=== PATIENT | female | born 1945 | race Caucasian/White ===

== ENCOUNTER 2020-05-03 14:55 | Outpatient (CLI) | payer OTHER, MEDICARE, SELFPAY | END 2020-05-03 14:56 | disposition home or self-care (01) | LOC: ANHCOVIDVC 14:55 | PROVIDERS: PCP Emergency Medicine | DX: Z23 Encounter for immunization (principal) | CPT/HCPCS: 0001A; 91300 ==

== ENCOUNTER 2020-05-24 14:41 | Outpatient (CLI) | payer OTHER, MEDICARE, SELFPAY | END 2020-05-24 14:42 | disposition home or self-care (01) | LOC: ANHCOVIDVC 14:41 | PROVIDERS: PCP Emergency Medicine | DX: Z23 Encounter for immunization (principal) | CPT/HCPCS: 0002A; 91300 ==

== ENCOUNTER 2020-06-26 08:07 | Emergency (ER) | payer OTHER, SELFPAY ==
--- NOTE | 2020-06-26 08:12 | ED.GENADULT ---
HPI - General Adult General Chief complaint: Unspecified Stated complaint: Abdominal Pain,Cough Time Seen by Provider: 06/26/20 08:23 Source: patient and RN notes reviewed Mode of arrival: ambulatory Limitations: no limitations History of Present Illness HPI narrative: 75-year-old female with history of multiple chronic conditions presents with concern for shortness of breath and nonproductive cough for 1 week. She reports a history of COPD, denies having used any of her regular medications or inhalers. Reports she has a nebulizer at home which she has not used. Denies using her albuterol inhaler recently. Reports symptoms of shortness of breath and cough have been worsening over the last week. Reports she is fully Covid vaccinated. In a separate complaint she reports intermittent mid abdominal discomfort. She denies any exacerbating or relieving factors. She denies nausea, vomiting, diarrhea, constipation. Had a normal bowel movement this morning. She reports normal appetite. She reports a history of having an ulcer, and reports this feels similar to her discomfort when she had an ulcer. She denies fever, body aches, chills, sweats. MD complaint: Shortness of breath Related Data Home Medications Medication Instructions Recorded Confirmed furosemide 40 mg PO DAILY 02/23/19 06/26/20 potassium chloride 10 meq PO DAILY 02/23/19 06/26/20 simvastatin 20 mg PO HS 02/23/19 06/26/20 metoprolol succinate 100 mg See Rx Instructions PO DAILY 03/16/20 06/26/20 tablet,extended release 24 hr Allergies Allergy/AdvReac Type Severity Reaction Status Date / Time No Known Drug Allergies Allergy Other Verified 06/26/20 08:17 Review of Systems Review of Systems: Narrative: CONSTITUTIONAL: Denies malaise, chills, sweats, or fever. EYES: Denies visual changes, redness, or discharge. ENT: Denies rhinorrhea, congestion, sinus pain, otalgia or sore throat. CARDIOVASCULAR: Denies chest pain, palpitations, or edema. RESPIRATORY: Reports cough, dyspnea. GASTROINTESTINAL: Reports mid abdominal discomfort. Denies nausea, vomiting, diarrhea, bloody, or mucous stools. GENITOURINARY: Denies dysuria, frequency, urgency or hematuria. SKIN: Denies rash or itching. MUSCULOSKELETAL: Denies myalgia. NEUROLOGIC: Denies numbness, weakness, or headache. All systems reviewed & are unremarkable except as noted in HPI and below PMFSH Past Medical History Medical History Afib Anxiety CHF (congestive heart failure) COPD (chronic obstructive pulmonary disease) DJD (degenerative joint disease) HTN (hypertension) Hypothyroid Ulcer Surgical History Surgical History History of knee replacement (~2013) No significant past surgical history Social History Social History Social History: Patient drinks coffee daily. Smoking status: Never smoker Alcohol intake: never Substance use: never Substance use type: does not use Gender identity (if verbalized by the patient): Female Spiritual care concerns: No Agree to blood products: No Comments At time of signature, agree with nursing past medical, surgical, social and family history. There is no relevant family history pertinent to the presenting complaint Exam Narrative: Exam Narrative: GENERAL: Well-appearing, well-nourished, and in no acute distress. HEAD: Normocephalic, atraumatic. EYES: PERRLA, conjunctivae clear, and EOMI. No nystagmus. ENT: Nares clear. Mucous membranes moist. NECK: Supple. CHEST: No respiratory distress. Clear to auscultation, aeration fair. No bony deformities, no asymmetry. Speaks in full sentences. HEART: Regular rate and rhythm. No murmur heard. Normal peripheral pulses. ABDOMEN: Soft, obese, nontender, normal active bowel sounds, no palpable masses. SKIN: Warm, dry, no rash. NEURO: Alert and or
[2020-06-26 08:21] VITALS: BP 132/72; PULSE 82; RESP 20; TEMP 36.7; O2SAT 98
[2020-06-26 08:24] VITALS: BP 132/72; PULSE 82; RESP 20; TEMP 36.7; O2SAT 98
[2020-06-26] MEDS: ALBUTEROL SULFATE NEB 2.5 MG/3 ML INH INHALATION (08:50)
[2020-06-26] MEDS: IPRATROPIUM BR 0.02% INH SOLN 0.5 MG/2.5 ML VIAL INHALATION (08:50)
[2020-06-26] MEDS: methylPREDNISolone SOD SUCC 125 MG VIAL IM (08:51)
[2020-06-26 09:26] VITALS: PULSE 86; RESP 18; O2SAT 96
== END 2020-06-26 09:26 | disposition home or self-care (01) ==
PROVIDERS: Emergency Provider Nurse Practitioner; PCP Emergency Medicine
DX: J44.1 Chronic obstructive pulmonary disease with (acute) exacerbation (principal); N39.0 Urinary tract infection, site not specified; I48.91 Unspecified atrial fibrillation; I11.0 Hypertensive heart disease with heart failure; I50.9 Heart failure, unspecified; E03.9 Hypothyroidism, unspecified; Z96.659 Presence of unspecified artificial knee joint
CPT/HCPCS: 81003; 87086; 87088; 96372; 99213; G0463; J2930

== ENCOUNTER 2020-11-24 11:08 | Inpatient (IN) | payer OTHER, MEDICAID, SELFPAY ==
[2020-11-24] VITALS (33 sets, daily range): BP systolic 92–130; BP diastolic 43–87; PULSE 88–144; RESP 16–44; TEMP 36.4–36.9; O2SAT 87–100; BMI 44.7
--- NOTE | ~2020-11-24 | XR_ITS ---
EXAMINATION: XR chest 1V portable EXAM DATE: 11/24/2020 11:51 INDICATION: Cough, dyspnea. TECHNIQUE: Portable AP frontal chest x-ray was obtained. Comparison is made to prior examination from 02/28/2019. FINDINGS: Moderately enlarged cardiac silhouette, cardiomegaly and/or pericardial effusion. There is pulmonary vascular congestion. There is indistinct reticulation with a bibasal predominance which may indicate pulmonary edema. Pneumonia not excludable. Please clinically correlate. No sizable pleural effusion. No pneumothorax. There are bony degenerative changes. IMPRESSION: 1. Findings consistent with CHF exacerbation. 2. Pneumonia not excludable. Reviewed, dictated and finalized at location A.
--- NOTE | ~2020-11-24 | XR_ITS ---
EXAMINATION: XR chest 1V portable DATE: 11/28/2020 07:57 INDICATION: Congestive heart failure. TECHNIQUE: A single frontal view of the chest was obtained. COMPARISON: Chest single view 11/24/2020 FINDINGS: There is a diffuse interstitial pattern, consistent with mild pulmonary edema. There is a s mall left pleural effusion. No pneumothorax. Cardiomegaly is noted. IMPRESSION: 1. Mild pulmonary edema. 2. Small left pleural effusion. 3. Cardiomegaly. Reviewed, dictated and finalized at location A.
--- NOTE | ~2020-11-24 | US_ITS ---
EXAMINATION: US venous doppler LE EXAM DATE: 11/25/2020 08:38 INDICATION: Bilateral leg edema, pain and swelling. Redness. TECHNIQUE: Multiple grayscale, color flow and Doppler images of the lower extremity deep venous syste ms bilaterally were obtained and reviewed. Comparison is made to prior examination from 2008. FINDINGS: RIGHT SIDE Common femoral: -------- Normal. Profunda femoral: ------- Normal. Femoral: Normal. Popliteal: Normal. Posterior tibial: ---------Thrombosed. Peroneal: Normal. Gastrocnemius: Not visualized. Soleus: Not visualized. Greater saphenous: ----- Normal. Lesser saphenous: ------ Not visualized. LEFT SIDE Common femoral: -------- Normal. Profunda femoral: ------- Normal. Femoral: Normal. Popliteal: Normal. Posterior tibial: ---------Thrombosed. Peroneal: Normal. Gastrocnemius: Not visualized. Soleus: Not visualized. Greater saphenous: ----- Normal. Lesser saphenous: ------ Not visualized. IMPRESSION: 1. Positive for bilateral posterior tibial deep venous thrombosis. I discussed this finding with nurse Silva in the IMU at 11/25/2020 08:49 CDT. Reviewed, dictated and finalized at location A.
--- NOTE | ~2020-11-24 | XR_ITS ---
EXAMINATION: XR chest 1V portable DATE: 11/30/2020 09:05 INDICATION: COPD, congestive heart failure and hypertension presenting with shortness of breath. TECHNIQUE: frontal view of the chest was obtained. COMPARISON: Chest radiograph dated 11/28/2020 FINDINGS: Linear bandlike discoid atelectasis at the right lower lung zone. Pulmonary vascular congestion witho ut gibran pulmonary edema. No pleural effusion or pneumothorax. Cardiomegaly. Moderate degenerative sk eletal changes in the spine and at both shoulders. IMPRESSION: 1. Cardiomegaly with pulmonary vascular congestion but without gibran pulmonary edema. 2. Discoid atelectasis in the right lower lung zone. Reviewed, dictated and finalized at location B.
--- NOTE | ~2020-11-24 | US_ITS ---
EXAMINATION: US arterial duplex LE EXAM DATE: 11/24/2020 12:39 INDICATION: Leg pain. TECHNIQUE: Multiple grayscale and Doppler images of the lower extremity arteries duplex were obtained (by a technologist who performed the scan) and subsequently reviewed. Comparison is made to prior ex amination from 02/24/2019. FINDINGS: Velocities reported in centimeters per second. Right common femoral artery 81, superficial femoral artery 91, popliteal 38. Biphasic waveforms. Left common femoral artery 58, superficial femoral artery 59, popliteal artery 43. Biphasic waveforms . No dopplerable signal was detected in the dorsalis pedis or posterior tibial arteries. Please correla te with the prior arterial Doppler report from 2019 indicating findings could be chronic. Some scatte red arterial sclerosis in the arteries proximally. IMPRESSION: Could not confirm arterial Doppler flow in calf arteries bilaterally, most likely chronic severe arteriosclerotic disease but please clinically correlate. Reviewed, dictated and finalized at location A. IMPRESSION: Could not confirm arterial Doppler flow in calf arteries bilaterall y, most likely chronic severe arteriosclerotic disease but please clinically co rrelate.
--- NOTE | 2020-11-24 11:27 | ECG_ITS ---
Measurements Intervals [place] Rate: 122 P: IA: 0 QRS: 135 QRSD: 106 T: 71 QT: 314 QTc: 449 Interpretive Statements ATRIAL FIBRILLATION WITH RAPID VENTRICULAR RESPONSE RIGHT AXIS DEVIATION BORDERLINE T WAVE ABNORMALITY- HIGH LATERAL LEADS BASELINE ARTIFACT- I, II, AVR, V2-V6 ABNORMAL ECG Electronically Signed On 11-24-2020 11:57:04 CDT by Lavon Tesfaye D.O.
--- NOTE | 2020-11-24 11:49 | ED.WEAKNESS ---
HPI - Weakness General Chief complaint: Weakness Stated complaint: WEAKNESS Time Seen by Provider: 11/24/20 11:19 Source: RN notes reviewed History of Present Illness HPI Narrative: Patient presents to emergency department from home via EMS for weakness. The patient recently moved into assisted living and normally calls her daughter every morning per the daughter the patient had called this morning and went to check on her and the patient been too weak to get up when EMS was called the patient was noted to have O2 saturations in the mid 80s was placed on nonrebreather. The patient states he has been more weak over the past 2 days with increasing shortness of breath she denies any fevers or chills chest pain abdominal pain nausea vomiting patient states she is on blood thinner which is Eliquis twice a day which she has been taking Related Data Home Medications Medication Instructions Recorded Confirmed furosemide 40 mg PO DAILY 02/23/19 06/26/20 potassium chloride 10 meq PO DAILY 02/23/19 06/26/20 simvastatin 20 mg PO HS 02/23/19 06/26/20 metoprolol succinate 100 mg See Rx Instructions PO DAILY 03/16/20 06/26/20 tablet,extended release 24 hr Allergies Allergy/AdvReac Type Severity Reaction Status Date / Time No Known Drug Allergies Allergy Other Verified 11/24/20 11:33 Review of Systems Review of Systems: Gen.: Denies fevers or chills Eyes: Denies eye pain or visual change ENT: Denies congestion Respiratory: See HPI CV: Denies chest pain or palpitations GI: Denies abdominal pain nausea, emesis or diarrhea Musculoskeletal: Denies back pain or muscle pain Neuro: Reports weakness Skin: Denies rash Except as documented, all other systems reviewed and negative [facility] Past Medical History Medical History Afib Anxiety CHF (congestive heart failure) COPD (chronic obstructive pulmonary disease) DJD (degenerative joint disease) HTN (hypertension) Hypothyroid Ulcer Surgical History Surgical History History of knee replacement (~2013) No significant past surgical history Social History Social History Social History: Patient drinks coffee daily. Smoking status: Never smoker Alcohol intake: never Substance use: never Substance use type: does not use Gender identity (if verbalized by the patient): Female Sexual Orientation (if Verbalized by the Patient): Straight or Heterosexual Spiritual care concerns: No Agree to blood products: No Exam Narrative: APPEARANCE: No acute distress, nontoxic, resting in bed EYES: EOMI HEENT: Normocephalic, atraumatic, OMM RESPIRATORY: Coarse breath sounds are bilateral lung montanez with crackles in the bilateral lung bases CARDIOVASCULAR: Irregular regular without murmurs rubs or gallops. ABDOMINAL: Soft, nontender, nondistended, no rebound or guarding MUSCULOSKELETAl: Moves all extremities. 3+ edema bilateral lower extremities, cyanosis and distal lower legs from mid [place] distally no dorsalis pedis pulse can be palpated NEURO: Awake and alert x 4. Following commands, speech normal, no focal deficits SKIN:: Warm, dry. No rashes lesions or abrasions PSYCHIATRIC: Normal affect/mood, Course Course Emergency Course: Reviewed old records the patient has had previous episode of similar with her legs she had had intervention performed by cardiology in February which showed collateral flow the patient has been on blood thinner since that time which she has been taking discussed with radiology and ultrasound appears unchanged from prior Discussed with NIK Cruz for Dr. Mccabe presentation work-up agrees with admission at this time Discussed with Eileen for Dr. Polanco for cardiology agrees with consult Discussed with patient and family results of workup and diagnosis. Discussed need for admission. Patient and
[2020-11-24 12:00] LABS: Basophils Percent Auto 0.3 % (0.2-1.2); Hematocrit 44.7 % (37.0-47.0); Hemoglobin 13.5 g/dL (12.0-15.0); Immature Granulocyte Absolute 0.07 K/mm3 (0.00-0.031); Immature Granulocyte Percent A 0.6 % (0-0.5); Lymphocytes Absolute Auto 1.57 K/mm3 (0.9-3.2); Lymphocytes Percent Auto 13.1 % (18.3-44.2); Mean Corpuscular HGB Conc 30.2 g/dl (32-36); Mean Corpuscular Hemoglobin 29.5 pg (26-34); Mean Corpuscular Volume 97.6 fl (80-100); Mean Platelet Volume 10.6 fl (7.4-10.4); Monocytes Absolute Auto 1.2 K/mm3 (0.1-0.6); Monocytes Percent Auto 9.6 % (2.6-8.5); Neutrophils Absolute Auto 9.2 K/mm3 (1.3-6.7); Neutrophils Percent Auto 76.4 % (45.5-73.1); Nucleated Red Blood Cells Perc 0.3 % (0.0-0.2); Platelet Count Result 198 k/mm3 (150-375); Red Blood Count 4.58 M/mm3 (4.2-5.4); Red Cell Distribution Width 15.5 % (11.5-14.5)
[2020-11-24 12:09] LABS: Anion Gap 8 mmol/L (8-16); Blood Urea Nitrogen 46 mg/dL (7-17); Calcium 8.3 mg/dL (8.4-10.2); Carbon Dioxide 33 mmol/L (22-30); Chloride 98 mmol/L (98-107); Estimated CRCL calculation 38 ml/min; Estimated Glomerular Filt Rate 29; Glucose 119 mg/dL (65-110); Potassium 5.6 mmol/L (3.4-5.0); Sodium 139 mmol/L (137-145)
[2020-11-24 12:10] LABS: Base Excess ABG 1.8 mEq/l (+/-2.0); Fractional Inspired Oxygen 32 %; HCO3 ABG 32.3 mEq/l (22.0-26.0); Oxygen Content ABG 19.8 %vol (16.0-22.0); Oxyhemoglobin 96.6 % THb (90.0-100.0); PO2 ABG 135.9 mmHg (80.0-100.0); PO2 FiO2 Ratio Arterial Blood 4.25 %; Total Hemoglobin 14.4 g/dL (12.0-18.0)
[2020-11-24 12:12] LABS: Add Urine Microscopic? YES; Appearance Urine Clear (Clear); Bilirubin Urine 1+ (Negative); Color Urine Amber (Yellow); Glucose Urine UA Negative (Negative); Ketones Urine Negative (Negative); Leukocyte Esterase Ur 1+ LEU/UL (Negative); Mucus Urine Rare /lpf; Nitrate Urine Negative (Negative); Protein Urine 2+ mg/dL (Negative); Specific Grav Ur 1.019 (1.001-1.035); Squamous Epithelial Cell Urine Moderate /hpf (Few); WBC Urine 21-30 /hpf
[2020-11-24 12:14] LABS: pH ABG 7.218 (7.350-7.450)
[2020-11-24 12:15] LABS: Device NASAL CANNULA; Site Drawn LEFT BRACHIAL
[2020-11-24 12:18] LABS: NT Pro B Type Natriuretic Pept 9720 pg/mL (5-100)
[2020-11-24] MEDS: FUROSEMIDE INJ 40 MG/4 ML VIAL IV PUSH (12:19)
[2020-11-24 12:23] LABS: Blood Urine Negative (Negative)
[2020-11-24 12:41] LABS: Lactic Acid Reflex 1.6 mmol/L (0.7-2.1)
[2020-11-24 12:45] LABS: Troponin I 0.018 ng/mL (0.000-0.034)
--- NOTE | 2020-11-24 12:54 | PC.NURSE ---
All labs sent, cultures sent. Patient was becoming more altered, frequently dosing off, placed on bipap by RT. Patient's daughter at bedside updated end educated on bipap/patient status. Remains on monitor. Waiting further labs to result. VS as documented.
[2020-11-24 13:14] LABS: INR 1.8; Prothrombin Time 20.6 Seconds (11.1-14.7)
[2020-11-24 13:25] LABS: Alanine Aminotransferase 724 U/L (4-35); Albumin Level 4.3 g/dL (3.5-5.1); Alkaline Phosphatase 106 U/L (38-126); Bilirubin,Total 0.8 mg/dL (0.2-1.3)
[2020-11-24 13:26] LABS: Aspartate Amino Transferase 1013 U/L (14-36)
[2020-11-24 13:56] LABS: Alveolar/Arterial O2 Gradient 46.7 mmHg; Base Excess ABG 4.1 mEq/l (+/-2.0); Fractional Inspired Oxygen 30 %; HCO3 ABG 33.8 mEq/l (22.0-26.0); Oxygen Content ABG 18.2 %vol (16.0-22.0); Oxygen Saturation ABG 92.9 % (95.0-100.0); Oxyhemoglobin 91.8 % THb (90.0-100.0); PO2 FiO2 Ratio Arterial Blood 2.57 %; Total Hemoglobin 14.1 g/dL (12.0-18.0)
[2020-11-24 14:07] LABS: Device NON-INVASIVE VENT; PCO2 ABG 76.8 mmHg (35.0-45.0); Site Drawn RIGHT BRACHIAL; pH ABG 7.261 (7.350-7.450)
[2020-11-24 14:08] LABS: Non-Invasive Expiratory Pressure 8 CMH2O; Non-Invasive Inspiratory Pressure 16 CMH2O; Non-Invasive Vent Rate 20 /MIN
[2020-11-24 14:30] LABS: Creatine Kinase 55 U/L (30-135)
[2020-11-24 14:53] LABS: Lipase 68 U/L (23-300)
[2020-11-24 15:02] LABS: Acetaminophen < 10 ug/mL (10-30)
[2020-11-24] MEDS: MORPHINE SULFATE (*CRX) 2 MG/ML INJ 1 MG IV PUSH (15:12)
--- NOTE | 2020-11-24 18:45 | PC.NURSE ---
Patient's daughter took patient's purse home per patient request. Patient's dentures and cell phone remain with patient in admission room.
--- NOTE | 2020-11-24 18:51 | ADMGEN ---
This patient, Lavern Roland, was admitted to IMU Room 202-01 at 1822. Patient/family oriented to hospital policies and general routines including ID bracelet, bed and alarms, visiting hours, pain management, procedures, bathroom and other care routines, personal items, smoking policy, room service/diet, and visiting hours. Information on how to activate the Rapid Response Team has been discussed. Patient/Family are encouraged to report perceived risks to care and to ask questions if they do not understand what they are told or what they should do.
--- NOTE | 2020-11-24 19:00 | PM.IMHP ---
H&P: HPI History of Present Illness Date/Time: 11/24/20 19:00 <Nancy Jacobsen PA-C - Last Filed: 11/25/20 00:09> Chief Complaint: Weakness. <Nancy Jacobsen PA-C - Last Filed: 11/25/20 00:09> Narrative: This is a 75-year-old female with persistent atrial fibrillation, hypertension, dyslipidemia, peripheral arterial disease, and morbid obesity who presented to the emergency department earlier today via EMS for evaluation of generalized weakness. The patient is chronically debilitated has been wheelchair-bound for quite some time though over the past 1 week she has become progressively more weak to the point where she was unable to get herself out of her wheelchair this morning. She has had quite a few changes in her life within the past month including the of her and moving to assisted living at [facility]. She admits to being quite depressed since that time with loss of motivation an appetite. Her daughter reports that she has gone down help quite quickly since moving to [facility] just 1 week ago. On EMS arrival today her SpO2 was 85% on room air and a blood gas done emergency department was consistent with acute on chronic respiratory acidosis for which she was started on a BiPAP. With further questioning she endorses chronic dyspnea on minimal exertion, orthopnea, and lower extremity edema which have all been unchanged. Her chest x-ray today showed findings consistent with CHF exacerbation and notable labs include an increase in her BUN and creatinine from baseline as well as elevated AST an ALT of 1013 in 724 respectively. She has had a mild nonproductive cough for about a week and a half but no other cold or flu symptoms. She states compliance with her medications. She denies known exposure to those positive for COVID 19. She has no known history of kidney or liver disease. No recent change in medications. No jaundice or pruritus. She has not had abdominal pain. She has not noticed a decrease in urine output. No syncope and near-syncope. No fever, chills, or sweats. No recent cold or flu symptoms. She has not had chest pain. No nausea or vomiting. No focal weakness. Her distal extremities are chronically cool and discolored, which is unchanged. She is not having any worse pain in her legs than usual. <Nancy Jacobsen PA-C - Last Filed: 11/25/20 00:09> Review of Systems Review of Systems: Twelve systems were reviewed with pertinent positives and negatives as per HPI. No fever, chills, or sweats. She denies confusion. She has chronic tingling and even some mild numbness in her feet but that is been ongoing for a couple of years due to her vascular disease. Her feet are always cool and discolored and her chronic discomfort in the lower legs has been unchanged. She has chronic orthopnea which is unchanged. No known history of sleep apnea. She denies vomiting. Frequent constipation for which she takes laxatives which in turn causes her to have multiple loose stools. Mild dysuria though no urgency or hesitancy. Except as documented, all other systems were reviewed and are negative. <Nancy Jacobsen PA-C - Last Filed: 11/25/20 00:09> [facility] Past Medical History Medical History: Medical History (Updated 11/25/20 @ 09:33 by Marvin Andujar MD) Anxiety Chronic obstructive pulmonary disease Chronic respiratory failure Evidence both chronic hypoxic and hypercapnic respiratory failure by ABGs. Not on home oxygen. Congestive heart failure Echocardiogram on 11/07/2018 showed an LV systolic function at the lower limit of normal with an EF estimated 50 to 55%, severe biatrial enlargement, normal RV systolic pressure, and mild tricuspid regurgitation. Degenerative joint disease Gastroesophageal reflux disease History of peptic ulcer Hypertension Hypothyroidism Morbid obesity Peripheral arterial disease Arterial Dopplers of the lower extremities in January 2019 showed occlusion distally. Peripheral ang
[2020-11-24 19:28] LABS: Troponin I 0.045 ng/mL (0.000-0.034)
[2020-11-24 23:32] LABS: Albumin Level 4.2 g/dL (3.5-5.1); Alkaline Phosphatase 105 U/L (38-126); Anion Gap 7 mmol/L (8-16); Bilirubin,Total 0.7 mg/dL (0.2-1.3); Blood Urea Nitrogen 50 mg/dL (7-17); Calcium 8.3 mg/dL (8.4-10.2); Carbon Dioxide 39 mmol/L (22-30); Chloride 97 mmol/L (98-107); Estimated CRCL calculation 41 ml/min; Estimated Glomerular Filt Rate 31; Glucose 98 mg/dL (65-110); Magnesium 1.4 mg/dL (1.6-2.3); Potassium 5.4 mmol/L (3.4-5.0); Sodium 143 mmol/L (137-145)
[2020-11-24 23:34] LABS: Alveolar/Arterial O2 Gradient 124.9 mmHg; Base Excess ABG 3.5 mEq/l (+/-2.0); Carboxyhemoglobin 0.2 % THb (0-2.0); Fractional Inspired Oxygen 45 %; HCO3 ABG 32.9 mEq/l (22.0-26.0); Methemoglobin ABG 0.4 %THb (0-1.5); Oxygen Content ABG 19.1 %vol (16.0-22.0); Oxygen Saturation ABG 97.3 % (95.0-100.0); Oxyhemoglobin 96.4 % THb (90.0-100.0); PO2 ABG 111.6 mmHg (80.0-100.0); PO2 FiO2 Ratio Arterial Blood 2.48 %
[2020-11-24 23:35] LABS: pH ABG 7.265 (7.350-7.450)
[2020-11-24 23:36] LABS: Troponin I 0.049 ng/mL (0.000-0.034)
[2020-11-24 23:36] LABS: Device NON-INVASIVE VENT; Modified Allen's Test Pass; PCO2 ABG 74.2 mmHg (35.0-45.0); Site Drawn LEFT RADIAL
[2020-11-24 23:37] LABS: Alanine Aminotransferase 834 U/L (4-35); Aspartate Amino Transferase 975 U/L (14-36)
[2020-11-24 23:37] LABS: Non-Invasive Expiratory Pressure 8 CMH2O; Non-Invasive Inspiratory Pressure 16 CMH2O; Non-Invasive Vent Rate 20 /MIN
[2020-11-25] VITALS (25 sets, daily range): BP systolic 109–128; BP diastolic 55–75; PULSE 81–118; RESP 22–37; TEMP 36.1–36.5; O2SAT 93–100
[2020-11-25 00:09] LABS: Hepatitis C Virus Antibody Negative (Negative)
[2020-11-25] MEDS: FUROSEMIDE INJ 40 MG/4 ML VIAL IV PUSH ×3 (00:53→18:07)
[2020-11-25 01:31] LABS: HAV RESULT Negative (Negative); Hepatitis B Surface Antigen Negative (Negative)
[2020-11-25 03:23] LABS: Hepatitis B Core IgM Result Negative (Negative)
[2020-11-25 05:10] LABS: Basophils Percent Auto 0.3 % (0.2-1.2); Eosinophils Percent Auto 0.2 % (0-4.4); Hematocrit 43.9 % (37.0-47.0); Hemoglobin 13.4 g/dL (12.0-15.0); Immature Granulocyte Absolute 0.03 K/mm3 (0.00-0.031); Immature Granulocyte Percent A 0.3 % (0-0.5); Lymphocytes Absolute Auto 1.26 K/mm3 (0.9-3.2); Lymphocytes Percent Auto 14.4 % (18.3-44.2); Mean Corpuscular HGB Conc 30.5 g/dl (32-36); Mean Corpuscular Hemoglobin 29.5 pg (26-34); Mean Corpuscular Volume 96.7 fl (80-100); Mean Platelet Volume 10.4 fl (7.4-10.4); Monocytes Absolute Auto 1.1 K/mm3 (0.1-0.6); Monocytes Percent Auto 12.4 % (2.6-8.5); Neutrophils Absolute Auto 6.3 K/mm3 (1.3-6.7); Neutrophils Percent Auto 72.4 % (45.5-73.1); Platelet Count Result 170 k/mm3 (150-375); Red Blood Count 4.54 M/mm3 (4.2-5.4); Red Cell Distribution Width 15.3 % (11.5-14.5); White Blood Count 8.7 K/mm3 (4.5-10.0)
[2020-11-25 05:26] LABS: Alveolar/Arterial O2 Gradient 69.3 mmHg; Base Excess ABG 8.2 mEq/l (+/-2.0); Carboxyhemoglobin 0.4 % THb (0-2.0); Fractional Inspired Oxygen 35 %; HCO3 ABG 36.6 mEq/l (22.0-26.0); Methemoglobin ABG 0.4 %THb (0-1.5); Modified Allen's Test Pass; PCO2 ABG 69.4 mmHg (35.0-45.0); PO2 ABG 99.6 mmHg (80.0-100.0); PO2 FiO2 Ratio Arterial Blood 2.85 %; Reduced Hemoglobin 3.2 %THb (0-5.0); Site Drawn LEFT RADIAL
[2020-11-25 05:27] LABS: Device NON-INVASIVE VENT
[2020-11-25 05:29] LABS: Non-Invasive Expiratory Pressure 8 CMH2O; Non-Invasive Inspiratory Pressure 20 CMH2O; Non-Invasive Vent Rate 20 /MIN
[2020-11-25 05:41] LABS: Albumin Level 3.9 g/dL (3.5-5.1); Alkaline Phosphatase 100 U/L (38-126); Bilirubin,Total 0.8 mg/dL (0.2-1.3); Blood Urea Nitrogen 51 mg/dL (7-17); Calcium 8.5 mg/dL (8.4-10.2); Carbon Dioxide > 40 mmol/L (22-30); Chloride 96 mmol/L (98-107); Estimated CRCL calculation 47 ml/min; Estimated Glomerular Filt Rate 36; Glucose 85 mg/dL (65-110); Potassium 5.1 mmol/L (3.4-5.0); Sodium 141 mmol/L (137-145)
[2020-11-25 05:53] LABS: Alanine Aminotransferase 812 U/L (4-35); Aspartate Amino Transferase 775 U/L (14-36)
[2020-11-25] MEDS: LEVOTHYROXINE SODIUM 25 MCG TABLET PO (06:06)
[2020-11-25] MEDS: LEVOTHYROXINE SODIUM 112 MCG TABLET PO (06:06)
--- NOTE | 2020-11-25 09:23 | PM.CNCAR ---
Assessment and Plan Assessment and plan (1) Atrial fibrillation with rapid ventricular response: Code(s): I48.91 - Unspecified atrial fibrillation Status: Acute Assessment and Plan: Heart rate is marginally controlled. Continue metoprolol succinate. Continue Eliquis for anticoagulation. 2D echocardiogram Doppler be ordered and reviewed. Continue telemetry monitoring.? Whether not she has been receiving metoprolol home at [facility] since the move. (2) Elevated LFTs: Code(s): R79.89 - Other specified abnormal findings of blood chemistry Status: Acute Assessment and Plan: Likely secondary to hepatic congestion. Hold statin. LFTs improving (3) Hypertension: Code(s): I10 - Essential (primary) hypertension Status: Acute Assessment and Plan: Controlled (4) Congestive heart failure: Code(s): I50.9 - Heart failure, unspecified Status: Acute Assessment and Plan: Acute on chronic diastolic congestive heart failure. Will need to hold spironolactone and lisinopril because of acute renal failure. Gradually restart when blood pressure and kidney function allow. Intake and outputs, daily weights. Continue IV furosemide 40 mg q. 12 hours. Will likely be able to reduce this dose tomorrow (5) Peripheral arterial disease: Code(s): I73.9 - Peripheral vascular disease, unspecified Status: Acute (6) Chronic anticoagulation: Code(s): Z79.01 - retirement (current) use of anticoagulants Status: Acute Assessment and Plan: Continue Eliquis (7) Acute and chronic respiratory failure: Code(s): J96.20 - Acute and chronic respiratory failure, unspecified whether with hypoxia or hypercapnia Status: Acute Assessment and Plan: On BiPAP. Wean as able. History of Present Illness History of Present Illness Consult date/time: 11/25/20 09:23 Requesting physician: Pepe Coughlin DO Consult reason: congestive heart failure Reason For Visit: acute respiratory failure with hypoxia and hyperca Narrative: Date of service 11/25/2020 Reason consultation CHF Requesting provider: Dr. Coughlin History patient is a 75-year-old female with persistent atrial fibrillation, hypertension, chronic diastolic heart failure, nonischemic cardiomyopathy, pulmonary hypertension, morbid obesity, hyperlipidemia, chronic anticoagulation who presented to the hospital after recent move to [facility]. Her recently and she had been moved to [facility] about 1 week ago where she has quickly declined. She came to the hospital because of worsening generalized weakness, altered labs as well as decrease oxygen level. Supposedly her SpO2 was 85% when EMS arrived. She was started on BiPAP for acute on chronic respiratory failure. Patient does state that she has been more short of breath the past several days. She does have chronic lower extremity swelling but not particularly worse than usual. She denies any chest pain, palpitations, syncope or presyncope. Her BUN and creatinine had risen as well as significant rise in her liver function. She was found to be in atrial fibrillation with rapid ventricular response also. She is on chronic Eliquis as well as metoprolol. Rate control strategy has been pursued. She currently is irritated by the BiPAP but we have been able to wean slowly. Review of Systems Review of Systems: All systems reviewed & are unremarkable except as noted in HPI and below Constitutional: Constitutional: Reports weakness Eyes: Eyes: Denies blurry vision ENT: Reports Normal hearing present Cardiovascular: Cardiovascular: Denies chest pain and Reports leg edema Respiratory: Respiratory: Reports dyspnea and Reports dyspnea on exertion Gastrointestinal: Gastrointestinal: Denies abdominal pain Genitourinary: Genitourinary: Denies hematuria Musculoskeletal: Musculoskeletal: Denies back pain and Denies nec
[2020-11-25] MEDS: METOPROLOL SUCCINATE EXT REL 50 MG TABCR 150 MG PO (09:26)
[2020-11-25] MEDS: FLUTICASONE PROPIONATE 0.05% NA SPR 16 GM BTL (*BKC) 1 SPRAY NASAL (09:26)
[2020-11-25] MEDS: APIXABAN 5 MG TABLET PO ×2 (09:26→18:07)
[2020-11-25] MEDS: PANTOPRAZOLE 40 MG TABLET PO (09:26)
[2020-11-25 11:36] LABS: Alveolar/Arterial O2 Gradient 55.9 mmHg; Base Excess ABG 8.9 mEq/l (+/-2.0); Carboxyhemoglobin 0.6 % THb (0-2.0); Fractional Inspired Oxygen 30 %; HCO3 ABG 37.2 mEq/l (22.0-26.0); Methemoglobin ABG 0.3 %THb (0-1.5); Oxygen Content ABG 18.5 %vol (16.0-22.0); Oxygen Saturation ABG 94.6 % (95.0-100.0); Oxyhemoglobin 93.6 % THb (90.0-100.0); Reduced Hemoglobin 5.5 %THb (0-5.0); pH ABG 7.355 (7.350-7.450)
[2020-11-25 11:39] LABS: PCO2 ABG 68.1 mmHg (35.0-45.0)
[2020-11-25 11:40] LABS: Device NON-INVASIVE VENT; Modified Allen's Test Pass; Non-Invasive Expiratory Pressure 10 CMH2O; Non-Invasive Inspiratory Pressure 16 CMH2O; Non-Invasive Vent Rate 18 /MIN; Site Drawn LEFT RADIAL
--- NOTE | 2020-11-25 15:40 | PM.IMPN ---
Progress Note: A&P Assessment and Plan (1) Atrial fibrillation with rapid ventricular response: Code(s): I48.91 - Unspecified atrial fibrillation Status: Acute Assessment and Plan: Continue metoprolol for rate control. Patient reports taking Eliquis at home however it does not look like it has been filled recently per external medication history. Will resume given persistent atrial fibrillation and peripheral arterial disease. 11/25 Interval history patient is 75-year-old female with history of atrial fibrillation, hypertension, chronic diastolic dysfunction, morbidly obese patient presented emergency department with persistent atrial fibrillation with RVR the rate is now controlled with metoprolol, patient recently passed a patient moved to assisted living and concern is patient may not be taking her medication properly and developed shortness of breath and was hypoxic and room air, seen by Cardiology resume metoprolol and Eliquis, lower extremity Doppler showed bilateral posterior tibial DVT patient currently on Eliquis, will continue present managed will have a PT OT evaluate the patient and further recommendation to follow. (2) Acute on chronic respiratory failure with hypoxia and hypercapnia: Code(s): J96.21 - Acute and chronic respiratory failure with hypoxia; J96.22 - Acute and chronic respiratory failure with hypercapnia Status: Acute Assessment and Plan: Patient has been started on BiPAP. I suspect that she has underlying obesity hypoventilation syndrome with suspected obstructive sleep apnea and she may very well require PAP therapy while sleeping. (3) Acute kidney injury: Code(s): N17.9 - Acute kidney failure, unspecified Status: Acute Assessment and Plan: Precipitating etiology is not entirely clear. She has not been eating well since the of her approximately 1 month ago thus she may be a bit dry however she is volume overloaded with lower extremity edema and pulmonary vascular congestion with edema. She will be cautiously diuresed with close monitoring of volume status as well as renal function. Insert Londono catheter to monitor strict I/O. Spironolactone and lisinopril are on hold for now. (4) Elevated LFTs: Code(s): R79.89 - Other specified abnormal findings of blood chemistry Status: Acute Assessment and Plan: Etiology is not entirely clear at this time. AST and ALT are quite elevated though bilirubin alkaline phosphatase are within normal limits. CK was normal and acetaminophen levels were undetectable. Right upper quadrant ultrasound hepatic panel ordered for further evaluation. Echocardiogram is pending to evaluate for right-sided heart failure which could be causing hepatic congestion. (5) Peripheral arterial disease: Code(s): I73.9 - Peripheral vascular disease, unspecified Status: Acute Assessment and Plan: Distal pulses of the lower extremities have not been able to be palpated as far back as January 2019 due to her vascular disease as detailed above. She denies change from baseline and reports chronic, mild cyanosis, cool feet, paresthesias, and mild numbness at baseline. (6) Hypertension: Code(s): I10 - Essential (primary) hypertension Status: Acute Assessment and Plan: Blood pressures were reviewed and they have been stable aside from to softer readings in the 90s systolic though those were most likely related to cuff placement and cuff size. Monitor blood pressures closely while diuresing. Spironolactone and lisinopril on hold given acute kidney injury. (7) Hypothyroidism: Code(s): E03.9 - Hypothyroidism, unspecified Status: Acute Assessment and Plan: Continue levothyroxine and check TSH. (8) Chronic obstructive pulmonary disease: Code(s): J44.9 - Chronic obstructive pulmonary disease, unspecified Status: Acute Assessment and Plan
--- NOTE | 2020-11-25 21:51 | ECHO_ITS ---
Patient Info Name: Lavern Roland Age: 75 years : 1945 Gender: Female Ht: 70 in Wt: 311 lbs BSA: 2.71 m2 HR: 95 bpm BP: 111 / 56 mmHg Heart Rhythm: Atrial Fibrillation Exam Date: 11/25/2020 10:59 AM Exam Location: [facility] Patient Status: Inpatient Admit Date: 11/24/2020 Staff Ordering Physician: Nancy Jacobsen PA-C Plastics Supervisor: Nader Bernardo, LACY, RT Attending Provider: Polo Mccabe MD Referring Physician: Delmar MARTINEZ; Exam Type: CA echo doppler color flow Study Info Indications I50.9 - Heart failure, unspecified Complete two-dimensional, color flow and Doppler transthoracic echocardiogram is performed. Summary 1. Complete two-dimensional, color flow and Doppler transthoracic echocardiogram is performed. 2. Left ventricular chamber dimension is normal. 3. Left ventricular systolic function is normal, estimated at 65-70%. 4. There is mildly increased left ventricular wall thickness. 5. The left ventricular diastolic function is indeterminate. 6. Left atrial chamber dimension is severely enlarged. 7. Right atrial chamber dimension is severely enlarged. 8. There is mild mitral valve regurgitation. 9. There is moderate tricuspid valve regurgitation. 10. Moderate pulmonary hypertension, estimated pulmonary arterial systolic pressure is 49 mmHg. Left Ventricle Left ventricular chamber dimension is normal. Left ventricular systolic function is normal, estimated at 65-70%. There is mildly increased left ventricular wall thickness. The left ventricular diastolic function is indeterminate. Right Ventricle Right ventricular chamber dimension is normal. Right ventricular systolic function is normal. Left Atria Left atrial chamber dimension is severely enlarged. Right Atria Right atrial chamber dimension is severely enlarged. Atrial Septum Intact interatrial septum visualized by color flow imaging. Aortic Valve The aortic valve is not well visualized. There is no aortic valve stenosis. There is trace aortic valve regurgitation. Pulmonic Valve The pulmonic valve is not well visualized. There is no pulmonic valve stenosis. There is trace pulmonic regurgitation. Mitral Valve The mitral valve has normal leaflets. There is no mitral valve stenosis. There is mild mitral valve regurgitation. Tricuspid Valve The tricuspid valve leaflets are normal. There is no significant tricuspid valve stenosis. There is moderate tricuspid valve regurgitation. Moderate pulmonary hypertension, estimated pulmonary arterial systolic pressure is 49 mmHg. Pericardium/Pleural The pericardium appears normal. There is trivial pericardial effusion. Inferior Vena Cava Dilated inferior vena cava with <50% collapse upon inspiration consistent with elevated right atrial pressure, 15 mmHg. Aorta The aortic root size at the sinus of Valsalva is normal. The prox ascending aorta size is normal. Left Ventricular Outflow Tract Name Value Normal LVOT 2D LVOT Diameter 2.1 cm LVOT Doppler LVOT Peak Gradient 2 mmHg LVOT Mean Gradient
[2020-11-26] VITALS (16 sets, daily range): BP systolic 97–151; BP diastolic 56–97; PULSE 87–121; RESP 20–43; TEMP 36.3–36.9; O2SAT 90–99
[2020-11-26] MEDS: LEVOTHYROXINE SODIUM 25 MCG TABLET PO (06:14)
[2020-11-26] MEDS: LEVOTHYROXINE SODIUM 112 MCG TABLET PO (06:14)
--- NOTE | 2020-11-26 06:36 | PM.PNCARD ---
Progress Note: A&P Assessment and Plan (1) Congestive heart failure: Code(s): I50.9 - Heart failure, unspecified Status: Acute Assessment and Plan: Acute on chronic diastolic congestive heart failure. Holding spironolactone and lisinopril because of acute renal failure. Gradually restart when blood pressure and kidney function allow. Diuresing well but pulmonary exam is still suggesting CHF. Continue IV furosemide 40 mg q. 12 hours for another day and then perhaps reduce the dose. (2) Atrial fibrillation with rapid ventricular response: Code(s): I48.91 - Unspecified atrial fibrillation Status: Acute Assessment and Plan: Heart rate is marginally controlled. Continue metoprolol succinate at home dose 150 mg daily. Continue Eliquis for chronic anticoagulation. (3) Acute and chronic respiratory failure: Code(s): J96.20 - Acute and chronic respiratory failure, unspecified whether with hypoxia or hypercapnia Status: Acute Assessment and Plan: Now on oxygen by nasal cannula. (4) Hypertension: Code(s): I10 - Essential (primary) hypertension Status: Acute Assessment and Plan: Controlled (5) CKD (chronic kidney disease), stage III: Code(s): N18.30 - Chronic kidney disease, stage 3 unspecified Status: Acute Assessment and Plan: Renal function looks better, oddly. Re-evaluate tomorrow; daily BMP (6) Elevated LFTs: Code(s): R79.89 - Other specified abnormal findings of blood chemistry Status: Acute Assessment and Plan: Likely secondary to hepatic congestion. Hold statin. LFTs improving Subjective Date/time seen: 11/26/20 06:36 Interval history: Follow-up for persistent atrial fibrillation, admitted with AFib RVR and acute on chronic diastolic heart failure. Also has: Nonischemic cardiomyopathy, pulmonary hypertension, hypertension and chronic anticoagulation. Admitted with hypoxia and was transiently on BiPAP. Unclear if she was taking her metoprolol regularly as she recently moved to [facility] after her 's . 11/25/2020: Metoprolol resumed. Being diuresed with IV furosemide. Spironolactone held for acute renal failure. Date of service 11/26/2020: Remains on BiPAP overnight, now 3.5 L. Blood pressure is somewhat soft this morning, better now. Heart rate 90-120 Diuresed well,-2400 cc. Still feels congested with a cough. Very weak. Echo showed EF 65-70%. Apnea link was not highly suspicious of sleep apnea. Review of Systems Constitutional: Constitutional: Reports weakness Eyes: Eyes: Reports no additional eye complaints ENT: Denies nasal congestion Cardiovascular: Cardiovascular: Denies chest pain, Denies pedal edema, Denies leg edema, Denies lightheadedness and Denies palpitations Respiratory: Respiratory: Reports chest congestion, Reports cough, Denies hemoptysis, Reports dyspnea and Reports dyspnea on exertion Gastrointestinal: Gastrointestinal: Denies abdominal pain and Denies hematochezia Genitourinary: Genitourinary: Denies hematuria Musculoskeletal: Musculoskeletal: Reports myalgias Integumentary/Breasts: Skin/Breast: Denies wounds Neurologic: Denies confusion Psychiatric: Psychiatric: Denies behavioral changes Exam Const: General: no acute distress and uncomfortable HENMT: General nose exam: no epistaxis Eyes: EOM: EOMs intact bilaterally Neck: Neck: supple Resp: Effort & Inspection: normal respiratory effort Auscultation: rales Other: Rales about 1/4 to 1/3 up, frequent congested cough Cardio: Rate: tachycardic Rhythm: abnormal rhythm irregularly irregular Heart sounds: no murmurs Skin: General skin exam: normal color Neuro: Cognition (Neuro): normal cognition Speech: normal speech Extrem: General: no edema and no pedal edema Psych: Mental Status: mental status grossly normal Affect: normal affect Objective Data Vi
[2020-11-26] MEDS: METOPROLOL SUCCINATE EXT REL 50 MG TABCR 150 MG PO (08:51)
[2020-11-26] MEDS: APIXABAN 5 MG TABLET PO ×2 (08:51→18:04)
[2020-11-26] MEDS: FLUTICASONE PROPIONATE 0.05% NA SPR 16 GM BTL (*BKC) 1 SPRAY NASAL (08:51)
[2020-11-26] MEDS: PANTOPRAZOLE 40 MG TABLET PO (08:52)
[2020-11-26] MEDS: FUROSEMIDE INJ 40 MG/4 ML VIAL IV PUSH ×2 (08:53→18:04)
[2020-11-26 10:17] LABS: Hematocrit 42.3 % (37.0-47.0); Hemoglobin 12.9 g/dL (12.0-15.0); Mean Corpuscular HGB Conc 30.5 g/dl (32-36); Mean Corpuscular Hemoglobin 28.7 pg (26-34); Mean Platelet Volume 9.9 fl (7.4-10.4); Platelet Count Result 215 k/mm3 (150-375); White Blood Count 9.1 K/mm3 (4.5-10.0)
[2020-11-26 10:37] LABS: Blood Urea Nitrogen 37 mg/dL (7-17); Calcium 8.6 mg/dL (8.4-10.2); Carbon Dioxide > 40 mmol/L (22-30); Chloride 92 mmol/L (98-107); Estimated CRCL calculation 78 ml/min; Estimated Glomerular Filt Rate > 60; Glucose 154 mg/dL (65-110); Magnesium 1.5 mg/dL (1.6-2.3); Potassium 4.3 mmol/L (3.4-5.0); Sodium 139 mmol/L (137-145)
--- NOTE | 2020-11-26 12:58 | PM.IMPN ---
Progress Note: A&P Assessment and Plan (1) Atrial fibrillation with rapid ventricular response: Code(s): I48.91 - Unspecified atrial fibrillation Status: Acute Assessment and Plan: Continue metoprolol for rate control. Patient reports taking Eliquis at home however it does not look like it has been filled recently per external medication history. Will resume given persistent atrial fibrillation and peripheral arterial disease. 11/26/20 12:58 11/25 Interval history patient is 75-year-old female with history of atrial fibrillation, hypertension, chronic diastolic dysfunction, morbidly obese patient presented emergency department with persistent atrial fibrillation with RVR the rate is now controlled with metoprolol, patient recently passed a patient moved to assisted living and concern is patient may not be taking her medication properly and developed shortness of breath and was hypoxic and room air, seen by Cardiology resume metoprolol and Eliquis, lower extremity Doppler showed bilateral posterior tibial DVT patient currently on Eliquis, will continue present managed will have a PT OT evaluate the patient and further recommendation to follow. 11/26 Interval history: patient wore her BiPAP last night, states feeling much better compared to when she arrived, not as short of breath, heart rate is controlled, patient with bilateral lower extremity DVT being treated with Eliquis, patient was able to tolerate clear liquid will advanced her diet as tolerated, will have a PT OT evaluate the patient, patient will benefit with acute rehab. will continue to monitor and further recommendation to follow (2) Acute on chronic respiratory failure with hypoxia and hypercapnia: Code(s): J96.21 - Acute and chronic respiratory failure with hypoxia; J96.22 - Acute and chronic respiratory failure with hypercapnia Status: Acute Assessment and Plan: Patient has been started on BiPAP. I suspect that she has underlying obesity hypoventilation syndrome with suspected obstructive sleep apnea and she may very well require PAP therapy while sleeping. (3) Acute kidney injury: Code(s): N17.9 - Acute kidney failure, unspecified Status: Acute Assessment and Plan: Precipitating etiology is not entirely clear. She has not been eating well since the of her approximately 1 month ago thus she may be a bit dry however she is volume overloaded with lower extremity edema and pulmonary vascular congestion with edema. She will be cautiously diuresed with close monitoring of volume status as well as renal function. Insert Londono catheter to monitor strict I/O. Spironolactone and lisinopril are on hold for now. (4) Elevated LFTs: Code(s): R79.89 - Other specified abnormal findings of blood chemistry Status: Acute Assessment and Plan: Etiology is not entirely clear at this time. AST and ALT are quite elevated though bilirubin alkaline phosphatase are within normal limits. CK was normal and acetaminophen levels were undetectable. Right upper quadrant ultrasound hepatic panel ordered for further evaluation. Echocardiogram is pending to evaluate for right-sided heart failure which could be causing hepatic congestion. (5) Peripheral arterial disease: Code(s): I73.9 - Peripheral vascular disease, unspecified Status: Acute Assessment and Plan: Distal pulses of the lower extremities have not been able to be palpated as far back as January 2019 due to her vascular disease as detailed above. She denies change from baseline and reports chronic, mild cyanosis, cool feet, paresthesias, and mild numbness at baseline. (6) Hypertension: Code(s): I10 - Essential (primary) hypertension Status: Acute Assessment and Plan: Blood pressures were reviewed and they have been stable aside from to softer readings in the 90s systolic though those were most likely related to cuff jose carlos
[2020-11-26 14:29] LABS: Base Excess ABG 13.6 mEq/l (+/-2.0); Fractional Inspired Oxygen 36 %; HCO3 ABG 40.1 mEq/l (22.0-26.0); Oxygen Content ABG 17.6 %vol (16.0-22.0); Oxyhemoglobin 85.6 % THb (90.0-100.0); PCO2 ABG 57.3 mmHg (35.0-45.0); PO2 ABG 50.2 mmHg (80.0-100.0); PO2 FiO2 Ratio Arterial Blood 1.39 %; Total Hemoglobin 14.7 g/dL (12.0-18.0); pH ABG 7.463 (7.350-7.450)
[2020-11-26 14:30] LABS: Modified Allen's Test Pass; Oxygen Saturation ABG 86.6 % (95.0-100.0); Site Drawn RIGHT RADIAL
[2020-11-26 14:31] LABS: Device NASAL CANNULA
[2020-11-26] MEDS: MAGNESIUM OXIDE 400 MG TABLET PO (18:04)
[2020-11-27] VITALS (16 sets, daily range): BP systolic 102–120; BP diastolic 50–65; PULSE 83–107; RESP 22–28; TEMP 36.2–36.8; O2SAT 89–100
[2020-11-27] MEDS: MORPHINE SULFATE (*CRX) 2 MG/ML INJ 1 MG IV PUSH (03:46)
[2020-11-27] MEDS: ACETAMINOPHEN 500 MG TABLET 1000 MG PO (03:47)
[2020-11-27 05:51] LABS: Hematocrit 43.2 % (37.0-47.0); Hemoglobin 13.3 g/dL (12.0-15.0); Mean Corpuscular HGB Conc 30.8 g/dl (32-36); Mean Corpuscular Hemoglobin 29.7 pg (26-34); Mean Corpuscular Volume 96.4 fl (80-100); Mean Platelet Volume 10.2 fl (7.4-10.4); Platelet Count Result 204 k/mm3 (150-375); Red Blood Count 4.48 M/mm3 (4.2-5.4); Red Cell Distribution Width 15.1 % (11.5-14.5); White Blood Count 8.4 K/mm3 (4.5-10.0)
[2020-11-27 06:09] LABS: Blood Urea Nitrogen 33 mg/dL (7-17); Calcium 8.4 mg/dL (8.4-10.2); Carbon Dioxide > 40 mmol/L (22-30); Chloride 91 mmol/L (98-107); Estimated CRCL calculation 78 ml/min; Estimated Glomerular Filt Rate > 60; Glucose 92 mg/dL (65-110); Magnesium 1.4 mg/dL (1.6-2.3); Potassium 4.1 mmol/L (3.4-5.0); Sodium 141 mmol/L (137-145)
[2020-11-27] MEDS: LEVOTHYROXINE SODIUM 112 MCG TABLET PO (06:17)
[2020-11-27] MEDS: LEVOTHYROXINE SODIUM 25 MCG TABLET PO (06:22)
[2020-11-27] MEDS: APIXABAN 5 MG TABLET PO (08:41)
[2020-11-27] MEDS: MAGNESIUM OXIDE 400 MG TABLET PO ×2 (08:42→17:34)
[2020-11-27] MEDS: METOPROLOL SUCCINATE EXT REL 50 MG TABCR 150 MG PO (08:42)
[2020-11-27] MEDS: PANTOPRAZOLE 40 MG TABLET PO (08:43)
[2020-11-27] MEDS: FLUTICASONE PROPIONATE 0.05% NA SPR 16 GM BTL (*BKC) 1 SPRAY NASAL (08:43)
[2020-11-27] MEDS: FUROSEMIDE INJ 40 MG/4 ML VIAL IV PUSH ×2 (08:43→17:34)
[2020-11-27 10:10] LABS: Alveolar/Arterial O2 Gradient 128.4 mmHg; Base Excess ABG 10.8 mEq/l (+/-2.0); Fractional Inspired Oxygen 36 %; HCO3 ABG 36.7 mEq/l (22.0-26.0); Oxygen Content ABG 18.6 %vol (16.0-22.0); Oxygen Saturation ABG 93.9 % (95.0-100.0); PCO2 ABG 52.9 mmHg (35.0-45.0); PO2 ABG 66.9 mmHg (80.0-100.0); PO2 FiO2 Ratio Arterial Blood 1.86 %; Total Hemoglobin 14.4 g/dL (12.0-18.0); pH ABG 7.459 (7.350-7.450)
[2020-11-27 10:11] LABS: Device NASAL CANNULA; Modified Allen's Test Pass; Site Drawn RIGHT RADIAL
--- NOTE | 2020-11-27 11:59 | PM.PNCARD ---
Progress Note: A&P Assessment and Plan (1) Congestive heart failure: Code(s): I50.9 - Heart failure, unspecified Status: Acute Assessment and Plan: Acute on chronic diastolic congestive heart failure. Holding spironolactone and lisinopril because of acute renal failure. Gradually restart when blood pressure and kidney function allow. Diuresing well but pulmonary exam is still suggesting CHF, and chest x-ray on admission showed significant pulmonary vascular congestion. Continue IV furosemide 40 mg q. 12 hours for yet another day and then perhaps reduce the dose. Renal function stable on IV diuretic Portable chest x-ray tomorrow Okay to transfer to medical bed (2) Atrial fibrillation with rapid ventricular response: Code(s): I48.91 - Unspecified atrial fibrillation Status: Acute Assessment and Plan: Heart rate is reasonably controlled. Continue metoprolol succinate at home dose 150 mg daily. Continue Eliquis for chronic anticoagulation. (3) Acute and chronic respiratory failure: Code(s): J96.20 - Acute and chronic respiratory failure, unspecified whether with hypoxia or hypercapnia Status: Acute Assessment and Plan: Now on oxygen by nasal cannula. (4) Hypertension: Code(s): I10 - Essential (primary) hypertension Status: Acute Assessment and Plan: Controlled (5) CKD (chronic kidney disease), stage III: Code(s): N18.30 - Chronic kidney disease, stage 3 unspecified Status: Acute Assessment and Plan: Renal function looks better, oddly. Continue daily BMP (6) Elevated LFTs: Code(s): R79.89 - Other specified abnormal findings of blood chemistry Status: Acute Assessment and Plan: Likely secondary to hepatic congestion. Hold statin. LFTs improving (7) DVT (deep venous thrombosis): Code(s): I82.409 - Acute embolism and thrombosis of unspecified deep veins of unspecified lower extremity Status: Acute Assessment and Plan: Currently taking Eliquis 5 mg b.i.d., will increase to the DVT dose of 10 mg b.i.d. for 7 days and go back to 5 mg b.i.d.. Subjective Date/time seen: 11/27/20 11:59 Interval history: Follow-up for persistent atrial fibrillation, admitted with AFib RVR and acute on chronic diastolic heart failure. Also has: Nonischemic cardiomyopathy, pulmonary hypertension, hypertension and chronic anticoagulation. Admitted with hypoxia and was transiently on BiPAP. Unclear if she was taking her metoprolol regularly as she recently moved to [facility] after her 's . Found to have below the knee DVTs this admission 11/25/2020: Metoprolol resumed. Being diuresed with IV furosemide. Spironolactone held for acute renal failure. Date of service 11/26/2020: Remains on BiPAP overnight, now 3.5 L. Blood pressure is somewhat soft this morning, better now. Heart rate 90-120 Diuresed well,-2400 cc. Still feels congested with a cough. Very weak. Echo showed EF 65-70%. Apnea link was not highly suspicious of sleep apnea. Found to have bilateral DVT (posterior tibial thrombosis). Continue IV furosemide. AFib rate marginally controlled. Date of service 11/27/2020: Says she is feeling better, less shortness of breath, cough is improving. Legs sore and touchy. Not out of bed yet but getting physical therapy. Was on BiPAP overnight, now O2 at 2 L. diuresed 1200 cc overnight. Blood pressure stable. Telemetry shows heart rate runs 85-100 beats per minute, AFib. Review of Systems Constitutional: Constitutional: Reports weakness Eyes: Eyes: Reports no additional eye complaints ENT: Denies nasal congestion Cardiovascular: Cardiovascular: Denies chest pain, Denies pedal edema, Denies leg edema, Denies lightheadedness, Denies palpitations, Reports dyspnea and Rep
[2020-11-27] MEDS: MAGNESIUM SULF 2 GM/WATER 50ML 2 GM/50 ML BAG IVPB (13:21)
[2020-11-27] MEDS: TOLNAFTATE 1% POWDER 45 GM BTL 1 APPLIC TOPICAL ×2 (13:30→21:42)
[2020-11-27] MEDS: LIDOCAINE 5% PATCH 3 PATCH TRANSDERM (13:30)
--- NOTE | 2020-11-27 15:14 | PM.IMPN ---
Progress Note: A&P Assessment and Plan (1) Atrial fibrillation with rapid ventricular response: Code(s): I48.91 - Unspecified atrial fibrillation Status: Acute Assessment and Plan: Continue metoprolol for rate control. Patient reports taking Eliquis at home however it does not look like it has been filled recently per external medication history. Will resume given persistent atrial fibrillation and peripheral arterial disease. 11/27/20 15:14 11/25 Interval history patient is 75-year-old female with history of atrial fibrillation, hypertension, chronic diastolic dysfunction, morbidly obese patient presented emergency department with persistent atrial fibrillation with RVR the rate is now controlled with metoprolol, patient recently passed a patient moved to assisted living and concern is patient may not be taking her medication properly and developed shortness of breath and was hypoxic and room air, seen by Cardiology resume metoprolol and Eliquis, lower extremity Doppler showed bilateral posterior tibial DVT patient currently on Eliquis, will continue present managed will have a PT OT evaluate the patient and further recommendation to follow. 11/26 Interval history: patient wore her BiPAP last night, states feeling much better compared to when she arrived, not as short of breath, heart rate is controlled, patient with bilateral lower extremity DVT being treated with Eliquis, patient was able to tolerate clear liquid will advanced her diet as tolerated, will have a PT OT evaluate the patient, patient will benefit with acute rehab. will continue to monitor and further recommendation to follow. 11/27 Interval history: patient has been wearing BiPAP at nighttime and her CO2 this morning has improved, patient with acute on chronic congestive heart failure seen by cardiology patient is being diuresed with IV Lasix 40 mg b.i.d. and continued make improvement, patient kidney function remains stable, patient with atrial fibrillation with RVR on metoprolol 150 mg q.day anticoagulated with Eliquis, patient also has bilateral lower extremity DVT begin anticoagulated with Eliquis, patient remains clinically stable will continue PT OT, will transfer the patient out of IMU to medical floor, will benefit going to acute rehab for discharging home. (2) Acute on chronic respiratory failure with hypoxia and hypercapnia: Code(s): J96.21 - Acute and chronic respiratory failure with hypoxia; J96.22 - Acute and chronic respiratory failure with hypercapnia Status: Acute Assessment and Plan: Patient has been started on BiPAP. I suspect that she has underlying obesity hypoventilation syndrome with suspected obstructive sleep apnea and she may very well require PAP therapy while sleeping. (3) Acute kidney injury: Code(s): N17.9 - Acute kidney failure, unspecified Status: Acute Assessment and Plan: Precipitating etiology is not entirely clear. She has not been eating well since the of her approximately 1 month ago thus she may be a bit dry however she is volume overloaded with lower extremity edema and pulmonary vascular congestion with edema. She will be cautiously diuresed with close monitoring of volume status as well as renal function. Insert Londono catheter to monitor strict I/O. Spironolactone and lisinopril are on hold for now. (4) Elevated LFTs: Code(s): R79.89 - Other specified abnormal findings of blood chemistry Status: Acute Assessment and Plan: Etiology is not entirely clear at this time. AST and ALT are quite elevated though bilirubin alkaline phosphatase are within normal limits. CK was normal and acetaminophen levels were undetectable. Right upper quadrant ultrasound hepatic panel ordered for further evaluation. Echocardiogram is pending to evaluate for right-sided heart failure which could be causing hepatic congestion. (5) Peripheral arterial disease: Code(s):
[2020-11-27] MEDS: APIXABAN 5 MG TABLET 10 MG PO (17:34)
--- NOTE | 2020-11-27 18:45 | PC.NURSE ---
This patient, Lavern Roland, was received from IMU on 11/27/20 at 1815. Patient/family oriented to unit policies and routines
--- NOTE | 2020-11-27 19:29 | PC.NURSE ---
This patient, Lavern Roland, was transferred to [[id number] ] on 11/27/20 at 1815. Personal belongings sent with patient. Report given to [Consuelo ]. Appropriate documentation sent with patient.
[2020-11-27] MEDS: MELATONIN 3 MG TABLET PO (22:40)
[2020-11-28] VITALS (12 sets, daily range): BP systolic 94–115; BP diastolic 45–69; PULSE 80–96; RESP 16–28; TEMP 36.3–36.8; O2SAT 91–98
[2020-11-28 05:52] LABS: Hematocrit 42.5 % (37.0-47.0); Hemoglobin 13.4 g/dL (12.0-15.0); Mean Corpuscular HGB Conc 31.5 g/dl (32-36); Mean Corpuscular Hemoglobin 29.5 pg (26-34); Mean Corpuscular Volume 93.4 fl (80-100); Mean Platelet Volume 9.6 fl (7.4-10.4); Platelet Count Result 199 k/mm3 (150-375); Red Blood Count 4.55 M/mm3 (4.2-5.4); Red Cell Distribution Width 14.8 % (11.5-14.5); White Blood Count 8.1 K/mm3 (4.5-10.0)
[2020-11-28] MEDS: LEVOTHYROXINE SODIUM 112 MCG TABLET PO (06:19)
[2020-11-28] MEDS: LEVOTHYROXINE SODIUM 25 MCG TABLET PO (06:19)
[2020-11-28 06:34] LABS: Blood Urea Nitrogen 29 mg/dL (7-17); Calcium 8.6 mg/dL (8.4-10.2); Carbon Dioxide > 40 mmol/L (22-30); Chloride 89 mmol/L (98-107); Estimated CRCL calculation 70 ml/min; Estimated Glomerular Filt Rate > 60; Glucose 104 mg/dL (65-110); Magnesium 1.8 mg/dL (1.6-2.3); Sodium 140 mmol/L (137-145)
[2020-11-28] MEDS: FLUTICASONE PROPIONATE 0.05% NA SPR 16 GM BTL (*BKC) 1 SPRAY NASAL (08:34)
[2020-11-28] MEDS: APIXABAN 5 MG TABLET 10 MG PO ×2 (08:34→16:58)
[2020-11-28] MEDS: PANTOPRAZOLE 40 MG TABLET PO (08:34)
[2020-11-28] MEDS: MAGNESIUM OXIDE 400 MG TABLET PO ×2 (08:34→16:58)
--- NOTE | 2020-11-28 09:03 | PC.NURSE ---
Dr. Mccabe notified of holding am lasix and metoprolol due to bp 94/45
[2020-11-28 09:27] LABS: Base Excess ABG 13.6 mEq/l (+/-2.0); Carboxyhemoglobin 0.6 % THb (0-2.0); Fractional Inspired Oxygen 30 %; HCO3 ABG 41.5 mEq/l (22.0-26.0); Methemoglobin ABG 0.4 %THb (0-1.5); Oxygen Content ABG 18.4 %vol (16.0-22.0); Oxygen Saturation ABG 91.6 % (95.0-100.0); Oxyhemoglobin 90.7 % THb (90.0-100.0); Reduced Hemoglobin 8.3 %THb (0-5.0); Total Hemoglobin 14.4 g/dL (12.0-18.0); pH ABG 7.414 (7.350-7.450)
[2020-11-28 09:30] LABS: Modified Allen's Test Pass; PCO2 ABG 66.3 mmHg (35.0-45.0); Site Drawn RIGHT RADIAL
[2020-11-28 09:31] LABS: Device NASAL CANNULA; Liters per Minute 2.5 LPM
[2020-11-28] MEDS: LIDOCAINE 5% PATCH 3 PATCH TRANSDERM (10:00)
[2020-11-28] MEDS: TOLNAFTATE 1% POWDER 45 GM BTL 1 APPLIC TOPICAL ×2 (11:49→21:00)
--- NOTE | 2020-11-28 12:01 | PM.IMPN ---
Progress Note: A&P Assessment and Plan (1) Atrial fibrillation with rapid ventricular response: Code(s): I48.91 - Unspecified atrial fibrillation Status: Acute Assessment and Plan: Continue metoprolol for rate control. Patient reports taking Eliquis at home however it does not look like it has been filled recently per external medication history. Will resume given persistent atrial fibrillation and peripheral arterial disease. 11/28/20 12:01 11/25 Interval history patient is 75-year-old female with history of atrial fibrillation, hypertension, chronic diastolic dysfunction, morbidly obese patient presented emergency department with persistent atrial fibrillation with RVR the rate is now controlled with metoprolol, patient recently passed a patient moved to assisted living and concern is patient may not be taking her medication properly and developed shortness of breath and was hypoxic and room air, seen by Cardiology resume metoprolol and Eliquis, lower extremity Doppler showed bilateral posterior tibial DVT patient currently on Eliquis, will continue present managed will have a PT OT evaluate the patient and further recommendation to follow. 11/26 Interval history: patient wore her BiPAP last night, states feeling much better compared to when she arrived, not as short of breath, heart rate is controlled, patient with bilateral lower extremity DVT being treated with Eliquis, patient was able to tolerate clear liquid will advanced her diet as tolerated, will have a PT OT evaluate the patient, patient will benefit with acute rehab. will continue to monitor and further recommendation to follow. 11/27 Interval history: patient has been wearing BiPAP at nighttime and her CO2 this morning has improved, patient with acute on chronic congestive heart failure seen by cardiology patient is being diuresed with IV Lasix 40 mg b.i.d. and continued make improvement, patient kidney function remains stable, patient with atrial fibrillation with RVR on metoprolol 150 mg q.day anticoagulated with Eliquis, patient also has bilateral lower extremity DVT begin anticoagulated with Eliquis, patient remains clinically stable will continue PT OT, will transfer the patient out of IMU to medical floor, will benefit going to acute rehab for discharging home. 11/28 Interval history: patient did not wear her BiPAP last night and this morning patient was somnolent repeat ABG showed increase CO2 to 63 compared to her baseline around 50, patient is agreed to wear her BiPAP tonight, patient is clinically stable participating PT OT, will continue to diurese the patient with IV Lasix 40 mg b.i.d., and a creatinine has improved today 0.9 compared to 1.7 upon arrival, upon arrival patient was and atrial fibrillation with RVR was started on diltiazem ariane, now the rate is controlled on metoprolol monitor 50 q.day, patient with bilateral lower extremity DVT on Eliquis, will continue present management, patient will benefit going into acute rehab, patient be seen by Cardiology and further recommendation to follow. (2) Acute on chronic respiratory failure with hypoxia and hypercapnia: Code(s): J96.21 - Acute and chronic respiratory failure with hypoxia; J96.22 - Acute and chronic respiratory failure with hypercapnia Status: Acute Assessment and Plan: Patient has been started on BiPAP. I suspect that she has underlying obesity hypoventilation syndrome with suspected obstructive sleep apnea and she may very well require PAP therapy while sleeping. (3) Acute kidney injury: Code(s): N17.9 - Acute kidney failure, unspecified Status: Acute Assessment and Plan: Precipitating etiology is not entirely clear. She has not been eating well since the of her approximately 1 month ago thus she may be a bit dry however she is volume overloaded with lower extremity edema and pulmonary vascular congestion with edema. She will be cautiously diu
--- NOTE | 2020-11-28 12:19 | PM.PNCARD ---
Progress Note: A&P Assessment and Plan (1) Congestive heart failure: Code(s): I50.9 - Heart failure, unspecified Status: Acute Assessment and Plan: Acute on chronic diastolic congestive heart failure. Holding spironolactone and lisinopril because of acute renal failure. Gradually restart when blood pressure and kidney function allow. A.m. dose of furosemide was held due to hypotension. Hopefully her blood pressure will be acceptable to be given her p.m. dose of Lasix. She still has some crackles on exam. May be able to shift to oral furosemide tomorrow. Renal function stable on IV diuretic Chest x-ray improving (2) Atrial fibrillation with rapid ventricular response: Code(s): I48.91 - Unspecified atrial fibrillation Status: Acute Assessment and Plan: Heart rate is reasonably controlled. Continue metoprolol succinate at home dose 150 mg daily. Continue Eliquis for chronic anticoagulation. (3) Acute and chronic respiratory failure: Code(s): J96.20 - Acute and chronic respiratory failure, unspecified whether with hypoxia or hypercapnia Status: Acute Assessment and Plan: Now on oxygen by nasal cannula. (4) Hypertension: Code(s): I10 - Essential (primary) hypertension Status: Acute Assessment and Plan: Controlled (5) CKD (chronic kidney disease), stage III: Code(s): N18.30 - Chronic kidney disease, stage 3 unspecified Status: Acute Assessment and Plan: Renal function looks better, oddly. Continue daily BMP (6) Elevated LFTs: Code(s): R79.89 - Other specified abnormal findings of blood chemistry Status: Acute Assessment and Plan: Likely secondary to hepatic congestion. Hold statin. LFTs improving (7) DVT (deep venous thrombosis): Code(s): I82.409 - Acute embolism and thrombosis of unspecified deep veins of unspecified lower extremity Status: Acute Assessment and Plan: Currently taking Eliquis 5 mg b.i.d., will increase to the DVT dose of 10 mg b.i.d. for 7 days and go back to 5 mg b.i.d.. Subjective Date/time seen: 11/28/20 12:19 Interval history: Follow-up for persistent atrial fibrillation, admitted with AFib RVR and acute on chronic diastolic heart failure. Also has: Nonischemic cardiomyopathy, pulmonary hypertension, hypertension and chronic anticoagulation. Admitted with hypoxia and was transiently on BiPAP. Unclear if she was taking her metoprolol regularly as she recently moved to [facility] after her 's . Found to have below the knee DVTs this admission 11/25/2020: Metoprolol resumed. Being diuresed with IV furosemide. Spironolactone held for acute renal failure. Date of service 11/26/2020: Remains on BiPAP overnight, now 3.5 L. Blood pressure is somewhat soft this morning, better now. Heart rate 90-120 Diuresed well,-2400 cc. Still feels congested with a cough. Very weak. Echo showed EF 65-70%. Apnea link was not highly suspicious of sleep apnea. Found to have bilateral DVT (posterior tibial thrombosis). Continue IV furosemide. AFib rate marginally controlled. Date of service 11/27/2020: Says she is feeling better, less shortness of breath, cough is improving. Legs sore and touchy. Not out of bed yet but getting physical therapy. Was on BiPAP overnight, now O2 at 2 L. diuresed 1200 cc overnight. Blood pressure stable. Telemetry shows heart rate runs 85-100 beats per minute, AFib. Date of service 11/28/2020: She is feeling okay today. She did have a low blood pressure this morning so her metoprolol and Lasix were held. Apparently, she refused to wear her BiPAP last night became hypoxic. Still complaining of painful legs. She has been taken off telemetry. Review of Systems Review of Systems: All systems reviewed & are unremark
--- NOTE | 2020-11-28 12:53 | PC.NURSE ---
Brandie Cherry DOPE FIRER on floor and notified of am bp 94/46 and help iv lasix and metoprolol
[2020-11-28] MEDS: FUROSEMIDE INJ 40 MG/4 ML VIAL IV PUSH (16:58)
[2020-11-28] MEDS: MELATONIN 3 MG TABLET PO (23:11)
[2020-11-29] VITALS (7 sets, daily range): BP systolic 103–132; BP diastolic 54–57; PULSE 84–90; RESP 18–24; TEMP 35.9–36.4; O2SAT 87–97
[2020-11-29] MEDS: LEVOTHYROXINE SODIUM 25 MCG TABLET PO (06:18)
[2020-11-29] MEDS: LEVOTHYROXINE SODIUM 112 MCG TABLET PO (06:18)
[2020-11-29 06:22] LABS: Hematocrit 44.2 % (37.0-47.0); Hemoglobin 13.6 g/dL (12.0-15.0); Mean Corpuscular HGB Conc 30.8 g/dl (32-36); Mean Corpuscular Volume 94.2 fl (80-100); Mean Platelet Volume 9.9 fl (7.4-10.4); Platelet Count Result 196 k/mm3 (150-375); Red Blood Count 4.69 M/mm3 (4.2-5.4); Red Cell Distribution Width 14.7 % (11.5-14.5); White Blood Count 10.3 K/mm3 (4.5-10.0)
[2020-11-29 07:52] LABS: Blood Urea Nitrogen 26 mg/dL (7-17); Calcium 8.6 mg/dL (8.4-10.2); Carbon Dioxide > 40 mmol/L (22-30); Chloride 89 mmol/L (98-107); Estimated CRCL calculation 79 ml/min; Estimated Glomerular Filt Rate > 60; Glucose 117 mg/dL (65-110); Sodium 133 mmol/L (137-145)
[2020-11-29] MEDS: MAGNESIUM OXIDE 400 MG TABLET PO ×2 (08:11→16:49)
[2020-11-29] MEDS: FUROSEMIDE INJ 40 MG/4 ML VIAL IV PUSH (08:11)
[2020-11-29] MEDS: FLUTICASONE PROPIONATE 0.05% NA SPR 16 GM BTL (*BKC) 1 SPRAY NASAL (08:11)
[2020-11-29] MEDS: LIDOCAINE 5% PATCH 3 PATCH TRANSDERM (08:11)
[2020-11-29] MEDS: APIXABAN 5 MG TABLET 10 MG PO ×2 (08:11→16:49)
[2020-11-29] MEDS: PANTOPRAZOLE 40 MG TABLET PO (08:12)
[2020-11-29] MEDS: TOLNAFTATE 1% POWDER 45 GM BTL 1 APPLIC TOPICAL ×2 (08:12→21:08)
[2020-11-29] MEDS: METOPROLOL SUCCINATE EXT REL 50 MG TABCR 150 MG PO (10:41)
--- NOTE | 2020-11-29 11:54 | PM.PNCARD ---
Progress Note: A&P Assessment and Plan (1) Congestive heart failure: Code(s): I50.9 - Heart failure, unspecified Status: Acute Assessment and Plan: Acute on chronic diastolic congestive heart failure. Spironolactone and lisinopril on hold because of acute renal failure - renal failure has resolved but BP has been a bit soft. Gradually restart when blood pressure allows. Pulmonary exam is improved. I do not hear any rales. Reasonable to shift her to oral furosemide. Renal function stable (2) Atrial fibrillation with rapid ventricular response: Code(s): I48.91 - Unspecified atrial fibrillation Status: Acute Assessment and Plan: Heart rate is reasonably controlled. Continue metoprolol succinate at home dose 150 mg daily. Continue Eliquis for chronic anticoagulation. (3) Acute and chronic respiratory failure: Code(s): J96.20 - Acute and chronic respiratory failure, unspecified whether with hypoxia or hypercapnia Status: Acute Assessment and Plan: Now on 3L oxygen by nasal cannula. Wean as tolerated. (4) Hypertension: Code(s): I10 - Essential (primary) hypertension Status: Acute Assessment and Plan: Controlled (5) CKD (chronic kidney disease), stage III: Code(s): N18.30 - Chronic kidney disease, stage 3 unspecified Status: Acute Assessment and Plan: Renal function has improved since admission. Continue daily BMP (6) Elevated LFTs: Code(s): R79.89 - Other specified abnormal findings of blood chemistry Status: Acute Assessment and Plan: Likely secondary to hepatic congestion. Hold statin. LFTs improving (7) DVT (deep venous thrombosis): Code(s): I82.409 - Acute embolism and thrombosis of unspecified deep veins of unspecified lower extremity Status: Acute Assessment and Plan: Currently taking Eliquis 5 mg b.i.d., will increase to the DVT dose of 10 mg b.i.d. for 7 days and go back to 5 mg b.i.d.. Subjective Date/time seen: 11/29/20 11:54 Interval history: Follow-up for persistent atrial fibrillation, admitted with AFib RVR and acute on chronic diastolic heart failure. Also has: Nonischemic cardiomyopathy, pulmonary hypertension, hypertension and chronic anticoagulation. Admitted with hypoxia and was transiently on BiPAP. Unclear if she was taking her metoprolol regularly as she recently moved to [facility] after her 's . Found to have below the knee DVTs this admission 11/25/2020: Metoprolol resumed. Being diuresed with IV furosemide. Spironolactone held for acute renal failure. Date of service 11/26/2020: Remains on BiPAP overnight, now 3.5 L. Blood pressure is somewhat soft this morning, better now. Heart rate 90-120 Diuresed well,-2400 cc. Still feels congested with a cough. Very weak. Echo showed EF 65-70%. Apnea link was not highly suspicious of sleep apnea. Found to have bilateral DVT (posterior tibial thrombosis). Continue IV furosemide. AFib rate marginally controlled. Date of service 11/27/2020: Says she is feeling better, less shortness of breath, cough is improving. Legs sore and touchy. Not out of bed yet but getting physical therapy. Was on BiPAP overnight, now O2 at 2 L. diuresed 1200 cc overnight. Blood pressure stable. Telemetry shows heart rate runs 85-100 beats per minute, AFib. Date of service 11/28/2020: She is feeling okay today. She did have a low blood pressure this morning so her metoprolol and Lasix were held. Apparently, she refused to wear her BiPAP last night became hypoxic. Still complaining of painful legs. She has been taken off telemetry. Date of service 11/29/2020: Patient states she is feeling better today. She is complaining of not being able to sleep very well due to her BiPAP but she tells me that she has bee
--- NOTE | 2020-11-29 11:54 | PM.IMPN ---
Progress Note: A&P Assessment and Plan (1) Atrial fibrillation with rapid ventricular response: Code(s): I48.91 - Unspecified atrial fibrillation Status: Acute Assessment and Plan: Continue metoprolol for rate control. Patient reports taking Eliquis at home however it does not look like it has been filled recently per external medication history. Will resume given persistent atrial fibrillation and peripheral arterial disease. Pt seen by cardiology medications adjusted according (2) Acute on chronic respiratory failure with hypoxia and hypercapnia: Code(s): J96.21 - Acute and chronic respiratory failure with hypoxia; J96.22 - Acute and chronic respiratory failure with hypercapnia Status: Acute Assessment and Plan: Patient has been started on BiPAP. Pt not needing BIpap support weaned down to 3 liters of oxygen pt is usually off oxygen. try to wean off oxygen. Dc to SNF soon in 1-2 days time (3) Acute kidney injury: Code(s): N17.9 - Acute kidney failure, unspecified Status: Acute Assessment and Plan: Precipitating etiology is not entirely clear. Continue to monitor urine out put and BMP. (4) Elevated LFTs: Code(s): R79.89 - Other specified abnormal findings of blood chemistry Status: Acute Assessment and Plan: Etiology is not entirely clear at this time. AST and ALT are quite elevated though bilirubin alkaline phosphatase are within normal limits. CK was normal and acetaminophen levels were undetectable. Right upper quadrant ultrasound hepatic panel ordered for further evaluation. Echocardiogram is pending to evaluate for right-sided heart failure which could be causing hepatic congestion. (5) Peripheral arterial disease: Code(s): I73.9 - Peripheral vascular disease, unspecified Status: Acute Assessment and Plan: Distal pulses of the lower extremities have not been able to be palpated as far back as January 2019 due to her vascular disease as detailed above. She denies change from baseline and reports chronic, mild cyanosis, cool feet, paresthesias, and mild numbness at baseline. (6) Hypertension: Code(s): I10 - Essential (primary) hypertension Status: Acute Assessment and Plan: Blood pressures is on low normal as pt is on iv diuresis. Spironolactone and lisinopril on hold given acute kidney injury. (7) Hypothyroidism: Code(s): E03.9 - Hypothyroidism, unspecified Status: Acute Assessment and Plan: Continue levothyroxine and check TSH. (8) Chronic obstructive pulmonary disease: Code(s): J44.9 - Chronic obstructive pulmonary disease, unspecified Status: Acute Assessment and Plan: No acute bronchospasm or evidence of acute exacerbation. (9) Cardiomegaly: Code(s): I51.7 - Cardiomegaly Status: Acute Assessment and Plan: Chest x-ray shows moderately enlarged cardiac silhouette which may be due to cardiomegaly and/or pericardial effusion. While patient does have mild jugular venous distension as well as distant heart sounds, those are likely related to congestive heart failure and body habitus respectively. (10) Abnormal urinalysis: Code(s): R82.90 - Unspecified abnormal findings in urine Status: Acute Assessment and Plan: Continue ceftriaxone, pending urine culture. (11) Acute on chronic diastolic CHF (congestive heart failure): Code(s): I50.33 - Acute on chronic diastolic (congestive) heart failure Status: Acute Assessment and Plan: Pt is being diuresing with IV Lasix CXr [facility] cardiology rounding Subjective Date/time seen: 11/29/20 11:54 Interval history: This is a 75-year-old female with persistent atrial fibrillation, hypertension, dyslipidemia, peripheral arterial disease, and morbid obesity who presented to the emergency department earlier today via EMS for evaluation of generalized w
[2020-11-29] MEDS: FUROSEMIDE 80 MG TABLET PO (16:49)
[2020-11-29] MEDS: MELATONIN 3 MG TABLET PO (21:33)
[2020-11-30] VITALS (7 sets, daily range): BP systolic 100–111; BP diastolic 53–83; PULSE 76–90; RESP 20; TEMP 35.9–36.1; O2SAT 94–95
[2020-11-30 05:46] LABS: Hematocrit 46.5 % (37.0-47.0); Hemoglobin 14.3 g/dL (12.0-15.0); Mean Corpuscular HGB Conc 30.8 g/dl (32-36); Mean Corpuscular Hemoglobin 29.6 pg (26-34); Mean Corpuscular Volume 96.3 fl (80-100); Mean Platelet Volume 9.9 fl (7.4-10.4); Platelet Count Result 178 k/mm3 (150-375); Red Blood Count 4.83 M/mm3 (4.2-5.4); Red Cell Distribution Width 14.8 % (11.5-14.5); White Blood Count 10.6 K/mm3 (4.5-10.0)
[2020-11-30 05:57] LABS: Blood Urea Nitrogen 24 mg/dL (7-17); Calcium 8.8 mg/dL (8.4-10.2); Carbon Dioxide > 40 mmol/L (22-30); Chloride 90 mmol/L (98-107); Estimated CRCL calculation 79 ml/min; Estimated Glomerular Filt Rate > 60; Glucose 98 mg/dL (65-110); Magnesium 2.2 mg/dL (1.6-2.3); Potassium 4.3 mmol/L (3.4-5.0); Sodium 135 mmol/L (137-145)
[2020-11-30] MEDS: LEVOTHYROXINE SODIUM 25 MCG TABLET PO (06:16)
[2020-11-30] MEDS: LEVOTHYROXINE SODIUM 112 MCG TABLET PO (06:16)
[2020-11-30] MEDS: FLUTICASONE PROPIONATE 0.05% NA SPR 16 GM BTL (*BKC) 1 SPRAY NASAL (08:23)
[2020-11-30] MEDS: LIDOCAINE 5% PATCH 3 PATCH TRANSDERM (08:24)
[2020-11-30] MEDS: APIXABAN 5 MG TABLET 10 MG PO ×2 (08:24→17:01)
[2020-11-30] MEDS: MAGNESIUM OXIDE 400 MG TABLET PO ×2 (08:24→17:01)
[2020-11-30] MEDS: PANTOPRAZOLE 40 MG TABLET PO (08:24)
[2020-11-30] MEDS: FUROSEMIDE 80 MG TABLET PO ×2 (08:24→17:01)
[2020-11-30] MEDS: METOPROLOL SUCCINATE EXT REL 50 MG TABCR 150 MG PO (08:25)
[2020-11-30] MEDS: TOLNAFTATE 1% POWDER 45 GM BTL 1 APPLIC TOPICAL ×2 (08:25→20:37)
--- NOTE | 2020-11-30 10:11 | PM.PNCARD ---
Progress Note: A&P Assessment and Plan (1) Congestive heart failure: Code(s): I50.9 - Heart failure, unspecified Status: Acute Assessment and Plan: Acute on chronic diastolic congestive heart failure. Spironolactone and lisinopril on hold because of acute renal failure - renal failure has resolved but BP has been a bit soft. Gradually restart when blood pressure allows. Pulmonary exam is improved. Chest x-ray does show some pulmonary vascular congestion still. 40 mg IV Lasix x1 today. Continue oral Lasix. Her high-dose oral Lasix should gradually be decreased as an outpatient Renal function stable (2) Atrial fibrillation with rapid ventricular response: Code(s): I48.91 - Unspecified atrial fibrillation Status: Acute Assessment and Plan: Heart rate is reasonably controlled. Continue metoprolol succinate at home dose 150 mg daily. Continue Eliquis for chronic anticoagulation. (3) Acute and chronic respiratory failure: Code(s): J96.20 - Acute and chronic respiratory failure, unspecified whether with hypoxia or hypercapnia Status: Acute Assessment and Plan: Now on 3L oxygen by nasal cannula. Wean as tolerated. (4) Hypertension: Code(s): I10 - Essential (primary) hypertension Status: Acute Assessment and Plan: Controlled (5) CKD (chronic kidney disease), stage III: Code(s): N18.30 - Chronic kidney disease, stage 3 unspecified Status: Acute Assessment and Plan: Renal function has improved since admission. Continue daily BMP (6) Elevated LFTs: Code(s): R79.89 - Other specified abnormal findings of blood chemistry Status: Acute Assessment and Plan: Likely secondary to hepatic congestion. Hold statin. LFTs improving (7) DVT (deep venous thrombosis): Code(s): I82.409 - Acute embolism and thrombosis of unspecified deep veins of unspecified lower extremity Status: Acute Assessment and Plan: Currently taking Eliquis 5 mg b.i.d., will increase to the DVT dose of 10 mg b.i.d. for 7 days and go back to 5 mg b.i.d.. Subjective Date/time seen: 11/30/20 10:11 Interval history: Follow-up for persistent atrial fibrillation, admitted with AFib RVR and acute on chronic diastolic heart failure. Also has: Nonischemic cardiomyopathy, pulmonary hypertension, hypertension and chronic anticoagulation. Admitted with hypoxia and was transiently on BiPAP. Unclear if she was taking her metoprolol regularly as she recently moved to [facility] after her 's . Found to have below the knee DVTs this admission 11/25/2020: Metoprolol resumed. Being diuresed with IV furosemide. Spironolactone held for acute renal failure. Date of service 11/26/2020: Remains on BiPAP overnight, now 3.5 L. Blood pressure is somewhat soft this morning, better now. Heart rate 90-120 Diuresed well,-2400 cc. Still feels congested with a cough. Very weak. Echo showed EF 65-70%. Apnea link was not highly suspicious of sleep apnea. Found to have bilateral DVT (posterior tibial thrombosis). Continue IV furosemide. AFib rate marginally controlled. Date of service 11/27/2020: Says she is feeling better, less shortness of breath, cough is improving. Legs sore and touchy. Not out of bed yet but getting physical therapy. Was on BiPAP overnight, now O2 at 2 L. diuresed 1200 cc overnight. Blood pressure stable. Telemetry shows heart rate runs 85-100 beats per minute, AFib. Date of service 11/28/2020: She is feeling okay today. She did have a low blood pressure this morning so her metoprolol and Lasix were held. Apparently, she refused to wear her BiPAP last night became hypoxic. Still complaining of painful legs. She has been taken off telemetry. Date of service 11/29/2020: Patient states she is feeling better t
[2020-11-30] MEDS: guaiFENesin/DEXTROMETHORPHAN 10 ML UDC 5 ML PO ×2 (10:40→20:38)
--- NOTE | 2020-11-30 11:35 | PCOTNOTE ---
Attempted to see Patient for A.M. treatment session at this time. Patient just started to eat lunch, unavailable.
--- NOTE | 2020-11-30 11:58 | PM.IMPN ---
Progress Note: A&P Assessment and Plan (1) Atrial fibrillation with rapid ventricular response: Code(s): I48.91 - Unspecified atrial fibrillation Status: Acute Assessment and Plan: Continue metoprolol for rate control. Patient reports taking Eliquis at home however it does not look like it has been filled recently per external medication history. Will resume given persistent atrial fibrillation and peripheral arterial disease. Pt seen by cardiology medications adjusted according (2) Acute on chronic respiratory failure with hypoxia and hypercapnia: Code(s): J96.21 - Acute and chronic respiratory failure with hypoxia; J96.22 - Acute and chronic respiratory failure with hypercapnia Status: Acute Assessment and Plan: Patient has been started on BiPAP. Pt not needing BIpap support weaned down to 2 liters of oxygen pt is usually off oxygen. try to wean off oxygen. Dc to SNF soon in 1-2 days time. IV lasix today (3) Acute kidney injury: Code(s): N17.9 - Acute kidney failure, unspecified Status: Acute Assessment and Plan: Precipitating etiology is not entirely clear. Continue to monitor urine out put and BMP. (4) Elevated LFTs: Code(s): R79.89 - Other specified abnormal findings of blood chemistry Status: Acute Assessment and Plan: Etiology is not entirely clear at this time. AST and ALT are quite elevated though bilirubin alkaline phosphatase are within normal limits. CK was normal and acetaminophen levels were undetectable. Right upper quadrant ultrasound hepatic panel ordered for further evaluation. Echocardiogram is pending to evaluate for right-sided heart failure which could be causing hepatic congestion. (5) Peripheral arterial disease: Code(s): I73.9 - Peripheral vascular disease, unspecified Status: Acute Assessment and Plan: Distal pulses of the lower extremities have not been able to be palpated as far back as January 2019 due to her vascular disease as detailed above. (6) Hypertension: Code(s): I10 - Essential (primary) hypertension Status: Acute Assessment and Plan: Blood pressures continue to monitor. (7) Hypothyroidism: Code(s): E03.9 - Hypothyroidism, unspecified Status: Acute Assessment and Plan: Continue levothyroxine and check TSH. (8) Chronic obstructive pulmonary disease: Code(s): J44.9 - Chronic obstructive pulmonary disease, unspecified Status: Acute Assessment and Plan: No acute bronchospasm or evidence of acute exacerbation. (9) Cardiomegaly: Code(s): I51.7 - Cardiomegaly Status: Acute Assessment and Plan: Chest x-ray shows cardiomegaly and pulmonary edema try iv lasix x1 today. (10) Abnormal urinalysis: Code(s): R82.90 - Unspecified abnormal findings in urine Status: Acute Assessment and Plan: Uc is negative, stop iv Rocephin (11) Acute on chronic diastolic CHF (congestive heart failure): Code(s): I50.33 - Acute on chronic diastolic (congestive) heart failure Status: Acute Assessment and Plan: Pt is being diuresed cont to monitor bmp Subjective Date/time seen: 11/30/20 11:58 Interval history: This is a 75-year-old female with persistent atrial fibrillation, hypertension, dyslipidemia, peripheral arterial disease, and morbid obesity who presented to the emergency department earlier today via EMS for evaluation of generalized weakness. The patient is chronically debilitated has been wheelchair-bound for quite some time though over the past 1 week she has become progressively more weak to the point where she was unable to get herself out of her wheelchair this morning. She has had quite a few changes in her life within the past month including the of her and moving to assisted living at [facility]. Pt admitted with Acute resp failure was on bipap, AF
[2020-11-30] MEDS: FUROSEMIDE INJ 40 MG/4 ML VIAL IV PUSH (14:16)
[2020-11-30] MEDS: MELATONIN 3 MG TABLET PO (20:38)
[2020-12-01] VITALS: BP 110/48; PULSE 84; RESP 20; TEMP 36.1; O2SAT 94
[2020-12-01] MEDS: guaiFENesin/DEXTROMETHORPHAN 10 ML UDC 5 ML PO ×3 (01:53→12:15)
[2020-12-01 05:04] VITALS: BP 119/64; PULSE 100; RESP 20; TEMP 36.1; O2SAT 95
[2020-12-01] MEDS: LEVOTHYROXINE SODIUM 25 MCG TABLET PO (06:15)
[2020-12-01] MEDS: LEVOTHYROXINE SODIUM 112 MCG TABLET PO (06:15)
[2020-12-01] MEDS: FLUTICASONE PROPIONATE 0.05% NA SPR 16 GM BTL (*BKC) 1 SPRAY NASAL (08:10)
[2020-12-01] MEDS: APIXABAN 5 MG TABLET 10 MG PO (08:11)
[2020-12-01] MEDS: LIDOCAINE 5% PATCH 3 PATCH TRANSDERM (08:11)
[2020-12-01] MEDS: FUROSEMIDE 80 MG TABLET PO (08:11)
[2020-12-01 08:12] VITALS: PULSE 68
[2020-12-01] MEDS: TOLNAFTATE 1% POWDER 45 GM BTL 1 APPLIC TOPICAL (08:12)
[2020-12-01] MEDS: MAGNESIUM OXIDE 400 MG TABLET PO (08:12)
[2020-12-01] MEDS: PANTOPRAZOLE 40 MG TABLET PO (08:12)
[2020-12-01] MEDS: METOPROLOL SUCCINATE EXT REL 50 MG TABCR 150 MG PO (08:12)
[2020-12-01 08:48] LABS: Blood Urea Nitrogen 28 mg/dL (7-17); Carbon Dioxide > 40 mmol/L (22-30); Chloride 89 mmol/L (98-107); Estimated CRCL calculation 70 ml/min; Estimated Glomerular Filt Rate > 60; Glucose 101 mg/dL (65-110); Potassium 4.9 mmol/L (3.4-5.0); Sodium 137 mmol/L (137-145)
--- NOTE | 2020-12-01 08:54 | PM.PNCARD ---
Progress Note: A&P Assessment and Plan (1) Congestive heart failure: Code(s): I50.9 - Heart failure, unspecified Status: Acute Assessment and Plan: Acute on chronic diastolic congestive heart failure. Spironolactone and lisinopril on hold because of acute renal failure - renal failure has resolved but BP has been a bit soft - better over last 48 hours. Resume lisinopril at 5mg daily. Consider resuming spironolactone as outpatient if BP and renal function allow. Pulmonary exam is improved. Continue oral Lasix 80mg p.o. b.i.d. for now. Her high-dose oral Lasix should gradually be decreased as an outpatient. Renal function stable (2) Atrial fibrillation with rapid ventricular response: Code(s): I48.91 - Unspecified atrial fibrillation Status: Acute Assessment and Plan: Heart rate is reasonably controlled. Continue metoprolol succinate at home dose 150 mg daily. Continue Eliquis for chronic anticoagulation. (3) Acute and chronic respiratory failure: Code(s): J96.20 - Acute and chronic respiratory failure, unspecified whether with hypoxia or hypercapnia Status: Acute Assessment and Plan: Now on 1L oxygen by nasal cannula. (4) Hypertension: Code(s): I10 - Essential (primary) hypertension Status: Acute Assessment and Plan: Controlled (5) CKD (chronic kidney disease), stage III: Code(s): N18.30 - Chronic kidney disease, stage 3 unspecified Status: Acute Assessment and Plan: Renal function has improved since admission. (6) Elevated LFTs: Code(s): R79.89 - Other specified abnormal findings of blood chemistry Status: Acute Assessment and Plan: Likely secondary to hepatic congestion. Hold statin. LFTs improving (7) DVT (deep venous thrombosis): Code(s): I82.409 - Acute embolism and thrombosis of unspecified deep veins of unspecified lower extremity Status: Acute Assessment and Plan: Currently taking Eliquis 5 mg b.i.d., will increase to the DVT dose of 10 mg b.i.d. for 7 days and go back to 5 mg b.i.d.. Subjective Date/time seen: 12/01/20 08:54 Interval history: Follow-up for persistent atrial fibrillation, admitted with AFib RVR and acute on chronic diastolic heart failure. Also has: Nonischemic cardiomyopathy, pulmonary hypertension, hypertension and chronic anticoagulation. Admitted with hypoxia and was transiently on BiPAP. Unclear if she was taking her metoprolol regularly as she recently moved to [facility] after her 's . Found to have below the knee DVTs this admission 11/25/2020: Metoprolol resumed. Being diuresed with IV furosemide. Spironolactone held for acute renal failure. Date of service 11/26/2020: Remains on BiPAP overnight, now 3.5 L. Blood pressure is somewhat soft this morning, better now. Heart rate 90-120 Diuresed well,-2400 cc. Still feels congested with a cough. Very weak. Echo showed EF 65-70%. Apnea link was not highly suspicious of sleep apnea. Found to have bilateral DVT (posterior tibial thrombosis). Continue IV furosemide. AFib rate marginally controlled. Date of service 11/27/2020: Says she is feeling better, less shortness of breath, cough is improving. Legs sore and touchy. Not out of bed yet but getting physical therapy. Was on BiPAP overnight, now O2 at 2 L. diuresed 1200 cc overnight. Blood pressure stable. Telemetry shows heart rate runs 85-100 beats per minute, AFib. Date of service 11/28/2020: She is feeling okay today. She did have a low blood pressure this morning so her metoprolol and Lasix were held. Apparently, she refused to wear her BiPAP last night became hypoxic. Still complaining of painful legs. She has been taken off telemetry. Date of service 11/29/2020: Patient states she is feeling better today
--- NOTE | 2020-12-01 10:29 | PCNWS ---
Weekly nutritional screen. Patient is tolerating current diet with adequate intake. No weight loss reported. No nutritional needs at this time.
--- NOTE | 2020-12-01 11:36 | PM.DS ---
DS: Admitting Diagnosis Discharge Date 12/01/2020 Admitting Diagnosis Acute respiratory failure AF with RVR Acute on chronic systolic HF Acute renal failure Cardiomegaly DS: Discharge Diagnosis Discharge Diagnosis (1) Atrial fibrillation with rapid ventricular response: Code(s): I48.91 - Unspecified atrial fibrillation Status: Acute Assessment and Plan: Continue metoprolol for rate control. Patient reports taking Eliquis at home however unsure if she was taking it. Will resume given persistent atrial fibrillation and peripheral arterial disease. Pt seen by cardiology medications adjusted according (2) Acute on chronic respiratory failure with hypoxia and hypercapnia: Code(s): J96.21 - Acute and chronic respiratory failure with hypoxia; J96.22 - Acute and chronic respiratory failure with hypercapnia Status: Acute Assessment and Plan: Patient has been started on BiPAP. Pt not needing BIpap support weaned down to 2 liters of oxygen pt is usually off oxygen. try to wean off oxygen. Dc to SNF today on 1-2 liters f oxygen prn (3) Acute kidney injury: Code(s): N17.9 - Acute kidney failure, unspecified Status: Resolved Assessment and Plan: LAURA resolved (4) Elevated LFTs: Code(s): R79.89 - Other specified abnormal findings of blood chemistry Status: Acute Assessment and Plan: Etiology is not entirely clear at this time. AST and ALT are quite elevated though bilirubin alkaline phosphatase are within normal limits. CK was normal and acetaminophen levels were undetectable. Right upper quadrant ultrasound hepatic panel ordered for further evaluation. Echocardiogram is pending to evaluate for right-sided heart failure which could be causing hepatic congestion. (5) Peripheral arterial disease: Code(s): I73.9 - Peripheral vascular disease, unspecified Status: Chronic Assessment and Plan: Distal pulses of the lower extremities have not been able to be palpated as far back as January 2019 due to her vascular disease as detailed above. (6) Hypertension: Code(s): I10 - Essential (primary) hypertension Status: Chronic Assessment and Plan: Blood pressures stable. (7) Hypothyroidism: Code(s): E03.9 - Hypothyroidism, unspecified Status: Chronic Assessment and Plan: Continue levothyroxine and check TSH. (8) Chronic obstructive pulmonary disease: Code(s): J44.9 - Chronic obstructive pulmonary disease, unspecified Status: Chronic Assessment and Plan: No acute bronchospasm or evidence of acute exacerbation. (9) Cardiomegaly: Code(s): I51.7 - Cardiomegaly Status: Chronic Assessment and Plan: Chest x-ray shows cardiomegaly and pulmonary edema yesterday, pt looks better today stable for discharge on oral lasix (10) Abnormal urinalysis: Code(s): R82.90 - Unspecified abnormal findings in urine Status: Inactive Assessment and Plan: Uc is negative, stop iv Rocephin (11) Acute on chronic diastolic CHF (congestive heart failure): Code(s): I50.33 - Acute on chronic diastolic (congestive) heart failure Status: Resolved Assessment and Plan: Pt did well with diuresis. DS: Summary Hospital Course Hospital Course: This is a 75-year-old female with persistent atrial fibrillation, hypertension, dyslipidemia, peripheral arterial disease, and morbid obesity who presented to the emergency department earlier today via EMS for evaluation of generalized weakness. The patient is chronically debilitated has been wheelchair-bound for quite some time though over the past 1 week she has become progressively more weak to the point where she was unable to get herself out of her wheelchair this morning. She has had quite a few changes in her life within the past month including the of her and moving to assisted living a
[2020-12-01 12:11] VITALS: O2SAT 96
== END 2020-12-01 14:37 | DRG 291 ==
LOC: ANHED 11:20 → ANHIMU 16:37 → ANH2MED 11-28 13:13 → ANHIMU 12-02 17:47
PROVIDERS: Internal Medicine; Physician Assistant; Admitting Provider Family Medicine; Emergency Provider Emergency Medicine; PCP Emergency Medicine; Visit Provider Family Medicine
DX: I13.0 Hypertensive heart and chronic kidney disease with heart failure and stage 1 through stage 4 chronic kidney disease, or unspecified chronic kidney disease (principal); J96.21 Acute and chronic respiratory failure with hypoxia; J96.22 Acute and chronic respiratory failure with hypercapnia; I50.33 Acute on chronic diastolic (congestive) heart failure; I48.19 Other persistent atrial fibrillation; N17.9 Acute kidney failure, unspecified; Z68.41 Body mass index [BMI] 40.0-44.9, adult; E66.2 Morbid (severe) obesity with alveolar hypoventilation; I82.443 Acute embolism and thrombosis of tibial vein, bilateral; N18.30 Chronic kidney disease, stage 3 unspecified; I73.9 Peripheral vascular disease, unspecified; E03.9 Hypothyroidism, unspecified; J44.9 Chronic obstructive pulmonary disease, unspecified; F41.9 Anxiety disorder, unspecified; Z96.651 Presence of right artificial knee joint; Z87.11 Personal history of peptic ulcer disease; Z86.73 Personal history of transient ischemic attack (TIA), and cerebral infarction without residual deficits; Z87.891 Personal history of nicotine dependence; Z79.01 Long term (current) use of anticoagulants
CPT/HCPCS: 36415; 36600; 51701; 51702; 71045; 80048; 80053; 80074; 80076; 80307; 81001; 82375; 82550; 82805; 83050; 83605; 83690; 83735; 83880; 84443; 84484; 85025; 85027; 85610; 87040; 87086; 93005; 93306; 93925; 93970; 94002; 96365; 96375; 97110; 97162; 97165; 97530; 97535; 99291; A9270; G0378; J0696; J1940; J2270; J3475

== ENCOUNTER 2021-04-04 21:30 | Inpatient (IN) | payer OTHER, MEDICAID, SELFPAY ==
[2021-04-04] VITALS (8 sets, daily range): BP systolic 127–138; BP diastolic 67–81; PULSE 83–87; RESP 15–31; TEMP 36.4; O2SAT 88–99
--- NOTE | ~2021-04-04 | US_ITS ---
EXAMINATION: US venous doppler LE EXAM DATE: 04/05/2021 13:07 INDICATION: edema/pain, hx of dvt TECHNIQUE: Multiple grayscale, color flow and Doppler images of the lower extremity deep venous syste ms bilaterally were obtained and reviewed. Comparison is made to prior examination from 11/25/2020. FINDINGS: Previously seen posterior tibial thrombus appears to have resolved. Right side: The right common femoral, femoral and profunda veins demonstrate normal color flow, respi ratory variation, augmentation and compressibility. Compressibility, color flow confirmed within the right popliteal, posterior tibial, peroneal, and greater saphenous veins. Left side: The left common femoral, femoral and profunda veins demonstrate normal color flow, respira tory variation, augmentation and compressibility. Compressibility, color flow confirmed within the l eft popliteal, posterior tibial, peroneal, and greater saphenous veins. IMPRESSION: 1. No lower extremity deep venous thrombosis bilaterally. Reviewed, dictated and finalized at location B. PERSON
--- NOTE | ~2021-04-04 | XR_ITS ---
EXAMINATION: XR chest 1V portable DATE: 04/04/2021 22:08 INDICATION: Shortness of breath. TECHNIQUE: A single frontal view of the chest was obtained. COMPARISON: Chest single view 11/30/2020 FINDINGS: There is a diffuse interstitial pattern in the lungs, consistent with mild pulmonary edema. No pleural effusion or pneumothorax. Cardiomegaly is noted. IMPRESSION: 1. Mild pulmonary edema. 2. Cardiomegaly. Reviewed, dictated and finalized at location A. OR INSTRUMENTATION ENGINEER
--- NOTE | ~2021-04-04 | XR_ITS ---
EXAMINATION: XR chest 1V portable DATE: 04/07/2021 08:38 INDICATION: Congestive heart failure TECHNIQUE: frontal view of the chest was obtained. COMPARISON: Chest radiograph dated 04/04/2021 FINDINGS: Cardiomegaly with pulmonary vascular congestion. Mild elevation of the left hemidiaphragm. Subtle opa cities in the infraclavicular bilateral upper lung zones which could represent mild pulmonary edema, pneumonia or atelectasis. No pleural effusion or pneumothorax. The cardiomediastinal silhouette is no rmal. Visualized bones and soft tissues are unremarkable. IMPRESSION: 1. Cardiomegaly with pulmonary vascular congestion. 2. Subtle opacities in bilateral upper lung zones which could represent atelectasis, pulmonary edema or pneumonia. Reviewed, dictated and finalized at location A. D INSPECTOR IMPRESSION: 1. Cardiomegaly with pulmonary vascular congestion. 2. Subtle opacities in bilateral upper lung zones which could represent atelect asis, pulmonary edema or pneumonia.
--- NOTE | 2021-04-04 21:36 | ECG_ITS ---
Measurements Intervals [place] Rate: 81 P: MS: 0 QRS: 112 QRSD: 86 T: 55 QT: 374 QTc: 437 Interpretive Statements ATRIAL FIBRILLATION RIGHT AXIS DEVIATION LOW VOLTAGE- PRECORDIAL LEADS CANNOT RULE OUT SEPTAL INFARCT, AGE INDETERMINATE BASELINE ARTIFACT- I, II AVR, AVL ABNORMAL ECG Electronically Signed On 04-05-2021 6:26:28 CAREER SPECIALIST by Lavon Tesfaye D.O.
--- NOTE | 2021-04-04 21:37 | ED.SOB ---
HPI - SOB/Dyspnea General Chief Complaint: Shortness of Breath/Dyspnea Stated Complaint: DIFFICULTY BREATHING LOW O2 SAT 80RA Time Seen by Provider: 04/04/21 21:36 Source: patient History of Present Illness HPI Narrative: Patient presents with shortness of breath. Short she felt short of breath in the past few days her primary care doctor yesterday was given albuterol inhaler. She does report a history of COPD. Patient was living at her assisted living facility was found to be hypoxic into the 80s when EMS was called. They initiated albuterol nebulized treatment and transported the patient to the ER. She denies recent fevers, cough, congestion. Denies any chest pain nausea vomiting or diaphoresis Related Data Home Medications Medication Instructions Recorded Confirmed metoprolol succinate 50 mg See Rx Instructions .ROUTE .COMPLEX 04/03/21 tablet,extended release 24 hr simvastatin 20 mg tablet 20 mg PO DAILY 04/03/21 Allergies Allergy/AdvReac Type Severity Reaction Status Date / Time No Known Drug Allergies Allergy Other Verified 04/04/21 21:47 Review of Systems Review of Systems: CONSTITUTIONAL: Denies fever, chills, or sweats. EYES: Denies visual changes, redness, or discharge. ENT: Denies rhinorrhea, congestion, sore throat, or otalgia. CARDIOVASCULAR: Denies chest pain, palpitations. RESPIRATORY: Shortness of breath GASTROINTESTINAL: Denies abdominal pain, nausea, vomiting, or diarrhea. GENITOURINARY: Denies dysuria or hematuria. SKIN: Denies rash or itching. MUSCULOSKELETAL: Denies back pain, joint pain, or myalgia. NEUROLOGIC: Denies headache, numbness, dizziness, or weakness. PSYCHIATRIC: Denies anxiety or depression. All systems reviewed & are unremarkable except as noted in HPI and below [facility] Past Medical History Medical History Anxiety Chronic obstructive pulmonary disease Chronic respiratory failure Evidence both chronic hypoxic and hypercapnic respiratory failure by ABGs. Not on home oxygen. CKD (chronic kidney disease), stage III Congestive heart failure Echocardiogram on 11/07/2018 showed an LV systolic function at the lower limit of normal with an EF estimated 50 to 55%, severe biatrial enlargement, normal RV systolic pressure, and mild tricuspid regurgitation. Degenerative joint disease DVT (deep venous thrombosis) Gastroesophageal reflux disease History of peptic ulcer Hypertension Hypothyroidism Morbid obesity Peripheral arterial disease Arterial Dopplers of the lower extremities in January 2019 showed occlusion distally. Peripheral angiogram showed 1 vessel runoff bilaterally though no indication for intervention due to collaterals. Reports chronic pain and legs though not debilitating and she is not interested in surgical intervention. Persistent atrial fibrillation Transient ischemic attack Surgical History Surgical History History of right knee joint replacement (01/2009) Family History Family History Mother Cancer Depression Other Acute myocardial infarction Hypertension Social History Social History Social History: Surrogate decision maker: Ester Sanchez, daughter. Code status: Do not resuscitate. Smoking packs per day: 1.5 Smoking cigarettes per day: 30.0 Years smoked: 30 Smoking pack-years: 45.00 Alcohol intake: never Substance use: never Substance use type: does not use Additional living arrangements comments: as of September 2020. Recently moved to assisted living at [facility]. Essentially wheelchair-bound but can transfer. Additional occupation/education comments: Retired. Exam Narrative: GENERAL: Well-appearing, well-nourished, and in no acute distress. HEAD: Normocephalic, atraumatic. EYES: PERRLA
[2021-04-04] MEDS: ALBUTEROL SULFATE NEB 2.5 MG/0.5 ML INH 5 MG INHALATION ×2 (21:49→23:10)
[2021-04-04] MEDS: IPRATROPIUM BR 0.02% INH SOLN 0.5 MG/2.5 ML VIAL INHALATION ×2 (21:49→23:10)
[2021-04-04 21:59] LABS: Alveolar/Arterial O2 Gradient 30.3 mmHg; Base Excess ABG 7.4 mEq/l (+/-2.0); Fractional Inspired Oxygen 21 %; HCO3 ABG 34.1 mEq/l (22.0-26.0); Oxygen Content ABG 14.4 %vol (16.0-22.0); PCO2 ABG 58.1 mmHg (35.0-45.0); PO2 FiO2 Ratio Arterial Blood 2.38 %; Total Hemoglobin 12.3 g/dL (12.0-18.0); pH ABG 7.386 (7.350-7.450)
[2021-04-04 22:00] LABS: Oxygen Saturation ABG 83.9 % (95.0-100.0); Oxyhemoglobin 83.2 % THb (90.0-100.0); PO2 ABG 49.9 mmHg (80.0-100.0)
[2021-04-04 22:01] LABS: Device ROOM AIR; Modified Allen's Test Pass; Site Drawn RIGHT RADIAL
[2021-04-04 22:30] LABS: Basophils Absolute Auto 0.1 K/mm3 (0.0-0.1); Basophils Percent Auto 0.6 % (0.2-1.2); Eosinophils Absolute Auto 0.1 K/mm3 (0-0.3); Eosinophils Percent Auto 1.2 % (0-4.4); Hematocrit 37.6 % (37.0-47.0); Hemoglobin 11.4 g/dL (12.0-15.0); Immature Granulocyte Absolute 0.04 K/mm3 (0.00-0.031); Immature Granulocyte Percent A 0.4 % (0-0.5); Lymphocytes Absolute Auto 1.51 K/mm3 (0.9-3.2); Lymphocytes Percent Auto 14.2 % (18.3-44.2); Mean Corpuscular HGB Conc 30.3 g/dl (32-36); Mean Corpuscular Hemoglobin 29.9 pg (26-34); Mean Corpuscular Volume 98.7 fl (80-100); Mean Platelet Volume 10.2 fl (7.4-10.4); Monocytes Absolute Auto 0.9 K/mm3 (0.1-0.6); Monocytes Percent Auto 8.8 % (2.6-8.5); Neutrophils Absolute Auto 7.9 K/mm3 (1.3-6.7); Neutrophils Percent Auto 74.8 % (45.5-73.1); Platelet Count Result 204 k/mm3 (150-375); Red Blood Count 3.81 M/mm3 (4.2-5.4); Red Cell Distribution Width 14.6 % (11.5-14.5); White Blood Count 10.6 K/mm3 (4.5-10.0)
[2021-04-04 22:40] LABS: Alanine Aminotransferase 14 U/L (4-35); Albumin Level 4.2 g/dL (3.5-5.1); Alkaline Phosphatase 106 U/L (38-126); Anion Gap 9 mmol/L (8-16); Aspartate Amino Transferase 24 U/L (14-36); Bilirubin,Total 0.7 mg/dL (0.2-1.3); Blood Urea Nitrogen 27 mg/dL (7-17); Calcium 8.9 mg/dL (8.4-10.2); Carbon Dioxide 35 mmol/L (22-30); Chloride 97 mmol/L (98-107); Estimated CRCL calculation 66 ml/min; Estimated Glomerular Filt Rate > 60; Glucose 134 mg/dL (65-110); Magnesium 1.4 mg/dL (1.6-2.3); Potassium 4.5 mmol/L (3.4-5.0); Sodium 141 mmol/L (137-145)
--- NOTE | 2021-04-04 22:43 | PC.NURSE ---
Pt positioned to commode at bedside prior to lasix administration. O2 86% after transfer. Pt placed on 4L O2 at this time.
[2021-04-04] MEDS: methylPREDNISolone SOD SUCC 125 MG VIAL IV PUSH (22:47)
[2021-04-04 22:48] LABS: NT Pro B Type Natriuretic Pept 5250 pg/mL (5-100)
[2021-04-04] MEDS: FUROSEMIDE INJ 40 MG/4 ML VIAL IV PUSH (22:51)
--- NOTE | 2021-04-04 22:57 | PC.NURSE ---
O2 NC titrated back down to 2L
[2021-04-05] VITALS (20 sets, daily range): BP systolic 113–144; BP diastolic 58–79; PULSE 78–89; RESP 16–24; TEMP 36.1–36.2; O2SAT 93–98; BMI 45.1
[2021-04-05 00:09] LABS: Add Urine Microscopic? YES; Appearance Urine Clear (Clear); Bacteria Urine 2+ /hpf; Bilirubin Urine Negative (Negative); Blood Urine 1+ (Negative); Color Urine Yellow (Yellow); Glucose Urine UA Negative (Negative); Ketones Urine Negative (Negative); Leukocyte Esterase Ur 2+ LEU/UL (Negative); Mucus Urine Rare /lpf; Nitrate Urine Negative (Negative); Protein Urine Negative (Negative); Specific Grav Ur 1.013 (1.001-1.035); Squamous Epithelial Cell Urine Moderate /hpf (Few); Transitional Epi Cells Urine Rare /hpf (None Seen); WBC Clumps Urine Present /HPF; WBC Urine 51-75 /hpf
[2021-04-05 00:41] LABS: SARS-CoV-2 RNA PCR Negative
[2021-04-05] MEDS: IPRATROPIUM BR 0.02% INH SOLN 0.5 MG/2.5 ML VIAL INHALATION ×4 (01:35→20:35)
[2021-04-05] MEDS: ALBUTEROL SULFATE NEB 2.5 MG/0.5 ML INH 5 MG INHALATION ×4 (01:35→20:35)
--- NOTE | 2021-04-05 05:15 | PM.IMHP ---
H&P: HPI History of Present Illness Date/Time: 04/05/21 05:15 Chief Complaint: Shortness of breath Narrative: Patient is a 68-year-old female who presents to the ER with shortness of breath. She states that she has been feeling short of breath since past 4 days. She went to see her primary care doctor yesterday and was given albuterol inhaler as she history COPD. She lives in a assisted living facility and was found to be hypoxic in 80s for which EMS was called and was brought to the ER for evaluation. She received albuterol in nebulizer treatment in route to the ER. She denies any fever cough congestion or chest pain or diaphoresis. She does report leg swelling that has been an ongoing problem for her. Initial evaluation in the ED revealed diminished aeration in all lung [place]. She was placed on 2 L oxygen via nasal cannula maintain oxygen saturation. She was attempted to have her oxygen tapered off for discharge however was not possible and hence getting admitted for further treatment. She states she was wheezy earlier. Review of Systems Review of Systems: - CONSTITUTIONAL: Denies weight loss, fever and chills. - HEENT: Denies changes in vision and hearing - RESPIRATORY: Reports SOB and cough. - CV: Denies palpitations and CP. - GI: Denies abdominal pain, nausea, vomiting and diarrhea. - : Denies dysuria and urinary frequency. - MSK: Denies myalgia and joint pain. - SKIN: Denies rash and pruritus. - NEUROLOGICAL: Denies headache and syncope. - PSYCHIATRIC: Denies recent changes in mood. Denies anxiety and depression. All systems reviewed & are unremarkable except as noted in HPI and below Constitutional: Constitutional: Reports fatigue and Reports weakness Neurologic: Reports weakness Endocrine: Endocrine: Reports fatigue [facility] Past Medical History Medical History Anxiety Chronic obstructive pulmonary disease Chronic respiratory failure Evidence both chronic hypoxic and hypercapnic respiratory failure by ABGs. Not on home oxygen. CKD (chronic kidney disease), stage III Congestive heart failure Echocardiogram on 11/07/2018 showed an LV systolic function at the lower limit of normal with an EF estimated 50 to 55%, severe biatrial enlargement, normal RV systolic pressure, and mild tricuspid regurgitation. Degenerative joint disease DVT (deep venous thrombosis) Gastroesophageal reflux disease History of peptic ulcer Hypertension Hypothyroidism Morbid obesity Peripheral arterial disease Arterial Dopplers of the lower extremities in January 2019 showed occlusion distally. Peripheral angiogram showed 1 vessel runoff bilaterally though no indication for intervention due to collaterals. Reports chronic pain and legs though not debilitating and she is not interested in surgical intervention. Persistent atrial fibrillation Transient ischemic attack Surgical History Surgical History History of right knee joint replacement (01/2009) Family History Family History Mother Cancer Depression Other Acute myocardial infarction Hypertension Social History Social History Social History: Surrogate decision maker: Ester Sanchez, daughter. Code status: Do not resuscitate. Smoking packs per day: 1 Smoking cigarettes per day: 20.0 Years smoked: 40 Smoking pack-years: 40.00 Smoking status: Former smoker Tobacco type: cigarettes Second hand tobacco smoke exposure: Yes Alcohol intake: never Substance use: never Substance use type: does not use Additional living arrangements comments: as of September 2020. Recently moved to assisted living at [facility]. Essentially wheelchair-bound but can transfer. Additional occupation/education comments: Retired. Spi
[2021-04-05] MEDS: methylPREDNISolone SOD SUCC 125 MG VIAL 60 MG IV PUSH ×3 (06:31→17:01)
[2021-04-05] MEDS: MAGNESIUM SULF 2 GM/WATER 50ML 2 GM/50 ML BAG IVPB (06:31)
[2021-04-05] MEDS: LEVOTHYROXINE SODIUM 112 MCG TABLET PO (07:40)
[2021-04-05] MEDS: LEVOTHYROXINE SODIUM 25 MCG TABLET PO (07:41)
[2021-04-05] MEDS: SPIRONOLACTONE 25 MG TABLET PO (08:54)
[2021-04-05] MEDS: POTASSIUM CHLORIDE 10 MEQ TABLET.ER PO (08:54)
[2021-04-05] MEDS: lisinopriL 10 MG TABLET PO (08:55)
[2021-04-05] MEDS: FUROSEMIDE INJ 40 MG/4 ML VIAL IV PUSH ×2 (08:55→19:45)
[2021-04-05] MEDS: APIXABAN 5 MG TABLET PO (08:55)
[2021-04-05] MEDS: PANTOPRAZOLE 40 MG TABLET PO ×2 (08:55→16:56)
[2021-04-05] MEDS: FLUTICASONE PROPIONATE 0.05% NA SPR 16 GM BTL (*BKC) 1 SPRAY NASAL (08:55)
--- NOTE | 2021-04-05 09:08 | PM.IMPN ---
Progress Note: A&P Assessment and Plan (1) CHF (congestive heart failure): Code(s): I50.9 - Heart failure, unspecified Status: Acute Assessment and Plan: -acute on chronic diastolic heart failure -BNP 5250 -CXR shows pulmonary edema and cardiomegaly -Echo from 11/25/20 shows EF of 65-70%, severely enlarged left and right atrial chambers, and moderate pulmonary hypertension -IV Lasix 40 mg BID -Close monitoring of volume status and electrolytes (2) COPD exacerbation: Code(s): J44.1 - Chronic obstructive pulmonary disease with (acute) exacerbation Status: Acute Assessment and Plan: -hx of COPD, not on home oxygen -hypoxic on arrival requiring 3L currently -covid negative -on prophylactic abx to cover for CAP -scheduled nebs, solumedrol 60 mg IV q6 hours -wean oxygen as tolerated (3) Acute and chronic respiratory failure with hypoxia: Code(s): J96.21 - Acute and chronic respiratory failure with hypoxia Status: Acute Assessment and Plan: -due to above (4) Persistent atrial fibrillation: Code(s): I48.19 - Other persistent atrial fibrillation Status: Acute Assessment and Plan: -continue Eliquis (5) Hypertension: Code(s): I10 - Essential (primary) hypertension Status: Chronic Assessment and Plan: -stable, continue home meds (6) Hypothyroidism: Code(s): E03.9 - Hypothyroidism, unspecified Status: Chronic Assessment and Plan: -continue levothyroxine, TSH last month WNL (7) Peripheral arterial disease: Code(s): I73.9 - Peripheral vascular disease, unspecified Status: Chronic Assessment and Plan: -chronic -does have 2+ pitting BLE, will check venous dopplers (8) Acute UTI: Code(s): N39.0 - Urinary tract infection, site not specified Status: Acute Assessment and Plan: -UA suspicious for UTI -on Rocephin -urine culture pending (9) Hypomagnesemia: Code(s): E83.42 - Hypomagnesemia Status: Acute Assessment and Plan: -monitor and replace as indicated Subjective Date/time seen: 04/05/21 09:08 Interval history: 75-year-old female with hx of COPD, CHF, atrial fibrillation, hypertension, dyslipidemia, peripheral arterial disease, and morbid obesity, admitted for COPD exacerbation and CHF. Pt states her breathing is much better since being placed on oxygen. She is currently on 3L and does not wear home oxygen. She c/o increased BLE edema x 1 week. Also has BLE pain which she states is chronic. Has hx of DVT but is on Eliquis. Also c/o abdominal swelling x 1 week but denies abd pain, N/V, diarrhea, fever, chills. No chest pain. No recent cough or cold symptoms. Review of Systems Review of Systems: All systems reviewed & are unremarkable except as noted in HPI and below Exam Narrative: General: No acute distress, non toxic appearing, obese Eyes: PERRL, no scleral icterus HEENT: NCAT, external ears normal, MMM Respiratory: No respiratory distress, Lung sounds diminished bilaterally, no wheezing or rhonchi, on 3L NC Cardiovascular: irregular rhythm with normal rate, no murmur Abdominal: Soft, nontender, non distended, no rebound or guarding Musculoskeletal: Moves all 4 extremities, 2+ pitting edema BLE with chronic skin changes Neurological: A/Ox3, speech normal, no facial asymmetry Skin: Warm, dry, no rashes Psychiatric: Normal affect, normal mood Objective Data Vital Signs Vital Signs: Vital Signs - 24 hr 04/04/21 21:32 04/04/21 21:50 04/04/21 22:06 Temperature 97.6 F Pulse Rate 84 83 86 Respiratory Rate 30 H 26 H 31 H Blood Pressure 127/67 Pulse Oximetry 88 L 93 04/04/21 22:11 04/04/21 22:44 04/04/21 23:00 Temperature Pulse Rate 85 87 Respiratory Rate 24 H 25 H Blood Pressure 138/73 131/81 Pulse Oximetry 98 93 99 04/04/21 23:13
[2021-04-05] MEDS: METOPROLOL SUCCINATE EXT REL 50 MG TABCR 150 MG PO (09:30)
[2021-04-05] MEDS: SIMVASTATIN 20 MG TABLET PO (19:45)
[2021-04-06] VITALS (20 sets, daily range): BP systolic 104–123; BP diastolic 53–79; PULSE 69–91; RESP 16–22; TEMP 35.9–36.6; O2SAT 92–96
[2021-04-06] MEDS: methylPREDNISolone SOD SUCC 125 MG VIAL 60 MG IV PUSH ×5 (00:25→23:50)
[2021-04-06] MEDS: ALBUTEROL SULFATE NEB 2.5 MG/0.5 ML INH 5 MG INHALATION ×4 (02:22→20:29)
[2021-04-06] MEDS: IPRATROPIUM BR 0.02% INH SOLN 0.5 MG/2.5 ML VIAL INHALATION ×4 (02:22→20:29)
[2021-04-06] MEDS: LEVOTHYROXINE SODIUM 112 MCG TABLET PO (05:18)
[2021-04-06] MEDS: LEVOTHYROXINE SODIUM 25 MCG TABLET PO (05:18)
[2021-04-06 06:03] LABS: Hematocrit 37.3 % (37.0-47.0); Mean Corpuscular HGB Conc 29.5 g/dl (32-36); Mean Corpuscular Hemoglobin 29.6 pg (26-34); Mean Corpuscular Volume 100.5 fl (80-100); Mean Platelet Volume 10.3 fl (7.4-10.4); Platelet Count Result 187 k/mm3 (150-375); Red Blood Count 3.71 M/mm3 (4.2-5.4); Red Cell Distribution Width 14.7 % (11.5-14.5)
[2021-04-06 06:14] LABS: Anion Gap 3 mmol/L (8-16); Blood Urea Nitrogen 31 mg/dL (7-17); Calcium 8.9 mg/dL (8.4-10.2); Carbon Dioxide 39 mmol/L (22-30); Chloride 97 mmol/L (98-107); Estimated CRCL calculation 70 ml/min; Estimated Glomerular Filt Rate > 60; Glucose 139 mg/dL (65-110); Magnesium 1.9 mg/dL (1.6-2.3); Potassium 4.7 mmol/L (3.4-5.0); Sodium 139 mmol/L (137-145)
[2021-04-06] MEDS: PANTOPRAZOLE 40 MG TABLET PO ×2 (08:39→17:12)
[2021-04-06] MEDS: METOPROLOL SUCCINATE EXT REL 50 MG TABCR 150 MG PO (08:39)
[2021-04-06] MEDS: FUROSEMIDE INJ 40 MG/4 ML VIAL IV PUSH ×2 (08:39→19:54)
[2021-04-06] MEDS: SPIRONOLACTONE 25 MG TABLET PO (08:39)
[2021-04-06] MEDS: FLUTICASONE PROPIONATE 0.05% NA SPR 16 GM BTL (*BKC) 1 SPRAY NASAL (08:39)
[2021-04-06] MEDS: lisinopriL 10 MG TABLET PO (08:40)
[2021-04-06] MEDS: POTASSIUM CHLORIDE 10 MEQ TABLET.ER PO (08:40)
[2021-04-06] MEDS: APIXABAN 5 MG TABLET PO (08:40)
--- NOTE | 2021-04-06 14:52 | PM.IMPN ---
Progress Note: A&P Assessment and Plan (1) CHF (congestive heart failure): Code(s): I50.9 - Heart failure, unspecified Status: Acute Assessment and Plan: -acute on chronic diastolic heart failure -BNP 5250 -CXR shows pulmonary edema and cardiomegaly -Echo from 11/25/20 shows EF of 65-70%, severely enlarged left and right atrial chambers, and moderate pulmonary hypertension -IV Lasix 40 mg BID -Close monitoring of volume status and electrolytes (2) COPD exacerbation: Code(s): J44.1 - Chronic obstructive pulmonary disease with (acute) exacerbation Status: Acute Assessment and Plan: -hx of COPD, not on home oxygen -hypoxic on arrival requiring 1L currently -covid negative -on prophylactic abx to cover for CAP -scheduled nebs, solumedrol 60 mg IV q6 hours -wean oxygen as tolerated (3) Acute and chronic respiratory failure with hypoxia: Code(s): J96.21 - Acute and chronic respiratory failure with hypoxia Status: Acute Assessment and Plan: -due to above (4) Persistent atrial fibrillation: Code(s): I48.19 - Other persistent atrial fibrillation Status: Acute Assessment and Plan: -continue Eliquis (5) Hypertension: Code(s): I10 - Essential (primary) hypertension Status: Chronic Assessment and Plan: -stable, continue home meds (6) Hypothyroidism: Code(s): E03.9 - Hypothyroidism, unspecified Status: Chronic Assessment and Plan: -continue levothyroxine, TSH last month WNL (7) Peripheral arterial disease: Code(s): I73.9 - Peripheral vascular disease, unspecified Status: Chronic Assessment and Plan: -chronic -does have 2+ pitting BLE -venous dopplers negative (8) Acute UTI: Code(s): N39.0 - Urinary tract infection, site not specified Status: Acute Assessment and Plan: -UA suspicious for UTI -on Rocephin -urine culture with Klebsiella, sensitivity report pending (9) Hypomagnesemia: Code(s): E83.42 - Hypomagnesemia Status: Acute Assessment and Plan: -monitor and replace as indicated Subjective Date/time seen: 04/06/21 14:52 Interval history: 75-year-old female with hx of COPD, CHF, atrial fibrillation, hypertension, dyslipidemia, peripheral arterial disease, and morbid obesity, admitted for COPD exacerbation and CHF. Pt states her breathing is about the same today. They tried weaning her down to room air earlier today and her sats came down to the mid 80s. She is resting comfortably on 1L at 93% at the time of my evaluation. She denies cp. LE edema is improving. Review of Systems Review of Systems: All systems reviewed & are unremarkable except as noted in HPI and below Exam Narrative: General: No acute distress, non toxic appearing, obese Eyes: PERRL, no scleral icterus HEENT: NCAT, external ears normal, MMM Respiratory: No respiratory distress, Lungs CTA bilaterally, no wheezing or rhonchi, on 3L NC Cardiovascular: irregular rhythm with normal rate, no murmur Abdominal: Soft, nontender, non distended, no rebound or guarding Musculoskeletal: Moves all 4 extremities, 1-2+ pitting edema BLE with chronic skin changes Neurological: A/Ox3, speech normal, no facial asymmetry Skin: Warm, dry, no rashes Psychiatric: Normal affect, normal mood Objective Data Vital Signs Vital Signs: Vital Signs - 24 hr 04/05/21 20:00 04/05/21 20:35 04/05/21 20:44 Temperature Pulse Rate 86 80 86 Respiratory Rate 20 22 H 20 Blood Pressure Pulse Oximetry 96 96 04/05/21 21:10 04/05/21 22:00 04/06/21 02:23 Temperature 97.0 F L Pulse Rate 80 84 Respiratory Rate 18 22 H Blood Pressure 137/74 Pulse Oximetry 93 97 04/06/21 02:30 04/06/21 06:00 04/06/21 07:54 Temperature 97.0 F L 97.2 F L Pulse Rate 85 86 77 Respiratory Rate 18 18 18 Blood Pressure
--- NOTE | 2021-04-06 14:57 | PC.NURSE ---
On 04/06/21, the student, [Anabell Banerjee], provided care and completed [facility] documentation on this patient. I have reviewed the student's documentation and agree with the findings.
[2021-04-06] MEDS: SIMVASTATIN 20 MG TABLET PO (19:54)
[2021-04-07] VITALS (13 sets, daily range): BP systolic 115–118; BP diastolic 51–60; PULSE 75–92; RESP 16–20; TEMP 35.9–36.3; O2SAT 91–95
[2021-04-07] MEDS: ALBUTEROL SULFATE NEB 2.5 MG/0.5 ML INH 5 MG INHALATION ×4 (03:04→21:08)
[2021-04-07] MEDS: IPRATROPIUM BR 0.02% INH SOLN 0.5 MG/2.5 ML VIAL INHALATION ×4 (03:04→21:08)
[2021-04-07] MEDS: LEVOTHYROXINE SODIUM 112 MCG TABLET PO (05:38)
[2021-04-07] MEDS: methylPREDNISolone SOD SUCC 125 MG VIAL 60 MG IV PUSH ×2 (05:38→16:52)
[2021-04-07] MEDS: LEVOTHYROXINE SODIUM 25 MCG TABLET PO (05:38)
[2021-04-07 05:59] LABS: Hematocrit 38.6 % (37.0-47.0); Hemoglobin 11.8 g/dL (12.0-15.0); Mean Corpuscular HGB Conc 30.6 g/dl (32-36); Mean Corpuscular Hemoglobin 29.5 pg (26-34); Mean Corpuscular Volume 96.5 fl (80-100); Mean Platelet Volume 9.8 fl (7.4-10.4); Platelet Count Result 193 k/mm3 (150-375); Red Cell Distribution Width 14.4 % (11.5-14.5); White Blood Count 10.8 K/mm3 (4.5-10.0)
[2021-04-07 06:17] LABS: Anion Gap 10 mmol/L (8-16); Blood Urea Nitrogen 40 mg/dL (7-17); Carbon Dioxide 36 mmol/L (22-30); Chloride 92 mmol/L (98-107); Estimated CRCL calculation 70 ml/min; Estimated Glomerular Filt Rate > 60; Glucose 145 mg/dL (65-110); Potassium 4.3 mmol/L (3.4-5.0); Sodium 138 mmol/L (137-145)
[2021-04-07] MEDS: FUROSEMIDE INJ 40 MG/4 ML VIAL IV PUSH (08:40)
[2021-04-07] MEDS: METOPROLOL SUCCINATE EXT REL 50 MG TABCR 150 MG PO (08:40)
[2021-04-07] MEDS: PANTOPRAZOLE 40 MG TABLET PO ×2 (08:41→16:51)
[2021-04-07] MEDS: SPIRONOLACTONE 25 MG TABLET PO (08:41)
[2021-04-07] MEDS: lisinopriL 10 MG TABLET PO (08:41)
[2021-04-07] MEDS: APIXABAN 5 MG TABLET PO (08:41)
[2021-04-07] MEDS: POTASSIUM CHLORIDE 10 MEQ TABLET.ER PO (08:41)
[2021-04-07] MEDS: FLUTICASONE PROPIONATE 0.05% NA SPR 16 GM BTL (*BKC) 1 SPRAY NASAL (08:41)
--- NOTE | 2021-04-07 09:51 | PM.IMPN ---
Progress Note: A&P Assessment and Plan (1) CHF (congestive heart failure): Code(s): I50.9 - Heart failure, unspecified Status: Acute Assessment and Plan: -acute on chronic diastolic heart failure -BNP 5250 -CXR shows pulmonary edema and cardiomegaly -Echo from 11/25/20 shows EF of 65-70%, severely enlarged left and right atrial chambers, and moderate pulmonary hypertension -IV Lasix 40 mg BID w/ significant improvement in breathing and LE edema, will switch to oral today, possible discharge tomorrow -Close monitoring of volume status and electrolytes (2) COPD exacerbation: Code(s): J44.1 - Chronic obstructive pulmonary disease with (acute) exacerbation Status: Acute Assessment and Plan: -hx of COPD, not on home oxygen -hypoxic on arrival, was requiring up to 3L NC -covid negative -on prophylactic abx to cover for CAP -scheduled nebs, solumedrol 60 mg IV q6 hours -will reduce solumedrol to q12 hours as she is improving clinically -today 92% on RA at rest -home oxygen eval tomorrow morning (3) Acute and chronic respiratory failure with hypoxia: Code(s): J96.21 - Acute and chronic respiratory failure with hypoxia Status: Acute Assessment and Plan: -due to above (4) Persistent atrial fibrillation: Code(s): I48.19 - Other persistent atrial fibrillation Status: Acute Assessment and Plan: -continue Eliquis (5) Hypertension: Code(s): I10 - Essential (primary) hypertension Status: Chronic Assessment and Plan: -stable, continue home meds (6) Hypothyroidism: Code(s): E03.9 - Hypothyroidism, unspecified Status: Chronic Assessment and Plan: -continue levothyroxine, TSH last month WNL (7) Peripheral arterial disease: Code(s): I73.9 - Peripheral vascular disease, unspecified Status: Chronic Assessment and Plan: -chronic -does have pitting BLE -venous dopplers negative (8) Acute UTI: Code(s): N39.0 - Urinary tract infection, site not specified Status: Acute Assessment and Plan: -UA suspicious for UTI -continue rocephin -urine culture with Klebsiella, sensitive to rocephin (9) Hypomagnesemia: Code(s): E83.42 - Hypomagnesemia Status: Acute Assessment and Plan: -monitor and replace as indicated Subjective Date/time seen: 04/07/21 09:51 Interval history: 75-year-old female with hx of COPD, CHF, atrial fibrillation, hypertension, dyslipidemia, peripheral arterial disease, and morbid obesity, admitted for COPD exacerbation and CHF. Pt is improving. Was taken off of oxygen this morning. Leg swelling is starting to improve as well. Denies cp. Review of Systems Review of Systems: All systems reviewed & are unremarkable except as noted in HPI and below Exam Narrative: General: No acute distress, non toxic appearing, obese Eyes: PERRL, no scleral icterus HEENT: NCAT, external ears normal, MMM Respiratory: No respiratory distress, Lungs CTA bilaterally, no wheezing or rhonchi, on RA Cardiovascular: irregular rhythm with normal rate, no murmur Abdominal: Soft, nontender, non distended, no rebound or guarding Musculoskeletal: Moves all 4 extremities, 1+ pitting edema BLE with chronic skin changes Neurological: A/Ox3, speech normal, no facial asymmetry Skin: Warm, dry, no rashes Psychiatric: Normal affect, normal mood Objective Data Vital Signs Vital Signs: Vital Signs - 24 hr 04/06/21 09:59 04/06/21 11:42 04/06/21 13:50 Temperature Pulse Rate Respiratory Rate Blood Pressure Pulse Oximetry 95 96 93 04/06/21 14:00 04/06/21 14:10 04/06/21 14:21 Temperature 96.6 F L Pulse Rate 80 81 83 Respiratory Rate 16 18 18 Blood Pressure 104/79 Pulse Oximetry 93 04/06/21 17:46 04/06/21 19:37 04/06/21 20:00 Temperature 97.8 F Pulse Rate 9
[2021-04-07] MEDS: FUROSEMIDE 40 MG TABLET PO (16:51)
[2021-04-07] MEDS: SIMVASTATIN 20 MG TABLET PO (20:27)
[2021-04-08] VITALS (7 sets, daily range): BP systolic 117; BP diastolic 66; PULSE 75–92; RESP 16–20; TEMP 36.3; O2SAT 95–99
[2021-04-08] MEDS: IPRATROPIUM BR 0.02% INH SOLN 0.5 MG/2.5 ML VIAL INHALATION ×2 (01:08→08:47)
[2021-04-08] MEDS: ALBUTEROL SULFATE NEB 2.5 MG/0.5 ML INH 5 MG INHALATION ×2 (01:08→08:46)
[2021-04-08 05:36] LABS: Hematocrit 38.4 % (37.0-47.0); Hemoglobin 11.7 g/dL (12.0-15.0); Mean Corpuscular HGB Conc 30.5 g/dl (32-36); Mean Corpuscular Hemoglobin 29.8 pg (26-34); Mean Platelet Volume 10.2 fl (7.4-10.4); Platelet Count Result 187 k/mm3 (150-375); Red Blood Count 3.92 M/mm3 (4.2-5.4); Red Cell Distribution Width 14.6 % (11.5-14.5); White Blood Count 10.5 K/mm3 (4.5-10.0)
[2021-04-08 05:50] LABS: Anion Gap 2 mmol/L (8-16); Blood Urea Nitrogen 46 mg/dL (7-17); Calcium 8.5 mg/dL (8.4-10.2); Carbon Dioxide 38 mmol/L (22-30); Chloride 96 mmol/L (98-107); Estimated CRCL calculation 70 ml/min; Estimated Glomerular Filt Rate > 60; Glucose 157 mg/dL (65-110); Potassium 4.7 mmol/L (3.4-5.0); Sodium 136 mmol/L (137-145)
[2021-04-08] MEDS: methylPREDNISolone SOD SUCC 125 MG VIAL 60 MG IV PUSH (06:04)
[2021-04-08] MEDS: LEVOTHYROXINE SODIUM 112 MCG TABLET PO (06:05)
[2021-04-08] MEDS: LEVOTHYROXINE SODIUM 25 MCG TABLET PO (06:05)
[2021-04-08] MEDS: METOPROLOL SUCCINATE EXT REL 50 MG TABCR 150 MG PO (08:15)
[2021-04-08] MEDS: FUROSEMIDE 40 MG TABLET PO (08:16)
[2021-04-08] MEDS: APIXABAN 5 MG TABLET PO (08:16)
[2021-04-08] MEDS: POTASSIUM CHLORIDE 10 MEQ TABLET.ER PO (08:16)
[2021-04-08] MEDS: SPIRONOLACTONE 25 MG TABLET PO (08:17)
[2021-04-08] MEDS: lisinopriL 10 MG TABLET PO (08:17)
[2021-04-08] MEDS: FLUTICASONE PROPIONATE 0.05% NA SPR 16 GM BTL (*BKC) 1 SPRAY NASAL (08:17)
[2021-04-08] MEDS: PANTOPRAZOLE 40 MG TABLET PO (08:17)
--- NOTE | 2021-04-08 10:02 | PM.DS ---
DS: Admitting Diagnosis Discharge Date 04/08/21 Admitting Diagnosis CHF exaerbation DS: Discharge Diagnosis Discharge Diagnosis (1) CHF (congestive heart failure): Code(s): I50.9 - Heart failure, unspecified Status: Acute Assessment and Plan: -acute on chronic diastolic heart failure -BNP 5250 -CXR shows pulmonary edema and cardiomegaly -Echo from 11/25/20 shows EF of 65-70%, severely enlarged left and right atrial chambers, and moderate pulmonary hypertension -IV Lasix 40 mg BID w/ significant improvement in breathing and LE edema, switched to oral yesterday and patient states her breathing is back to her baseline. She has been off of oxygen x48 hours. LE edema has also resolved and she is back to her baseline or near baseline. (2) COPD exacerbation: Code(s): J44.1 - Chronic obstructive pulmonary disease with (acute) exacerbation Status: Acute Assessment and Plan: -hx of COPD, not on home oxygen -hypoxic on arrival, was requiring up to 3L NC -covid negative -IV abx to cover for CAP -scheduled nebs, solumedrol 60 mg IV q6 hours, tapered down to oral prednisone, will go home with 3 more days of oral prednisone -has been on RA x 48 hours hours -home O2 eval shows no indication for home oxygen (3) CAP (community acquired pneumonia): Code(s): J18.9 - Pneumonia, unspecified organism Status: Acute Assessment and Plan: -CXR suspicious for pneumonia -given risk factor of COPD she was started on IV abx -will continue treatment on discharge with Augmentin (4) Acute and chronic respiratory failure with hypoxia: Code(s): J96.21 - Acute and chronic respiratory failure with hypoxia Status: Acute Assessment and Plan: -due to above (5) Persistent atrial fibrillation: Code(s): I48.19 - Other persistent atrial fibrillation Status: Acute Assessment and Plan: -continued Eliquis (6) Hypertension: Code(s): I10 - Essential (primary) hypertension Status: Chronic Assessment and Plan: -stable, continued home meds (7) Hypothyroidism: Code(s): E03.9 - Hypothyroidism, unspecified Status: Chronic Assessment and Plan: -continued levothyroxine, TSH last month WNL (8) Peripheral arterial disease: Code(s): I73.9 - Peripheral vascular disease, unspecified Status: Chronic Assessment and Plan: -chronic -did have pitting BLE which significantly improved with diuresis -venous dopplers negative (9) Acute UTI: Code(s): N39.0 - Urinary tract infection, site not specified Status: Acute Assessment and Plan: -UA suspicious for UTI -IV rocephin -urine culture with Klebsiella, sensitive to rocephin -Will send home on Augmentin to cover her UTI and pneumonia (10) Hypomagnesemia: Code(s): E83.42 - Hypomagnesemia Status: Acute Assessment and Plan: -monitored and replaced as indicated DS: Summary Hospital Course Reason for hospitalization: 75-year-old female with hx of COPD, CHF, atrial fibrillation, hypertension, dyslipidemia, peripheral arterial disease, and morbid obesity, admitted for COPD exacerbation and CHF. Please see HPI for further details. Hospital Course: Please see above for details of hospital course. Status at Discharge Cognitive/behavioral status at discharge: stable Functional status at discharge: wheelchair bound Time Spent with Patient Time attestation: Total time spent providing and/or coordinating discharge services: 32 Time spent: Greater than 30 minutes Exam Narrative: General: No acute distress, non toxic appearing, obese Eyes: PERRL, no scleral icterus HEENT: NCAT, external ears normal, MMM Respiratory: No respiratory distress, Lungs CTA bilaterally, no wheezing or rhonchi, on RA Cardiovascular: irregular rhythm with normal rate, no murmur
[2021-04-08] MEDS: predniSONE 20 MG TABLET PO (10:05)
--- NOTE | 2021-04-08 10:58 | PCRCNOTE ---
Home O2 evaluation done. Pt does not qualify for home oxygen.
== END 2021-04-08 13:20 | DRG 190 ==
LOC: ANHED 23:15 → ANH2MED 04-05 01:08
PROVIDERS: Physician Assistant; Admitting Provider Internal Medicine; Emergency Provider Emergency Medicine; PCP Emergency Medicine; Visit Provider Internal Medicine
DX: J44.1 Chronic obstructive pulmonary disease with (acute) exacerbation (principal); J96.21 Acute and chronic respiratory failure with hypoxia; I50.33 Acute on chronic diastolic (congestive) heart failure; J18.9 Pneumonia, unspecified organism; I13.0 Hypertensive heart and chronic kidney disease with heart failure and stage 1 through stage 4 chronic kidney disease, or unspecified chronic kidney disease; F33.2 Major depressive disorder, recurrent severe without psychotic features; I48.19 Other persistent atrial fibrillation; N39.0 Urinary tract infection, site not specified; Z68.42 Body mass index [BMI] 45.0-49.9, adult; J44.0 Chronic obstructive pulmonary disease with (acute) lower respiratory infection; I27.20 Pulmonary hypertension, unspecified; E66.01 Morbid (severe) obesity due to excess calories; Z20.822 Contact with and (suspected) exposure to COVID-19; B96.1 Klebsiella pneumoniae [K. pneumoniae] as the cause of diseases classified elsewhere; N18.30 Chronic kidney disease, stage 3 unspecified; E03.9 Hypothyroidism, unspecified; I73.9 Peripheral vascular disease, unspecified; K21.9 Gastro-esophageal reflux disease without esophagitis; E78.5 Hyperlipidemia, unspecified; E83.42 Hypomagnesemia; Z66 Do not resuscitate; Z96.651 Presence of right artificial knee joint; Z28.21 Immunization not carried out because of patient refusal; Z79.01 Long term (current) use of anticoagulants; Z79.899 Other long term (current) drug therapy; Z86.718 Personal history of other venous thrombosis and embolism; Z86.73 Personal history of transient ischemic attack (TIA), and cerebral infarction without residual deficits; Z87.891 Personal history of nicotine dependence; Z99.3 Dependence on wheelchair
CPT/HCPCS: 36415; 36600; 71045; 80048; 80053; 81001; 82805; 83735; 83880; 85025; 85027; 87077; 87086; 87088; 87186; 93005; 93970; 94618; 94640; 96365; 96366; 96367; 96375; 96376; 97161; 97165; 97535; 99285; A9270; C9803; G0378; J0456; J0696; J1940; J2930; J3475; J7512; U0003; U0005

== ENCOUNTER 2021-06-04 21:32 | Inpatient (IN) | payer OTHER, MEDICAID, SELFPAY ==
--- NOTE | ~2021-06-04 | XR_ITS ---
EXAMINATION: XR chest 1V portable INDICATION: Congestive heart failure TECHNIQUE: Portable AP chest at 0544 hours COMPARISON: 06/04/2021 FINDINGS: Cardiomegaly is noted. A mild diffuse interstitial pattern persists with slight improvement . There is no pleural effusion or pneumothorax. IMPRESSION: 1. Cardiomegaly with improved pulmonary edema. Reviewed, dictated and finalized at location A.
--- NOTE | ~2021-06-04 | XR_ITS ---
EXAMINATION: XR chest 2V DATE: 06/04/2021 22:32 INDICATION: Shortness of breath TECHNIQUE: AP and lateral views of the chest are obtained. COMPARISON: 04/07/2021 FINDINGS: Cardiomegaly is noted. There is a mild diffuse interstitial pattern. No pleural effusion or pneumothorax is identified. The lungs are free of focal airspace opacities. There is mild thoracic s pondylosis. IMPRESSION: 1. Cardiomegaly with mild pulmonary edema. Reviewed, dictated and finalized at location A.
[2021-06-04 21:30] VITALS: BP 129/77; PULSE 87; RESP 30; TEMP 36.4; O2SAT 88
[2021-06-04 21:39] VITALS: BP 129/77; PULSE 84; RESP 26; O2SAT 87
--- NOTE | 2021-06-04 21:42 | ECG_ITS ---
Measurements Intervals [place] Rate: 86 P: [place]: 0 QRS: 107 QRSD: 92 T: 55 QT: 360 QTc: 432 Interpretive Statements ATRIAL FIBRILLATION MARKED RIGHT AXIS DEVIATION [QRS AXIS > 100] ABNORMAL ECG COMPARED TO ECG 04/04/2021 22:11:11 NO SIGNIFICANT CHANGES Electronically Signed On 06-05-2021 15:26:37 CDT by rAturo Rainey M.D.
[2021-06-04 22:10] VITALS: O2SAT 99
--- NOTE | 2021-06-04 22:11 | PC.NURSE ---
76yr, F presents to the ED via EMS from [facility] living with c/o SOB. EMS reports patient has COPD and has a nebulizer at home but for some reason was instructed not to use the nebulizer. EMS established IV access prior to arrival and administered a Duoneb. Patient's room air saturations when EMS arrived was 88. Patient A&O x4. Patient 88% on room air in the ED, movie writer placed patient on 3L of oxygen via nasal cannula. Oxygen saturations increased to 97% on 3L. EKG performed and shown to ED physician. Patient connect to pulse ox, blood pressure, and cardiac monitors. Vitals as charted.
[2021-06-04 22:15] LABS: Alveolar/Arterial O2 Gradient 77.2 mmHg; Base Excess ABG 5.8 mEq/l (+/-2.0); Carboxyhemoglobin 0.8 % THb (0-2.0); Device NASAL CANNULA; Fractional Inspired Oxygen 32 %; HCO3 ABG 32.6 mEq/l (22.0-26.0); Methemoglobin ABG 0.1 %THb (0-1.5); Modified Allen's Test Pass; Oxygen Saturation ABG 95.8 % (95.0-100.0); Oxyhemoglobin 94.6 % THb (90.0-100.0); PCO2 ABG 57.6 mmHg (35.0-45.0); PO2 ABG 83.6 mmHg (80.0-100.0); PO2 FiO2 Ratio Arterial Blood 2.61 %; Reduced Hemoglobin 4.5 %THb (0-5.0); Site Drawn RIGHT RADIAL
--- NOTE | 2021-06-04 22:39 | ED.GENADULT ---
HPI - General Adult General Chief complaint: Shortness of Breath/Dyspnea Stated complaint: shortness of breath Time Seen by Provider: 06/04/21 21:45 Source: patient, family and RN notes reviewed History of Present Illness HPI narrative: 76-year-old female with history of COPD and CHF presented to the emergency department for evaluation of worsening shortness of breath. Patient states over the course of the last 2 weeks she has had worsening lower extremity edema. And patient states over the last 5 days she has had worsening exertional shortness of breath. Patient is not normally on oxygen at home but was 88% on room air. Patient does have a history of hypercapnia and hypoxia. Patient does have lower extremity edema that she states is worse than normal. Patient does live in assisted care and has been taking her medications as directed. Patient denies any associated chest pain. Patient denies any shortness of breath at rest. Patient denies any associated nausea vomiting or diarrhea. Patient denies any pain with urination. Related Data Home Medications Medication Instructions Recorded Confirmed Eliquis 5 mg PO DAILY 04/05/21 06/05/21 albuterol sulfate 1 puff INHALATION Q4H PRN 04/05/21 06/05/21 fluticasone propionate 50 mcg INTRANASAL DAILY 04/05/21 06/05/21 ipratropium bromide 0.02 ml CONTINUOUS NEBULIZATION 04/05/21 06/05/21 Q6H PRN levothyroxine 137 mcg PO DAILY 04/05/21 06/05/21 lisinopril 10 mg PO DAILY 04/05/21 06/05/21 metoprolol succinate 150 mg PO DAILY 04/05/21 06/05/21 potassium chloride 10 meq PO DAILY 04/05/21 06/05/21 simvastatin 20 mg PO HS 04/05/21 06/05/21 spironolactone 25 mg PO DAILY 04/05/21 06/05/21 furosemide 60 mg PO DAILY 06/05/21 06/05/21 tiotropium bromide [Spiriva INHALATION 06/05/21 Respimat] Allergies Allergy/AdvReac Type Severity Reaction Status Date / Time No Known Drug Allergies Allergy Other Verified 06/04/21 21:41 Review of Systems Review of Systems: CONSTITUTIONAL: Denies fever, chills, or sweats. EYES: Denies visual changes, redness, or discharge. ENT: Denies rhinorrhea, congestion, sore throat, or otalgia. CARDIOVASCULAR: Denies chest pain, palpitations, or edema. RESPIRATORY: Exertional shortness of breath GASTROINTESTINAL: Denies abdominal pain, nausea, vomiting, or diarrhea. GENITOURINARY: Denies dysuria or hematuria. SKIN: Denies rash or itching. MUSCULOSKELETAL: Denies back pain, joint pain, or myalgia. NEUROLOGIC: Denies headache, numbness, or weakness. All systems reviewed & are unremarkable except as noted in HPI and below [facility] Past Medical History Medical History (Updated 06/05/21 @ 07:29 by Hayden Luciano MD) Anxiety Chronic obstructive pulmonary disease Chronic respiratory failure Evidence both chronic hypoxic and hypercapnic respiratory failure by ABGs. Not on home oxygen. CKD (chronic kidney disease), stage III Congestive heart failure Echocardiogram on 11/07/2018 showed an LV systolic function at the lower limit of normal with an EF estimated 50 to 55%, severe biatrial enlargement, normal RV systolic pressure, and mild tricuspid regurgitation. Degenerative joint disease DVT (deep venous thrombosis) Gastroesophageal reflux disease History of peptic ulcer Hypertension Hypothyroidism Morbid obesity Peripheral arterial disease Arterial Dopplers of the lower extremities in January 2019 showed occlusion distally. Peripheral angiogram showed 1 vessel runoff bilaterally though no indication for intervention due to collaterals. Reports chronic pain and legs though not debilitating and she is not interested in surgical intervention. Persistent atrial fibrillation Transient ischemic attack Surgical History Surgical History History of right knee joint replacement (01/2009) Family History Family History Mother Cancer Depression Other Acute myocardia
[2021-06-04 22:40] LABS: Basophils Absolute Auto 0.1 K/mm3 (0.0-0.1); Basophils Percent Auto 0.5 % (0.2-1.2); Eosinophils Absolute Auto 0.1 K/mm3 (0-0.3); Eosinophils Percent Auto 1.3 % (0-4.4); Hematocrit 38.4 % (37.0-47.0); Hemoglobin 10.9 g/dL (12.0-15.0); Immature Granulocyte Absolute 0.03 K/mm3 (0.00-0.031); Immature Granulocyte Percent A 0.3 % (0-0.5); Lymphocytes Absolute Auto 1.02 K/mm3 (0.9-3.2); Lymphocytes Percent Auto 9.9 % (18.3-44.2); Mean Corpuscular HGB Conc 28.4 g/dl (32-36); Mean Corpuscular Volume 95.3 fl (80-100); Mean Platelet Volume 9.6 fl (7.4-10.4); Monocytes Percent Auto 9.9 % (2.6-8.5); Neutrophils Percent Auto 78.1 % (45.5-73.1); Platelet Count Result 166 k/mm3 (150-375); Red Blood Count 4.03 M/mm3 (4.2-5.4); Red Cell Distribution Width 15.2 % (11.5-14.5); White Blood Count 10.3 K/mm3 (4.5-10.0)
[2021-06-04 22:48] LABS: Anisocytosis 1+ (NORMAL); Platelet Estimate Adequate (Adequate)
[2021-06-04 22:49] LABS: Ovalocytes 1+ (NORMAL); Stomatocytes 1+ (NORMAL)
[2021-06-04 22:59] LABS: Alanine Aminotransferase 18 U/L (4-35); Alkaline Phosphatase 102 U/L (38-126); Anion Gap 5 mmol/L (8-16); Aspartate Amino Transferase 25 U/L (14-36); Bilirubin,Total 1.2 mg/dL (0.2-1.3); Blood Urea Nitrogen 30 mg/dL (7-17); Calcium 8.4 mg/dL (8.4-10.2); Carbon Dioxide 35 mmol/L (22-30); Chloride 100 mmol/L (98-107); Estimated CRCL calculation 68 ml/min; Estimated Glomerular Filt Rate > 60; Glucose 109 mg/dL (65-110); Potassium 4.9 mmol/L (3.4-5.0); Sodium 140 mmol/L (137-145)
[2021-06-04 23:23] LABS: NT Pro B Type Natriuretic Pept 3480 pg/mL (5-100)
[2021-06-04] MEDS: FUROSEMIDE INJ 40 MG/4 ML VIAL IV PUSH (23:29)
--- NOTE | 2021-06-04 23:47 | PM.IMHP ---
H&P: HPI History of Present Illness Date/Time: 06/04/21 23:47 Chief Complaint: Swelling. Narrative: This is a 76-year-old female with past medical history significant for congestive heart failure, persistent atrial fibrillation, chronic kidney disease, hypertension, obesity, gastroesophageal reflux disease, dyslipidemia. [facility] She comes in through the emergency room for evaluation of worsening bilateral lower extremity edema and increased abdominal girth and shortness of breath at rest patient denies any chest pain, any fevers ,any chills, any cough, any sputum production, no palpitations, has been having problems with ambulation due to worsening of pedal edema. Patient was just recently discharged from the hospital which she was treated for urinary tract infection and congestive heart failure exacerbation. Preliminary workup here today shows a brain natriuretic peptide of over 3,000, an EKG showed atrial fibrillation. Patient is been admitted for further evaluation, management and treatment. Review of Systems Review of Systems: Bilateral lower extremity swelling increased abdominal girth shortness of breath. Constitutional: Constitutional: Denies chills, Denies fever(s), Denies night sweats and Denies weakness Eyes: Eyes: Denies change in vision ENT: Denies dysphagia, Denies vertigo, Denies dizziness, Denies nasal congestion, Denies nasal discharge, Denies nasal obstruction and Denies odynophagia Cardiovascular: Cardiovascular: Reports pedal edema, Reports edema, Reports leg edema, Denies radiating jaw, neck or arm pain, Denies palpitations and Reports dyspnea on exertion Respiratory: Respiratory: Denies cough, Denies excessive phlegm production and Denies wheezing Gastrointestinal: Gastrointestinal: Denies abdominal pain, Denies dyspepsia, Denies heartburn, Denies diarrhea and Denies vomiting Genitourinary: Genitourinary: Denies dysuria Musculoskeletal: Musculoskeletal: Reports myalgias and Reports other (Leg pain) Integumentary/Breasts: Skin/Breast: Reports erythema (Bilateral lower extremities) Neurologic: Denies focal weakness and Denies Sensory deficit (Neuro) Psychiatric: Psychiatric: Reports no additional psychiatric complaints and Reports as per HPI Endocrine: Endocrine: Denies cold intolerance, Denies heat intolerance, Denies polydipsia and Denies palpitations Hematologic/Lymphatic: Hematologic/Lymphatic: Reports no additional hematologic/lymphatic complaints and Reports as per HPI Allergic/Immunologic: Allergic/Immunologic: Reports no additional allergic/immunologic complaints and Reports as per HPI [facility] Past Medical History Medical History (Updated 06/05/21 @ 03:44 by Sammi Biswas MD) Anxiety Chronic obstructive pulmonary disease Chronic respiratory failure Evidence both chronic hypoxic and hypercapnic respiratory failure by ABGs. Not on home oxygen. CKD (chronic kidney disease), stage III Congestive heart failure Echocardiogram on 11/07/2018 showed an LV systolic function at the lower limit of normal with an EF estimated 50 to 55%, severe biatrial enlargement, normal RV systolic pressure, and mild tricuspid regurgitation. Degenerative joint disease DVT (deep venous thrombosis) Gastroesophageal reflux disease History of peptic ulcer Hypertension Hypothyroidism Morbid obesity Peripheral arterial disease Arterial Dopplers of the lower extremities in January 2019 showed occlusion distally. Peripheral angiogram showed 1 vessel runoff bilaterally though no indication for intervention due to collaterals. Reports chronic pain and legs though not debilitating and she is not interested in surgical intervention. Persistent atrial fibrillation Transient ischemic attack Surgical History Surgical History History of right knee joint replacement (01/2009) Family History Family History (Reviewed 04/17/21 @ 09:31 by Arturo Leone
[2021-06-05] VITALS (13 sets, daily range): BP systolic 101–121; BP diastolic 51–73; PULSE 83–94; RESP 18–22; TEMP 36.3–36.4; O2SAT 90–99; BMI 47.7
--- NOTE | 2021-06-05 | ECHO_ITS ---
Patient Info Name: Lavern Roland Age: 76 years : 1945 Gender: Female Ht: 70 in Wt: 333 lbs BSA: 2.81 m2 HR: 79 bpm BP: 121 / 73 mmHg Heart Rhythm: Atrial Fibrillation Technical Quality: Poor Exam Date: 06/05/2021 2:06 PM Exam Location: [facility] Card Pulmonary Patient Status: Inpatient Admit Date: 06/05/2021 Staff Ordering Physician: Luis Alfredo Hua [employer] Supervisor: Libby Dent RDCS Attending Provider: Sammi Biswas MD Referring Physician: Javid SANTO; Exam Type: CA echo dop color flow w con Study Info Indications - ELEVATED BNP Complete two-dimensional, color flow and Doppler transthoracic echocardiogram is performed with contrast to opacify the left ventricle and to improve the deliniation of the left ventricle endocardial borders. Contrast/Agitated Saline Contrast/Ag. Saline: Definity Amount: 4.00 ml Administered By: Libby Dent RDCS Existing IV Access: Yes IV Access Condition: patent with no signs of infiltration Reason for Poor Study: patient body habitus Summary 1. Definity contrast used to improve visualization. 2. Normal appearing left ventricular systolic function and size. 3. Significant biatrial dilation. 4. Atrial fibrillation. 5. Sclerotic aortic valve which is not functionally stenotic. 6. Compared to examination done November 24, 2020 there are no substantial differences. Left Ventricle Left ventricular chamber dimension is normal. Left ventricular systolic function is normal, estimated at 55-60%. Right Ventricle Right ventricular chamber dimension is mildly enlarged. Left Atria Left atrial chamber dimension is severely enlarged. Right Atria Right atrial chamber dimension is severely enlarged. Aortic Valve The aortic valve is trileaflet. There is mild aortic valve sclerosis. Pulmonic Valve The pulmonic valve is not well visualized. Mitral Valve The mitral valve has normal leaflets. There is trace mitral valve regurgitation. Tricuspid Valve The tricuspid valve leaflets are not well visualized. Pericardium/Pleural The pericardium appears normal. Aorta The aortic root size at the sinus of Valsalva is normal. Left Ventricular Outflow Tract Name Value Normal LVOT 2D LVOT Diameter 2.02 cm LVOT Doppler LVOT Peak Gradient 3 mmHg LVOT Mean Gradient 1 mmHg LVOT VTI 20.06 cm LVOT VTI/AV VTI Ratio 0.82 LVOT Stroke Volume 64.16 ml LVOT CO 3.22 l/min LVOT CI 1.15 L/min/m2 Pulmonic Valve Name Value Normal RVOT Doppler RVOT Peak Gradient 1 mmHg PV Doppler
--- NOTE | 2021-06-05 02:03 | ADMGEN ---
This patient, Lavern Roland, was admitted to 3 [facility] Surg Room 331-01 at 0130. Patient/family oriented to hospital policies and general routines including ID bracelet, bed and alarms, visiting hours, pain management, procedures, bathroom and other care routines, personal items, smoking policy, room service/diet, and visiting hours. Information on how to activate the Rapid Response Team has been discussed. Patient/Family are encouraged to report perceived risks to care and to ask questions if they do not understand what they are told or what they should do.
[2021-06-05] MEDS: LEVOTHYROXINE SODIUM 112 MCG TABLET PO (06:06)
[2021-06-05] MEDS: LEVOTHYROXINE SODIUM 25 MCG TABLET PO (06:06)
[2021-06-05] MEDS: UMECLIDINIUM BROMIDE 62.5 MCG ELLIPTA 1 PUFF INHALATION (08:44)
[2021-06-05] MEDS: SERTRALINE HCL 50 MG TABLET PO (09:58)
[2021-06-05] MEDS: METOPROLOL SUCCINATE EXT REL 50 MG TABCR 150 MG PO (09:59)
[2021-06-05] MEDS: lisinopriL 10 MG TABLET PO (09:59)
[2021-06-05] MEDS: SPIRONOLACTONE 25 MG TABLET PO (10:00)
[2021-06-05] MEDS: PANTOPRAZOLE 40 MG TABLET PO ×2 (10:00→16:19)
[2021-06-05] MEDS: APIXABAN 5 MG TABLET PO ×2 (10:00→20:12)
[2021-06-05] MEDS: POTASSIUM CHLORIDE 10 MEQ TABLET.ER PO (10:00)
[2021-06-05] MEDS: FUROSEMIDE INJ 40 MG/4 ML VIAL IV PUSH ×2 (10:01→16:19)
[2021-06-05] MEDS: FLUTICASONE PROPIONATE 0.05% NA SPR 16 GM BTL (*BKC) 1 SPRAY NASAL (10:01)
--- NOTE | 2021-06-05 10:15 | P.PNIM_ITS ---
Progress Note: A&P Assessment and Plan (1) Acute decompensated heart failure: Code(s): I50.9 - Heart failure, unspecified Status: Acute Assessment and Plan: * Chronic diastolic heart failure * Echo from 12/15 showed EF of 60-65% with undetermined diastolic dysfunction * BNP is 3480 * Urinary catheter for strict Intake and output * Daily weights * Repeat echo * Lasix 40mg IV BID and spironolactone 25mg PO daily * Fluid restriction to 1500 cc daily * Supportive care * Continue to monitor (2) CKD (chronic kidney disease), stage III: Code(s): N18.30 - Chronic kidney disease, stage 3 unspecified Status: Acute Assessment and Plan: * BUN/Cr 30/0.90 * BUN and creatinine at patient's baseline * Trend labs * Avoid nephrotoxic medication (3) Persistent atrial fibrillation: Code(s): I48.19 - Other persistent atrial fibrillation Status: Acute Assessment and Plan: * Rate controlled and anticoagulated * Continue to monitor. 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 Status: Acute Assessment and Plan: * Eliquis 5mg PO Daily * Looks to be a history of DVT, PAD, and A Fib (6) Morbid obesity: Code(s): E66.01 - Morbid (severe) obesity due to excess calories Status: Acute Assessment and Plan: * Lifestyle and diet modifications (7) HTN (hypertension): Qualifiers: Hypertension type: essential hypertension Qualified Code(s): I10 - Essential (primary) hypertension Code(s): I10 - Essential (primary) hypertension Status: Acute Assessment and Plan: * BP 121/73 * Continue home meds lisinopril 10mg PO Daily, Metoprolol 150mg PO Daily, * Trend BP * Adjust therapy as indicated Time Spent With Patient Time with patient: Greater than 35 minutes Subjective Date/time seen: 06/05/21 10:15 Interval history: Date/Time: 06/04/21 23:47 Narrative: This is a 76-year-old female with past medical history significant for congestive heart failure, persistent atrial fibrillation, chronic kidney disease, hypertension, obesity, gastroesophageal reflux disease, dyslipidemia. Patient resides at a residential. She comes in through the emergency room for evaluation of worsening bilateral lower extremity edema and increased abdominal girth and shortness of breath at rest patient denies any chest pain, any fevers ,any chills, any cough, any sputum production, no palpitations, has been having problems with ambulation due to worsening of pedal edema. Patient was just recently discharged from the hospital which she was treated for urinary tract infection and congestive heart failure exacerbation. Preliminary workup here today shows a brain natriuretic peptide of over 3,000, an EKG showed atrial fibrillation. Patient is been admitted for further evaluation, management and treatment. Date/Time 06/05/21 1015 Patient was seen the chairs stool oozing. She stated that she feels okay however she said her breathing is still pretty labile and sometime she short of breath sometime she has not. She is on 2 L nasal cannula as of right now. She did say she was eating okay. She denies an
--- NOTE | 2021-06-05 10:15 | PM.IMPN ---
Progress Note: A&P Assessment and Plan (1) Acute decompensated heart failure: Code(s): I50.9 - Heart failure, unspecified Status: Acute Assessment and Plan: Chronic diastolic heart failure Echo from 12/15 showed EF of 60-65% with undetermined diastolic dysfunction BNP is 3480 Urinary catheter for strict Intake and output Daily weights Repeat echo Lasix 40mg IV BID and spironolactone 25mg PO daily Fluid restriction to 1500 cc daily Supportive care Continue to monitor (2) CKD (chronic kidney disease), stage III: Code(s): N18.30 - Chronic kidney disease, stage 3 unspecified Status: Acute Assessment and Plan: BUN/Cr 30/0.90 BUN and creatinine at patient's baseline Trend labs Avoid nephrotoxic medication (3) Persistent atrial fibrillation: Code(s): I48.19 - Other persistent atrial fibrillation Status: Acute Assessment and Plan: Rate controlled and anticoagulated Continue to monitor. 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(s): Z79.01 - shelter (current) use of anticoagulants Status: Acute Assessment and Plan: Eliquis 5mg PO Daily Looks to be a history of DVT, PAD, and A Fib (6) Morbid obesity: Code(s): E66.01 - Morbid (severe) obesity due to excess calories Status: Acute Assessment and Plan: Lifestyle and diet modifications (7) HTN (hypertension): Qualifiers: Hypertension type: essential hypertension Qualified Code(s): I10 - Essential (primary) hypertension Code(s): I10 - Essential (primary) hypertension Status: Acute Assessment and Plan: BP 121/73 Continue home meds lisinopril 10mg PO Daily, Metoprolol 150mg PO Daily, Trend BP Adjust therapy as indicated Time Spent With Patient Time with patient: Greater than 35 minutes Subjective Date/time seen: 06/05/21 10:15 Interval history: Date/Time: 06/04/21 23:47 Narrative: This is a 76-year-old female with past medical history significant for congestive heart failure, persistent atrial fibrillation, chronic kidney disease, hypertension, obesity, gastroesophageal reflux disease, dyslipidemia. Patient resides at a [place] [facility]. She comes in through the emergency room for evaluation of worsening bilateral lower extremity edema and increased abdominal girth and shortness of breath at rest patient denies any chest pain, any fevers ,any chills, any cough, any sputum production, no palpitations, has been having problems with ambulation due to worsening of pedal edema. Patient was just recently discharged from the hospital which she was treated for urinary tract infection and congestive heart failure exacerbation. Preliminary workup here today shows a brain natriuretic peptide of over 3,000, an EKG showed atrial fibrillation. Patient is been admitted for further evaluation, management and treatment. Date/Time 06/05/21 1015 Patient was seen the chairs stool oozing. She stated that she feels okay however she said her breathing is still pretty labile and sometime she short of breath sometime she has not. She is on 2 L nasal cannula as of right now. She did say she was eating okay. She denies any nausea, vomiting, chest pain, cough, sweats, fevers, chills. She also stated that she had the catheter and so she felt like she was urinating okay at this time. BNP was 3480 last night and she is on 2 L nasal cannula. Nursing stated that the patient got up to the chair and she went from 100% to 90% with a very short amount of exertion. Will continue IV Lasix at this time. Review of Systems Review of Systems: All systems reviewed & are unremarkable except as noted in HPI and below Exam Const:
[2021-06-05] MEDS: PERFLUTREN LIPID MICROSPHERES 1.5 ML VIAL DILUTED TO 10 ML TOTAL VOLUME IV PUSH (14:34)
--- NOTE | 2021-06-05 14:36 | IVDEFINITY ---
Prior to administration of IV Definity the patient was educated on the risks and benefits of the imaging enhancing agent including potential adverse side effects. The patient verbalized understanding. Allergies were verified. No exclusion criteria were identified and at least one of the following inclusion criteria were met: 1) physician request, 2) patient technically difficult to image (per the [place] [employer] guidelines of two or more segments not discernable within the apical view), or 3) questionable left ventricular function. ?
[2021-06-05] MEDS: SIMVASTATIN 20 MG TABLET PO (20:12)
[2021-06-05] MEDS: IPRATROPIUM BR 0.02% INH SOLN 0.5 MG/2.5 ML VIAL INHALATION (20:24)
[2021-06-06] VITALS (13 sets, daily range): BP systolic 105–111; BP diastolic 62–71; PULSE 80–92; RESP 16–20; TEMP 35.6–37.2; O2SAT 90–95
--- NOTE | 2021-06-06 01:42 | PCRCNOTE ---
Pt ordered Q6H atrovent nebulizer treatments. Pt woken up at 01:40 for scheduled 02:00 treatment. Pt stated that she doesn't need it right now and would prefer to go back to sleep. Pt was advised to let her nurse know if she wakes up and changes her mind about the treatment.
[2021-06-06] MEDS: LEVOTHYROXINE SODIUM 112 MCG TABLET PO (05:21)
[2021-06-06] MEDS: LEVOTHYROXINE SODIUM 25 MCG TABLET PO (05:21)
[2021-06-06 06:12] LABS: Basophils Percent Auto 0.4 % (0.2-1.2); Eosinophils Absolute Auto 0.1 K/mm3 (0-0.3); Eosinophils Percent Auto 1.5 % (0-4.4); Hematocrit 39.5 % (37.0-47.0); Immature Granulocyte Absolute 0.05 K/mm3 (0.00-0.031); Immature Granulocyte Percent A 0.5 % (0-0.5); Lymphocytes Absolute Auto 1.16 K/mm3 (0.9-3.2); Lymphocytes Percent Auto 12.5 % (18.3-44.2); Mean Corpuscular HGB Conc 27.8 g/dl (32-36); Mean Corpuscular Hemoglobin 27.3 pg (26-34); Mean Platelet Volume 10.1 fl (7.4-10.4); Monocytes Absolute Auto 1.1 K/mm3 (0.1-0.6); Monocytes Percent Auto 11.9 % (2.6-8.5); Neutrophils Absolute Auto 6.8 K/mm3 (1.3-6.7); Neutrophils Percent Auto 73.2 % (45.5-73.1); Platelet Count Result 157 k/mm3 (150-375); Red Blood Count 4.03 M/mm3 (4.2-5.4); Red Cell Distribution Width 15.3 % (11.5-14.5); White Blood Count 9.3 K/mm3 (4.5-10.0)
[2021-06-06 06:46] LABS: Alanine Aminotransferase 15 U/L (4-35); Albumin Level 3.7 g/dL (3.5-5.1); Alkaline Phosphatase 90 U/L (38-126); Aspartate Amino Transferase 21 U/L (14-36); Bilirubin,Total 1.4 mg/dL (0.2-1.3); Blood Urea Nitrogen 28 mg/dL (7-17); Calcium 8.5 mg/dL (8.4-10.2); Carbon Dioxide > 40 mmol/L (22-30); Chloride 96 mmol/L (98-107); Estimated CRCL calculation 72 ml/min; Estimated Glomerular Filt Rate > 60; Glucose 98 mg/dL (65-110); Magnesium 1.8 mg/dL (1.6-2.3); Potassium 4.7 mmol/L (3.4-5.0); Sodium 140 mmol/L (137-145)
[2021-06-06] MEDS: FUROSEMIDE INJ 40 MG/4 ML VIAL IV PUSH ×2 (08:07→17:15)
[2021-06-06] MEDS: METOPROLOL SUCCINATE EXT REL 50 MG TABCR 150 MG PO (08:07)
[2021-06-06] MEDS: SPIRONOLACTONE 25 MG TABLET PO (08:08)
[2021-06-06] MEDS: lisinopriL 10 MG TABLET PO (08:08)
[2021-06-06] MEDS: APIXABAN 5 MG TABLET PO ×2 (08:08→19:59)
[2021-06-06] MEDS: POTASSIUM CHLORIDE 10 MEQ TABLET.ER PO (08:08)
[2021-06-06] MEDS: PANTOPRAZOLE 40 MG TABLET PO ×2 (08:08→17:15)
[2021-06-06] MEDS: SERTRALINE HCL 50 MG TABLET PO (08:08)
[2021-06-06] MEDS: FLUTICASONE PROPIONATE 0.05% NA SPR 16 GM BTL (*BKC) 1 SPRAY NASAL (08:08)
[2021-06-06] MEDS: UMECLIDINIUM BROMIDE 62.5 MCG ELLIPTA 1 PUFF INHALATION (09:19)
[2021-06-06] MEDS: IPRATROPIUM BR 0.02% INH SOLN 0.5 MG/2.5 ML VIAL INHALATION ×3 (09:19→19:41)
--- NOTE | 2021-06-06 09:43 | P.PNIM_ITS ---
Progress Note: A&P Assessment and Plan (1) Acute decompensated heart failure: Code(s): I50.9 - Heart failure, unspecified Status: Acute Assessment and Plan: * Chronic diastolic heart failure * Echo from 12/15 showed EF of 60-65% with undetermined diastolic dysfunction * BNP is 3480 * Urinary catheter for strict Intake and output * Daily weights * Repeat echo no substantial differences * Lasix 40mg IV BID and spironolactone 25mg PO daily * Fluid restriction to 1500 cc daily * Supportive care * Continue to monitor (2) CKD (chronic kidney disease), stage III: Code(s): N18.30 - Chronic kidney disease, stage 3 unspecified Status: Acute Assessment and Plan: * BUN/Cr 28/0.90 * BUN and creatinine at patient's baseline * Trend labs * Avoid nephrotoxic medication (3) Persistent atrial fibrillation: Code(s): I48.19 - Other persistent atrial fibrillation Status: Acute Assessment and Plan: * Rate controlled and anticoagulated * Continue to monitor. 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 Status: Acute Assessment and Plan: * Eliquis 5mg PO Daily * Looks to be a history of DVT, PAD, and A Fib (6) Morbid obesity: Code(s): E66.01 - Morbid (severe) obesity due to excess calories Status: Acute Assessment and Plan: * Lifestyle and diet modifications (7) HTN (hypertension): Qualifiers: Hypertension type: essential hypertension Qualified Code(s): I10 - Essential (primary) hypertension Code(s): I10 - Essential (primary) hypertension Status: Acute Assessment and Plan: * BP 111/71 * Continue home meds lisinopril 10mg PO Daily, Metoprolol 150mg PO Daily, * Trend BP * Adjust therapy as indicated Subjective Date/time seen: 06/06/21 09:43 Interval history: Date/Time: 06/04/21 23:47 Narrative: This is a 76-year-old female with past medical history significant for congestive heart failure, persistent atrial fibrillation, chronic kidney disease, hypertension, obesity, gastroesophageal reflux disease, dyslipidemia. [facility]. She comes in through the emergency room for evaluation of worsening bilateral lower extremity edema and increased abdominal girth and shortness of breath at rest patient denies any chest pain, any fevers ,any chills, any cough, any sputum production, no palpitations, has been having problems with ambulation due to worsening of pedal edema. Patient was just recently discharged from the hospital which she was treated for urinary tract infection and congestive heart failure exacerbation. Preliminary workup here today shows a brain natriuretic peptide of over 3,000, an EKG showed atrial fibrillation. Patient is been admitted for further evaluation, management and treatment. Date/Time 06/05/21 1015 Patient was seen the [facility] stool oozing. She stated that she feels okay however she said her breathing is still pretty labile and sometime she short of breath sometime she has not. She is on 2 L nasal cannula as of right now. She did say she was eating okay. She denies any nausea, vomiting, chest pain, cough, sweats,
--- NOTE | 2021-06-06 09:43 | PM.IMPN ---
Progress Note: A&P Assessment and Plan (1) Acute decompensated heart failure: Code(s): I50.9 - Heart failure, unspecified Status: Acute Assessment and Plan: Chronic diastolic heart failure Echo from 12/15 showed EF of 60-65% with undetermined diastolic dysfunction BNP is 3480 Urinary catheter for strict Intake and output Daily weights Repeat echo no substantial differences Lasix 40mg IV BID and spironolactone 25mg PO daily Fluid restriction to 1500 cc daily Supportive care Continue to monitor (2) CKD (chronic kidney disease), stage III: Code(s): N18.30 - Chronic kidney disease, stage 3 unspecified Status: Acute Assessment and Plan: BUN/Cr 28/0.90 BUN and creatinine at patient's baseline Trend labs Avoid nephrotoxic medication (3) Persistent atrial fibrillation: Code(s): I48.19 - Other persistent atrial fibrillation Status: Acute Assessment and Plan: Rate controlled and anticoagulated Continue to monitor. 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 Status: Acute Assessment and Plan: Eliquis 5mg PO Daily Looks to be a history of DVT, PAD, and A Fib (6) Morbid obesity: Code(s): E66.01 - Morbid (severe) obesity due to excess calories Status: Acute Assessment and Plan: Lifestyle and diet modifications (7) HTN (hypertension): Qualifiers: Hypertension type: essential hypertension Qualified Code(s): I10 - Essential (primary) hypertension Code(s): I10 - Essential (primary) hypertension Status: Acute Assessment and Plan: BP 111/71 Continue home meds lisinopril 10mg PO Daily, Metoprolol 150mg PO Daily, Trend BP Adjust therapy as indicated Subjective Date/time seen: 06/06/21 09:43 Interval history: Date/Time: 06/04/21 23:47 Narrative: This is a 76-year-old female with past medical history significant for congestive heart failure, persistent atrial fibrillation, chronic kidney disease, hypertension, obesity, gastroesophageal reflux disease, dyslipidemia. Patient resides at a group home. She comes in through the emergency room for evaluation of worsening bilateral lower extremity edema and increased abdominal girth and shortness of breath at rest patient denies any chest pain, any fevers ,any chills, any cough, any sputum production, no palpitations, has been having problems with ambulation due to worsening of pedal edema. Patient was just recently discharged from the hospital which she was treated for urinary tract infection and congestive heart failure exacerbation. Preliminary workup here today shows a brain natriuretic peptide of over 3,000, an EKG showed atrial fibrillation. Patient is been admitted for further evaluation, management and treatment. Date/Time 06/05/21 1015 Patient was seen the chairs stool oozing. She stated that she feels okay however she said her breathing is still pretty labile and sometime she short of breath sometime she has not. She is on 2 L nasal cannula as of right now. She did say she was eating okay. She denies any nausea, vomiting, chest pain, cough, sweats, fevers, chills. She also stated that she had the catheter and so she felt like she was urinating okay at this time. BNP was 3480 last night and she is on 2 L nasal cannula. Nursing stated that the patient got up to the chair and she went from 100% to 90% with a very short amount of exertion. Will continue IV Lasix at this time. 06/06/21 09:43 She was sitting up in the chair today resting but was easily arousable. She states her breathing is improving but she remains on 1L NC and does not use
[2021-06-06] MEDS: SIMVASTATIN 20 MG TABLET PO (19:59)
[2021-06-06] MEDS: ACETAMINOPHEN 325 MG TABLET 650 MG PO (20:36)
[2021-06-07] VITALS (14 sets, daily range): BP systolic 100–105; BP diastolic 46–56; PULSE 77–91; RESP 16–20; TEMP 36–36.4; O2SAT 92–100
[2021-06-07] MEDS: IPRATROPIUM BR 0.02% INH SOLN 0.5 MG/2.5 ML VIAL INHALATION ×4 (01:38→20:35)
[2021-06-07] MEDS: ACETAMINOPHEN 325 MG TABLET 650 MG PO ×2 (03:01→13:41)
[2021-06-07] MEDS: LEVOTHYROXINE SODIUM 25 MCG TABLET PO (05:39)
[2021-06-07] MEDS: LEVOTHYROXINE SODIUM 112 MCG TABLET PO (05:39)
[2021-06-07 05:54] LABS: Basophils Absolute Auto 0.1 K/mm3 (0.0-0.1); Basophils Percent Auto 0.6 % (0.2-1.2); Eosinophils Absolute Auto 0.2 K/mm3 (0-0.3); Eosinophils Percent Auto 2.2 % (0-4.4); Hematocrit 38.7 % (37.0-47.0); Hemoglobin 10.9 g/dL (12.0-15.0); Immature Granulocyte Absolute 0.03 K/mm3 (0.00-0.031); Immature Granulocyte Percent A 0.4 % (0-0.5); Lymphocytes Absolute Auto 1.05 K/mm3 (0.9-3.2); Lymphocytes Percent Auto 12.7 % (18.3-44.2); Mean Corpuscular HGB Conc 28.2 g/dl (32-36); Mean Corpuscular Hemoglobin 27.3 pg (26-34); Mean Corpuscular Volume 96.8 fl (80-100); Monocytes Absolute Auto 0.8 K/mm3 (0.1-0.6); Neutrophils Absolute Auto 6.1 K/mm3 (1.3-6.7); Neutrophils Percent Auto 74.1 % (45.5-73.1); Platelet Count Result 176 k/mm3 (150-375); Red Cell Distribution Width 15.1 % (11.5-14.5); White Blood Count 8.3 K/mm3 (4.5-10.0)
[2021-06-07 06:11] LABS: Blood Urea Nitrogen 33 mg/dL (7-17); Calcium 8.3 mg/dL (8.4-10.2); Carbon Dioxide > 40 mmol/L (22-30); Chloride 95 mmol/L (98-107); Estimated CRCL calculation 72 ml/min; Estimated Glomerular Filt Rate > 60; Glucose 90 mg/dL (65-110); Sodium 140 mmol/L (137-145)
[2021-06-07 07:22] LABS: Potassium 4.5 mmol/L (3.4-5.0)
[2021-06-07] MEDS: SERTRALINE HCL 50 MG TABLET PO (08:38)
[2021-06-07] MEDS: METOPROLOL SUCCINATE EXT REL 50 MG TABCR 150 MG PO (08:38)
[2021-06-07] MEDS: lisinopriL 10 MG TABLET PO (08:38)
[2021-06-07] MEDS: PANTOPRAZOLE 40 MG TABLET PO ×2 (08:38→17:44)
[2021-06-07] MEDS: POTASSIUM CHLORIDE 10 MEQ TABLET.ER PO (08:38)
[2021-06-07] MEDS: SPIRONOLACTONE 25 MG TABLET PO (08:38)
[2021-06-07] MEDS: APIXABAN 5 MG TABLET PO ×2 (08:38→20:22)
[2021-06-07] MEDS: FUROSEMIDE INJ 40 MG/4 ML VIAL IV PUSH (08:39)
[2021-06-07] MEDS: FLUTICASONE PROPIONATE 0.05% NA SPR 16 GM BTL (*BKC) 1 SPRAY NASAL (08:39)
[2021-06-07] MEDS: UMECLIDINIUM BROMIDE 62.5 MCG ELLIPTA 1 PUFF INHALATION (10:16)
--- NOTE | 2021-06-07 11:30 | PM.IMPN ---
Progress Note: A&P Assessment and Plan (1) Acute decompensated heart failure: Code(s): I50.9 - Heart failure, unspecified Status: Acute Assessment and Plan: Chronic diastolic heart failure Echo from 12/15 showed EF of 60-65% with undetermined diastolic dysfunction BNP is 3480 Urinary catheter for strict Intake and output, remove catheter Daily weights Repeat echo no substantial differences Lasix 40mg IV BID and spironolactone 25mg PO daily Change lasix to PO Fluid restriction to 1500 cc daily Supportive care Continue to monitor (2) CKD (chronic kidney disease), stage III: Code(s): N18.30 - Chronic kidney disease, stage 3 unspecified Status: Acute Assessment and Plan: BUN/Cr 15/03.10 BUN and creatinine at patient's baseline Trend labs Avoid nephrotoxic medication (3) Persistent atrial fibrillation: Code(s): I48.19 - Other persistent atrial fibrillation Status: Acute Assessment and Plan: Rate controlled and anticoagulated Continue to monitor. 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(s): Z79.01 - alf (current) use of anticoagulants Status: Acute Assessment and Plan: Eliquis 5mg PO Daily Looks to be a history of DVT, PAD, and A Fib (6) Morbid obesity: Code(s): E66.01 - Morbid (severe) obesity due to excess calories Status: Acute Assessment and Plan: Lifestyle and diet modifications (7) HTN (hypertension): Qualifiers: Hypertension type: essential hypertension Qualified Code(s): I10 - Essential (primary) hypertension Code(s): I10 - Essential (primary) hypertension Status: Acute Assessment and Plan: BP 100/46 Continue home meds lisinopril 10mg PO Daily, Metoprolol 150mg PO Daily, Trend BP Adjust therapy as indicated Time Spent With Patient Time with patient: Greater than 35 minutes Subjective Date/time seen: 06/07/21 11:30 Interval history: Date/Time: 06/04/21 23:47 Narrative: This is a 76-year-old female with past medical history significant for congestive heart failure, persistent atrial fibrillation, chronic kidney disease, hypertension, obesity, gastroesophageal reflux disease, dyslipidemia. Patient resides at a [facility]. She comes in through the emergency room for evaluation of worsening bilateral lower extremity edema and increased abdominal girth and shortness of breath at rest patient denies any chest pain, any fevers ,any chills, any cough, any sputum production, no palpitations, has been having problems with ambulation due to worsening of pedal edema. Patient was just recently discharged from the hospital which she was treated for urinary tract infection and congestive heart failure exacerbation. Preliminary workup here today shows a brain natriuretic peptide of over 3,000, an EKG showed atrial fibrillation. Patient is been admitted for further evaluation, management and treatment. Date/Time 06/05/21 1015 Patient was seen the chairs stool oozing. She stated that she feels okay however she said her breathing is still pretty labile and sometime she short of breath sometime she has not. She is on 2 L nasal cannula as of right now. She did say she was eating okay. She denies any nausea, vomiting, chest pain, cough, sweats, fevers, chills. She also stated that she had the catheter and so she felt like she was urinating okay at this time. BNP was 3480 last night and she is on 2 L nasal cannula. Nursing stated that the patient got up to the chair and she went from 100% to 90% with a very short amount of exertion. Will continue IV Lasix at this time. 06/06/21 09:43 She was sitting up in the chair today resting b
--- NOTE | 2021-06-07 11:30 | P.PNIM_ITS ---
Progress Note: A&P Assessment and Plan (1) Acute decompensated heart failure: Code(s): I50.9 - Heart failure, unspecified Status: Acute Assessment and Plan: * Chronic diastolic heart failure * Echo from 12/15 showed EF of 60-65% with undetermined diastolic dysfunction * BNP is 3480 * Urinary catheter for strict Intake and output, remove catheter * Daily weights * Repeat echo no substantial differences * Lasix 40mg IV BID and spironolactone 25mg PO daily * Change lasix to PO * Fluid restriction to 1500 cc daily * Supportive care * Continue to monitor (2) CKD (chronic kidney disease), stage III: Code(s): N18.30 - Chronic kidney disease, stage 3 unspecified Status: Acute Assessment and Plan: * BUN/Cr 15/03.10 * BUN and creatinine at patient's baseline * Trend labs * Avoid nephrotoxic medication (3) Persistent atrial fibrillation: Code(s): I48.19 - Other persistent atrial fibrillation Status: Acute Assessment and Plan: * Rate controlled and anticoagulated * Continue to monitor. 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 Status: Acute Assessment and Plan: * Eliquis 5mg PO Daily * Looks to be a history of DVT, PAD, and A Fib (6) Morbid obesity: Code(s): E66.01 - Morbid (severe) obesity due to excess calories Status: Acute Assessment and Plan: * Lifestyle and diet modifications (7) HTN (hypertension): Qualifiers: Hypertension type: essential hypertension Qualified Code(s): I10 - Essential (primary) hypertension Code(s): I10 - Essential (primary) hypertension Status: Acute Assessment and Plan: * BP 100/46 * Continue home meds lisinopril 10mg PO Daily, Metoprolol 150mg PO Daily, * Trend BP * Adjust therapy as indicated Time Spent With Patient Time with patient: Greater than 35 minutes Subjective Date/time seen: 06/07/21 11:30 Interval history: Date/Time: 06/04/21 23:47 Narrative: This is a 76-year-old female with past medical history significant for congestive heart failure, persistent atrial fibrillation, chronic kidney disease, hypertension, obesity, gastroesophageal reflux disease, dyslipidemia. Patient resides at a [facility]. She comes in through the emergency room for evaluation of worsening bilateral lower extremity edema and increased abdominal girth and shortness of breath at rest patient denies any chest pain, any fevers ,any chills, any cough, any sputum production, no palpitations, has been having problems with ambulation due to worsening of pedal edema. Patient was just recently discharged from the hospital which she was treated for urinary tract infection and congestive heart failure exacerbation. Preliminary workup here today shows a brain natriuretic peptide of over 3,000, an EKG showed atrial fibrillation. Patient is been admitted for further evaluation, management and treatment. Date/Time 06/05/21 1015 Patient was seen the chairs stool oozing. She stated that she feels okay however she said her breathing is still pretty labile and sometime she short of breath sometime she has not. She is on 2 L nasal cannula
[2021-06-07] MEDS: FUROSEMIDE 20 MG TABLET 60 MG PO (17:44)
[2021-06-07] MEDS: SIMVASTATIN 20 MG TABLET PO (20:22)
[2021-06-08] VITALS (12 sets, daily range): BP systolic 110–116; BP diastolic 52–85; PULSE 84–90; RESP 18–20; TEMP 36.3–36.6; O2SAT 92–96
[2021-06-08] MEDS: IPRATROPIUM BR 0.02% INH SOLN 0.5 MG/2.5 ML VIAL INHALATION ×4 (02:00→20:40)
[2021-06-08] MEDS: LEVOTHYROXINE SODIUM 25 MCG TABLET PO (05:47)
[2021-06-08] MEDS: LEVOTHYROXINE SODIUM 112 MCG TABLET PO (05:47)
[2021-06-08 05:57] LABS: Potassium 4.6 mmol/L (3.4-5.0)
[2021-06-08] MEDS: PANTOPRAZOLE 40 MG TABLET PO ×2 (08:33→17:13)
[2021-06-08] MEDS: SERTRALINE HCL 50 MG TABLET PO (08:33)
[2021-06-08] MEDS: METOPROLOL SUCCINATE EXT REL 50 MG TABCR 150 MG PO (08:33)
[2021-06-08] MEDS: lisinopriL 10 MG TABLET PO (08:33)
[2021-06-08] MEDS: APIXABAN 5 MG TABLET PO ×2 (08:33→20:16)
[2021-06-08] MEDS: POTASSIUM CHLORIDE 10 MEQ TABLET.ER PO (08:34)
[2021-06-08] MEDS: FUROSEMIDE 20 MG TABLET 60 MG PO (08:34)
[2021-06-08] MEDS: FLUTICASONE PROPIONATE 0.05% NA SPR 16 GM BTL (*BKC) 1 SPRAY NASAL (08:34)
[2021-06-08] MEDS: SPIRONOLACTONE 25 MG TABLET PO (08:34)
[2021-06-08] MEDS: UMECLIDINIUM BROMIDE 62.5 MCG ELLIPTA 1 PUFF INHALATION (08:45)
[2021-06-08] MEDS: FUROSEMIDE INJ 40 MG/4 ML VIAL IV PUSH ×2 (11:23→17:13)
--- NOTE | 2021-06-08 16:12 | P.PNIM_ITS ---
Progress Note: A&P Assessment and Plan (1) Acute decompensated heart failure: Code(s): I50.9 - Heart failure, unspecified Status: Acute Assessment and Plan: * Chronic diastolic heart failure * Echo from 12/15 showed EF of 60-65% with undetermined diastolic dysfunction * BNP is 3480 * Urinary catheter for strict Intake and output, remove catheter * Daily weights * Repeat echo no substantial differences * Lasix 40mg IV BID and spironolactone 25mg PO daily * Change lasix to PO * Fluid restriction to 1500 cc daily * Supportive care * Continue to monitor 06/08/2021 interval history: today patient complains of bilateral swelling in her lower extremities and feels short of breath and tired patient being treated for exacerbation of congestive heart failure, patient had been treated with Las ix oral, will switch her over to Lasix IV, will monitor her urine output, will have PT/OT work with the patient, I spoke with patient daughter and gave her updatses, patient does not want to go to rehab. (2) CKD (chronic kidney disease), stage III: Code(s): N18.30 - Chronic kidney disease, stage 3 unspecified Status: Acute Assessment and Plan: * BUN/Cr 15/03.10 * BUN and creatinine at patient's baseline * Trend labs * Avoid nephrotoxic medication (3) Persistent atrial fibrillation: Code(s): I48.19 - Other persistent atrial fibrillation Status: Acute Assessment and Plan: * Rate controlled and anticoagulated * Continue to monitor. 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(s): Z79.01 - [facility] (current) use of anticoagulants Status: Acute Assessment and Plan: * Eliquis 5mg PO Daily * Looks to be a history of DVT, PAD, and A Fib (6) Morbid obesity: Code(s): E66.01 - Morbid (severe) obesity due to excess calories Status: Acute Assessment and Plan: * Lifestyle and diet modifications (7) HTN (hypertension): Qualifiers: Hypertension type: essential hypertension Qualified Code(s): I10 - Essential (primary) hypertension Code(s): I10 - Essential (primary) hypertension Status: Acute Assessment and Plan: * BP 100/46 * Continue home meds lisinopril 10mg PO Daily, Metoprolol 150mg PO Daily, * Trend BP * Adjust therapy as indicated Subjective Date/time seen: 06/08/21 16:12 06/08/2021 interval history: today patient complains of bilateral swelling in her lower extremities and feels short of breath and tired patient being treated for exacerbation of congestive heart failure, patient had been treated with Lasix oral, will switch her over to Lasix IV, will monitor her urine output, w ill have PT/OT work with the patient, I spoke with patient daughter and gave her updatses, patient does not want to go to rehab. Review of Systems Review of Systems: All systems reviewed & are unremarkable except as noted in HPI and below Exam Narrative: Morbidly obese Patient is comfortable, NAD HEENT: eyes are clear and none icteric LUNGS: bilateral fair air entry with rales and rhonchi HEART: RR S1S2 ABD: BS+, Soft and nontender Lower extremities: 2+edema SKIN: nonjaun
--- NOTE | 2021-06-08 16:12 | PM.IMPN ---
Progress Note: A&P Assessment and Plan (1) Acute decompensated heart failure: Code(s): I50.9 - Heart failure, unspecified Status: Acute Assessment and Plan: Chronic diastolic heart failure Echo from 12/15 showed EF of 60-65% with undetermined diastolic dysfunction BNP is 3480 Urinary catheter for strict Intake and output, remove catheter Daily weights Repeat echo no substantial differences Lasix 40mg IV BID and spironolactone 25mg PO daily Change lasix to PO Fluid restriction to 1500 cc daily Supportive care Continue to monitor 06/08/2021 interval history: today patient complains of bilateral swelling in her lower extremities and feels short of breath and tired patient being treated for exacerbation of congestive heart failure, patient had been treated with Lasix oral, will switch her over to Lasix IV, will monitor her urine output, will have PT/OT work with the patient, I spoke with patient daughter and gave her updatses, patient does not want to go to rehab. (2) CKD (chronic kidney disease), stage III: Code(s): N18.30 - Chronic kidney disease, stage 3 unspecified Status: Acute Assessment and Plan: BUN/Cr 15/03.10 BUN and creatinine at patient's baseline Trend labs Avoid nephrotoxic medication (3) Persistent atrial fibrillation: Code(s): I48.19 - Other persistent atrial fibrillation Status: Acute Assessment and Plan: Rate controlled and anticoagulated Continue to monitor. 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(s): Z79.01 - [facility] (current) use of anticoagulants Status: Acute Assessment and Plan: Eliquis 5mg PO Daily Looks to be a history of DVT, PAD, and A Fib (6) Morbid obesity: Code(s): E66.01 - Morbid (severe) obesity due to excess calories Status: Acute Assessment and Plan: Lifestyle and diet modifications (7) HTN (hypertension): Qualifiers: Hypertension type: essential hypertension Qualified Code(s): I10 - Essential (primary) hypertension Code(s): I10 - Essential (primary) hypertension Status: Acute Assessment and Plan: BP 100/46 Continue home meds lisinopril 10mg PO Daily, Metoprolol 150mg PO Daily, Trend BP Adjust therapy as indicated Subjective Date/time seen: 06/08/21 16:12 06/08/2021 interval history: today patient complains of bilateral swelling in her lower extremities and feels short of breath and tired patient being treated for exacerbation of congestive heart failure, patient had been treated with Lasix oral, will switch her over to Lasix IV, will monitor her urine output, will have PT/OT work with the patient, I spoke with patient daughter and gave her updatses, patient does not want to go to rehab. Review of Systems Review of Systems: All systems reviewed & are unremarkable except as noted in HPI and below Exam Narrative: Morbidly obese Patient is comfortable, NAD HEENT: eyes are clear and none icteric LUNGS: bilateral fair air entry with rales and rhonchi HEART: RR S1S2 ABD: BS+, Soft and nontender Lower extremities: 2+edema SKIN: nonjaundiced Neuro: grossly intact. Objective Data Vital Signs Vital Signs: Vital Signs - 24 hr 06/07/21 20:39 06/07/21 20:40 06/07/21 20:45 Temperature Pulse Rate 91 89 Respiratory Rate 16 16 Blood Pressure Pulse Oximetry 93 06/07/21 21:13 06/08/21 02:02 06/08/21 02:09 Temperature 97.5 F L Pulse Rate 91 90 88 Respiratory Rate 20 18 18 Blood Pressure 105/56 L Pulse Oximetry 100 06/08/21 05:53 06/08/21 08:45 06/08/21 08:47 Temperature 97.9 F Pulse Rate 84 86 Respiratory Rate 20 18 Blood Pressure 114/57 L Puls
[2021-06-08] MEDS: SIMVASTATIN 20 MG TABLET PO (20:16)
[2021-06-09] VITALS (16 sets, daily range): BP systolic 99–119; BP diastolic 51–64; PULSE 79–89; RESP 17–20; TEMP 36–36.6; O2SAT 90–95
[2021-06-09] MEDS: IPRATROPIUM BR 0.02% INH SOLN 0.5 MG/2.5 ML VIAL INHALATION ×4 (02:30→20:02)
[2021-06-09] MEDS: LEVOTHYROXINE SODIUM 25 MCG TABLET PO (05:42)
[2021-06-09] MEDS: LEVOTHYROXINE SODIUM 112 MCG TABLET PO (05:42)
[2021-06-09] MEDS: METOPROLOL SUCCINATE EXT REL 50 MG TABCR 150 MG PO (08:39)
[2021-06-09] MEDS: FLUTICASONE PROPIONATE 0.05% NA SPR 16 GM BTL (*BKC) 1 SPRAY NASAL (08:42)
[2021-06-09] MEDS: FUROSEMIDE INJ 40 MG/4 ML VIAL IV PUSH ×2 (08:43→16:47)
[2021-06-09] MEDS: POTASSIUM CHLORIDE 10 MEQ TABLET.ER PO (08:44)
[2021-06-09] MEDS: PANTOPRAZOLE 40 MG TABLET PO ×2 (08:44→16:47)
[2021-06-09] MEDS: SPIRONOLACTONE 25 MG TABLET PO (08:44)
[2021-06-09] MEDS: SERTRALINE HCL 50 MG TABLET PO (08:44)
[2021-06-09] MEDS: APIXABAN 5 MG TABLET PO ×2 (08:44→20:59)
[2021-06-09] MEDS: lisinopriL 10 MG TABLET PO (08:44)
[2021-06-09] MEDS: UMECLIDINIUM BROMIDE 62.5 MCG ELLIPTA 1 PUFF INHALATION (08:57)
[2021-06-09 10:12] LABS: Blood Urea Nitrogen 31 mg/dL (7-17); Calcium 8.4 mg/dL (8.4-10.2); Carbon Dioxide > 40 mmol/L (22-30); Chloride 93 mmol/L (98-107); Estimated CRCL calculation 72 ml/min; Estimated Glomerular Filt Rate > 60; Glucose 155 mg/dL (65-110); Potassium 4.3 mmol/L (3.4-5.0); Sodium 138 mmol/L (137-145)
[2021-06-09] MEDS: SIMVASTATIN 20 MG TABLET PO (20:59)
[2021-06-10] VITALS (12 sets, daily range): BP systolic 82–132; BP diastolic 45–59; PULSE 74–86; RESP 16–20; TEMP 35.9–37.1; O2SAT 90–94
[2021-06-10] MEDS: IPRATROPIUM BR 0.02% INH SOLN 0.5 MG/2.5 ML VIAL INHALATION ×4 (02:28→19:44)
[2021-06-10] MEDS: LEVOTHYROXINE SODIUM 25 MCG TABLET PO (06:11)
[2021-06-10] MEDS: LEVOTHYROXINE SODIUM 112 MCG TABLET PO (06:11)
[2021-06-10] MEDS: ACETAMINOPHEN 325 MG TABLET 650 MG PO ×2 (06:12→20:09)
[2021-06-10 06:59] LABS: Blood Urea Nitrogen 28 mg/dL (7-17); Calcium 8.3 mg/dL (8.4-10.2); Carbon Dioxide > 40 mmol/L (22-30); Chloride 94 mmol/L (98-107); Estimated CRCL calculation 80 ml/min; Estimated Glomerular Filt Rate > 60; Glucose 118 mg/dL (65-110); Potassium 3.9 mmol/L (3.4-5.0); Sodium 138 mmol/L (137-145)
[2021-06-10] MEDS: POTASSIUM CHLORIDE 10 MEQ TABLET.ER PO (08:29)
[2021-06-10] MEDS: METOPROLOL SUCCINATE EXT REL 50 MG TABCR 150 MG PO (08:29)
[2021-06-10] MEDS: FLUTICASONE PROPIONATE 0.05% NA SPR 16 GM BTL (*BKC) 1 SPRAY NASAL (08:29)
[2021-06-10] MEDS: SERTRALINE HCL 50 MG TABLET PO (08:30)
[2021-06-10] MEDS: FUROSEMIDE 40 MG TABLET PO (08:30)
[2021-06-10] MEDS: PANTOPRAZOLE 40 MG TABLET PO ×2 (08:30→16:36)
[2021-06-10] MEDS: acetaZOLAMIDE TAB 250 MG TABLET PO (08:30)
[2021-06-10] MEDS: APIXABAN 5 MG TABLET PO ×2 (08:30→20:10)
[2021-06-10] MEDS: SPIRONOLACTONE 25 MG TABLET PO (08:30)
[2021-06-10] MEDS: lisinopriL 10 MG TABLET PO (08:30)
[2021-06-10] MEDS: UMECLIDINIUM BROMIDE 62.5 MCG ELLIPTA 1 PUFF INHALATION (08:31)
--- NOTE | 2021-06-10 10:18 | P.PNIM_ITS ---
Progress Note: A&P Assessment and Plan (1) Acute decompensated heart failure: Code(s): I50.9 - Heart failure, unspecified Status: Acute Assessment and Plan: * Chronic diastolic heart failure * Echo from 12/15 showed EF of 60-65% with undetermined diastolic dysfunction * BNP is 3480 * Urinary catheter for strict Intake and output, remove catheter * Daily weights * Repeat echo no substantial differences * Lasix 40mg IV BID and spironolactone 25mg PO daily * Change lasix to PO * Fluid restriction to 1500 cc daily * Supportive care * Continue to monitor 06/08/2021 interval history: today patient complains of bilateral swelling in her lower extremities and feels short of breath and tired patient being treated for exacerbation of congestive heart failure, patient had been treated with Las ix oral, will switch her over to Lasix IV, will monitor her urine output, will have PT/OT work with the patient, I spoke with patient daughter and gave her updatses, patient does not want to go to rehab. 06/09/2021 interval history: on 06/08 patient complained of bilateral swelling in her lower extremities and feels short of breath and tired patient being treated for exacerbation of congestive heart failure, patient had been treated with Lasix oral, switched her over to Lasix IV, today patient stats she is feeling better, waiting for rehab assessment for possible, discharge however patient is requiring assisstance with her ADL, will monitor her urine output, will have PT/OT work with the patient, on 06/08 I spoke with patient daughter and gave her updates, (2) CKD (chronic kidney disease), stage III: Code(s): N18.30 - Chronic kidney disease, stage 3 unspecified Status: Acute Assessment and Plan: * BUN/Cr 15/03. * BUN and creatinine at patient's baseline * Trend labs * Avoid nephrotoxic medication (3) Persistent atrial fibrillation: Code(s): I48.19 - Other persistent atrial fibrillation Status: Acute Assessment and Plan: * Rate controlled and anticoagulated * Continue to monitor. 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 Status: Acute Assessment and Plan: * Eliquis 5mg PO Daily * Looks to be a history of DVT, PAD, and A Fib (6) Morbid obesity: Code(s): E66.01 - Morbid (severe) obesity due to excess calories Status: Acute Assessment and Plan: * Lifestyle and diet modifications (7) HTN (hypertension): Qualifiers: Hypertension type: essential hypertension Qualified Code(s): I10 - Essential (primary) hypertension Code(s): I10 - Essential (primary) hypertension Status: Acute Assessment and Plan: * BP 100/46 * Continue home meds lisinopril 10mg PO Daily, Metoprolol 150mg PO Daily, * Trend BP * Adjust therapy as indicated Subjective Date/time seen: 06/09/21 10:18 06/08/2021 interval history: today patient complains of bilateral swelling in her lower extremities and feels short of breath and tired patient being treated for exacerbation of congestive heart failure, patient had been treated with Lasix oral, will switch her over to Lasix IV, will monitor her urine output, w
--- NOTE | 2021-06-10 10:18 | PM.IMPN ---
Progress Note: A&P Assessment and Plan (1) Acute decompensated heart failure: Code(s): I50.9 - Heart failure, unspecified Status: Acute Assessment and Plan: Chronic diastolic heart failure Echo from 12/15 showed EF of 60-65% with undetermined diastolic dysfunction BNP is 3480 Urinary catheter for strict Intake and output, remove catheter Daily weights Repeat echo no substantial differences Lasix 40mg IV BID and spironolactone 25mg PO daily Change lasix to PO Fluid restriction to 1500 cc daily Supportive care Continue to monitor 06/08/2021 interval history: today patient complains of bilateral swelling in her lower extremities and feels short of breath and tired patient being treated for exacerbation of congestive heart failure, patient had been treated with Lasix oral, will switch her over to Lasix IV, will monitor her urine output, will have PT/OT work with the patient, I spoke with patient daughter and gave her updatses, patient does not want to go to rehab. 06/09/2021 interval history: on 06/08 patient complained of bilateral swelling in her lower extremities and feels short of breath and tired patient being treated for exacerbation of congestive heart failure, patient had been treated with Lasix oral, switched her over to Lasix IV, today patient stats she is feeling better, waiting for rehab assessment for possible, discharge however patient is requiring assisstance with her ADL, will monitor her urine output, will have PT/OT work with the patient, on 06/08 I spoke with patient daughter and gave her updates, (2) CKD (chronic kidney disease), stage III: Code(s): N18.30 - Chronic kidney disease, stage 3 unspecified Status: Acute Assessment and Plan: BUN/Cr /.10 BUN and creatinine at patient's baseline Trend labs Avoid nephrotoxic medication (3) Persistent atrial fibrillation: Code(s): I48.19 - Other persistent atrial fibrillation Status: Acute Assessment and Plan: Rate controlled and anticoagulated Continue to monitor. 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(s): Z79.01 - [employer] (current) use of anticoagulants Status: Acute Assessment and Plan: Eliquis 5mg PO Daily Looks to be a history of DVT, PAD, and A Fib (6) Morbid obesity: Code(s): E66.01 - Morbid (severe) obesity due to excess calories Status: Acute Assessment and Plan: Lifestyle and diet modifications (7) HTN (hypertension): Qualifiers: Hypertension type: essential hypertension Qualified Code(s): I10 - Essential (primary) hypertension Code(s): I10 - Essential (primary) hypertension Status: Acute Assessment and Plan: BP 100/46 Continue home meds lisinopril 10mg PO Daily, Metoprolol 150mg PO Daily, Trend BP Adjust therapy as indicated Subjective Date/time seen: 06/09/21 10:18 06/08/2021 interval history: today patient complains of bilateral swelling in her lower extremities and feels short of breath and tired patient being treated for exacerbation of congestive heart failure, patient had been treated with Lasix oral, will switch her over to Lasix IV, will monitor her urine output, will have PT/OT work with the patient, I spoke with patient daughter and gave her updatses, patient does not want to go to rehab. 06/09/2021 interval history: on 06/08 patient complained of bilateral swelling in her lower extremities and feels short of breath and tired patient being treated for exacerbation of congestive heart failure, patient had been treated with Lasix oral, switched her over to Lasix IV, today patient stats she is feeling better, waiting for rehab assessment for possible, d
--- NOTE | 2021-06-10 11:12 | P.PNIM_ITS ---
Progress Note: A&P Assessment and Plan (1) Acute decompensated heart failure: Code(s): I50.9 - Heart failure, unspecified Status: Acute Assessment and Plan: * Chronic diastolic heart failure * Echo from 12/15 showed EF of 60-65% with undetermined diastolic dysfunction * BNP is 3480 * Urinary catheter for strict Intake and output, remove catheter * Daily weights * Repeat echo no substantial differences * Lasix 40mg IV BID and spironolactone 25mg PO daily * Change lasix to PO * Fluid restriction to 1500 cc daily * Supportive care * Continue to monitor 06/08/2021 interval history: today patient complains of bilateral swelling in her lower extremities and feels short of breath and tired patient being treated for exacerbation of congestive heart failure, patient had been treated with Las ix oral, will switch her over to Lasix IV, will monitor her urine output, will have PT/OT work with the patient, I spoke with patient daughter and gave her updatses, patient does not want to go to rehab. 06/09/2021 interval history: on 06/08 patient complained of bilateral swelling in her lower extremities and feels short of breath and tired patient being treated for exacerbation of congestive heart failure, patient had been treated with Lasix oral, switched her over to Lasix IV, today patient stats she is feeling better, waiting for rehab assessment for possible, discharge however patient is requiring assisstance with her ADL, will monitor her urine output, will have PT/OT work with the patient, on 06/08 I spoke with patient daughter and gave her updates. 06/10/2021 interval history: on 06/08 patient complained of bilateral swelling in her lower extremities and feels short of breath and tired patient being treated for exacerbation of congestive heart failure, patient had been treated with Lasix oral, switched her over to Lasix IV, her swelling is improving, will place patient back on oral lasix and add acetazolamide, patient is today patient stats she is feeling better, ablet to lift herself from sitting position, waiting for rehab assessment for possible, discharge however patient is requiring assistance with her ADL, will monitor her urine output, will have PT/OT work with the patient, on 06/08 I spoke with patient daughter and gave her updates. (2) CKD (chronic kidney disease), stage III: Code(s): N18.30 - Chronic kidney disease, stage 3 unspecified Status: Acute Assessment and Plan: * BUN/Cr 15/03.10 * BUN and creatinine at patient's baseline * Trend labs * Avoid nephrotoxic medication (3) Persistent atrial fibrillation: Code(s): I48.19 - Other persistent atrial fibrillation Status: Acute Assessment and Plan: * Rate controlled and anticoagulated * Continue to monitor. 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(s): Z79.01 - [employer] (current) use of anticoagulants Status: Acute Assessment and Plan: * Eliquis 5mg PO Daily * Looks to be a history of DVT, PAD, and A Fib (6) Morbid obesity: Code(s): E66.01 - Morbid (severe) obesity due to excess calories Status: Acute Assessment and Plan: * Lifestyle and diet modifications (7) HTN (hypertension): Qualifiers: Hypertension type: essential hyp
--- NOTE | 2021-06-10 11:12 | PM.IMPN ---
Progress Note: A&P Assessment and Plan (1) Acute decompensated heart failure: Code(s): I50.9 - Heart failure, unspecified Status: Acute Assessment and Plan: Chronic diastolic heart failure Echo from 12/15 showed EF of 60-65% with undetermined diastolic dysfunction BNP is 3480 Urinary catheter for strict Intake and output, remove catheter Daily weights Repeat echo no substantial differences Lasix 40mg IV BID and spironolactone 25mg PO daily Change lasix to PO Fluid restriction to 1500 cc daily Supportive care Continue to monitor 06/08/2021 interval history: today patient complains of bilateral swelling in her lower extremities and feels short of breath and tired patient being treated for exacerbation of congestive heart failure, patient had been treated with Lasix oral, will switch her over to Lasix IV, will monitor her urine output, will have PT/OT work with the patient, I spoke with patient daughter and gave her updatses, patient does not want to go to rehab. 06/09/2021 interval history: on 06/08 patient complained of bilateral swelling in her lower extremities and feels short of breath and tired patient being treated for exacerbation of congestive heart failure, patient had been treated with Lasix oral, switched her over to Lasix IV, today patient stats she is feeling better, waiting for rehab assessment for possible, discharge however patient is requiring assisstance with her ADL, will monitor her urine output, will have PT/OT work with the patient, on 06/08 I spoke with patient daughter and gave her updates. 06/10/2021 interval history: on 06/08 patient complained of bilateral swelling in her lower extremities and feels short of breath and tired patient being treated for exacerbation of congestive heart failure, patient had been treated with Lasix oral, switched her over to Lasix IV, her swelling is improving, will place patient back on oral lasix and add acetazolamide, patient is today patient stats she is feeling better, ablet to lift herself from sitting position, waiting for rehab assessment for possible, discharge however patient is requiring assistance with her ADL, will monitor her urine output, will have PT/OT work with the patient, on 06/08 I spoke with patient daughter and gave her updates. (2) CKD (chronic kidney disease), stage III: Code(s): N18.30 - Chronic kidney disease, stage 3 unspecified Status: Acute Assessment and Plan: BUN/Cr 19/1.10 BUN and creatinine at patient's baseline Trend labs Avoid nephrotoxic medication (3) Persistent atrial fibrillation: Code(s): I48.19 - Other persistent atrial fibrillation Status: Acute Assessment and Plan: Rate controlled and anticoagulated Continue to monitor. 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 Status: Acute Assessment and Plan: Eliquis 5mg PO Daily Looks to be a history of DVT, PAD, and A Fib (6) Morbid obesity: Code(s): E66.01 - Morbid (severe) obesity due to excess calories Status: Acute Assessment and Plan: Lifestyle and diet modifications (7) HTN (hypertension): Qualifiers: Hypertension type: essential hypertension Qualified Code(s): I10 - Essential (primary) hypertension Code(s): I10 - Essential (primary) hypertension Status: Acute Assessment and Plan: BP 100/46 Continue home meds lisinopril 10mg PO Daily, Metoprolol 150mg PO Daily, Trend BP Adjust therapy as indicated Subjective Date/time seen: 06/10/21 11:12 06/08/2021 interval history: today patient complains of bilateral swelling in her lower extremit
[2021-06-10] MEDS: SIMVASTATIN 20 MG TABLET PO (20:10)
[2021-06-11] VITALS (15 sets, daily range): BP systolic 98–138; BP diastolic 56–82; PULSE 66–94; RESP 16–18; TEMP 36.3–36.7; O2SAT 92–93
[2021-06-11] MEDS: IPRATROPIUM BR 0.02% INH SOLN 0.5 MG/2.5 ML VIAL INHALATION ×3 (01:53→14:27)
[2021-06-11] MEDS: ACETAMINOPHEN 325 MG TABLET 650 MG PO ×2 (05:49→05:56)
[2021-06-11] MEDS: LEVOTHYROXINE SODIUM 112 MCG TABLET PO (05:57)
[2021-06-11] MEDS: LEVOTHYROXINE SODIUM 25 MCG TABLET PO (05:58)
[2021-06-11 06:06] LABS: Blood Urea Nitrogen 34 mg/dL (7-17); Calcium 7.8 mg/dL (8.4-10.2); Carbon Dioxide > 40 mmol/L (22-30); Chloride 96 mmol/L (98-107); Estimated CRCL calculation 60 ml/min; Estimated Glomerular Filt Rate 48; Glucose 95 mg/dL (65-110); Potassium 3.7 mmol/L (3.4-5.0); Sodium 140 mmol/L (137-145)
[2021-06-11] MEDS: POTASSIUM CHLORIDE 10 MEQ TABLET.ER PO (09:57)
[2021-06-11] MEDS: PANTOPRAZOLE 40 MG TABLET PO ×2 (09:57→17:19)
[2021-06-11] MEDS: SERTRALINE HCL 50 MG TABLET PO (09:57)
[2021-06-11] MEDS: METOPROLOL SUCCINATE EXT REL 50 MG TABCR 150 MG PO (09:57)
[2021-06-11] MEDS: lisinopriL 10 MG TABLET PO (09:57)
[2021-06-11] MEDS: acetaZOLAMIDE TAB 250 MG TABLET PO (09:57)
[2021-06-11] MEDS: FUROSEMIDE 40 MG TABLET PO (09:57)
[2021-06-11] MEDS: SPIRONOLACTONE 25 MG TABLET PO (09:57)
[2021-06-11] MEDS: APIXABAN 5 MG TABLET PO ×2 (09:57→21:24)
[2021-06-11] MEDS: FLUTICASONE PROPIONATE 0.05% NA SPR 16 GM BTL (*BKC) 1 SPRAY NASAL (09:58)
--- NOTE | 2021-06-11 10:34 | PM.IMPN ---
Progress Note: A&P Assessment and Plan (1) Acute decompensated heart failure: Code(s): I50.9 - Heart failure, unspecified Status: Acute Assessment and Plan: Chronic diastolic heart failure Echo from 12/15 showed EF of 60-65% with undetermined diastolic dysfunction BNP is 3480 Urinary catheter for strict Intake and output, remove catheter Daily weights Repeat echo no substantial differences Lasix 40mg IV BID and spironolactone 25mg PO daily Change lasix to PO Fluid restriction to 1500 cc daily Supportive care Continue to monitor 06/08/2021 interval history: today patient complains of bilateral swelling in her lower extremities and feels short of breath and tired patient being treated for exacerbation of congestive heart failure, patient had been treated with Lasix oral, will switch her over to Lasix IV, will monitor her urine output, will have PT/OT work with the patient, I spoke with patient daughter and gave her updatses, patient does not want to go to rehab. 06/09/2021 interval history: on 06/08 patient complained of bilateral swelling in her lower extremities and feels short of breath and tired patient being treated for exacerbation of congestive heart failure, patient had been treated with Lasix oral, switched her over to Lasix IV, today patient stats she is feeling better, waiting for rehab assessment for possible, discharge however patient is requiring assisstance with her ADL, will monitor her urine output, will have PT/OT work with the patient, on 06/08 I spoke with patient daughter and gave her updates. 06/10/2021 interval history: on 06/08 patient complained of bilateral swelling in her lower extremities and feels short of breath and tired patient being treated for exacerbation of congestive heart failure, patient had been treated with Lasix oral, switched her over to Lasix IV, her swelling is improving, will place patient back on oral lasix and add acetazolamide, patient is today patient stats she is feeling better, ablet to lift herself from sitting position, waiting for rehab assessment for possible, discharge however patient is requiring assistance with her ADL, will monitor her urine output, will have PT/OT work with the patient, on 06/08 I spoke with patient daughter and gave her updates. 06/11/2021 interval history: on 06/08 patient complained of bilateral swelling in her lower extremities and felt short of breath and tired patient being treated for exacerbation of congestive heart failure, patient had been treated with Lasix oral, switched her over to Lasix IV, her swelling is improving, on 06/10 placed patient back on oral lasix and added acetazolamide, patient is today patient stats she is feeling better, swelling in her legs have improved able to lift herself from sitting position, waiting for rehab assessment for possible, discharge however patient is still requiring assistance with her ADL, will monitor her urine output, will have PT/OT work with the patient, on 06/08 I spoke with patient daughter and gave her updates. (2) CKD (chronic kidney disease), stage III: Code(s): N18.30 - Chronic kidney disease, stage 3 unspecified Status: Acute Assessment and Plan: BUN/Cr 15/03.10 BUN and creatinine at patient's baseline Trend labs Avoid nephrotoxic medication (3) Persistent atrial fibrillation: Code(s): I48.19 - Other persistent atrial fibrillation Status: Acute Assessment and Plan: Rate controlled and anticoagulated Continue to monitor. 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(s): Z79.01 - half-way (current) use of anticoagulants Status: Acute Assessment and Plan: Eliquis 5mg PO Daily Looks to be a history of DVT, PAD, a
[2021-06-11] MEDS: UMECLIDINIUM BROMIDE 62.5 MCG ELLIPTA 1 PUFF INHALATION (10:41)
[2021-06-11] MEDS: SIMVASTATIN 20 MG TABLET PO (21:24)
--- NOTE | 2021-06-11 21:44 | PCRCNOTE ---
Pt scheduled for 20:00 nebulizer treatment. Pt refused treatment, stated that she was eating and then needed to use the bathroom. Pt stated that her breathing feels fine, and that she will wait until until her 02:00 neb treatment. Pt was advised to let her nurse know if she feels short of breath and would like to get the treatment sooner than 02:00.
[2021-06-12] VITALS (10 sets, daily range): BP systolic 97–102; BP diastolic 57–68; PULSE 74–86; RESP 16–20; TEMP 35.6–36.1; O2SAT 92–93
[2021-06-12] MEDS: IPRATROPIUM BR 0.02% INH SOLN 0.5 MG/2.5 ML VIAL INHALATION ×3 (02:40→14:30)
[2021-06-12] MEDS: LEVOTHYROXINE SODIUM 112 MCG TABLET PO (05:55)
[2021-06-12] MEDS: LEVOTHYROXINE SODIUM 25 MCG TABLET PO (05:56)
[2021-06-12 06:19] LABS: Anion Gap 4 mmol/L (8-16); Blood Urea Nitrogen 34 mg/dL (7-17); Calcium 8.3 mg/dL (8.4-10.2); Carbon Dioxide 39 mmol/L (22-30); Chloride 98 mmol/L (98-107); Estimated CRCL calculation 55 ml/min; Estimated Glomerular Filt Rate 43; Glucose 108 mg/dL (65-110); Potassium 4.3 mmol/L (3.4-5.0); Sodium 141 mmol/L (137-145)
[2021-06-12] MEDS: UMECLIDINIUM BROMIDE 62.5 MCG ELLIPTA 1 PUFF INHALATION (08:44)
[2021-06-12] MEDS: lisinopriL 10 MG TABLET PO (09:31)
[2021-06-12] MEDS: METOPROLOL SUCCINATE EXT REL 50 MG TABCR 150 MG PO (09:31)
[2021-06-12] MEDS: SERTRALINE HCL 50 MG TABLET PO (09:31)
[2021-06-12] MEDS: PANTOPRAZOLE 40 MG TABLET PO (09:31)
[2021-06-12] MEDS: acetaZOLAMIDE TAB 250 MG TABLET PO (09:31)
[2021-06-12] MEDS: POTASSIUM CHLORIDE 10 MEQ TABLET.ER PO (09:31)
[2021-06-12] MEDS: FUROSEMIDE 40 MG TABLET PO (09:31)
[2021-06-12] MEDS: APIXABAN 5 MG TABLET PO (09:31)
[2021-06-12] MEDS: SPIRONOLACTONE 25 MG TABLET PO (09:31)
[2021-06-12] MEDS: FLUTICASONE PROPIONATE 0.05% NA SPR 16 GM BTL (*BKC) 1 SPRAY NASAL (09:33)
--- NOTE | 2021-06-12 10:39 | PCNWS ---
Weekly nutritional screen. Patient screened in for 7 day length of stay. Patient is tolerating current diet with adequate intake. No nutritional needs at this time. No nutritional interventions at this time. Will follow up in 7 days if pt has not been discharged.
--- NOTE | 2021-06-12 12:10 | PM.DS ---
DS: Admitting Diagnosis Discharge Date 06/12/2021 Admitting Diagnosis swelling DS: Discharge Diagnosis Discharge Diagnosis (1) Acute decompensated heart failure: Code(s): I50.9 - Heart failure, unspecified Status: Acute Assessment and Plan: Chronic diastolic heart failure Echo from 12/15 showed EF of 60-65% with undetermined diastolic dysfunction BNP is 3480 Urinary catheter for strict Intake and output, remove catheter Daily weights Repeat echo no substantial differences Lasix 40mg IV BID and spironolactone 25mg PO daily Change lasix to PO Fluid restriction to 1500 cc daily Supportive care Continue to monitor 06/08/2021 interval history: today patient complains of bilateral swelling in her lower extremities and feels short of breath and tired patient being treated for exacerbation of congestive heart failure, patient had been treated with Lasix oral, will switch her over to Lasix IV, will monitor her urine output, will have PT/OT work with the patient, I spoke with patient daughter and gave her updatses, patient does not want to go to rehab. 06/09/2021 interval history: on 06/08 patient complained of bilateral swelling in her lower extremities and feels short of breath and tired patient being treated for exacerbation of congestive heart failure, patient had been treated with Lasix oral, switched her over to Lasix IV, today patient stats she is feeling better, waiting for rehab assessment for possible, discharge however patient is requiring assisstance with her ADL, will monitor her urine output, will have PT/OT work with the patient, on 06/08 I spoke with patient daughter and gave her updates. 06/10/2021 interval history: on 06/08 patient complained of bilateral swelling in her lower extremities and feels short of breath and tired patient being treated for exacerbation of congestive heart failure, patient had been treated with Lasix oral, switched her over to Lasix IV, her swelling is improving, will place patient back on oral lasix and add acetazolamide, patient is today patient stats she is feeling better, ablet to lift herself from sitting position, waiting for rehab assessment for possible, discharge however patient is requiring assistance with her ADL, will monitor her urine output, will have PT/OT work with the patient, on 06/08 I spoke with patient daughter and gave her updates. 06/11/2021 interval history: on 06/08 patient complained of bilateral swelling in her lower extremities and felt short of breath and tired patient being treated for exacerbation of congestive heart failure, patient had been treated with Lasix oral, switched her over to Lasix IV, her swelling is improving, on 06/10 placed patient back on oral lasix and added acetazolamide, patient is today patient stats she is feeling better, swelling in her legs have improved able to lift herself from sitting position, waiting for rehab assessment for possible, discharge however patient is still requiring assistance with her ADL, will monitor her urine output, will have PT/OT work with the patient, on 06/08 I spoke with patient daughter and gave her updates. (2) CKD (chronic kidney disease), stage III: Code(s): N18.30 - Chronic kidney disease, stage 3 unspecified Status: Acute Assessment and Plan: BUN/Cr /.10 BUN and creatinine at patient's baseline Trend labs Avoid nephrotoxic medication (3) Persistent atrial fibrillation: Code(s): I48.19 - Other persistent atrial fibrillation Status: Acute Assessment and Plan: Rate controlled and anticoagulated Continue to monitor. 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(s): Z79.01 - nursing home (current) use of anticoagulants Status: Acute
[2021-06-12 15:06] LABS: EDCOVIDSCREEN Negative (Negative)
== END 2021-06-12 15:40 | DRG 291 ==
LOC: ANHED 06-05 00:04 → ANH3MEDSUR 06-05 04:22
PROVIDERS: Family Medicine; Nurse Practitioner; Admitting Provider Internal Medicine; Emergency Provider Emergency Medicine; PCP Emergency Medicine; Visit Provider Physician Assistant
DX: I13.0 Hypertensive heart and chronic kidney disease with heart failure and stage 1 through stage 4 chronic kidney disease, or unspecified chronic kidney disease (principal); I50.33 Acute on chronic diastolic (congestive) heart failure; J96.12 Chronic respiratory failure with hypercapnia; J96.11 Chronic respiratory failure with hypoxia; Z68.42 Body mass index [BMI] 45.0-49.9, adult; I48.19 Other persistent atrial fibrillation; N18.30 Chronic kidney disease, stage 3 unspecified; J44.9 Chronic obstructive pulmonary disease, unspecified; Z20.822 Contact with and (suspected) exposure to COVID-19; Z66 Do not resuscitate; E78.5 Hyperlipidemia, unspecified; E66.01 Morbid (severe) obesity due to excess calories; E03.9 Hypothyroidism, unspecified; F41.9 Anxiety disorder, unspecified; I73.9 Peripheral vascular disease, unspecified; K21.9 Gastro-esophageal reflux disease without esophagitis; M19.90 Unspecified osteoarthritis, unspecified site; Z79.01 Long term (current) use of anticoagulants; Z86.718 Personal history of other venous thrombosis and embolism; Z86.73 Personal history of transient ischemic attack (TIA), and cerebral infarction without residual deficits; Z96.651 Presence of right artificial knee joint
CPT/HCPCS: 36415; 36600; 71045; 71046; 80048; 80053; 82375; 82805; 83050; 83735; 83880; 84132; 85025; 87426; 93005; 94640; 96374; 97110; 97161; 97165; 97530; 97535; 99285; A9270; C8929; C9803; J1940; Q9957

== ENCOUNTER 2021-07-28 13:49 | Outpatient (CLI) | payer OTHER, MEDICAID, SELFPAY ==
--- NOTE | ~2021-07-28 | US_ITS ---
EXAMINATION: US art doppler w press LE BI DATE: 07/28/2021 15:47 INDICATION: Peripheral vascular disease. TECHNIQUE: Segmental pressures and plethysmographic and Doppler waveforms of the brachial and lower e xtremity arteries were obtained. COMPARISON: ABIs 02/24/2019 FINDINGS: Right and left brachial artery pressures of 98 mm Hg and 93 mm Hg, respectively, are concordant (norm al difference <= 30 mmHg). The right high-thigh pressure index is 1.61 (normal > 1.2). The right ankle-brachial index (ANNA) is 1 .38 (normal >= 0.9-1.0). The right great toe-brachial index (TBI) is 0.85 (normal >= 0.65). Arterial Doppler waveforms are biphasic from common femoral artery to posterior tibial artery and monophasic i n dorsalis pedis. The left high-thigh pressure index is 1.30. The left ANNA is 1.54. The left TBI is 0.20. Arterial Dopp ler waveforms are biphasic from common femoral artery to the ankle. IMPRESSION: 1. Decreased left-sided TBI, consistent with left-sided arterial occlusive disease. 2. Increased ABIs, which may be secondary to arterial calcifications. Reviewed, dictated and finalized at location A. IMPRESSION: 1. Decreased left-sided TBI, consistent with left-sided arterial occlusive dise ase. 2. Increased ABIs, which may be secondary to arterial calcifications.
== END 2021-07-28 13:50 | disposition home or self-care (01) ==
PROVIDERS: PCP Emergency Medicine; Visit Provider Emergency Medicine
DX: I73.9 Peripheral vascular disease, unspecified (principal)
CPT/HCPCS: 93923

== ENCOUNTER 2021-08-04 14:43 | Inpatient (IN) | payer OTHER, MEDICAID, SELFPAY ==
[2021-08-04] VITALS (12 sets, daily range): BP systolic 95–158; BP diastolic 41–98; PULSE 83–119; RESP 20–28; TEMP 36.2–36.6; O2SAT 78–100; BMI 49.6
--- NOTE | ~2021-08-04 | XR_ITS ---
XR chest 2V 08/04/2021 15:48 Indication: Shortness of breath Procedure: AP and lateral views the chest Comparison: Comparison to multiple prior studies sequentially, with oldest reviewed study dated 09/2021. Findings: Moderate cardiomegaly. Mild pulmonary vascular congestion. No focal pneumonia, edema or eff usion. No pneumothorax. No acute osseous abnormality. Impression: 1: Cardiomegaly with mild pulmonary vascular congestion. Reviewed, dictated and finalized at location B. Impression: 1: Cardiomegaly with mild pulmonary vascular congestion.
--- NOTE | ~2021-08-04 | XR_ITS ---
XR chest 1V portable 08/06/2021 05:34 Indication: Respiratory failure Procedure: AP portable chest Comparison: Comparison to multiple prior studies sequentially, with oldest reviewed study dated 04/07. Findings: Cardiomegaly. Mild pulmonary vascular congestion. No pleural effusion or pneumothorax. Ther e is atherosclerosis of the aorta. There are degenerative changes of the shoulders. No acute osseous abnormality. Impression: 1: Cardiomegaly with mild pulmonary vascular congestion. Reviewed, dictated and finalized at location A. Impression: 1: Cardiomegaly with mild pulmonary vascular congestion.
--- NOTE | ~2021-08-04 | XR_ITS ---
EXAMINATION: XR chest 1V portable DATE: 08/08/2021 09:46 INDICATION: Chronic obstructive pulmonary disease. TECHNIQUE: A single frontal view of the chest was obtained. COMPARISON: Chest single view 08/06/2021 FINDINGS: There is mild atelectasis in right lower lung zone. No pleural effusion or pneumothorax. Ca rdiomegaly is noted. IMPRESSION: 1. Mild atelectasis in right lower lung zone. 2. Cardiomegaly. Reviewed, dictated and finalized at location B.
--- NOTE | ~2021-08-04 | XR_ITS ---
XR sniff test without CXR2V DATE: 08/07/2021 13:42 INDICATION: Shortness of breath. TECHNIQUE: Fluoroscopy was performed during inspiration, expiration and sniffing. COMPARISON: None FINDINGS: There is normal excursion of the diaphragm during inspiration, expiration and during sniffi ng. No paradoxical motion is evident. IMPRESSION: No paradoxical motion; no evidence of left or right diaphragm paralysis. Reviewed, dictated and finalized at Location A. Reviewed, dictated and finalized at location A. IMPRESSION: No paradoxical motion; no evidence of left or right diaphragm paral ysis.
--- NOTE | 2021-08-04 15:02 | ECG_ITS ---
Measurements Intervals [place] Rate: 83 P: DC: 0 QRS: 110 QRSD: 98 T: 69 QT: 372 QTc: 438 Interpretive Statements ATRIAL FIBRILLATION INCOMPLETE RIGHT BUNDLE BRANCH BLOCK [90+ ms QRS DURATION, TERMINAL R IN V1/V2, 40+ ms S IN I/aVL/V4/V5/V6] POSSIBLE RIGHT VENTRICULAR HYPERTROPHY [SOME/ALL OF: PROMINENT R IN V1, LATE TRANSITION, RAD, ALVINO, SSS] MINIMAL ST DEPRESSION [0.025+ mV ST DEPRESSION] COMPARED TO ECG 06/04/2021 21:50:12 INCOMPLETE RIGHT BUNDLE-BRANCH BLOCK NOW PRESENT ST (T WAVE) DEVIATION NOW PRESENT ABNORMAL EKG Electronically Signed On 08-05-2021 13:41:39 CDT by Marvin Andujar M.D.
[2021-08-04 15:36] LABS: Alveolar/Arterial O2 Gradient 55.5 mmHg; Base Excess ABG 5.6 mEq/l (+/-2.0); Carboxyhemoglobin 1.6 % THb (0-2.0); Fractional Inspired Oxygen 28 %; Methemoglobin ABG 0.3 %THb (0-1.5); Oxygen Content ABG 15.2 %vol (16.0-22.0); Oxygen Saturation ABG 92.5 % (95.0-100.0); Oxyhemoglobin 90.7 % THb (90.0-100.0); PO2 ABG 69.9 mmHg (80.0-100.0); Reduced Hemoglobin 7.4 %THb (0-5.0); Total Hemoglobin 11.9 g/dL (12.0-18.0); pH ABG 7.338 (7.350-7.450)
[2021-08-04 15:39] LABS: Device NASAL CANNULA; Modified Allen's Test Pass; PCO2 ABG 62.9 mmHg (35.0-45.0); Site Drawn LEFT RADIAL
--- NOTE | 2021-08-04 15:53 | ED.SOB ---
HPI - SOB/Dyspnea General Chief Complaint: Shortness of Breath/Dyspnea Stated Complaint: SOB Time Seen by Provider: 08/04/21 14:46 Source: patient, RN notes reviewed and old records reviewed Mode of arrival: EMS Limitations: no limitations History of Present Illness HPI Narrative: This is a 76 year old female with history of COPD, CHF, DVT, chronic anticoagulation who presents for evaluation of shortness of breath. PAtient states she has been short of breath for 2 weeks and it has been gradually worsening. She has chronic edema, and she denies worsening swelling. She denies chest pain or fever. EMS reports patient was 82% on room air on their arrival. Nursing staff in ED report patient was 78% on room air. Related Data Home Medications Medication Instructions Recorded Confirmed albuterol sulfate 90 mcg/actuation 1 puff inhalation Q4H PRN SOB 04/05/21 06/05/21 aerosol inhaler fluticasone propionate 50 50 mcg intranasal DAILY 04/05/21 06/05/21 mcg/actuation nasal spray,suspension ipratropium bromide 0.02 % 0.02 ml continuous nebulization 04/05/21 06/05/21 solution for inhalation Q6H PRN SOB levothyroxine 137 mcg tablet 137 mcg PO DAILY 04/05/21 06/05/21 lisinopril 10 mg tablet 10 mg PO DAILY 04/05/21 06/05/21 metoprolol succinate 100 mg 150 mg PO DAILY 04/05/21 06/05/21 tablet,extended release 24 hr potassium chloride 10 mEq 10 meq PO DAILY 04/05/21 06/05/21 tablet,extended release(part/cryst) simvastatin 20 mg tablet 20 mg PO HS 04/05/21 06/05/21 spironolactone 25 mg tablet 25 mg PO DAILY 04/05/21 06/05/21 apixaban 5 mg tablet (Eliquis) 5 mg PO BID 06/13/21 Allergies Allergy/AdvReac Type Severity Reaction Status Date / Time No Known Drug Allergies Allergy Other Verified 08/04/21 15:13 Review of Systems Review of Systems: All systems reviewed & are unremarkable except as noted in HPI and below Constitutional: Constitutional: Denies chills, Reports fatigue, Denies fever(s) and Reports weakness ENT: Denies nasal congestion Cardiovascular: Cardiovascular: Denies chest pain and Denies rapid heart rate Respiratory: Respiratory: Denies cough, Reports dyspnea and Denies wheezing Gastrointestinal: Gastrointestinal: Denies abdominal pain and Denies bloating Musculoskeletal: Comments: chronic leg pain Neurologic: Denies headache(s) PMFSH Past Medical History Medical History Anxiety Chronic obstructive pulmonary disease Chronic respiratory failure Evidence both chronic hypoxic and hypercapnic respiratory failure by ABGs. Not on home oxygen. CKD (chronic kidney disease), stage III Congestive heart failure Echocardiogram on 11/07/2018 showed an LV systolic function at the lower limit of normal with an EF estimated 50 to 55%, severe biatrial enlargement, normal RV systolic pressure, and mild tricuspid regurgitation. Degenerative joint disease DVT (deep venous thrombosis) Gastroesophageal reflux disease History of peptic ulcer Hypertension Hypothyroidism Morbid obesity Peripheral arterial disease Arterial Dopplers of the lower extremities in January 2019 showed occlusion distally. Peripheral angiogram showed 1 vessel runoff bilaterally though no indication for intervention due to collaterals. Reports chronic pain and legs though not debilitating and she is not interested in surgical intervention. Persistent atrial fibrillation Transient ischemic attack Surgical History Surgical History History of right knee joint replacement (01/2009) Family History Family History Mother Cancer Depression Other Acute myocardial infarction Hypertension Social History Social History Social History: Surrogate decision maker: Ester Sanchez, daughter. Code status: Do not resu
[2021-08-04 16:04] LABS: Basophils Absolute Auto 0.1 K/mm3 (0.0-0.1); Basophils Percent Auto 0.6 % (0.2-1.2); Eosinophils Absolute Auto 0.1 K/mm3 (0-0.3); Eosinophils Percent Auto 0.6 % (0-4.4); Hemoglobin 10.7 g/dL (12.0-15.0); Immature Granulocyte Absolute 0.04 K/mm3 (0.00-0.031); Immature Granulocyte Percent A 0.5 % (0-0.5); Mean Corpuscular HGB Conc 28.2 g/dl (32-36); Mean Corpuscular Hemoglobin 25.1 pg (26-34); Mean Corpuscular Volume 89.2 fl (80-100); Mean Platelet Volume 9.6 fl (7.4-10.4); Monocytes Absolute Auto 0.8 K/mm3 (0.1-0.6); Monocytes Percent Auto 10.1 % (2.6-8.5); Neutrophils Absolute Auto 6.3 K/mm3 (1.3-6.7); Neutrophils Percent Auto 78.2 % (45.5-73.1); Platelet Count Result 179 k/mm3 (150-375); Red Blood Count 4.26 M/mm3 (4.2-5.4); Red Cell Distribution Width 16.6 % (11.5-14.5)
[2021-08-04 16:15] LABS: Prothrombin Time 22.1 Seconds (11.1-14.7)
[2021-08-04 16:16] LABS: Alanine Aminotransferase 17 U/L (6-35); Alkaline Phosphatase 102 U/L (38-126); Anion Gap 4 mmol/L (8-16); Aspartate Amino Transferase 26 U/L (14-36); Bilirubin,Total 1.4 mg/dL (0.2-1.3); Blood Urea Nitrogen 51 mg/dL (7-17); Calcium 8.3 mg/dL (8.4-10.2); Carbon Dioxide 39 mmol/L (22-30); Chloride 96 mmol/L (98-107); Estimated CRCL calculation 48 ml/min; Estimated Glomerular Filt Rate 36; Glucose 101 mg/dL (65-110); Partial Thromboplastin Time 38.1 SECONDS (22.3-36.8); Potassium 5.3 mmol/L (3.4-5.0); Sodium 139 mmol/L (137-145)
[2021-08-04 16:18] LABS: Hypochromasia 1+ (NORMAL); Ovalocytes 1+ (NORMAL); Platelet Estimate Adequate (Adequate)
[2021-08-04 16:27] LABS: NT Pro B Type Natriuretic Pept 6850 pg/mL (5-100); Troponin I < 0.012 ng/mL (0.000-0.034)
[2021-08-04] MEDS: ALBUTEROL SULFATE NEB 2.5 MG/3 ML INH 5 MG INHALATION (16:35)
[2021-08-04] MEDS: IPRATROPIUM BR 0.02% INH SOLN 0.5 MG/2.5 ML VIAL INHALATION (16:36)
--- NOTE | 2021-08-04 17:23 | PC.NURSE ---
Dinner tray ordered.
--- NOTE | 2021-08-04 19:30 | PM.IMHP ---
H&P: HPI History of Present Illness Date/Time: 08/04/21 19:30 Chief Complaint: Shortness of breath. Narrative: This is a pleasant 76-year-old female with chronic obstructive pulmonary disease, congestive heart failure, atrial fibrillation, hypertension, dyslipidemia, and peripheral arterial disease who presented to the emergency department via EMS for evaluation of shortness of breath. She has evidence of chronic hypoxic and hypercapnic respiratory failure on previous ABGs though she has never qualified for home oxygen and to her knowledge she has never been diagnosed with sleep apnea (apnea link in 2019 fell within normal range). The last 2 weeks she has developed progressive dyspnea on lesser and lesser exertion and this morning she was feeling much more short of breath and emergency services were called. SpO2 was 82% on room air and her oxygen saturations have been over 90 since she was started on 4 L nasal cannula. On arrival to the emergency department she was given a nebulizer treatment due to significant wheezing and she reports feeling much better at this time. She has no other complaints aside from the shortness of breath and she denies fever, chills, sweats, sinus congestion, sore throat, cough, nausea, vomiting, diarrhea, chest pain, pleuritic pain, palpitations, dysphagia, and concerns for aspiration. No known sick contacts. Review of Systems Review of Systems: Twelve systems were reviewed. She is able to live in assisted living as she can pivot transfer to the toilet and to bed but she is mainly in a wheelchair. She has chronic pain in her lower extremities due to vascular disease and she has an upcoming appoint with Dr. Reid on Saturday did discuss possible intervention. There is a skin tear on her left 2nd toe which she obtained a couple of days ago after striking it on her electric wheelchair. Her legs do not look any different than what they normally look and her swelling seems to be stable as well. Except as documented, all other systems were reviewed and are negative. [facility] Past Medical History Medical History (Updated 08/04/21 @ 22:03 by Nancy Jacobsen PA-C) Anxiety Chronic anticoagulation Chronic kidney disease, stage 3 Chronic obstructive pulmonary disease Chronic respiratory failure Evidence both chronic hypoxic and hypercapnic respiratory failure by ABGs. Not on home oxygen. Congestive heart failure Echocardiogram on 11/07/2018 showed an LV systolic function at the lower limit of normal with an EF estimated 50 to 55%, severe biatrial enlargement, normal RV systolic pressure, and mild tricuspid regurgitation. Deep venous thrombosis Degenerative joint disease Gastroesophageal reflux disease History of peptic ulcer Hypertension Hypothyroidism Morbid obesity Peripheral arterial disease Arterial Dopplers of the lower extremities in January 2019 showed occlusion distally. Peripheral angiogram showed 1 vessel runoff bilaterally though no indication for intervention due to collaterals. Reports chronic pain and legs though not debilitating and she is not interested in surgical intervention. Persistent atrial fibrillation Transient ischemic attack Surgical History Surgical History History of right knee joint replacement (01/2009) Family History Family History Mother Depression Cancer Mouth cancer Father Acute myocardial infarction Social History Social History (Updated 08/04/21 @ 21:54 by Nancy Jacobsen PA-C) Social History: Surrogate decision maker: Ester Sanchez, daughter. Code status: Do not resuscitate. Smoking packs per day: 1 Smoking cigarettes per day: 20.0 Years smoked: 33 Smoking pack-years: 33.00 Smoking status: Former smoker Tobacco type: cigarettes Second hand tobacco smoke exposure: No Alcohol intake: never Substance use: never Substance use type:
--- NOTE | 2021-08-04 19:41 | ADMGEN ---
This patient, Lavern Roland, was admitted to IMU Room 209-01 08/04/211839. Patient/family oriented to hospital policies and general routines including ID bracelet, bed and alarms, visiting hours, pain management, procedures, bathroom and other care routines, personal items, smoking policy, room service/diet, and visiting hours. Information on how to activate the Rapid Response Team has been discussed. Patient/Family are encouraged to report perceived risks to care and to ask questions if they do not understand what they are told or what they should do.
--- NOTE | 2021-08-04 21:38 | PC.NURSE ---
[facility] called for patient med list. Verbally listed over phone per [facility] staff.
[2021-08-04 22:43] LABS: Anion Gap 5 mmol/L (8-16); Blood Urea Nitrogen 53 mg/dL (7-17); Calcium 8.3 mg/dL (8.4-10.2); Carbon Dioxide 36 mmol/L (22-30); Chloride 98 mmol/L (98-107); Estimated CRCL calculation 51 ml/min; Estimated Glomerular Filt Rate 40; Glucose 105 mg/dL (65-110); Potassium 5.1 mmol/L (3.4-5.0); Sodium 139 mmol/L (137-145)
[2021-08-04] MEDS: SIMVASTATIN 20 MG TABLET PO (22:48)
[2021-08-04] MEDS: APIXABAN 5 MG TABLET PO (22:48)
[2021-08-04] MEDS: FUROSEMIDE INJ 40 MG/4 ML VIAL IV PUSH (22:51)
[2021-08-04 23:42] LABS: Alveolar/Arterial O2 Gradient 58.2 mmHg; Base Excess ABG 6.6 mEq/l (+/-2.0); Carboxyhemoglobin 0.5 % THb (0-2.0); Fractional Inspired Oxygen 36 %; HCO3 ABG 36.2 mEq/l (22.0-26.0); Methemoglobin ABG 0.4 %THb (0-1.5); Oxygen Content ABG 15.6 %vol (16.0-22.0); Oxygen Saturation ABG 96.4 % (95.0-100.0); Oxyhemoglobin 95.3 % THb (90.0-100.0); PO2 ABG 101.4 mmHg (80.0-100.0); PO2 FiO2 Ratio Arterial Blood 2.82 %; Reduced Hemoglobin 3.8 %THb (0-5.0); Total Hemoglobin 11.5 g/dL (12.0-18.0)
[2021-08-04 23:48] LABS: PCO2 ABG 83.7 mmHg (35.0-45.0); Site Drawn LEFT RADIAL; pH ABG 7.254 (7.350-7.450)
[2021-08-04 23:49] LABS: Device NASAL CANNULA; Modified Allen's Test Pass
[2021-08-05] VITALS (26 sets, daily range): BP systolic 93–126; BP diastolic 45–60; PULSE 69–104; RESP 18–30; TEMP 36.1–36.8; O2SAT 96–100
[2021-08-05 02:08] LABS: Alveolar/Arterial O2 Gradient 61.5 mmHg; Base Excess ABG 9.6 mEq/l (+/-2.0); Fractional Inspired Oxygen 35 %; Oxygen Content ABG 15.6 %vol (16.0-22.0); Oxygen Saturation ABG 95.7 % (95.0-100.0); Oxyhemoglobin 94.9 % THb (90.0-100.0); PO2 ABG 91.7 mmHg (80.0-100.0); PO2 FiO2 Ratio Arterial Blood 2.62 %; Total Hemoglobin 11.6 g/dL (12.0-18.0)
[2021-08-05 02:11] LABS: Device NON-INVASIVE VENT; Modified Allen's Test Pass; PCO2 ABG 82.9 mmHg (35.0-45.0); Site Drawn LEFT RADIAL
[2021-08-05 02:12] LABS: Non-Invasive Expiratory Pressure 8 CMH2O; Non-Invasive Inspiratory Pressure 16 CMH2O; Non-Invasive Vent Rate 20 /MIN
--- NOTE | 2021-08-05 02:51 | PCRCNOTE ---
Window of time for administration has passed. See next scheduled administration.
[2021-08-05] MEDS: ALBUTEROL SULFATE NEB 2.5 MG/3 ML INH 5 MG INHALATION ×4 (02:52→20:46)
[2021-08-05] MEDS: IPRATROPIUM BR 0.02% INH SOLN 0.5 MG/2.5 ML VIAL INHALATION ×4 (02:52→20:47)
[2021-08-05 05:53] LABS: Basophils Percent Auto 0.5 % (0.2-1.2); Eosinophils Absolute Auto 0.1 K/mm3 (0-0.3); Eosinophils Percent Auto 1.6 % (0-4.4); Hematocrit 37.2 % (37.0-47.0); Hemoglobin 10.4 g/dL (12.0-15.0); Immature Granulocyte Absolute 0.03 K/mm3 (0.00-0.031); Immature Granulocyte Percent A 0.4 % (0-0.5); Lymphocytes Percent Auto 11.7 % (18.3-44.2); Mean Corpuscular Hemoglobin 25.6 pg (26-34); Mean Corpuscular Volume 91.4 fl (80-100); Monocytes Absolute Auto 0.9 K/mm3 (0.1-0.6); Monocytes Percent Auto 11.1 % (2.6-8.5); Neutrophils Absolute Auto 5.7 K/mm3 (1.3-6.7); Neutrophils Percent Auto 74.7 % (45.5-73.1); Platelet Count Result 164 k/mm3 (150-375); Red Blood Count 4.07 M/mm3 (4.2-5.4); Red Cell Distribution Width 16.4 % (11.5-14.5); White Blood Count 7.7 K/mm3 (4.5-10.0)
[2021-08-05 05:55] LABS: Alveolar/Arterial O2 Gradient 45.5 mmHg; Base Excess ABG 9.3 mEq/l (+/-2.0); Carboxyhemoglobin 0.1 % THb (0-2.0); Fractional Inspired Oxygen 35 %; HCO3 ABG 36.1 mEq/l (22.0-26.0); Methemoglobin ABG 0.3 %THb (0-1.5); Oxygen Content ABG 15.9 %vol (16.0-22.0); Oxygen Saturation ABG 98.6 % (95.0-100.0); Oxyhemoglobin 97.5 % THb (90.0-100.0); PO2 ABG 133.3 mmHg (80.0-100.0); PO2 FiO2 Ratio Arterial Blood 3.81 %; Reduced Hemoglobin 2.1 %THb (0-5.0); Total Hemoglobin 11.4 g/dL (12.0-18.0); pH ABG 7.391 (7.350-7.450)
[2021-08-05 05:59] LABS: Device NON-INVASIVE VENT; Modified Allen's Test Pass; PCO2 ABG 60.9 mmHg (35.0-45.0); Site Drawn RIGHT RADIAL
[2021-08-05 06:00] LABS: Non-Invasive Expiratory Pressure 6 CMH2O; Non-Invasive Inspiratory Pressure 16 CMH2O; Non-Invasive Vent Rate 25 /MIN
[2021-08-05 06:07] LABS: Alanine Aminotransferase 17 U/L (6-35); Albumin Level 3.7 g/dL (3.5-5.1); Alkaline Phosphatase 96 U/L (38-126); Aspartate Amino Transferase 23 U/L (14-36); Bilirubin,Total 1.4 mg/dL (0.2-1.3); Blood Urea Nitrogen 49 mg/dL (7-17); Calcium 8.4 mg/dL (8.4-10.2); Carbon Dioxide > 40 mmol/L (22-30); Chloride 97 mmol/L (98-107); Estimated CRCL calculation 55 ml/min; Estimated Glomerular Filt Rate 43; Glucose 90 mg/dL (65-110); Magnesium 1.7 mg/dL (1.6-2.3); Potassium 4.7 mmol/L (3.4-5.0); Sodium 142 mmol/L (137-145)
[2021-08-05] MEDS: LEVOTHYROXINE SODIUM 112 MCG TABLET PO (06:31)
[2021-08-05] MEDS: LEVOTHYROXINE SODIUM 25 MCG TABLET PO (06:32)
[2021-08-05 06:38] LABS: Hypochromasia 1+ (NORMAL); Ovalocytes 1+ (NORMAL); Platelet Estimate Adequate (Adequate)
[2021-08-05] MEDS: FUROSEMIDE 40 MG TABLET PO (09:09)
[2021-08-05] MEDS: SERTRALINE HCL 50 MG TABLET PO (09:09)
[2021-08-05] MEDS: APIXABAN 5 MG TABLET PO ×2 (09:09→18:44)
[2021-08-05] MEDS: PANTOPRAZOLE 40 MG TABLET PO (09:09)
[2021-08-05] MEDS: METOPROLOL SUCCINATE EXT REL 50 MG TABCR 150 MG PO (09:09)
[2021-08-05] MEDS: FLUTICASONE PROPIONATE 0.05% NA SPR 16 GM BTL (*BKC) 2 SPRAY NASAL (09:09)
[2021-08-05] MEDS: predniSONE 20 MG TABLET 60 MG PO (09:09)
[2021-08-05] MEDS: lisinopriL 10 MG TABLET PO (09:10)
--- NOTE | 2021-08-05 11:01 | PM.IMPN ---
Progress Note: A&P Assessment and Plan (1) Acute on chronic respiratory failure with hypoxia and hypercapnia: Code(s): J96.21 - Acute and chronic respiratory failure with hypoxia; J96.22 - Acute and chronic respiratory failure with hypercapnia Status: Acute Assessment and Plan: Evidence of chronic respiratory failure with hypoxia and hypercapnia on previous ABGs. Apnea link in 2019 was within normal limits but did have SpO2<88% for 64 minutes. Chest x-ray showing mild pulmonary vascular congestion. BNP 6850. She does have wheezing but this could be 'cardiac asthma'. She is requesting BiPAP be removed which will do so so she can eat. ABG this morning showing 7.39/61/133 on BiPAP. Continue BiPAP throughout the day today as needed but continue at night and with naps. Respiratory failure most likely due to a combination of congestive heart failure and COPD exacerbation. Pulmonary embolism is less likely as she states compliance with apixaban. She will need a home O2 evaluation prior to discharge. (2) Congestive heart failure: Qualifiers: Heart failure type: unspecified Heart failure chronicity: chronic Qualified Code(s): I50.9 - Heart failure, unspecified Code(s): I50.9 - Heart failure, unspecified Status: Acute Assessment and Plan: Patient reported that her edema was unchanged to the prior provider. She states to me however that she has gained 17 lb over the past month. She has pedal edema and abdominal wall edema. Chest x-ray showing pulmonary vascular congestion. BNP is 6850. Echocardiogram done in May 2021 showing normal LV systolic function with EF of about 55-60%, significant biatrial dilation but no significant valvular disease although multiple valves were poorly visualized. No mention of pulmonary hypertension. She is given IV Lasix on admission but switch to oral Lasix. Will convert back to IV Lasix since she still appears to be fluid overloaded. Monitor daily weights. This is her 3rd admission this year. Unclear what is driving this but consider poorly controlled CHF, untreated sleep apnea with obesity hypoventilation syndrome, and/or poorly treated COPD. (3) Chronic obstructive pulmonary disease: Qualifiers: COPD type: unspecified COPD Qualified Code(s): J44.9 - Chronic obstructive pulmonary disease, unspecified Code(s): J44.9 - Chronic obstructive pulmonary disease, unspecified Status: Chronic Assessment and Plan: Chest x-ray shows pulmonary vascular congestion. Clinically improving. Will continue nebulizer treatments and oral prednisone. Consult Pulmonary since feel she will need BiPAP at home. (4) Chronic kidney disease, stage 3: Code(s): N18.30 - Chronic kidney disease, stage 3 unspecified Status: Acute Assessment and Plan: Creatinine is a bit elevated from baseline but she tolerated the IV Lasix and creatinine is improving. Will resume IV Lasix and monitor closely. (5) Peripheral arterial disease: Code(s): I73.9 - Peripheral vascular disease, unspecified Status: Chronic Assessment and Plan: Patient has known peripheral arterial disease. On 07/28/2021, she had ABIs showing decreased left-sided TBI at 0.2 with elevated ANNA bilaterally which may be secondary to arterial calcifications. She has an upcoming appointment with Dr Reid, vascular surgeon. Continue Zocor. (6) Persistent atrial fibrillation: Code(s): I48.19 - Other persistent atrial fibrillation Status: Acute Assessment and Plan: EKG showing atrial fibrillation with controlled rate. Heart rate remains well controlled on telemetry. Continue Toprol. Continue Eliquis for stroke prophylaxis. (7) Hypothyroidism: Code(s): E03.9 - Hypothyroidism, unspecified Status: Chronic Assessment and Plan: TSH normal. Continue levothyroxine. Plan DVT prophylaxis: Eliquis Code status: Full
[2021-08-05] MEDS: EUCERIN CREAM 120 GM JAR 1 APPLIC TOPICAL (12:30)
--- NOTE | 2021-08-05 15:03 | PM.CNPUL ---
Assessment and Plan Assessment and plan (1) CHF (congestive heart failure): Qualifiers: Heart failure chronicity: acute on chronic Heart failure type: unspecified Qualified Code(s): I50.9 - Heart failure, unspecified Code(s): I50.9 - Heart failure, unspecified Status: Acute (2) Acute and chronic respiratory failure: Code(s): J96.20 - Acute and chronic respiratory failure, unspecified whether with hypoxia or hypercapnia Status: Acute (3) Acute on chronic respiratory failure with hypoxia and hypercapnia: Code(s): J96.21 - Acute and chronic respiratory failure with hypoxia; J96.22 - Acute and chronic respiratory failure with hypercapnia Status: Acute Assessment and Plan: 76-year-old female with history of chronic hypercapnic respiratory failure multiple hospitalizations with acute on chronic hypercapnic respiratory failure presented with increasing shortness of breath related to congestive heart failure. On physical exam the patient has crackles at bases. She has improved since admission into the hospital. Patient carries the diagnosis of COPD and has been treated with maintenance bronchodilators. I suspect the patient has chronic hypercapnic respiratory failure related to obesity hypoventilation and not to COPD. She has had orthopnea for many years. She refused to assume the supine position today because of immediate onset of shortness of breath in that position. chest x-rays show no clear-cut evidence of elevated hemidiaphragm to suggest diaphragmatic paralysis. Plan: patient has improved on current BiPAP settings. She is not very keen about going back on BiPAP support at night. Because of improvement of hypercapnia, we will continue with BiPAP support at night plus O2, using lower pressures and hoping they will be better tolerated by the patient. patient will need ApneaLink monitoring just prior to discharge home. (4) Chronic obstructive pulmonary disease: Qualifiers: COPD type: unspecified COPD Qualified Code(s): J44.9 - Chronic obstructive pulmonary disease, unspecified Code(s): J44.9 - Chronic obstructive pulmonary disease, unspecified Status: Chronic History of Present Illness History of Present Illness Consult date: 08/05/21 Chief complaint: Acute respiratory failure with hypoxia/CHF/hyerkal Narrative: this 76-year-old female presented with one-week history of shortness of breath. The patient has history of congestive heart failure atrial fibrillation Sineff tension hyperlipidemia peripheral arterial disease. She has had chronic hypercapnic respiratory failure with multiple hospitalizations for acute on chronic hypercapnic respiratory failure and previous intubation and mechanical ventilation in the intensive care unit. Patient carries the diagnosis of COPD and has been on some maintenance bronchodilators. She is not on home oxygen. The patient has had chronic orthopnea being unable to sleep in bed because of shortness of breath. For the last 7 years she has been sleeping in a recliner. She also has had chronic lower extremity edema. She was in her usual state of health until approximately 1 week ago when she started having increasing shortness of breath as well as increasing lower extremity edema. She had no fever chills hemoptysis cough wheezing. Initial workup showed acute on chronic hypercapnic respiratory failure, evidence of of congestive heart failure with very elevated BNP, cardiomegaly, congestive lung changes. The patient has been treated with BiPAP support with clinical improvement and also improvement of her hypercapnic respiratory failure. she is currently on supplemental oxygen. The patient smoked 1 pack per day for approximately 25 years. She quit 30 years ago. She has had history of morbid obesity with a recent weight gain of approximately 17 lb over the last month. She reports excessive daytime somnolence and frequent napp
[2021-08-05] MEDS: FUROSEMIDE INJ 40 MG/4 ML VIAL IV PUSH (18:44)
[2021-08-05] MEDS: SIMVASTATIN 20 MG TABLET PO (21:36)
[2021-08-05] MEDS: TOLNAFTATE 1% POWDER 45 GM BTL 1 APPLIC TOPICAL (21:37)
[2021-08-06] VITALS (21 sets, daily range): BP systolic 98–138; BP diastolic 45–80; PULSE 69–92; RESP 16–28; TEMP 36.3–36.6; O2SAT 92–100
[2021-08-06 00:43] LABS: Glucose Point of Care 155 mg/dl (65-105)
[2021-08-06] MEDS: ALBUTEROL SULFATE NEB 2.5 MG/3 ML INH 5 MG INHALATION (02:05)
[2021-08-06] MEDS: IPRATROPIUM BR 0.02% INH SOLN 0.5 MG/2.5 ML VIAL INHALATION ×4 (02:05→19:27)
[2021-08-06 05:19] LABS: Basophils Percent Auto 0.1 % (0.2-1.2); Eosinophils Percent Auto 0.1 % (0-4.4); Hematocrit 36.8 % (37.0-47.0); Hemoglobin 10.3 g/dL (12.0-15.0); Immature Granulocyte Absolute 0.04 K/mm3 (0.00-0.031); Immature Granulocyte Percent A 0.5 % (0-0.5); Lymphocytes Absolute Auto 0.61 K/mm3 (0.9-3.2); Lymphocytes Percent Auto 7.2 % (18.3-44.2); Mean Corpuscular Hemoglobin 24.9 pg (26-34); Mean Corpuscular Volume 89.1 fl (80-100); Monocytes Absolute Auto 0.8 K/mm3 (0.1-0.6); Monocytes Percent Auto 8.9 % (2.6-8.5); Neutrophils Percent Auto 83.2 % (45.5-73.1); Platelet Count Result 166 k/mm3 (150-375); Red Blood Count 4.13 M/mm3 (4.2-5.4); Red Cell Distribution Width 16.4 % (11.5-14.5); White Blood Count 8.4 K/mm3 (4.5-10.0)
[2021-08-06 05:36] LABS: Alanine Aminotransferase 16 U/L (6-35); Albumin Level 3.7 g/dL (3.5-5.1); Alkaline Phosphatase 92 U/L (38-126); Anion Gap 6 mmol/L (8-16); Aspartate Amino Transferase 19 U/L (14-36); Bilirubin Indirect 0.8 mg/dL (0-1.1); Bilirubin,Total 1.2 mg/dL (0.2-1.3); Blood Urea Nitrogen 44 mg/dL (7-17); Calcium 8.1 mg/dL (8.4-10.2); Carbon Dioxide 38 mmol/L (22-30); Chloride 97 mmol/L (98-107); Estimated CRCL calculation 65 ml/min; Estimated Glomerular Filt Rate 54; Glucose 111 mg/dL (65-110); Magnesium 1.8 mg/dL (1.6-2.3); Potassium 4.7 mmol/L (3.4-5.0); Sodium 141 mmol/L (137-145)
[2021-08-06 05:42] LABS: Hypochromasia 1+ (NORMAL); Platelet Estimate Adequate (Adequate)
[2021-08-06] MEDS: LEVOTHYROXINE SODIUM 112 MCG TABLET PO (05:54)
[2021-08-06] MEDS: LEVOTHYROXINE SODIUM 25 MCG TABLET PO (05:54)
[2021-08-06] MEDS: ACETAMINOPHEN 325 MG TABLET 650 MG PO (06:43)
[2021-08-06] MEDS: ALBUTEROL SULFATE NEB 2.5 MG/0.5 ML INH 5 MG ×3 (07:57→19:27)
[2021-08-06] MEDS: METOPROLOL SUCCINATE EXT REL 50 MG TABCR 150 MG PO (08:54)
[2021-08-06] MEDS: APIXABAN 5 MG TABLET PO ×2 (08:54→17:29)
[2021-08-06] MEDS: FUROSEMIDE INJ 40 MG/4 ML VIAL IV PUSH ×2 (08:55→18:51)
[2021-08-06] MEDS: SERTRALINE HCL 50 MG TABLET PO (08:55)
[2021-08-06] MEDS: predniSONE 20 MG TABLET 60 MG PO (08:55)
[2021-08-06] MEDS: PANTOPRAZOLE 40 MG TABLET PO (08:55)
[2021-08-06] MEDS: lisinopriL 10 MG TABLET PO (08:55)
[2021-08-06] MEDS: FLUTICASONE PROPIONATE 0.05% NA SPR 16 GM BTL (*BKC) 2 SPRAY NASAL (08:56)
--- NOTE | 2021-08-06 12:40 | PM.IMPN ---
Progress Note: A&P Assessment and Plan (1) Acute on chronic respiratory failure with hypoxia and hypercapnia: Code(s): J96.21 - Acute and chronic respiratory failure with hypoxia; J96.22 - Acute and chronic respiratory failure with hypercapnia Status: Acute Assessment and Plan: Evidence of chronic respiratory failure with hypoxia and hypercapnia on previous ABGs. Apnea link in 2019 was within normal limits but did have SpO2<88% for 64 minutes. Chest x-ray showing mild pulmonary vascular congestion. BNP 6850. She does have wheezing felt to be 'cardiac asthma' since improving with CHF treatment. She tolerated the BiPAP last night. Continue BiPAP at night and with naps - apnea link tonight. Respiratory failure most likely due to a combination of congestive heart failure and COPD exacerbation and/or obesity hypoventilation syndrome. Pulmonary embolism is less likely as she states compliance with apixaban. Wean O2 as toelrated. She will need a home O2 evaluation prior to discharge. (2) Congestive heart failure: Qualifiers: Heart failure type: unspecified Heart failure chronicity: chronic Qualified Code(s): I50.9 - Heart failure, unspecified Code(s): I50.9 - Heart failure, unspecified Status: Acute Assessment and Plan: Patient has gained 17 lb over the past month. She has pedal edema and abdominal wall edema. Chest x-ray showing pulmonary vascular congestion. BNP is 6850. Echo done in May 2021 showing normal LV systolic function with EF of about 55-60%, significant biatrial dilation but no significant valvular disease although multiple valves were poorly visualized. No mention of pulmonary hypertension. She was started on IV Lasix with good results. I/O's are inaccurate. CXR showing pulm vasc congestion. Monitor daily weights. This is her 3rd admission this year. Unclear what is driving this but consider poorly controlled CHF, untreated sleep apnea with obesity hypoventilation syndrome, and/or poorly treated COPD. Appreciate Pulmonary input. (3) Chronic obstructive pulmonary disease: Qualifiers: COPD type: unspecified COPD Qualified Code(s): J44.9 - Chronic obstructive pulmonary disease, unspecified Code(s): J44.9 - Chronic obstructive pulmonary disease, unspecified Status: Chronic Assessment and Plan: Chest x-ray shows pulmonary vascular congestion. Clinically improving. Will continue nebulizer treatments and oral prednisone. Appreciate Pulmonary input (4) Chronic kidney disease, stage 3: Code(s): N18.30 - Chronic kidney disease, stage 3 unspecified Status: Acute Assessment and Plan: Creatinine is a bit elevated from baseline but she tolerated the IV Lasix and creatinine is improving. Will contiue IV Lasix and monitor closely. (5) Peripheral arterial disease: Code(s): I73.9 - Peripheral vascular disease, unspecified Status: Chronic Assessment and Plan: Patient has known peripheral arterial disease. On 07/28/2021, she had ABIs showing decreased left-sided TBI at 0.2 with elevated ANNA bilaterally which may be secondary to arterial calcifications. She has an upcoming appointment with Dr Reid, vascular surgeon. Continue Zocor. Add baby ASA. (6) Persistent atrial fibrillation: Code(s): I48.19 - Other persistent atrial fibrillation Status: Acute Assessment and Plan: EKG showing atrial fibrillation with controlled rate. Heart rate remains well controlled on telemetry. Continue Toprol. Continue Eliquis for stroke prophylaxis. (7) Hypothyroidism: Code(s): E03.9 - Hypothyroidism, unspecified Status: Chronic Assessment and Plan: TSH normal. Continue levothyroxine. Plan DVT prophylaxis: Eliquis Code status: Full Subjective Date/time seen: 08/06/21 12:40 Interval history: 76yo female with hx of COPD, CHF, AFib, HTN and PAD here for shortness of b
[2021-08-06] MEDS: EUCERIN CREAM 120 GM JAR 1 APPLIC TOPICAL (12:52)
[2021-08-06] MEDS: TOLNAFTATE 1% POWDER 45 GM BTL 1 APPLIC TOPICAL ×2 (12:52→20:47)
--- NOTE | 2021-08-06 13:23 | PM.PNPUL ---
Progress Note: A&P Assessment and Plan (1) Acute and chronic respiratory failure with hypoxia: Code(s): J96.21 - Acute and chronic respiratory failure with hypoxia Status: Acute Assessment and Plan: 76-year-old female with? history of chronic hypercapnic respiratory failure multiple? hospitalizations with acute on chronic hypercapnic respiratory failure presented with increasing shortness of breath related to congestive heart failure.? On physical exam the patient has crackles at bases.? She has improved since admission to the hospital.? Patient carries the diagnosis of COPD and has been treated with maintenance bronchodilators.? I suspect the patient has chronic hypercapnic respiratory failure? related to obesity hypoventilation and not to COPD.? She has had orthopnea for many years.? she tolerated BiPAP support last night. She continues to have somnolence taking naps during the day. I have discontinued the oral steroids. Continue with current BiPAP support and supplemental oxygen. Will a get apnea link prior to discharging patient home. she will need a sleep study as an outpatient as well as home ventilatory support while waiting for the sleep study. Will consider sniff test prior to discharging patient. The case was discussed with the hospitalist. (2) CHF (congestive heart failure): Qualifiers: Heart failure chronicity: acute on chronic Heart failure type: unspecified Qualified Code(s): I50.9 - Heart failure, unspecified Code(s): I50.9 - Heart failure, unspecified Status: Acute (3) Morbid obesity: Code(s): E66.01 - Morbid (severe) obesity due to excess calories Status: Acute (4) Peripheral arterial disease: Code(s): I73.9 - Peripheral vascular disease, unspecified Status: Chronic Subjective Date/time seen: 08/06/21 13:23 Patient has less shortness of breath and also less lower extremity edema. She again slept in the chair last night. Tolerated lower BiPAP pressures well. has not been using a BiPAP during the day. She continues to have orthopnea. Review of Systems Review of Systems: All system review is negative except as noted in H&P and below Exam Narrative: ?GENERAL APPEARANCE: Well developed, well nourished, alert and cooperative, and appears to be in? mild respiratory distress while sitting in a recliner and breathing supplemental oxygen SKIN: Inspection of the skin reveals no rashes, ulcerations or petechiae. HEENT: Sclerae anicteric and conjunctivae? pink and moist. Extraocular movements were intact and pupils were equal. NECK: Supple. There was no thyroid enlargement, and no tenderness, or masses were felt. CHEST: Normal AP diameter and normal contour without any kyphoscoliosis. LUNGS: Auscultation of the lungs revealed? crackles at bases posteriorly, no wheezing CARDIAC: There was a regular rate and rhythm without any murmurs. ABDOMEN: Soft and nontender with normal bowel sounds. There was no organomegaly. LYMPH NODES: No lymphadenopathy was appreciated in the neck. EXTREMITIES: No cyanosis, clubbing.? chronic stasis dermatitis changes in lower extremities NEUROLOGIC: Alert and oriented x 3. Normal affect. Objective Data Vital Signs Vital Signs: Vital Signs - 24 hr 08/05/21 14:50 08/05/21 15:00 08/05/21 16:00 Temperature 36.8 C Pulse Rate 77 78 86 Respiratory Rate 20 20 20 Blood Pressure 126/59 L Pulse Oximetry 96 Oxygen Delivery Oxygen Flow Rate Fraction of Inspired Oxygen 08/05/21 16:00 08/05/21 14:00 08/05/21 16:00 Temperature Pulse Rate 86 87 Respiratory Rate Blood Pressure Pulse Oximetry 96 Oxygen Delivery High Flow Nasal Cannula Oxygen Flow Rate 3 Fraction of Inspired Oxygen 08/05/21 18:00 08/05/21 20:00 08/05/21 20:40 Temperature 36.7 C Pulse Rate 104 H 85 82 Respiratory Rate 20 22 H Blood Pressure 109/60 Pulse Oximetry 98 Oxygen Delivery Oxygen Flow Rate F
[2021-08-06] MEDS: ASPIRIN 81 MG CHEWABLE TABLET PO (17:29)
[2021-08-06] MEDS: SIMVASTATIN 20 MG TABLET PO (20:47)
[2021-08-07] VITALS (24 sets, daily range): BP systolic 100–130; BP diastolic 47–67; PULSE 66–87; RESP 18–27; TEMP 36.1–36.4; O2SAT 91–99
--- NOTE | 2021-08-07 00:02 | PCRCNOTE ---
ApneaLink not performed tonight (Saturday/Saturday). Need clarification from Pulmonology as to whether they want it performed with or without Bipap and current settings.
[2021-08-07] MEDS: ALBUTEROL SULFATE NEB 2.5 MG/3 ML INH 5 MG INHALATION ×4 (01:04→20:01)
[2021-08-07] MEDS: IPRATROPIUM BR 0.02% INH SOLN 0.5 MG/2.5 ML VIAL INHALATION ×4 (01:04→20:01)
[2021-08-07 05:24] LABS: Albumin Level 3.5 g/dL (3.5-5.1); Blood Urea Nitrogen 42 mg/dL (7-17); Calcium 7.9 mg/dL (8.4-10.2); Carbon Dioxide > 40 mmol/L (22-30); Chloride 97 mmol/L (98-107); Estimated CRCL calculation 72 ml/min; Estimated Glomerular Filt Rate > 60; Glucose 145 mg/dL (65-110); Magnesium 1.8 mg/dL (1.6-2.3); Phosphorus 2.8 mg/dL (2.5-4.5); Potassium 4.2 mmol/L (3.4-5.0); Sodium 141 mmol/L (137-145)
[2021-08-07] MEDS: LEVOTHYROXINE SODIUM 25 MCG TABLET PO (06:12)
[2021-08-07] MEDS: LEVOTHYROXINE SODIUM 112 MCG TABLET PO (06:12)
[2021-08-07] MEDS: METOPROLOL SUCCINATE EXT REL 50 MG TABCR 150 MG PO (08:34)
[2021-08-07] MEDS: PANTOPRAZOLE 40 MG TABLET PO (08:35)
[2021-08-07] MEDS: FLUTICASONE PROPIONATE 0.05% NA SPR 16 GM BTL (*BKC) 2 SPRAY NASAL (08:36)
[2021-08-07] MEDS: APIXABAN 5 MG TABLET PO ×2 (08:36→18:32)
[2021-08-07] MEDS: EUCERIN CREAM 120 GM JAR 1 APPLIC TOPICAL (08:36)
[2021-08-07] MEDS: TOLNAFTATE 1% POWDER 45 GM BTL 1 APPLIC TOPICAL ×2 (08:36→21:12)
[2021-08-07] MEDS: lisinopriL 10 MG TABLET PO (08:36)
[2021-08-07] MEDS: SERTRALINE HCL 50 MG TABLET PO (08:36)
[2021-08-07] MEDS: FUROSEMIDE INJ 40 MG/4 ML VIAL IV PUSH ×2 (08:36→18:32)
[2021-08-07] MEDS: ASPIRIN 81 MG CHEWABLE TABLET PO (08:39)
--- NOTE | 2021-08-07 10:59 | PM.PNPUL ---
Progress Note: A&P Assessment and Plan (1) Acute and chronic respiratory failure with hypoxia: Code(s): J96.21 - Acute and chronic respiratory failure with hypoxia Status: Acute (2) Morbid obesity: Code(s): E66.01 - Morbid (severe) obesity due to excess calories Status: Acute (3) Peripheral arterial disease: Code(s): I73.9 - Peripheral vascular disease, unspecified Status: Chronic (4) CHF (congestive heart failure): Code(s): I50.9 - Heart failure, unspecified Status: Acute (5) Congestive heart failure: Qualifiers: Heart failure chronicity: chronic Heart failure type: unspecified Qualified Code(s): I50.9 - Heart failure, unspecified Code(s): I50.9 - Heart failure, unspecified Status: Acute (6) Acute and chronic respiratory failure with hypercapnia: Code(s): J96.22 - Acute and chronic respiratory failure with hypercapnia Status: Acute Assessment and Plan: ? 76-year-old female with? history of chronic hypercapnic respiratory failure multiple? hospitalizations with acute on chronic hypercapnic respiratory failure presented with increasing shortness of breath related to congestive heart failure.? On physical exam the patient has crackles at bases.? She has improved since admission to the hospital.? Patient carries the diagnosis of COPD and has been treated with maintenance bronchodilators.? I suspect the patient has chronic hypercapnic respiratory failure? related to obesity hypoventilation and not to COPD.? She has had orthopnea for many years.? ?she tolerated BiPAP support last night but for few hours only.? She continues to have somnolence taking naps during the day.? Continue with current? BiPAP support and supplemental oxygen.? Will a get apnea link tonight. ?? she will need a sleep study as an outpatient as well as home ventilatory support while waiting for the sleep study. sniff test prior ordered.? The case was discussed with the hospitalist. Subjective Date/time seen: 08/07/21 10:59 patient doing better. Shortness of breath has improved. Also lower extremity edema improved. Patient used BiPAP last night but for few hours only. She continues to complain of orthopnea, continues to sleep in the chair. Review of Systems Review of Systems: All system review is unremarkable except as noted in H&P and below Exam Narrative: GENERAL APPEARANCE: Well developed, well nourished, alert and cooperative, and appears to be in no acute distress while upright in chair SKIN: Inspection of the skin reveals no rashes, ulcerations or petechiae. HEENT: Sclerae anicteric and conjunctivae pink and moist. Extraocular movements were intact and pupils were equal, round, and reactive to light. NECK: Supple. There was no thyroid enlargement, and no tenderness, or masses were felt. CHEST: Normal AP diameter and normal contour without any kyphoscoliosis. LUNGS: Auscultation of the lungs revealed normal breath sounds without any other adventitious sounds or rubs. CARDIAC: There was a regular rate and rhythm without any murmurs. ABDOMEN: Soft and nontender with normal bowel sounds. There was no organomegaly. LYMPH NODES: No lymphadenopathy was appreciated in the neck. EXTREMITIES: No cyanosis, clubbing. edema less than before. Chronic stasis dermatitis changes bilaterally. NEUROLOGIC: Alert and oriented x 3. Normal affect. Objective Data Vital Signs Vital Signs: Vital Signs - 24 hr 08/06/21 12:00 08/06/21 12:00 08/06/21 14:00 Temperature 36.5 C Pulse Rate 74 87 81 Respiratory Rate 20 Blood Pressure 129/80 Pulse Oximetry 95 Oxygen Delivery Oxygen Flow Rate Fraction of Inspired Oxygen 08/06/21 14:25 08/06/21 14:31 08/06/21 16:00 Temperature Pulse Rate 70 72 76 Respiratory Rate 20 20 Blood Pressure Pulse Oximetry Oxygen Delivery Oxygen Flow Rate Fraction of Inspired Oxygen 08/06/21 16:00 08/06/21 1
--- NOTE | 2021-08-07 12:53 | PCOTNOTE ---
Attempted to see patient this pm, however patient going for testing at this time.
--- NOTE | 2021-08-07 16:30 | PM.IMPN ---
Progress Note: A&P Assessment and Plan (1) Acute on chronic respiratory failure with hypoxia and hypercapnia: Code(s): J96.21 - Acute and chronic respiratory failure with hypoxia; J96.22 - Acute and chronic respiratory failure with hypercapnia Status: Acute Assessment and Plan: Evidence of chronic respiratory failure with hypoxia and hypercapnia on previous ABGs. Apnea link in 2019 was within normal limits but did have SpO2<88% for 64 minutes. Chest x-ray showing mild pulmonary vascular congestion. BNP 6850. She did have wheezing felt to be 'cardiac asthma' that is improving. She tolerated the BiPAP for a few hours last night. Continue BiPAP at night and with naps - apnea link will be for tonight. Respiratory failure most likely due to a combination of congestive heart failure and COPD exacerbation and/or obesity hypoventilation syndrome. Pulmonary embolism is less likely as she states compliance with apixaban. Wean O2 as tolerated. She will need a home O2 evaluation prior to discharge. Appreciate Pulmonary input. (2) Congestive heart failure: Qualifiers: Heart failure type: unspecified Heart failure chronicity: chronic Qualified Code(s): I50.9 - Heart failure, unspecified Code(s): I50.9 - Heart failure, unspecified Status: Acute Assessment and Plan: Patient has gained 17 lb over the past month. She has pedal edema and abdominal wall edema. Chest x-ray showing pulmonary vascular congestion. BNP is 6850. Echo done in May 2021 showing normal LV systolic function with EF of about 55-60%, significant biatrial dilation but no significant valvular disease although multiple valves were poorly visualized. No mention of pulmonary hypertension. She was started on IV Lasix with good results. I/O's are inaccurate. CXR showing pulm vasc congestion. No changes in weight but continue to monitor daily weights. This is her 3rd admission this year. Unclear what is driving this but consider poorly controlled CHF, untreated sleep apnea with obesity hypoventilation syndrome, and/or poorly treated COPD. Appreciate Pulmonary input. (3) Chronic obstructive pulmonary disease: Qualifiers: COPD type: unspecified COPD Qualified Code(s): J44.9 - Chronic obstructive pulmonary disease, unspecified Code(s): J44.9 - Chronic obstructive pulmonary disease, unspecified Status: Chronic Assessment and Plan: Chest x-ray shows pulmonary vascular congestion. Clinically improving. Will continue nebulizer treatments and oral prednisone. Chest fluoro does not show diaphragmatic weakness. Appreciate Pulmonary input (4) Chronic kidney disease, stage 3: Code(s): N18.30 - Chronic kidney disease, stage 3 unspecified Status: Acute Assessment and Plan: Creatinine was elevated from baseline on admission but she is tolerating the IV Lasix and creatinine is improving. Will continue IV Lasix and monitor closely. (5) Peripheral arterial disease: Code(s): I73.9 - Peripheral vascular disease, unspecified Status: Chronic Assessment and Plan: Patient has known peripheral arterial disease. On 07/28/2021, she had ABIs showing decreased left-sided TBI at 0.2 with elevated ANNA bilaterally which may be secondary to arterial calcifications. Feet more red related to feet being elevated and flushed (not felt to be infectious). She has an upcoming appointment with Dr Reid, vascular surgeon. Continue Zocor and ASA. (6) Persistent atrial fibrillation: Code(s): I48.19 - Other persistent atrial fibrillation Status: Acute Assessment and Plan: EKG showing atrial fibrillation with controlled rate. Heart rate remains well controlled on telemetry. Continue Toprol. Continue Eliquis for stroke prophylaxis. (7) Hypothyroidism: Code(s): E03.9 - Hypothyroidism, unspecified Status: Chronic Assessment and Plan: TSH normal. Continue lev
--- NOTE | 2021-08-07 20:57 | PC.NURSE ---
This patient, Lavern Roland, was transferred to [room 321 ] on 08/07/21 at 2041. Personal belongings sent with patient. Report given to [SILVERIO Calderon]. Appropriate documentation sent with patient.
[2021-08-07] MEDS: SIMVASTATIN 20 MG TABLET PO (21:12)
--- NOTE | 2021-08-07 22:28 | PC.NURSE ---
Pt arrived at room 321 from room 206 from IMU.
[2021-08-08] VITALS (15 sets, daily range): BP systolic 85–122; BP diastolic 43–68; PULSE 70–93; RESP 18–28; TEMP 36.2–36.4; O2SAT 91–99
[2021-08-08] MEDS: LEVOTHYROXINE SODIUM 25 MCG TABLET PO (05:36)
[2021-08-08] MEDS: LEVOTHYROXINE SODIUM 112 MCG TABLET PO (05:36)
[2021-08-08 06:32] LABS: Hematocrit 37.7 % (37.0-47.0); Hemoglobin 10.4 g/dL (12.0-15.0); Mean Corpuscular HGB Conc 27.6 g/dl (32-36); Mean Corpuscular Hemoglobin 24.7 pg (26-34); Mean Corpuscular Volume 89.5 fl (80-100); Mean Platelet Volume 9.6 fl (7.4-10.4); Platelet Count Result 162 k/mm3 (150-375); Red Blood Count 4.21 M/mm3 (4.2-5.4); Red Cell Distribution Width 16.3 % (11.5-14.5); White Blood Count 8.6 K/mm3 (4.5-10.0)
[2021-08-08 06:45] LABS: Blood Urea Nitrogen 38 mg/dL (7-17); Calcium 7.8 mg/dL (8.4-10.2); Carbon Dioxide > 40 mmol/L (22-30); Chloride 96 mmol/L (98-107); Estimated CRCL calculation 72 ml/min; Estimated Glomerular Filt Rate > 60; Glucose 86 mg/dL (65-110); Potassium 4.2 mmol/L (3.4-5.0); Sodium 141 mmol/L (137-145)
[2021-08-08] MEDS: IPRATROPIUM BR 0.02% INH SOLN 0.5 MG/2.5 ML VIAL INHALATION ×3 (08:25→20:09)
[2021-08-08] MEDS: ALBUTEROL SULFATE NEB 2.5 MG/3 ML INH 5 MG INHALATION ×3 (08:25→20:09)
[2021-08-08] MEDS: FUROSEMIDE INJ 40 MG/4 ML VIAL IV PUSH (08:59)
[2021-08-08] MEDS: PANTOPRAZOLE 40 MG TABLET PO (08:59)
[2021-08-08] MEDS: TOLNAFTATE 1% POWDER 45 GM BTL 1 APPLIC TOPICAL (08:59)
[2021-08-08] MEDS: APIXABAN 5 MG TABLET PO ×2 (09:00→18:01)
[2021-08-08] MEDS: METOPROLOL SUCCINATE EXT REL 50 MG TABCR 150 MG PO (09:00)
[2021-08-08] MEDS: lisinopriL 10 MG TABLET PO (09:01)
[2021-08-08] MEDS: SERTRALINE HCL 50 MG TABLET PO (09:01)
[2021-08-08] MEDS: EUCERIN CREAM 120 GM JAR 1 APPLIC TOPICAL (09:03)
--- NOTE | 2021-08-08 09:11 | PM.PNPUL ---
Progress Note: A&P Assessment and Plan (1) Acute and chronic respiratory failure with hypoxia: Code(s): J96.21 - Acute and chronic respiratory failure with hypoxia Status: Acute (2) Morbid obesity: Code(s): E66.01 - Morbid (severe) obesity due to excess calories Status: Acute (3) Peripheral arterial disease: Code(s): I73.9 - Peripheral vascular disease, unspecified Status: Chronic (4) CHF (congestive heart failure): Code(s): I50.9 - Heart failure, unspecified Status: Acute (5) Congestive heart failure: Qualifiers: Heart failure type: unspecified Heart failure chronicity: chronic Qualified Code(s): I50.9 - Heart failure, unspecified Code(s): I50.9 - Heart failure, unspecified Status: Acute (6) Acute and chronic respiratory failure with hypercapnia: Code(s): J96.22 - Acute and chronic respiratory failure with hypercapnia Status: Acute Assessment and Plan: ? 76-year-old female with? history of chronic hypercapnic respiratory failure multiple? hospitalizations with acute on chronic hypercapnic respiratory failure presented with increasing shortness of breath related to congestive heart failure.? On physical exam the patient has crackles at bases.? She has improved since admission to the hospital.? Patient carries the diagnosis of COPD and has been treated with maintenance bronchodilators.? I suspect the patient has chronic hypercapnic respiratory failure? related to obesity hypoventilation and not to COPD.? She has had orthopnea for many years.? ?she did not tolerate BiPAP support last night.? apnea link showed mostly adequate oxyhemoglobin saturation with saturation time of less than 88% lasting approximately 9 minutes. Sniff test done yesterday showed no evidence of paradoxical diaphragm movement. Plan patient will need to be on supplemental oxygen 3 liters/minute. She will also need oxygen evaluation during the day. No need to bridge patient with BiPAP support prior to sleep study. Patient needs to have a sleep study as outpatient. I would like to re-evaluate patient in the Pulmonary Clinic with pulmonary function testing following sleep study. She will continue with the maintenance bronchodilators for COPD. The case was discussed with the hospitalist. Will sign off, please call with any questions. Subjective Date/time seen: 08/08/21 09:11 Patient has no new respiratory symptoms. Underwent ApneaLink monitoring last night. Used BiPAP for only a short period of time. Continues to have orthopnea. Review of Systems Review of Systems: All system review is negative except as noted in H&P and below Exam Narrative: GENERAL APPEARANCE: Well developed, well nourished, alert and cooperative, and appears to be in no acute distress while upright in chair SKIN: Inspection of the skin reveals no rashes, ulcerations or petechiae. HEENT: Sclerae anicteric and conjunctivae pink and moist. Extraocular movements were intact and pupils were equal, round, and reactive to light. NECK: Supple. There was no thyroid enlargement, and no tenderness, or masses were felt. CHEST: Normal AP diameter and normal contour without any kyphoscoliosis. LUNGS: Auscultation of the lungs revealed Crackles at bases posteriorly no wheezing CARDIAC: There was a regular rate and rhythm without any murmurs. ABDOMEN: Soft and nontender with normal bowel sounds. There was no organomegaly. LYMPH NODES: No lymphadenopathy was appreciated in the neck. EXTREMITIES: No cyanosis, clubbing. edema less than before. Chronic stasis dermatitis changes bilaterally. NEUROLOGIC: Alert and oriented x 3. Normal affect. Objective Data Vital Signs Vital Signs: Vital Signs - 24 hr 08/07/21 12:00 08/07/21 12:00 08/07/21 10:00 Temperature Pulse Rate 67 66 Respiratory Rate Blood Pressure Pulse Oximetry 95 Oxygen Delivery Nasal Cannula Oxygen Flow Rate 2 Fraction
[2021-08-08] MEDS: ASPIRIN 81 MG CHEWABLE TABLET PO (09:58)
--- NOTE | 2021-08-08 15:53 | PCRCNOTE ---
ACCORDING TO PT, SHE IS D/C TO SNF PRIOR TO D/C ASSISTED LIVING. RN STATED THIS WASN'T DEFINITE YET, I WILL WAIT TO SEE BEFORE PERFORMING HOME O2 EVAL.
--- NOTE | 2021-08-08 16:04 | PM.DS ---
DS: Admitting Diagnosis Discharge Date 08/08/21 Admitting Diagnosis Shortness of breath DS: Discharge Diagnosis Discharge Diagnosis (1) Acute on chronic respiratory failure with hypoxia and hypercapnia: Code(s): J96.21 - Acute and chronic respiratory failure with hypoxia; J96.22 - Acute and chronic respiratory failure with hypercapnia Status: Acute (2) Congestive heart failure: Qualifiers: Heart failure type: unspecified Heart failure chronicity: chronic Qualified Code(s): I50.9 - Heart failure, unspecified Code(s): I50.9 - Heart failure, unspecified Status: Acute (3) Chronic obstructive pulmonary disease: Qualifiers: COPD type: unspecified COPD Qualified Code(s): J44.9 - Chronic obstructive pulmonary disease, unspecified Code(s): J44.9 - Chronic obstructive pulmonary disease, unspecified Status: Chronic (4) Chronic kidney disease, stage 3: Code(s): N18.30 - Chronic kidney disease, stage 3 unspecified Status: Acute (5) Peripheral arterial disease: Code(s): I73.9 - Peripheral vascular disease, unspecified Status: Chronic (6) Persistent atrial fibrillation: Code(s): I48.19 - Other persistent atrial fibrillation Status: Acute (7) Hypothyroidism: Code(s): E03.9 - Hypothyroidism, unspecified Status: Chronic DS: Summary Hospital Course Reason for hospitalization: 76yo female with hx of COPD, CHF, AFib, HTN and PAD here for shortness of breath. Please see H&P for details. Hospital Course: Patient presents with SOB and found to have acute on chronic respiraotry failure. Patient has gained 17 lb over the past month.? She had pedal edema and abdominal wall edema.? Chest x-ray showed pulmonary vascular congestion.? BNP was 6850.? Echo done in May 2021 showing normal LV systolic function with EF of about 55-60%, significant biatrial dilation but no significant valvular disease although multiple valves were poorly visualized.?No mention of pulmonary hypertension.?Evidence of chronic respiratory failure with hypoxia and hypercapnia on previous ABGs. Apnea link in 2019 was within normal limits but did have SpO2<88% for 64 minutes.? She was started on BiPAP. She was started on IV Lasix with good results. She was wheezing so Prednisone and neb treatments started. This is her 3rd admission this year.? Unclear what is driving this but consider poorly controlled CHF, untreated sleep apnea with obesity hypoventilation syndrome, and/or poorly treated COPD. Chest fluoro did not show diaphragmatic weakness.?Appreciate Pulmonary input. Creatinine was elevated from baseline on admission but she tolerated the IV Lasix and creatinine improved to 0.9.?Patient has known peripheral arterial disease.?On 07/28/2021, she had ABIs showing decreased left-sided TBI at 0.2 with elevated ANNA bilaterally which may be secondary to arterial calcifications. She has an upcoming appointment with Dr Ried, vascular surgeon.?We continued Zocor and ASA. EKG showing atrial fibrillation with controlled rate.? Heart rate remained well controlled on telemetry.? We continued Toprol and Eliquis. We were able to wean the BiPAP to use with sleep. Able to wean O2 to 3L. She began to refuse the biPAP. ApneaLink on BiPAP was unhelpful because she refused to wear the BiPAP. Were able to see that she did well with 3L O2 at night. Pulmonary was comfortable with discharge and for a formal sleep study as outpatient. Discharge on 3L/min O2. Status at Discharge Cognitive/behavioral status at discharge: Stable Time Spent with Patient Time attestation: Total time spent providing and/or coordinating discharge services: 35 minutes Time spent: Greater than 30 minutes Exam Narrative: AF ? 97.1 122/68 92 18 99% 2L Gen - NARD Chest - inspiratory crackles bibasilar. nml RR CV - irregularly irregular Abd - Soft, obese, NT. - [place]o secured draining clear yello
[2021-08-08 16:44] LABS: EDCOVIDSCREEN Negative (Negative)
[2021-08-08] MEDS: SIMVASTATIN 20 MG TABLET PO (21:24)
[2021-08-09] VITALS (7 sets, daily range): BP systolic 113–114; BP diastolic 62; PULSE 81–100; RESP 12–22; TEMP 35.9; O2SAT 96
[2021-08-09] MEDS: ALBUTEROL SULFATE NEB 2.5 MG/3 ML INH 5 MG INHALATION ×2 (02:19→08:45)
[2021-08-09] MEDS: IPRATROPIUM BR 0.02% INH SOLN 0.5 MG/2.5 ML VIAL INHALATION ×2 (02:19→08:44)
[2021-08-09] MEDS: LEVOTHYROXINE SODIUM 25 MCG TABLET PO (06:03)
[2021-08-09] MEDS: LEVOTHYROXINE SODIUM 112 MCG TABLET PO (06:03)
[2021-08-09] MEDS: METOPROLOL SUCCINATE EXT REL 50 MG TABCR 150 MG PO (08:03)
[2021-08-09] MEDS: PANTOPRAZOLE 40 MG TABLET PO (08:03)
[2021-08-09] MEDS: ASPIRIN 81 MG CHEWABLE TABLET PO (08:04)
[2021-08-09] MEDS: APIXABAN 5 MG TABLET PO (08:04)
[2021-08-09] MEDS: SERTRALINE HCL 50 MG TABLET PO (08:04)
[2021-08-09] MEDS: FLUTICASONE PROPIONATE 0.05% NA SPR 16 GM BTL (*BKC) 2 SPRAY NASAL (08:04)
[2021-08-09] MEDS: lisinopriL 10 MG TABLET PO (08:04)
[2021-08-09] MEDS: ACETAMINOPHEN 325 MG TABLET 650 MG PO (11:42)
== END 2021-08-09 13:32 | DRG 291 ==
LOC: ANHED 15:27 → ANHIMU 17:48 → ANH3MEDSUR 08-08 09:47 → ANHIMU 08-10 15:11
PROVIDERS: Internal Medicine; Physician Assistant; Admitting Provider Family Medicine; Emergency Provider General Practice; PCP Emergency Medicine; Visit Provider Internal Medicine
DX: I13.0 Hypertensive heart and chronic kidney disease with heart failure and stage 1 through stage 4 chronic kidney disease, or unspecified chronic kidney disease (principal); J96.21 Acute and chronic respiratory failure with hypoxia; J96.22 Acute and chronic respiratory failure with hypercapnia; I48.19 Other persistent atrial fibrillation; Z68.42 Body mass index [BMI] 45.0-49.9, adult; J44.9 Chronic obstructive pulmonary disease, unspecified; I50.9 Heart failure, unspecified; N18.30 Chronic kidney disease, stage 3 unspecified; I73.9 Peripheral vascular disease, unspecified; Z79.01 Long term (current) use of anticoagulants; E03.9 Hypothyroidism, unspecified; Z20.822 Contact with and (suspected) exposure to COVID-19; Z86.711 Personal history of pulmonary embolism; E66.01 Morbid (severe) obesity due to excess calories; Z86.73 Personal history of transient ischemic attack (TIA), and cerebral infarction without residual deficits; F41.9 Anxiety disorder, unspecified; K21.9 Gastro-esophageal reflux disease without esophagitis; Z66 Do not resuscitate; Z87.891 Personal history of nicotine dependence; Z99.3 Dependence on wheelchair; Z82.49 Family history of ischemic heart disease and other diseases of the circulatory system; Z80.9 Family history of malignant neoplasm, unspecified; Z79.899 Other long term (current) drug therapy; Z79.51 Long term (current) use of inhaled steroids
CPT/HCPCS: 36415; 36600; 71045; 71046; 76000; 80048; 80053; 80069; 82375; 82805; 82948; 83050; 83735; 83880; 84443; 84484; 85025; 85027; 85610; 85730; 87426; 93005; 94002; 94003; 94640; 94762; 96374; 97110; 97161; 97165; 97530; 97535; 99285; A9270; C9803; G0378; J1940; J7512

== ENCOUNTER 2022-03-26 13:06 | Inpatient (IN) | payer OTHER, MEDICAID, SELFPAY ==
[2022-03-26] VITALS (18 sets, daily range): BP systolic 110–128; BP diastolic 49–84; PULSE 78–102; RESP 18–33; TEMP 37.6; O2SAT 87–98
--- NOTE | ~2022-03-26 | US_ITS ---
EXAMINATION: US venous doppler [facility] DATE: 03/27/2022 16:08 INDICATION: Upper extremity pain. TECHNIQUE: Grayscale ultrasound images without and with compression and Doppler ultrasound images of the bilateral upper extremity veins were obtained. COMPARISON: None. FINDINGS: The visualized portions of the bilateral internal jugular vein, subclavian vein, axillary vein, brach ial veins, basilic vein, cephalic vein, radial vein, and ulnar vein are patent. IMPRESSION: 1. No deep venous thrombosis. Reviewed, dictated and finalized at location K. RONMENTAL FIELD TECHNICIAN
--- NOTE | ~2022-03-26 | US_ITS ---
EXAMINATION: US venous doppler [facility] DATE: 03/27/2022 16:08 INDICATION: Bilateral lower extremity pain and swelling. TECHNIQUE: Grayscale images without and with compression and Doppler images of the bilateral lower ex tremity veins were obtained. COMPARISON: None FINDINGS: The right common femoral vein, profunda (deep) femoral vein, femoral vein, popliteal vein, peroneal v ein, posterior tibial veins, gastrocnemius vein, and greater saphenous vein are patent. Subcutaneous edema. The left common femoral vein, profunda femoral vein, femoral vein, popliteal vein, peroneal vein, pos terior tibial veins, gastrocnemius vein, and greater saphenous vein are patent. Subcutaneous edema. IMPRESSION: 1. Patent bilateral lower extremity veins. No evidence of deep venous thrombosis. Reviewed, dictated and finalized at location K. GY EFFICIENCY ENGINEER IMPRESSION: 1. Patent bilateral lower extremity veins. No evidence of deep venous thrombos is.
--- NOTE | ~2022-03-26 | XR_ITS ---
EXAMINATION: XR chest 2V DATE: 03/26/2022 13:40 INDICATION: Shortness of breath and weakness TECHNIQUE: frontal and lateral views of the chest were obtained. COMPARISON: Chest radiograph dated 08/08/21 FINDINGS: Cardiomegaly. Pulmonary vascular congestion without gibran pulmonary edema. Mild streaky opacities at the left lung base and favor atelectasis over pneumonia. No pleural effusion or pneumothorax. IMPRESSION: 1. Cardiomegaly with pulmonary vascular congestion without gibran pulmonary edema. 2. Streaky left basilar opacities and favor atelectasis over pneumonia. Reviewed, dictated and finalized at location A. PUMPER IMPRESSION: 1. Cardiomegaly with pulmonary vascular congestion without gibran pulmonary kalyani a. 2. Streaky left basilar opacities and favor atelectasis over pneumonia.
--- NOTE | ~2022-03-26 | XR_ITS ---
Portable chest x-ray Comparison: 03/26/2022 Clinical History: Shortness of breath Findings: There is probable minimal left basilar atelectatic change with minimal central congestive change. Cardiomediastinal silhouette is stable. Bones and soft tissues are unremarkable. Impression: Minimal central congestive change and minimal left basilar atelectatic change. Reviewed, dictated and finalized at [facility]. STANT MANAGER RETAIL Impression: Minimal central congestive change and minimal left basilar atelectatic change.
--- NOTE | 2022-03-26 13:13 | ECG_ITS ---
Measurements Intervals [place] Rate: 97 P: ME: 0 QRS: 106 QRSD: 118 T: 29 QT: 366 QTc: 467 Interpretive Statements ATRIAL FIBRILLATION RIGHT AXIS DEVIATION INTRAVENTRICULAR CONDUCTION DELAY ABNORMAL ECG COMPARED TO ECG 08/04/2021 15:01:35 NO SIGNIFICANT CHANGES Electronically Signed On 03-26-2022 13:29:51 DEPUTY DIRECTOR OF PUBLIC WORKS by Lavon Tesfaye D.O.
--- NOTE | 2022-03-26 13:40 | ED.WEAKNESS ---
HPI - Weakness General Chief complaint: Weakness Stated complaint: malaise, diff breathing Time Seen by Provider: 03/26/22 13:37 Source: patient, family and EMS Mode of arrival: EMS Limitations: no limitations History of Present Illness HPI Narrative: Patient is a 77-year-old female with a history of hypertension, hyperlipidemia, congestive heart failure, atrial fibrillation on chronic anticoagulation, presenting to the emergency department for evaluation of increased weakness and fatigue over the past 3 days. Patient states that she has had lack of appetite, increased sleepiness, lack of energy compared to baseline. Patient is worried she may have influenza. She states she has had runny nose without significant sore throat, congestion, cough. She reports some recent sick contacts at the living facility. She usually uses a wheelchair but is able to do transfers independently but due to weakness has been unable to do this over the past several days. No noted fever or chills. Patient states she has been able to tolerate liquids without adverse effect. She denies nausea or vomiting. She denies dysuria. She denies constipation or diarrhea. She denies frontal chest pain or abdominal pain. Patient has been compliant with her medications. Per staff at the facility, oxygen saturations had decreased to 86% on her typical 2 L and she had required up to 3 L this past week which is increased from baseline. Patient denies any significant dyspnea. I reviewed the patient's recent hospitalization and inpatient history and physical, progress notes and discharge summary. Related Data Home Medications Medication Instructions Recorded Confirmed albuterol sulfate 90 mcg/actuation 1 puff inhalation Q4H PRN SOB 04/05/21 08/04/21 aerosol inhaler fluticasone propionate 50 50 mcg intranasal DAILY 04/05/21 08/04/21 mcg/actuation nasal spray,suspension ipratropium bromide 0.02 % 0.02 ml continuous nebulization 04/05/21 08/04/21 solution for inhalation Q6H PRN SOB levothyroxine 137 mcg tablet 137 mcg PO DAILY 04/05/21 08/04/21 simvastatin 20 mg tablet 20 mg PO HS 04/05/21 08/04/21 spironolactone 25 mg tablet 25 mg PO DAILY 04/05/21 08/04/21 apixaban 5 mg tablet (Eliquis) 5 mg PO BID 06/13/21 08/04/21 Allergies Allergy/AdvReac Type Severity Reaction Status Date / Time No Known Drug Allergies Allergy Other Verified 08/04/21 20:29 Review of Systems Review of Systems: CONSTITUTIONAL: Denies fever, chills, or sweats. ENT: Reports rhinorrhea without congestion, sore throat, or otalgia. CARDIOVASCULAR: Denies chest pain, palpitations, or edema. RESPIRATORY: Denies cough or dyspnea. GASTROINTESTINAL: Denies abdominal pain, nausea, vomiting, or diarrhea. GENITOURINARY: Denies dysuria or hematuria. SKIN: Denies rash or itching. MUSCULOSKELETAL: Denies back pain, joint pain, or myalgia. NEUROLOGIC: Denies headache, numbness, reports generalized weakness and fatigue PMFSH Past Medical History Medical History Anxiety Chronic anticoagulation Chronic kidney disease, stage 3 Chronic obstructive pulmonary disease Chronic respiratory failure Evidence both chronic hypoxic and hypercapnic respiratory failure by ABGs. Not on home oxygen. Congestive heart failure Echocardiogram on 11/07/2018 showed an LV systolic function at the lower limit of normal with an EF estimated 50 to 55%, severe biatrial enlargement, normal RV systolic pressure, and mild tricuspid regurgitation. Deep venous thrombosis Degenerative joint disease Gastroesophageal reflux disease History of peptic ulcer Hypertension Hypothyroidism Morbid obesity Peripheral arterial disease Arterial Dopplers of the lower extremities in January 2019 showed occlusion distally. Peripheral angiogram showed 1 vessel runoff bilaterally though no indication for intervention due to collaterals. Reports chronic pain and legs though not debilitating and s
[2022-03-26 14:00] LABS: Basophils Absolute Auto 0.1 K/mm3 (0.0-0.1); Basophils Percent Auto 0.3 % (0.2-1.2); Eosinophils Absolute Auto 0.1 K/mm3 (0-0.3); Eosinophils Percent Auto 0.7 % (0-4.4); Hematocrit 32.4 % (37.0-47.0); Hemoglobin 9.5 g/dL (12.0-15.0); Immature Granulocyte Absolute 0.11 K/mm3 (0.00-0.031); Immature Granulocyte Percent A 0.7 % (0-0.5); Mean Corpuscular HGB Conc 29.3 g/dl (32-36); Mean Corpuscular Hemoglobin 27.4 pg (26-34); Mean Corpuscular Volume 93.4 fl (80-100); Mean Platelet Volume 10.8 fl (7.4-10.4); Monocytes Absolute Auto 1.3 K/mm3 (0.1-0.6); Monocytes Percent Auto 8.4 % (2.6-8.5); Neutrophils Percent Auto 85.9 % (45.5-73.1); Platelet Count Result 131 k/mm3 (150-375); Red Blood Count 3.47 M/mm3 (4.2-5.4); Red Cell Distribution Width 16.5 % (11.5-14.5); White Blood Count 15.2 K/mm3 (4.5-10.0)
[2022-03-26 14:12] LABS: Alanine Aminotransferase 17 U/L (6-35); Alkaline Phosphatase 106 U/L (38-126); Anion Gap 5 mmol/L (8-16); Aspartate Amino Transferase 23 U/L (14-36); Bilirubin,Total 1.3 mg/dL (0.2-1.3); Blood Urea Nitrogen 31 mg/dL (7-17); Carbon Dioxide 39 mmol/L (22-30); Chloride 89 mmol/L (98-107); Estimated Glomerular Filt Rate 40; Glucose 124 mg/dL (65-110); Potassium 3.7 mmol/L (3.4-5.0); Sodium 133 mmol/L (137-145)
[2022-03-26 14:22] LABS: Hypochromasia 1+ (NORMAL); Microcytosis 1+ (NORMAL)
[2022-03-26 14:23] LABS: Ovalocytes 1+ (NORMAL); Schistocytes None Seen (NORMAL)
[2022-03-26] MEDS: SODIUM CHLORIDE 0.9% IV 500 ML 999 ML IV CONT (15:05)
[2022-03-26 15:37] LABS: NT Pro B Type Natriuretic Pept 6320 pg/mL (19.9-100); Troponin I 0.026 ng/mL (0.000-0.034)
[2022-03-26 16:15] LABS: Influenza A QL RT-PCR Negative (Negative); Influenza B QL RT-PCR Negative (Negative); RSV RNA, RT-PCR Negative (Negative); SARS-CoV-2 RNA PCR Negative
[2022-03-26 16:56] LABS: Appearance Urine Slightly Cloudy (Clear); Bilirubin Urine 1+ (Negative); Blood Urine Negative (Negative); Color Urine Yellow (Yellow); Glucose Urine UA Negative (Negative); Ketones Urine Negative (Negative); Leukocyte Esterase Ur Negative LEU/UL (Negative); Nitrate Urine Negative (Negative); Protein Urine 1+ mg/dL (Negative); pH Urine 5.5 (5.0-9.0)
[2022-03-26 17:00] LABS: Amorphous Sediment Urine Few; Bacteria Urine Trace /hpf; WBC Urine 0-3 /hpf
[2022-03-26 17:02] LABS: Add Urine Microscopic? YES
[2022-03-26] MEDS: ACETAMINOPHEN 500 MG TABLET 1000 MG PO (17:57)
--- NOTE | 2022-03-26 18:50 | PCRCNOTE ---
Pt allowed RT 2 sticks for ABG order, pt refused furthur attempts. Dr. Mcclellan informed of refusal and approved of no furthur attempts for ABG.
--- NOTE | 2022-03-26 20:52 | PM.IMHP ---
H&P: HPI History of Present Illness Date/Time: 03/26/22 20:52 Chief Complaint: Generalized weakness Narrative: This is a 77-year-old female with past medical history significant for morbid obesity, chronic respiratory failure hypercarbic, COPD, hypertension, persistent atrial fibrillation. Patient presents to the emergency room with complaints of generalized weakness, at the time of my visit in patient was unable to give much history she denied any pain she denied any cough, sputum production, nausea vomiting or diarrhea, no belly pain, patient was dozing of during my visit. Preliminary workup was significant for a white cell count of 15,000, sodium 133, chloride 89, bicarb 39, creatinine 1.3. A chest x-ray was reported as: FINDINGS: Cardiomegaly. Pulmonary vascular congestion without gibran pulmonary edema. Mild streaky opacities at the left lung base and favor atelectasis over pneumonia. No pleural effusion or pneumothorax. IMPRESSION: 1. Cardiomegaly with pulmonary vascular congestion without gibran pulmonary edema. 2. Streaky left basilar opacities and favor atelectasis over pneumonia. Review of Systems Review of Systems: ROS unobtainable: Yes unobtainable due to mental status (Obtunded, lethargic) [facility] Past Medical History Medical History Anxiety Chronic anticoagulation Chronic kidney disease, stage 3 Chronic obstructive pulmonary disease Chronic respiratory failure Evidence both chronic hypoxic and hypercapnic respiratory failure by ABGs. Not on home oxygen. Congestive heart failure Echocardiogram on 11/07/2018 showed an LV systolic function at the lower limit of normal with an EF estimated 50 to 55%, severe biatrial enlargement, normal RV systolic pressure, and mild tricuspid regurgitation. Deep venous thrombosis Degenerative joint disease Gastroesophageal reflux disease History of peptic ulcer Hypertension Hypothyroidism Morbid obesity Peripheral arterial disease Arterial Dopplers of the lower extremities in January 2019 showed occlusion distally. Peripheral angiogram showed 1 vessel runoff bilaterally though no indication for intervention due to collaterals. Reports chronic pain and legs though not debilitating and she is not interested in surgical intervention. Persistent atrial fibrillation Transient ischemic attack Surgical History Surgical History History of right knee joint replacement (01/2009) Family History Family History Mother Depression Cancer Mouth cancer Father Acute myocardial infarction Social History Social History Social History: Surrogate decision maker: Ester Sanchez, daughter. Code status: Do not resuscitate. Smoking packs per day: 1 Smoking cigarettes per day: 20.0 Years smoked: 33 Smoking pack-years: 33.00 Smoking status: Former smoker Tobacco type: cigarettes Second hand tobacco smoke exposure: No Alcohol intake: unknown Substance use: never Substance use type: painkillers and prescription drug Lack of Transportation: No Lack of Food: Never True Current Housing: I Have Housing Concerned About Future Housing: No Difficulty Paying Gas/Electric Bills: No Difficulty Paying for Meds: No Currently Unemployed: No Education: High School Diploma/GED Difficulty w/ Childcare or Family Care: No Additional living arrangements comments: as of September 2020. Lives in assisted living at [facility]. Essentially wheelchair-bound but can transfer. Occupation/Education: retired Additional occupation/education comments: Retired. Spiritual care concerns: No Meds Home Medications and Allergies Home Medications Medication Instructions Recorded Confirmed Type albuterol sulfate 90 mcg/actuation 1 puff inhalation
[2022-03-27] VITALS (20 sets, daily range): BP systolic 101–122; BP diastolic 46–54; PULSE 65–139; RESP 18–34; TEMP 36.1–36.8; O2SAT 91–100
--- NOTE | 2022-03-27 | ECHO_ITS ---
Patient Info Name: Lavern Roland Age: 77 years : 1945 Gender: Female Ht: 70 in Wt: 339 lbs BSA: 2.84 m2 HR: 85 bpm BP: 119 / 54 mmHg Heart Rhythm: Sinus Rhythm Technical Quality: Fair Exam Date: 03/27/2022 1:04 PM Exam Location: Echo Lab Patient Status: Inpatient Admit Date: 03/27/2022 Staff Ordering Physician: Polo Mccabe MD Full Service Vending Driver: Alina Alvares RDCS Attending Provider: Khloe Vila DO Exam Type: CA echo doppler color flow Study Info Indications - concern for chf Complete two-dimensional, color flow and Doppler transthoracic echocardiogram is performed. Summary 1. Complete two-dimensional, color flow and Doppler transthoracic echocardiogram is performed. 2. Left ventricular chamber dimension is normal. 3. Left ventricular systolic function is normal, estimated at 60-65%. 4. Right ventricular chamber dimension is not well visualized but appears enlarged.. 5. Left atrial chamber dimension is moderately enlarged. 6. Right atrial chamber dimension is severely enlarged. 7. There is mild aortic valve calcification. 8. The mitral valve has thickened leaflets. 9. There is mild to moderate tricuspid valve regurgitation. 10. Dilated inferior vena cava with <50% collapse upon inspiration consistent with elevated right atrial pressure, 15 mmHg. 11. There is trivial pericardial effusion. Left Ventricle Left ventricular chamber dimension is normal. Left ventricular systolic function is normal, estimated at 60-65%. There is no increased left ventricular wall thickness. Right Ventricle Right ventricular chamber dimension is not well visualized but appears enlarged.. Left Atria Left atrial chamber dimension is moderately enlarged. Right Atria Right atrial chamber dimension is severely enlarged. Atrial Septum Intact interatrial septum visualized by color flow imaging. Aortic Valve The aortic valve is trileaflet. There is no aortic valve stenosis. There is no aortic valve regurgitation. There is mild aortic valve calcification. Pulmonic Valve The pulmonic valve is not well visualized. Mitral Valve The mitral valve has thickened leaflets. There is no mitral valve stenosis. There is trace mitral valve regurgitation. Tricuspid Valve There is mild to moderate tricuspid valve regurgitation. Pericardium/Pleural There is trivial pericardial effusion. Inferior Vena Cava Dilated inferior vena cava with <50% collapse upon inspiration consistent with elevated right atrial pressure, 15 mmHg. Aorta The aortic root size at the sinus of Valsalva is normal. Left Ventricular Outflow Tract Name Value Normal LVOT 2D LVOT Diameter 2.0 cm LVOT Doppler LVOT Peak Gradient 4 mmHg LVOT Mean Gradient 2 mmHg LVOT VTI 19 cm LVOT VTI/AV VTI Ratio 0.8 LVOT Stroke Volume 61 ml LVOT CO 5.3 l/min LVOT CI 1.9 l/min/m2 Pulmonic Valve
--- NOTE | 2022-03-27 01:16 | ADMGEN ---
This patient, Lavern Roland, was admitted to 3 [facility] Surg Room 304-01. Patient/family oriented to hospital policies and general routines including ID bracelet, bed and alarms, visiting hours, pain management, procedures, bathroom and other care routines, personal items, smoking policy, room service/diet, and visiting hours. Information on how to activate the Rapid Response Team has been discussed. Patient/Family are encouraged to report perceived risks to care and to ask questions if they do not understand what they are told or what they should do.
[2022-03-27] MEDS: ACETAMINOPHEN 325 MG TABLET 650 MG PO (02:55)
[2022-03-27] MEDS: LEVOTHYROXINE SODIUM 100 MCG TABLET PO (02:56)
[2022-03-27] MEDS: LEVOTHYROXINE SODIUM 75 MCG TABLET PO (02:56)
[2022-03-27] MEDS: SODIUM CHLORIDE 0.9% IV 1,000 ML 100 ML IV CONT (02:57)
[2022-03-27 05:29] LABS: Alveolar/Arterial O2 Gradient 4.1 mmHg; Base Excess ABG 11.5 mEq/l (+/-2.0); Carboxyhemoglobin 1.2 % THb (0-2.0); Fractional Inspired Oxygen 28 %; HCO3 ABG 41.2 mEq/l (22.0-26.0); Methemoglobin ABG 0.3 %THb (0-1.5); Oxygen Content ABG 13.7 %vol (16.0-22.0); Oxygen Saturation ABG 94.5 % (95.0-100.0); Oxyhemoglobin 93.7 % THb (90.0-100.0); PO2 ABG 86.2 mmHg (80.0-100.0); PO2 FiO2 Ratio Arterial Blood 3.08 %; Reduced Hemoglobin 4.8 %THb (0-5.0); Total Hemoglobin 10.3 g/dL (12.0-18.0)
[2022-03-27 05:33] LABS: Device NASAL CANNULA; Modified Allen's Test Unable to perform; PCO2 ABG 92.7 mmHg (35.0-45.0); Site Drawn RIGHT BRACHIAL; pH ABG 7.266 (7.350-7.450)
--- NOTE | 2022-03-27 06:24 | PC.NURSE ---
SBAR faxed and report called to SILVERIO Joiner. No questions asked and patient transferred to room 2.5 bed 2. Patient stable upon transfer.
[2022-03-27] MEDS: UMECLIDINIUM BROMIDE 62.5 MCG ELLIPTA 1 PUFF INHALATION (09:19)
[2022-03-27 10:11] LABS: Alveolar/Arterial O2 Gradient 70.4 mmHg; Base Excess ABG 11.1 mEq/l (+/-2.0); Fractional Inspired Oxygen 35 %; HCO3 ABG 39.5 mEq/l (22.0-26.0); Oxygen Content ABG 14.2 %vol (16.0-22.0); Oxygen Saturation ABG 95.8 % (95.0-100.0); Oxyhemoglobin 94.7 % THb (90.0-100.0); PO2 ABG 89.4 mmHg (80.0-100.0); PO2 FiO2 Ratio Arterial Blood 2.55 %; Total Hemoglobin 10.6 g/dL (12.0-18.0); pH ABG 7.327 (7.350-7.450)
[2022-03-27 10:16] LABS: Device NON-INVASIVE VENT; PCO2 ABG 77.2 mmHg (35.0-45.0); Site Drawn RIGHT BRACHIAL
[2022-03-27 10:17] LABS: Non-Invasive Expiratory Pressure 8 CMH2O; Non-Invasive Inspiratory Pressure 12 CMH2O; Non-Invasive Vent Rate 18 /MIN
[2022-03-27] MEDS: APIXABAN 5 MG TABLET PO ×2 (11:57→17:12)
[2022-03-27] MEDS: METOPROLOL SUCCINATE EXT REL 50 MG TABCR PO ×2 (11:57→17:08)
[2022-03-27] MEDS: ASPIRIN 81 MG CHEWABLE TABLET PO (11:57)
[2022-03-27] MEDS: SERTRALINE HCL 50 MG TABLET PO (11:58)
[2022-03-27] MEDS: PANTOPRAZOLE 40 MG TABLET PO (11:58)
[2022-03-27] MEDS: SACUBITRIL/VALSARTAN 49-51 MG TABLET 1 TABLET PO ×2 (11:58→17:08)
[2022-03-27] MEDS: FUROSEMIDE INJ 40 MG/4 ML VIAL IV PUSH ×2 (12:00→17:09)
[2022-03-27] MEDS: FLUTICASONE PROPIONATE 0.05% NA SPR 16 GM BTL (*BKC) 2 SPRAY NASAL (12:01)
--- NOTE | 2022-03-27 12:06 | PM.CNPUL ---
Assessment and Plan Assessment and plan (1) Obesity hypoventilation syndrome: Code(s): E66.2 - Morbid (severe) obesity with alveolar hypoventilation Status: Acute Assessment and Plan: Patient with morbid obesity, BMI 48.8, chronic hypercarbic respiratory failure dating back at least to 08/05/2021 with a blood gas of 7.39/61/133 on BiPAP 16/6. Patient's serum bicarb has been previously elevated and is 39 on admission today. Her blood gas on admission on 2 L nasal cannula 7.27/93/86. Patient has a history of hypothyroidism is is on levothyroxine with a normal TSH of 2.22. Patient has a 38 year pack year history of tobacco use but at this time is not wheezing and has no evidence of a COPD exacerbation. The patient has obesity hypoventilation syndrome and would benefit from noninvasive ventilation to prevent further deterioration and subsequent hospitalization. the patient comes from [facility] and we will discuss with that facility their ability to administer BiPAP or a trilogy with a noninvasive ventilation with an AVAPS mode. She said she was uncomfortable on the current BiPAP settings and I change them to BiPAP rate of 20, pressures 15/5, inspiratory time 1.2, rise of 5 which is are slowest. She did tolerate the settings but they were somewhat uncomfortable and I placed her on a noninvasive ventilation with AVAPS mode rate of 20, tidal volume 500, expiratory pressure 5, minimum inspiratory pressure 6, maximal inspiratory pressure 25, rise of 5, inspiratory time 1.2 seconds and 30% FiO2 and her saturations were 96%. will place patient on either BiPAP or noninvasive ventilation with AVAPS mode tonight depending on what the facility can administer in the future. I will obtain a blood gas prior to removal and an overnight oximetry on these settings To assess ventilation and oxygenation. Will follow with you. (2) DVT (deep venous thrombosis): Code(s): I82.409 - Acute embolism and thrombosis of unspecified deep veins of unspecified lower extremity Status: Acute Assessment and Plan: On 11/25/2020 the patient had bilateral posterior tibial DVTs. The patient has been maintained on Eliquis 5 PO BID for her AFib. Will check lower extremity Dopplers. (3) Chronic obstructive pulmonary disease: Qualifiers: COPD type: unspecified COPD Qualified Code(s): J44.9 - Chronic obstructive pulmonary disease, unspecified Code(s): J44.9 - Chronic obstructive pulmonary disease, unspecified Status: Chronic Assessment and Plan: Patient carries a history of COPD and has a 38 pack year tobacco use and quit in 2002. The patient tells me she never had PFTs performed. Home medicine list include Spiriva Respimat 5 mcg q.day and p.r.n. albuterol and ipratropium. The patient has no wheezing and I do not believe there is a COPD exacerbation currently. I do not see need for inhaled or systemic steroids. Patient has been placed on incruse Ellipta 62.5 at 1 puff q.day. Patient was empirically started on vancomycin, cefepime and azithromycin for possible pneumonia from a assisted. Her COVID, influenza and RSV RT PCR tests are negative, blood cultures are pending. Agree with continuation of these antibiotics until cultures are negative at 48 hours and then will consider deescalation. (4) CHF (congestive heart failure): Code(s): I50.9 - Heart failure, unspecified Status: Acute Assessment and Plan: patient presents with pulmonary congestion on her chest x-ray, elevated BNP, and has been started on Lasix 40 IV b.i.d.. Agree with as aggressive diuresis as tolerated by her cardiac and renal systems per the hospitalist team. History of Present Illness History of Present Illness Consult date: 03/27/22 Chief complaint: SIRS, generalized weakness, fatigue Narrative: 03/27/2022: This is a new pulmonary consult for acute on chronic hypercarbic and hypoxemic respir
[2022-03-27] MEDS: METOPROLOL TARTRATE INJ 5 MG/5 ML VIAL IV PUSH (12:25)
[2022-03-27] MEDS: TOLNAFTATE 1% POWDER 45 GM BTL 1 APPLIC TOPICAL ×2 (13:19→22:30)
--- NOTE | 2022-03-27 14:23 | PM.IMPN ---
Progress Note: A&P Assessment and Plan (1) Altered mental status: Code(s): R41.82 - Altered mental status, unspecified Status: Acute Assessment and Plan: Admit to regular medical floor Patient known to have hypercarbic respiratory failure in the past Will continue to a spot check 03/27/2022 interval history: patient is a morbidly obese with hypoventilation and chronic hypercarbic respiratory failure presented with generalized weakness and shortness of breath upon arrival ABG showed pCO2 97.7 patient was placed on BiPAP and repeat ABG showed improvement in pCO2 77 and patient was not comfortable using the BiPAP, we have consulted stock plan administrator and will adjust BiPAP settings and also recommended patient may benefit with the BiPAP or trilogy noninvasive ventilator at her shelter, chest x-ray is also concerning congestive heart failure patient last echo in May of 2021 showed preserved LV function with EF 55% chest x-ray showing cardiomegaly, patient is being diuresed, will repeat a cardiac echo and further recommendation to follow, patient with history of atrial fibrillation slightly RVR will continue Lopressor as needed and her metoprolol, chest x-ray is also concerning for pneumonia will continue present management and monitor. patient's son and daughter present in the and gave updates and answered all their questions. (2) Generalized muscle weakness: Code(s): M62.81 - Muscle weakness (generalized) Status: Acute Assessment and Plan: Suspect deconditioning (3) Chronic kidney disease, stage 3: Code(s): N18.30 - Chronic kidney disease, stage 3 unspecified Status: Acute Assessment and Plan: LAURA on CKD Will do gentle hydration Patient seems to have been over diuresed according to electrolytes (4) CHF (congestive heart failure): Qualifiers: Heart failure chronicity: acute on chronic Heart failure type: unspecified Qualified Code(s): I50.9 - Heart failure, unspecified Code(s): I50.9 - Heart failure, unspecified Status: Acute Assessment and Plan: Elevated BNP Patient noted to have edema on physical exam However also noted that she has been over diuresed Will hydrate and gentle diuresis Continue to monitor electrolytes Daily BMP (5) GERD (gastroesophageal reflux disease): Code(s): K21.9 - Gastro-esophageal reflux disease without esophagitis Status: Acute Assessment and Plan: PPI as needed (6) Morbid obesity: Code(s): E66.01 - Morbid (severe) obesity due to excess calories Status: Acute Assessment and Plan: Lifestyle and diet modification (7) Chronic respiratory failure: Code(s): J96.10 - Chronic respiratory failure, unspecified whether with hypoxia or hypercapnia Status: Acute Assessment and Plan: ABG in progress (8) Atrial fibrillation: Code(s): I48.91 - Unspecified atrial fibrillation Status: Acute Assessment and Plan: Rate controlled and anticoagulated Subjective Date/time seen: 03/27/22 14:23 Generalized weakness Narrative: This is a 77-year-old female with past medical history significant for morbid obesity, chronic respiratory failure hypercarbic, COPD, hypertension, persistent atrial fibrillation.? Patient presents to the emergency room with complaints of generalized weakness, at the time of my visit in patient was unable to give much history she denied any pain she denied any cough, sputum production, nausea vomiting or diarrhea, no belly pain, patient was dozing of during my visit.? Preliminary workup was significant for a white cell count of 15,000, sodium 133, chloride 89, bicarb 39, creatinine 1.3.? A chest x-ray was reported as: FINDINGS: Cardiomegaly. Pulmonary vascular congestion without gibran pulmonary edema. Mild streaky opacities at the left lung base and favor atelectasis over pneumonia. No pleural effusion or pneumothorax. IMPRESSION: 1. Car
[2022-03-27] MEDS: SIMVASTATIN 20 MG TABLET PO (21:18)
[2022-03-27] MEDS: GABAPENTIN 100 MG CAPSULE PO (21:18)
[2022-03-27] MEDS: HYDROCORTISONE 2.5% CREAM 30 GM TUBE 1 APPLIC TOPICAL (21:18)
[2022-03-28] VITALS (16 sets, daily range): BP systolic 110–145; BP diastolic 47–70; PULSE 79–112; RESP 18–31; TEMP 36.4–36.7; O2SAT 91–99
[2022-03-28 04:43] LABS: Hematocrit 32.1 % (37.0-47.0); Hemoglobin 9.2 g/dL (12.0-15.0); Mean Corpuscular HGB Conc 28.7 g/dl (32-36); Mean Corpuscular Hemoglobin 27.8 pg (26-34); Mean Platelet Volume 10.1 fl (7.4-10.4); Platelet Count Result 119 k/mm3 (150-375); Red Blood Count 3.31 M/mm3 (4.2-5.4); Red Cell Distribution Width 16.1 % (11.5-14.5); White Blood Count 7.8 K/mm3 (4.5-10.0)
[2022-03-28 04:51] LABS: Magnesium 1.9 mg/dL (1.6-2.3)
[2022-03-28 05:26] LABS: Base Excess ABG 12.5 mEq/l (+/-2.0); Fractional Inspired Oxygen 28 %; Oxygen Content ABG 15.1 %vol (16.0-22.0); Oxyhemoglobin 91.5 % THb (90.0-100.0); PO2 ABG 66.1 mmHg (80.0-100.0); PO2 FiO2 Ratio Arterial Blood 2.36 %; Total Hemoglobin 11.7 g/dL (12.0-18.0); pH ABG 7.346 (7.350-7.450)
[2022-03-28 05:30] LABS: Device BIPAP; Modified Allen's Test Pass; PCO2 ABG 76.7 mmHg (35.0-45.0); Site Drawn RIGHT BRACHIAL
[2022-03-28] MEDS: LEVOTHYROXINE SODIUM 75 MCG TABLET PO (07:38)
[2022-03-28] MEDS: LEVOTHYROXINE SODIUM 100 MCG TABLET PO (07:38)
[2022-03-28] MEDS: UMECLIDINIUM BROMIDE 62.5 MCG ELLIPTA 1 PUFF INHALATION (08:18)
[2022-03-28] MEDS: FLUTICASONE PROPIONATE 0.05% NA SPR 16 GM BTL (*BKC) 2 SPRAY NASAL (09:00)
[2022-03-28] MEDS: EUCERIN CREAM 120 GM JAR 1 APPLIC TOPICAL (09:00)
[2022-03-28] MEDS: METOPROLOL SUCCINATE EXT REL 50 MG TABCR PO ×2 (09:00→17:14)
[2022-03-28] MEDS: SACUBITRIL/VALSARTAN 49-51 MG TABLET 1 TABLET PO ×2 (09:00→17:15)
[2022-03-28] MEDS: PANTOPRAZOLE 40 MG TABLET PO (09:00)
[2022-03-28] MEDS: APIXABAN 5 MG TABLET PO ×2 (09:00→17:14)
[2022-03-28] MEDS: ASPIRIN 81 MG CHEWABLE TABLET PO (09:00)
[2022-03-28] MEDS: TOLNAFTATE 1% POWDER 45 GM BTL 1 APPLIC TOPICAL ×2 (09:00→20:29)
[2022-03-28] MEDS: SERTRALINE HCL 50 MG TABLET PO (09:00)
[2022-03-28 10:48] LABS: Blood Urea Nitrogen 23 mg/dL (7-17); Calcium 8.2 mg/dL (8.4-10.2); Carbon Dioxide > 40 mmol/L (22-30); Chloride 95 mmol/L (98-107); Estimated CRCL calculation 91 ml/min; Estimated Glomerular Filt Rate > 60; Glucose 131 mg/dL (65-110); Potassium 3.8 mmol/L (3.4-5.0); Sodium 139 mmol/L (137-145)
--- NOTE | 2022-03-28 11:40 | PM.PNPUL ---
Progress Note: A&P Assessment and Plan (1) Obesity hypoventilation syndrome: Code(s): E66.2 - Morbid (severe) obesity with alveolar hypoventilation Status: Acute Assessment and Plan: Patient with morbid obesity, BMI 48.8, chronic hypercarbic respiratory failure dating back at least to 08/05/2021 with a blood gas of 7.39/61/133 on BiPAP 16/6. Patient's serum bicarb has been previously elevated and is 39 on admission today. Her blood gas on admission on 2 L nasal cannula 7.27/93/86. Patient has a history of hypothyroidism is is on levothyroxine with a normal TSH of 2.22. Patient has a 38 year pack year history of tobacco use but at this time is not wheezing and has no evidence of a COPD exacerbation. The patient has obesity hypoventilation syndrome and would benefit from noninvasive ventilation to prevent further deterioration and subsequent hospitalization. the patient comes from [facility] and we will discuss with that facility their ability to administer BiPAP or a trilogy with a noninvasive ventilation with an AVAPS mode. She said she was uncomfortable on the current BiPAP settings and I change them to BiPAP rate of 20, pressures 15/5, inspiratory time 1.2, rise of 5 which is are slowest. She did tolerate the settings but they were somewhat uncomfortable and I placed her on a noninvasive ventilation with AVAPS mode rate of 20, tidal volume 500, expiratory pressure 5, minimum inspiratory pressure 6, maximal inspiratory pressure 25, rise of 5, inspiratory time 1.2 seconds and 30% FiO2 and her saturations were 96%. will place patient on either BiPAP or noninvasive ventilation with AVAPS mode tonight depending on what the facility can administer in the future. I will obtain a blood gas prior to removal and an overnight oximetry on these settings To assess ventilation and oxygenation. 2/ the patient tells me she is breathing at her baseline and feels normal. She has minimal cough with no phlegm. White blood cell count is 7.8, creatinine is 0.7. patient wore the hospital noninvasive ventilation with AVAPS mode rate of 20, tidal volume 500, expiratory pressure 5, minimum inspiratory pressure 6, maximal inspiratory pressure 25, rise of 5, inspiratory time 1.2 seconds, 28% and said she slept well. Patient had a blood gas prior to removal on these settings with a pH of 7.35/77/66. Patient had an overnight oximetry on the settings with an average saturation 92, low saturation 79%, 18 minutes less than or equal to 88%. Patient also noted to have severe pulmonary hypertension by echocardiogram on 03/27/2022 with RVSP 62. She has had pulmonary hypertension on previous echoes, 06/05/2021: RVSP 38 and 11/25/2020: RVSP 49. Will attempt to increase her minute ventilation by increasing her respiratory rate to 24 and increasing her tidal volume to 550. Will increase her FiO2 to 36%) ease equal to 4 L bleed in) and repeat overnight oximetry and ABG prior to removal. Patient states she is unable to lay flat for CT angiogram of the chest. She is already on apixaban 5 p.o. b.i.d. for her prior DVT and for her AFib. this may review related to a sleep related breathing disorder as well as acute pulmonary Will follow with you. (2) DVT (deep venous thrombosis): Code(s): I82.409 - Acute embolism and thrombosis of unspecified deep veins of unspecified lower extremity Status: Acute Assessment and Plan: On 11/25/2020 the patient had bilateral posterior tibial DVTs. The patient has been maintained on Eliquis 5 PO BID for her AFib. 03/27 Will check lower extremity Dopplers. Upper and lower extremities were negative for DVT. (3) Chronic obstructive pulmonary disease: Qualifiers: COPD type: unspecified COPD Qualified Code(s): J44.9 - Chronic obstructive pulmonary disease, unspecified Code(s): J44.9 - Chronic obstructive pulmonary disease, unspecified Status: Chronic Assessment a
[2022-03-28] MEDS: FUROSEMIDE INJ 40 MG/4 ML VIAL IV PUSH (17:14)
--- NOTE | 2022-03-28 17:23 | PM.IMPN ---
Progress Note: A&P Assessment and Plan (1) Altered mental status: Code(s): R41.82 - Altered mental status, unspecified Status: Acute Assessment and Plan: Admit to regular medical floor Patient known to have hypercarbic respiratory failure in the past Will continue to a spot check 03/28/2022 interval history: patient is a morbidly obese with hypoventilation and chronic hypercarbic respiratory failure presented with generalized weakness and shortness of breath upon arrival ABG showed pCO2 97.7 patient was placed on BiPAP and repeat ABG showed improvement in pCO2 77 and patient was not comfortable using the BiPAP, we have consulted comb capper and will adjust BiPAP settings and also recommended patient may benefit with the BiPAP or trilogy noninvasive ventilator at her detention, chest x-ray is also concerning congestive heart failure patient last echo in May of 2021 showed preserved LV function with EF 55% chest x-ray showing cardiomegaly, patient is being diuresed, repeat a cardiac echo did not show significant change, however patient needs to be diuresed, patient is incontinent and due to morbid obesity unable use the bathroom and timely main, will place Londono catheter to monitor I's and O's,, patient with history of atrial fibrillation slightly RVR will continue Lopressor as needed and her metoprolol, chest x-ray is also concerning for pneumonia will continue present management and monitor, patient seen by pulmonology and further recommendation to follow. (2) Generalized muscle weakness: Code(s): M62.81 - Muscle weakness (generalized) Status: Acute Assessment and Plan: Suspect deconditioning (3) Chronic kidney disease, stage 3: Code(s): N18.30 - Chronic kidney disease, stage 3 unspecified Status: Acute Assessment and Plan: LAURA on CKD Will do gentle hydration Patient seems to have been over diuresed according to electrolytes (4) CHF (congestive heart failure): Qualifiers: Heart failure chronicity: acute on chronic Heart failure type: unspecified Qualified Code(s): I50.9 - Heart failure, unspecified Code(s): I50.9 - Heart failure, unspecified Status: Acute Assessment and Plan: Elevated BNP Patient noted to have edema on physical exam However also noted that she has been over diuresed Will hydrate and gentle diuresis Continue to monitor electrolytes Daily BMP (5) GERD (gastroesophageal reflux disease): Code(s): K21.9 - Gastro-esophageal reflux disease without esophagitis Status: Acute Assessment and Plan: PPI as needed (6) Morbid obesity: Code(s): E66.01 - Morbid (severe) obesity due to excess calories Status: Acute Assessment and Plan: Lifestyle and diet modification (7) Chronic respiratory failure: Code(s): J96.10 - Chronic respiratory failure, unspecified whether with hypoxia or hypercapnia Status: Acute Assessment and Plan: ABG in progress (8) Atrial fibrillation: Code(s): I48.91 - Unspecified atrial fibrillation Status: Acute Assessment and Plan: Rate controlled and anticoagulated Subjective Date/time seen: 03/28/22 17:23 03/28/2022 interval history: patient is a morbidly obese with hypoventilation and chronic hypercarbic respiratory failure presented with generalized weakness and shortness of breath upon arrival ABG showed pCO2 97.7 patient was placed on BiPAP and repeat ABG showed improvement in pCO2 77 and patient was not comfortable using the BiPAP, we have consulted comb capper and will adjust BiPAP settings and also recommended patient may benefit with the BiPAP or trilogy noninvasive ventilator at her detention, chest x-ray is also concerning congestive heart failure patient last echo in May of 2021 showed preserved LV function with EF 55% chest x-ray showing cardiomegaly, patient is being diuresed, repeat a cardiac echo did not show sig
[2022-03-28] MEDS: SIMVASTATIN 20 MG TABLET PO (20:28)
[2022-03-28] MEDS: HYDROCORTISONE 2.5% CREAM 30 GM TUBE 1 APPLIC TOPICAL (20:28)
[2022-03-28] MEDS: GABAPENTIN 100 MG CAPSULE PO (20:28)
[2022-03-29] VITALS (25 sets, daily range): BP systolic 96–137; BP diastolic 45–63; PULSE 74–91; RESP 16–28; TEMP 36.1–36.6; O2SAT 93–99
[2022-03-29 03:35] LABS: Alveolar/Arterial O2 Gradient 107.2 mmHg; Base Excess ABG 13.6 mEq/l (+/-2.0); Fractional Inspired Oxygen 36 %; HCO3 ABG 41.1 mEq/l (22.0-26.0); Oxygen Content ABG 13.7 %vol (16.0-22.0); Oxygen Saturation ABG 92.8 % (95.0-100.0); Oxyhemoglobin 92.6 % THb (90.0-100.0); PO2 ABG 68.6 mmHg (80.0-100.0); PO2 FiO2 Ratio Arterial Blood 1.91 %; Total Hemoglobin 10.5 g/dL (12.0-18.0); pH ABG 7.388 (7.350-7.450)
[2022-03-29 03:37] LABS: PCO2 ABG 69.7 mmHg (35.0-45.0)
[2022-03-29 03:38] LABS: Device BIPAP; Modified Allen's Test Pass; Site Drawn RIGHT RADIAL
[2022-03-29 04:54] LABS: Hematocrit 32.9 % (37.0-47.0); Hemoglobin 9.5 g/dL (12.0-15.0); Mean Corpuscular HGB Conc 28.9 g/dl (32-36); Mean Corpuscular Hemoglobin 27.5 pg (26-34); Mean Corpuscular Volume 95.1 fl (80-100); Mean Platelet Volume 9.9 fl (7.4-10.4); Platelet Count Result 131 k/mm3 (150-375); Red Blood Count 3.46 M/mm3 (4.2-5.4)
[2022-03-29 05:06] LABS: Estimated CRCL calculation 91 ml/min; Estimated Glomerular Filt Rate > 60; Magnesium 1.8 mg/dL (1.6-2.3)
[2022-03-29 05:12] LABS: Vancomycin Trough 18.8 ug/mL (10.0-20.0)
[2022-03-29] MEDS: LEVOTHYROXINE SODIUM 75 MCG TABLET PO (06:06)
[2022-03-29] MEDS: LEVOTHYROXINE SODIUM 100 MCG TABLET PO (06:06)
[2022-03-29] MEDS: UMECLIDINIUM BROMIDE 62.5 MCG ELLIPTA 1 PUFF INHALATION (08:50)
--- NOTE | 2022-03-29 08:55 | P.CDI_ITS ---
CDI Query Clarified Diagnosis Clarified Diagnosis: Documented history of CHF. CHF noted on assessment and plan. BNP elevated on 03/26/22 lab work. Pt receiving IV Lasix, and takes Lasix as a home medication. Pt receiving Entresto, and takes Entresto as a home medication. Pt required an increase in her oxygen from her normal 2LNC to 3LNC. Edema is documented in the physical assessment. Please specify type and acuity of heart failure if known. * Acute * Chronic * Acute on Chronic * Unknown * Systolic * Diastolic * Combined Systolic and Diastolic * Unknown
[2022-03-29] MEDS: SERTRALINE HCL 50 MG TABLET PO (08:59)
[2022-03-29] MEDS: APIXABAN 5 MG TABLET PO ×2 (08:59→16:58)
[2022-03-29] MEDS: FLUTICASONE PROPIONATE 0.05% NA SPR 16 GM BTL (*BKC) 2 SPRAY NASAL (08:59)
[2022-03-29] MEDS: TOLNAFTATE 1% POWDER 45 GM BTL 1 APPLIC TOPICAL ×2 (08:59→22:49)
[2022-03-29] MEDS: ASPIRIN 81 MG CHEWABLE TABLET PO (08:59)
[2022-03-29] MEDS: PANTOPRAZOLE 40 MG TABLET PO (08:59)
[2022-03-29] MEDS: SACUBITRIL/VALSARTAN 49-51 MG TABLET 1 TABLET PO ×2 (08:59→16:58)
[2022-03-29] MEDS: EUCERIN CREAM 120 GM JAR 1 APPLIC TOPICAL (08:59)
[2022-03-29] MEDS: FUROSEMIDE INJ 40 MG/4 ML VIAL IV PUSH ×2 (09:06→16:58)
[2022-03-29 10:43] LABS: Blood Urea Nitrogen 22 mg/dL (7-17); Calcium 8.4 mg/dL (8.4-10.2); Carbon Dioxide > 40 mmol/L (22-30); Chloride 92 mmol/L (98-107); Estimated CRCL calculation 90 ml/min; Estimated Glomerular Filt Rate > 60; Glucose 94 mg/dL (65-110); Potassium 3.7 mmol/L (3.4-5.0); Sodium 137 mmol/L (137-145)
[2022-03-29] MEDS: IPRATROPIUM BR 0.02% INH SOLN 0.5 MG/2.5 ML VIAL INHALATION ×3 (11:33→19:51)
[2022-03-29] MEDS: ALBUTEROL SULFATE NEB 2.5 MG/3 ML INH INHALATION ×3 (11:34→19:51)
[2022-03-29] MEDS: BUDESONIDE RESPULE NEB 0.5 MG/2 ML AMP INHALATION ×2 (11:36→19:51)
[2022-03-29] MEDS: METOPROLOL SUCCINATE EXT REL 50 MG TABCR PO (16:58)
--- NOTE | 2022-03-29 17:55 | PM.IMPN ---
Progress Note: A&P Assessment and Plan (1) Altered mental status: Code(s): R41.82 - Altered mental status, unspecified Status: Acute Assessment and Plan: Admit to regular medical floor Patient known to have hypercarbic respiratory failure in the past Will continue to a spot check 03/29/2022 interval history: patient is a morbidly obese with hypoventilation and chronic hypercarbic respiratory failure presented with generalized weakness and shortness of breath upon arrival ABG showed pCO2 97.7 patient was placed on BiPAP and repeat ABG showed improvement in pCO2 77 and patient was not comfortable using the BiPAP, we have consulted salesforce trainer and will adjust BiPAP settings and also recommended patient may benefit with the BiPAP or trilogy [facility]invasive ventilator at her [facility], chest x-ray is also concerning congestive heart failure patient last echo in May of 2021 showed preserved LV function with EF 55% chest x-ray showing cardiomegaly, patient is being diuresed, repeat a cardiac echo did not show significant change, however discussed with salesforce trainer recommending patient needs to be diuresed, patient is incontinent and due to morbid obesity unable use the bathroom and timely manner , will place Londono catheter to monitor I's and O's,, patient with history of atrial fibrillation slightly RVR will continue Lopressor as needed and her metoprolol, chest x-ray is also concerning for pneumonia will continue present management and monitor, patient seen by pulmonology and further recommendation to follow. (2) Generalized muscle weakness: Code(s): M62.81 - Muscle weakness (generalized) Status: Acute Assessment and Plan: Suspect deconditioning (3) Chronic kidney disease, stage 3: Code(s): N18.30 - Chronic kidney disease, stage 3 unspecified Status: Acute Assessment and Plan: LAURA on CKD Will do gentle hydration Patient seems to have been over diuresed according to electrolytes (4) CHF (congestive heart failure): Qualifiers: Heart failure chronicity: acute on chronic Heart failure type: unspecified Qualified Code(s): I50.9 - Heart failure, unspecified Code(s): I50.9 - Heart failure, unspecified Status: Acute Assessment and Plan: Elevated BNP Patient noted to have edema on physical exam However also noted that she has been over diuresed Will hydrate and gentle diuresis Continue to monitor electrolytes Daily BMP (5) GERD (gastroesophageal reflux disease): Code(s): K21.9 - Gastro-esophageal reflux disease without esophagitis Status: Acute Assessment and Plan: PPI as needed (6) Morbid obesity: Code(s): E66.01 - Morbid (severe) obesity due to excess calories Status: Acute Assessment and Plan: Lifestyle and diet modification (7) Chronic respiratory failure: Code(s): J96.10 - Chronic respiratory failure, unspecified whether with hypoxia or hypercapnia Status: Acute Assessment and Plan: ABG in progress (8) Atrial fibrillation: Code(s): I48.91 - Unspecified atrial fibrillation Status: Acute Assessment and Plan: Rate controlled and anticoagulated Subjective Date/time seen: 03/29/22 17:55 03/29/2022 interval history: patient is a morbidly obese with hypoventilation and chronic hypercarbic respiratory failure presented with generalized weakness and shortness of breath upon arrival ABG showed pCO2 97.7 patient was placed on BiPAP and repeat ABG showed improvement in pCO2 77 and patient was not comfortable using the BiPAP, we have consulted salesforce trainer and will adjust BiPAP settings and also recommended patient may benefit with the BiPAP or trilogy noninvasive ventilator at her [facility], chest x-ray is also concerning congestive heart failure patient last echo in May of 2021 showed preserved LV function with EF 55% chest x-ray showing cardiomegaly, patient is being di
[2022-03-29] MEDS: ACETAMINOPHEN 325 MG TABLET 650 MG PO (22:46)
[2022-03-29] MEDS: AZITHROMYCIN 250 MG TABLET 500 MG PO (22:48)
[2022-03-29] MEDS: SIMVASTATIN 20 MG TABLET PO (22:48)
[2022-03-29] MEDS: HYDROCORTISONE 2.5% CREAM 30 GM TUBE 1 APPLIC TOPICAL (22:48)
[2022-03-29] MEDS: GABAPENTIN 100 MG CAPSULE PO (22:49)
[2022-03-30] VITALS (17 sets, daily range): BP systolic 108–132; BP diastolic 54–61; PULSE 78–88; RESP 16–20; TEMP 35.5–37; O2SAT 96–100
--- NOTE | 2022-03-30 00:18 | PC.NURSE ---
This patient, Lavern Roland, was transferred to [[id number]] on 03/30/22 at 0019. Personal belongings sent with patient. Report given to [ Sheela SAWYER]. Appropriate documentation sent with patient.
[2022-03-30] MEDS: IPRATROPIUM BR 0.02% INH SOLN 0.5 MG/2.5 ML VIAL INHALATION ×4 (00:20→20:02)
[2022-03-30] MEDS: ALBUTEROL SULFATE NEB 2.5 MG/3 ML INH INHALATION ×4 (00:20→20:02)
--- NOTE | 2022-03-30 01:44 | PC.NURSE ---
Patient arrived from [facility] @ 0012. Resting comfortably, oriented to room, call light placed within reach.
[2022-03-30 06:25] LABS: Hematocrit 32.7 % (37.0-47.0); Hemoglobin 9.4 g/dL (12.0-15.0); Immature Platelet Fraction Pct 4.8 % (0.9-11.2); Mean Corpuscular HGB Conc 28.7 g/dl (32-36); Mean Platelet Volume 10.2 fl (7.4-10.4); Platelet Count Result 155 k/mm3 (150-375); Red Blood Count 3.48 M/mm3 (4.2-5.4); Red Cell Distribution Width 15.8 % (11.5-14.5); White Blood Count 6.6 K/mm3 (4.5-10.0)
[2022-03-30 06:31] LABS: Blood Urea Nitrogen 16 mg/dL (7-17); Calcium 8.2 mg/dL (8.4-10.2); Carbon Dioxide > 40 mmol/L (22-30); Chloride 92 mmol/L (98-107); Estimated CRCL calculation 90 ml/min; Estimated Glomerular Filt Rate > 60; Glucose 107 mg/dL (65-110); Magnesium 1.7 mg/dL (1.6-2.3); Potassium 3.6 mmol/L (3.4-5.0); Sodium 142 mmol/L (137-145)
[2022-03-30] MEDS: LEVOTHYROXINE SODIUM 75 MCG TABLET PO (06:46)
[2022-03-30] MEDS: LEVOTHYROXINE SODIUM 100 MCG TABLET PO (06:46)
[2022-03-30] MEDS: SACUBITRIL/VALSARTAN 49-51 MG TABLET 1 TABLET PO ×2 (08:41→16:30)
[2022-03-30] MEDS: METOPROLOL SUCCINATE EXT REL 50 MG TABCR PO ×2 (08:41→16:31)
[2022-03-30] MEDS: APIXABAN 5 MG TABLET PO ×2 (08:41→16:30)
[2022-03-30] MEDS: ASPIRIN 81 MG CHEWABLE TABLET PO (08:41)
[2022-03-30] MEDS: FUROSEMIDE INJ 40 MG/4 ML VIAL IV PUSH ×2 (08:41→16:31)
[2022-03-30] MEDS: EUCERIN CREAM 120 GM JAR 1 APPLIC TOPICAL (08:41)
[2022-03-30] MEDS: PANTOPRAZOLE 40 MG TABLET PO (08:41)
[2022-03-30] MEDS: SERTRALINE HCL 50 MG TABLET PO (08:41)
[2022-03-30] MEDS: FLUTICASONE PROPIONATE 0.05% NA SPR 16 GM BTL (*BKC) 2 SPRAY NASAL (08:42)
[2022-03-30] MEDS: TOLNAFTATE 1% POWDER 45 GM BTL 1 APPLIC TOPICAL ×2 (08:42→20:38)
[2022-03-30 09:24] LABS: NT Pro B Type Natriuretic Pept 2180 pg/mL (19.9-100)
[2022-03-30] MEDS: BUDESONIDE RESPULE NEB 0.5 MG/2 ML AMP INHALATION ×2 (10:03→20:03)
--- NOTE | 2022-03-30 12:01 | PM.PNPUL ---
Progress Note: A&P Assessment and Plan (1) Obesity hypoventilation syndrome: Code(s): E66.2 - Morbid (severe) obesity with alveolar hypoventilation Status: Acute Assessment and Plan: Patient with morbid obesity, BMI 48.8, chronic hypercarbic respiratory failure dating back at least to 08/05/2021 with a blood gas of 7.39/61/133 on BiPAP 16/6. Patient's serum bicarb has been previously elevated and is 39 on admission today. Her blood gas on admission on 2 L nasal cannula 7.27/93/86. Patient has a history of hypothyroidism is is on levothyroxine with a normal TSH of 2.22. Patient has a 38 year pack year history of tobacco use but at this time is not wheezing and has no evidence of a COPD exacerbation. The patient has obesity hypoventilation syndrome and would benefit from noninvasive ventilation to prevent further deterioration and subsequent hospitalization. the patient comes from [facility] and we will discuss with that facility their ability to administer BiPAP or a trilogy with a noninvasive ventilation with an AVAPS mode. She said she was uncomfortable on the current BiPAP settings and I change them to BiPAP rate of 20, pressures 15/5, inspiratory time 1.2, rise of 5 which is are slowest. She did tolerate the settings but they were somewhat uncomfortable and I placed her on a noninvasive ventilation with AVAPS mode rate of 20, tidal volume 500, expiratory pressure 5, minimum inspiratory pressure 6, maximal inspiratory pressure 25, rise of 5, inspiratory time 1.2 seconds and 30% FiO2 and her saturations were 96%. will place patient on either BiPAP or noninvasive ventilation with AVAPS mode tonight depending on what the facility can administer in the future. I will obtain a blood gas prior to removal and an overnight oximetry on these settings To assess ventilation and oxygenation. 2/ the patient tells me she is breathing at her baseline and feels normal. She has minimal cough with no phlegm. White blood cell count is 7.8, creatinine is 0.7. patient wore the hospital noninvasive ventilation with AVAPS mode rate of 20, tidal volume 500, expiratory pressure 5, minimum inspiratory pressure 6, maximal inspiratory pressure 25, rise of 5, inspiratory time 1.2 seconds, 28% and said she slept well. Patient had a blood gas prior to removal on these settings with a pH of 7.35/77/66. Patient had an overnight oximetry on the settings with an average saturation 92, low saturation 79%, 18 minutes less than or equal to 88%. Patient also noted to have severe pulmonary hypertension by echocardiogram on 03/27/2022 with RVSP 62. She has had pulmonary hypertension on previous echoes, 06/05/2021: RVSP 38 and 11/25/2020: RVSP 49. Will attempt to increase her minute ventilation by increasing her respiratory rate to 24 and increasing her tidal volume to 550. Will increase her FiO2 to 36%) ease equal to 4 L bleed in) and repeat overnight oximetry and ABG prior to removal. Patient states she is unable to lay flat for CT angiogram of the chest. She is already on apixaban 5 p.o. b.i.d. for her prior DVT and for her AFib. this may review related to a sleep related breathing disorder as well as fluid overload. 03/29 Patient said she could tolerate the hospital noninvasive ventilator until 3:00 a.m. and then had to take it off because it was uncomfortable. AVAPS mode rate of 24, tidal volume 550, expiratory pressure 5, minimum inspiratory pressure 6, maximal inspiratory pressure 25, rise of 5, inspiratory time 1.2 seconds, 36%, had an overnight oximetry on these settings with an average saturation of 98%, low saturation 93%, time with saturation less than or equal to 88% was 0 minutes. Patient had an ABG prior to removal of this machine with a pH of 7.39/70/69. These settings provide adequate ventilation and oxygenation. I spoke to the technical training coordinator and we will attempt to arrange a noninvasive ventilator with the AVAPS mode and the ab
--- NOTE | 2022-03-30 13:52 | PCRCNOTE ---
Trilogy unit order form is signed by Dr kaye. Awaiting approval from insurance for [facility] to arrange at SNF. Contact Aman at [facility] if any questions. [phone]
--- NOTE | 2022-03-30 14:59 | PM.IMPN ---
Progress Note: A&P Assessment and Plan (1) Altered mental status: Code(s): R41.82 - Altered mental status, unspecified Status: Acute Assessment and Plan: Admit to regular medical floor Patient known to have hypercarbic respiratory failure in the past Will continue to a spot check 03/30/2022 interval history: patient is a morbidly obese with hypoventilation and chronic hypercarbic respiratory failure presented with generalized weakness and shortness of breath upon arrival ABG showed pCO2 97.7 patient was placed on BiPAP and repeat ABG showed improvement in pCO2 77 and patient was not comfortable using the BiPAP, we have consulted vessel slagman and will adjust BiPAP settings and also recommended patient may benefit with the BiPAP or trilogy noninvasive ventilator at her halfway, chest x-ray is also concerning congestive heart failure patient last echo in May of 2021 showed preserved LV function with EF 55% chest x-ray showing cardiomegaly, patient is being diuresed, repeat a cardiac echo did not show significant change, however discussed with vessel slagman recommending patient needs to be diuresed, patient is incontinent and due to morbid obesity unable use the bathroom and timely manner , placed Londono catheter to monitor I's and O's,, discussed with Dr. Johnston,DME is in process of setting up, noninvasive ventilator at [facility], once it is setup, will discharge the patient, patient with history of atrial fibrillation slightly RVR will continue Lopressor as needed and her metoprolol, chest x-ray is also concerning for pneumonia will continue present management and monitor, patient seen by pulmonology and further recommendation to follow. (2) Generalized muscle weakness: Code(s): M62.81 - Muscle weakness (generalized) Status: Acute Assessment and Plan: Suspect deconditioning (3) Chronic kidney disease, stage 3: Code(s): N18.30 - Chronic kidney disease, stage 3 unspecified Status: Acute Assessment and Plan: LAURA on CKD Will do gentle hydration Patient seems to have been over diuresed according to electrolytes (4) CHF (congestive heart failure): Qualifiers: Heart failure chronicity: acute on chronic Heart failure type: unspecified Qualified Code(s): I50.9 - Heart failure, unspecified Code(s): I50.9 - Heart failure, unspecified Status: Acute Assessment and Plan: Elevated BNP Patient noted to have edema on physical exam However also noted that she has been over diuresed Will hydrate and gentle diuresis Continue to monitor electrolytes Daily BMP (5) GERD (gastroesophageal reflux disease): Code(s): K21.9 - Gastro-esophageal reflux disease without esophagitis Status: Acute Assessment and Plan: PPI as needed (6) Morbid obesity: Code(s): E66.01 - Morbid (severe) obesity due to excess calories Status: Acute Assessment and Plan: Lifestyle and diet modification (7) Chronic respiratory failure: Code(s): J96.10 - Chronic respiratory failure, unspecified whether with hypoxia or hypercapnia Status: Acute Assessment and Plan: ABG in progress (8) Atrial fibrillation: Code(s): I48.91 - Unspecified atrial fibrillation Status: Acute Assessment and Plan: Rate controlled and anticoagulated Subjective Date/time seen: 03/30/22 14:59 03/30/2022 interval history: patient is a morbidly obese with hypoventilation and chronic hypercarbic respiratory failure presented with generalized weakness and shortness of breath upon arrival ABG showed pCO2 97.7 patient was placed on BiPAP and repeat ABG showed improvement in pCO2 77 and patient was not comfortable using the BiPAP, we have consulted vessel slagman and will adjust BiPAP settings and also recommended patient may benefit with the BiPAP or trilogy noninvasive ventilator at her halfway, chest x-ray is also concerning jet
[2022-03-30] MEDS: AZITHROMYCIN 250 MG TABLET 500 MG PO (20:37)
[2022-03-30] MEDS: HYDROCORTISONE 2.5% CREAM 30 GM TUBE 1 APPLIC TOPICAL (20:37)
[2022-03-30] MEDS: SIMVASTATIN 20 MG TABLET PO (20:37)
[2022-03-30] MEDS: GABAPENTIN 100 MG CAPSULE PO (20:37)
[2022-03-31] VITALS (21 sets, daily range): BP systolic 105–136; BP diastolic 35–73; PULSE 78–88; RESP 16–28; TEMP 35.4–36.3; O2SAT 94–100
[2022-03-31] MEDS: IPRATROPIUM BR 0.02% INH SOLN 0.5 MG/2.5 ML VIAL INHALATION ×7 (01:08→23:16)
[2022-03-31] MEDS: ALBUTEROL SULFATE NEB 2.5 MG/3 ML INH INHALATION ×7 (01:08→23:16)
[2022-03-31] MEDS: LEVOTHYROXINE SODIUM 100 MCG TABLET PO (05:19)
[2022-03-31] MEDS: LEVOTHYROXINE SODIUM 75 MCG TABLET PO (05:19)
[2022-03-31 08:05] LABS: Magnesium 1.7 mg/dL (1.6-2.3)
[2022-03-31 08:07] LABS: Hematocrit 33.6 % (37.0-47.0); Hemoglobin 9.8 g/dL (12.0-15.0); Mean Corpuscular HGB Conc 29.2 g/dl (32-36); Mean Corpuscular Hemoglobin 26.9 pg (26-34); Mean Corpuscular Volume 92.3 fl (80-100); Mean Platelet Volume 9.8 fl (7.4-10.4); Platelet Count Result 150 k/mm3 (150-375); Red Blood Count 3.64 M/mm3 (4.2-5.4); Red Cell Distribution Width 15.7 % (11.5-14.5)
[2022-03-31] MEDS: APIXABAN 5 MG TABLET PO ×2 (08:13→17:04)
[2022-03-31] MEDS: ASPIRIN 81 MG CHEWABLE TABLET PO (08:13)
[2022-03-31] MEDS: TOLNAFTATE 1% POWDER 45 GM BTL 1 APPLIC TOPICAL ×2 (08:13→21:09)
[2022-03-31] MEDS: FLUTICASONE PROPIONATE 0.05% NA SPR 16 GM BTL (*BKC) 2 SPRAY NASAL (08:13)
[2022-03-31] MEDS: PANTOPRAZOLE 40 MG TABLET PO (08:13)
[2022-03-31] MEDS: FUROSEMIDE INJ 40 MG/4 ML VIAL IV PUSH ×2 (08:13→17:05)
[2022-03-31] MEDS: METOPROLOL SUCCINATE EXT REL 50 MG TABCR PO ×2 (08:13→17:04)
[2022-03-31] MEDS: SACUBITRIL/VALSARTAN 49-51 MG TABLET 1 TABLET PO ×2 (08:13→17:05)
[2022-03-31] MEDS: SERTRALINE HCL 50 MG TABLET PO (08:14)
[2022-03-31] MEDS: EUCERIN CREAM 120 GM JAR 1 APPLIC TOPICAL (08:14)
[2022-03-31] MEDS: BUDESONIDE RESPULE NEB 0.5 MG/2 ML AMP INHALATION ×2 (08:20→20:49)
[2022-03-31 10:16] LABS: Blood Urea Nitrogen 15 mg/dL (7-17); Calcium 8.5 mg/dL (8.4-10.2); Carbon Dioxide > 40 mmol/L (22-30); Chloride 89 mmol/L (98-107); Estimated CRCL calculation 102 ml/min; Estimated Glomerular Filt Rate > 60; Glucose 141 mg/dL (65-110); Potassium 3.5 mmol/L (3.4-5.0); Sodium 139 mmol/L (137-145)
--- NOTE | 2022-03-31 12:38 | PM.IMPN ---
Progress Note: A&P Assessment and Plan (1) Altered mental status: Code(s): R41.82 - Altered mental status, unspecified Status: Acute Assessment and Plan: Admit to regular medical floor Patient known to have hypercarbic respiratory failure in the past Will continue to a spot check 03/31/2022 interval history: patient is a morbidly obese with hypoventilation and chronic hypercarbic respiratory failure presented with generalized weakness and shortness of breath upon arrival ABG showed pCO2 97.7 patient was placed on BiPAP and repeat ABG showed improvement in pCO2 77 and patient was not comfortable using the BiPAP, we have consulted early childhood education specialist and will adjust BiPAP settings and also recommended patient may benefit with the BiPAP or trilogy noninvasive ventilator at her [facility], chest x-ray is also concerning congestive heart failure patient last echo in May of 2021 showed preserved LV function with EF 55% chest x-ray showing cardiomegaly, patient is being diuresed, repeat a cardiac echo did not show significant change, however discussed with early childhood education specialist recommending patient needs to be diuresed, patient is incontinent and due to morbid obesity unable use the bathroom and timely manner , placed Londono catheter to monitor I's and O's,, on 03/[address] Johnston,DME is in process of setting up, noninvasive ventilator at [facility], once it is setup, will discharge the patient, patient with history of atrial fibrillation slightly RVR will continue Lopressor as needed and her metoprolol, her rate is now controlled, chest x-ray is also concerning for pneumonia completed 5 days of azithromycine, on Cefepime and vancomycin, will continue present management and monitor, patient seen by pulmonology and further recommendation to follow. (2) Generalized muscle weakness: Code(s): M62.81 - Muscle weakness (generalized) Status: Acute Assessment and Plan: Suspect deconditioning (3) Chronic kidney disease, stage 3: Code(s): N18.30 - Chronic kidney disease, stage 3 unspecified Status: Acute Assessment and Plan: LAURA on CKD Will do gentle hydration Patient seems to have been over diuresed according to electrolytes (4) CHF (congestive heart failure): Qualifiers: Heart failure chronicity: acute on chronic Heart failure type: unspecified Qualified Code(s): I50.9 - Heart failure, unspecified Code(s): I50.9 - Heart failure, unspecified Status: Acute Assessment and Plan: Elevated BNP Patient noted to have edema on physical exam However also noted that she has been over diuresed Will hydrate and gentle diuresis Continue to monitor electrolytes Daily BMP (5) GERD (gastroesophageal reflux disease): Code(s): K21.9 - Gastro-esophageal reflux disease without esophagitis Status: Acute Assessment and Plan: PPI as needed (6) Morbid obesity: Code(s): E66.01 - Morbid (severe) obesity due to excess calories Status: Acute Assessment and Plan: Lifestyle and diet modification (7) Chronic respiratory failure: Code(s): J96.10 - Chronic respiratory failure, unspecified whether with hypoxia or hypercapnia Status: Acute Assessment and Plan: ABG in progress (8) Atrial fibrillation: Code(s): I48.91 - Unspecified atrial fibrillation Status: Acute Assessment and Plan: Rate controlled and anticoagulated Subjective Date/time seen: 03/31/22 12:38 03/31/2022 interval history: patient is a morbidly obese with hypoventilation and chronic hypercarbic respiratory failure presented with generalized weakness and shortness of breath upon arrival ABG showed pCO2 97.7 patient was placed on BiPAP and repeat ABG showed improvement in pCO2 77 and patient was not comfortable using the BiPAP, we have consulted early childhood education specialist and will adjust BiPAP settings and also recommended patient may benefit with
[2022-03-31] MEDS: HYDROCORTISONE 2.5% CREAM 30 GM TUBE 1 APPLIC TOPICAL (21:09)
[2022-03-31] MEDS: GABAPENTIN 100 MG CAPSULE PO (21:09)
[2022-03-31] MEDS: SIMVASTATIN 20 MG TABLET PO (21:09)
[2022-04-01] VITALS (16 sets, daily range): BP systolic 104–127; BP diastolic 43–61; PULSE 69–88; RESP 14–20; TEMP 35.4–36.4; O2SAT 92–98
[2022-04-01] MEDS: ALBUTEROL SULFATE NEB 2.5 MG/3 ML INH INHALATION ×5 (03:15→21:12)
[2022-04-01] MEDS: IPRATROPIUM BR 0.02% INH SOLN 0.5 MG/2.5 ML VIAL INHALATION ×5 (03:15→21:12)
[2022-04-01] MEDS: LEVOTHYROXINE SODIUM 75 MCG TABLET PO (06:29)
[2022-04-01] MEDS: LEVOTHYROXINE SODIUM 100 MCG TABLET PO (06:29)
[2022-04-01] MEDS: BUDESONIDE RESPULE NEB 0.5 MG/2 ML AMP INHALATION ×2 (07:44→21:12)
[2022-04-01 08:09] LABS: Hematocrit 33.8 % (37.0-47.0); Hemoglobin 9.9 g/dL (12.0-15.0); Mean Corpuscular HGB Conc 29.3 g/dl (32-36); Mean Corpuscular Volume 92.1 fl (80-100); Mean Platelet Volume 9.6 fl (7.4-10.4); Platelet Count Result 179 k/mm3 (150-375); Red Blood Count 3.67 M/mm3 (4.2-5.4); Red Cell Distribution Width 15.9 % (11.5-14.5); White Blood Count 8.6 K/mm3 (4.5-10.0)
[2022-04-01 08:34] LABS: Blood Urea Nitrogen 14 mg/dL (7-17); Calcium 8.5 mg/dL (8.4-10.2); Carbon Dioxide > 40 mmol/L (22-30); Chloride 87 mmol/L (98-107); Estimated CRCL calculation 88 ml/min; Estimated Glomerular Filt Rate > 60; Glucose 97 mg/dL (65-110); Magnesium 1.7 mg/dL (1.6-2.3); Potassium 3.4 mmol/L (3.4-5.0); Sodium 136 mmol/L (137-145)
[2022-04-01] MEDS: SERTRALINE HCL 50 MG TABLET PO (08:42)
[2022-04-01] MEDS: METOPROLOL SUCCINATE EXT REL 50 MG TABCR PO ×2 (08:42→17:55)
[2022-04-01] MEDS: ASPIRIN 81 MG CHEWABLE TABLET PO (08:42)
[2022-04-01] MEDS: PANTOPRAZOLE 40 MG TABLET PO (08:42)
[2022-04-01] MEDS: SACUBITRIL/VALSARTAN 49-51 MG TABLET 1 TABLET PO ×2 (08:43→17:55)
[2022-04-01] MEDS: APIXABAN 5 MG TABLET PO ×2 (08:43→17:54)
[2022-04-01] MEDS: FLUTICASONE PROPIONATE 0.05% NA SPR 16 GM BTL (*BKC) 2 SPRAY NASAL (08:43)
[2022-04-01] MEDS: TOLNAFTATE 1% POWDER 45 GM BTL 1 APPLIC TOPICAL ×2 (08:44→21:11)
[2022-04-01] MEDS: FUROSEMIDE INJ 40 MG/4 ML VIAL IV PUSH ×2 (08:44→17:54)
[2022-04-01] MEDS: EUCERIN CREAM 120 GM JAR 1 APPLIC TOPICAL (08:44)
--- NOTE | 2022-04-01 11:35 | PM.IMPN ---
Progress Note: A&P Assessment and Plan (1) Altered mental status: Code(s): R41.82 - Altered mental status, unspecified Status: Acute Assessment and Plan: Admit to regular medical floor Patient known to have hypercarbic respiratory failure in the past Will continue to a spot check 04/01/2022 interval history: patient is a morbidly obese with hypoventilation and chronic hypercarbic respiratory failure presented with generalized weakness and shortness of breath upon arrival ABG showed pCO2 97.7 patient was placed on BiPAP and repeat ABG showed improvement in pCO2 77 and patient was not comfortable using the BiPAP, we have consulted family service worker and will adjust BiPAP settings and also recommended patient may benefit with the BiPAP or trilogy noninvasive ventilator at her skilled nursing, chest x-ray is also concerning congestive heart failure patient last echo in May of 2021 showed preserved LV function with EF 55% chest x-ray showing cardiomegaly, patient is being diuresed, repeat a cardiac echo did not show significant change, however discussed with family service worker recommending patient needs to be diuresed, patient is incontinent and due to morbid obesity unable use the bathroom and timely manner , placed Londono catheter to monitor I's and O's,, on 03/[address] Johnston,DME is in process of setting up, noninvasive ventilator at [facility], once it is setup, will discharge the patient, patient with history of atrial fibrillation slightly RVR will continue Lopressor as needed and her metoprolol, her rate is now controlled, chest x-ray is also concerning for pneumonia completed 5 days of azithromycine, on Cefepime and vancomycin, today patient is sitting in the chair is feeling much better, not as short of breath, wants to go home soon, will continue present management and monitor, patient will be seen by pulmonology and further recommendation to follow. (2) Generalized muscle weakness: Code(s): M62.81 - Muscle weakness (generalized) Status: Acute Assessment and Plan: Suspect deconditioning (3) Chronic kidney disease, stage 3: Code(s): N18.30 - Chronic kidney disease, stage 3 unspecified Status: Acute Assessment and Plan: LAURA on CKD Will do gentle hydration Patient seems to have been over diuresed according to electrolytes (4) CHF (congestive heart failure): Qualifiers: Heart failure chronicity: acute on chronic Heart failure type: unspecified Qualified Code(s): I50.9 - Heart failure, unspecified Code(s): I50.9 - Heart failure, unspecified Status: Acute Assessment and Plan: Elevated BNP Patient noted to have edema on physical exam However also noted that she has been over diuresed Will hydrate and gentle diuresis Continue to monitor electrolytes Daily BMP (5) GERD (gastroesophageal reflux disease): Code(s): K21.9 - Gastro-esophageal reflux disease without esophagitis Status: Acute Assessment and Plan: PPI as needed (6) Morbid obesity: Code(s): E66.01 - Morbid (severe) obesity due to excess calories Status: Acute Assessment and Plan: Lifestyle and diet modification (7) Chronic respiratory failure: Code(s): J96.10 - Chronic respiratory failure, unspecified whether with hypoxia or hypercapnia Status: Acute Assessment and Plan: ABG in progress (8) Atrial fibrillation: Code(s): I48.91 - Unspecified atrial fibrillation Status: Acute Assessment and Plan: Rate controlled and anticoagulated Subjective Date/time seen: 04/01/22 11:35 04/01/2022 interval history: patient is a morbidly obese with hypoventilation and chronic hypercarbic respiratory failure presented with generalized weakness and shortness of breath upon arrival ABG showed pCO2 97.7 patient was placed on BiPAP and repeat ABG showed improvement in pCO2 77 and patient was not comfortable using
[2022-04-01] MEDS: ACETAMINOPHEN 325 MG TABLET 650 MG PO ×2 (16:29→21:25)
[2022-04-01] MEDS: GABAPENTIN 100 MG CAPSULE PO (21:10)
[2022-04-01] MEDS: SIMVASTATIN 20 MG TABLET PO (21:10)
[2022-04-01] MEDS: HYDROCORTISONE 2.5% CREAM 30 GM TUBE 1 APPLIC TOPICAL (21:11)
[2022-04-02] VITALS (11 sets, daily range): BP systolic 109–110; BP diastolic 41–68; PULSE 70–89; RESP 14–28; TEMP 35.7–36.4; O2SAT 95–99
[2022-04-02] MEDS: ALBUTEROL SULFATE NEB 2.5 MG/3 ML INH INHALATION ×2 (01:14→07:25)
[2022-04-02] MEDS: IPRATROPIUM BR 0.02% INH SOLN 0.5 MG/2.5 ML VIAL INHALATION ×2 (01:14→07:25)
--- NOTE | 2022-04-02 01:21 | PCRCNOTE ---
PT NOT READY TO WEAR BIPAP... IT WAS OFFER A FEW TIMES HOWEVER PT WAS NOT READY FOR BED
--- NOTE | 2022-04-02 04:15 | PCRCNOTE ---
held neb placed bipap on her 50 mins ago for her to sleep
[2022-04-02 06:31] LABS: Hematocrit 32.2 % (37.0-47.0); Hemoglobin 9.6 g/dL (12.0-15.0); Mean Corpuscular HGB Conc 29.8 g/dl (32-36); Mean Corpuscular Hemoglobin 27.4 pg (26-34); Mean Corpuscular Volume 91.7 fl (80-100); Mean Platelet Volume 9.9 fl (7.4-10.4); Platelet Count Result 174 k/mm3 (150-375); Red Blood Count 3.51 M/mm3 (4.2-5.4); Red Cell Distribution Width 15.9 % (11.5-14.5); White Blood Count 8.5 K/mm3 (4.5-10.0)
[2022-04-02 06:41] LABS: Blood Urea Nitrogen 15 mg/dL (7-17); Calcium 8.2 mg/dL (8.4-10.2); Carbon Dioxide > 40 mmol/L (22-30); Chloride 91 mmol/L (98-107); Estimated CRCL calculation 78 ml/min; Estimated Glomerular Filt Rate > 60; Glucose 101 mg/dL (65-110); Magnesium 1.7 mg/dL (1.6-2.3); Potassium 3.6 mmol/L (3.4-5.0); Sodium 140 mmol/L (137-145)
[2022-04-02] MEDS: BUDESONIDE RESPULE NEB 0.5 MG/2 ML AMP INHALATION (07:25)
[2022-04-02] MEDS: ACETAMINOPHEN 325 MG TABLET 650 MG PO (10:11)
[2022-04-02] MEDS: APIXABAN 5 MG TABLET PO (10:12)
[2022-04-02] MEDS: PANTOPRAZOLE 40 MG TABLET PO (10:12)
[2022-04-02] MEDS: ASPIRIN 81 MG CHEWABLE TABLET PO (10:12)
[2022-04-02] MEDS: EUCERIN CREAM 120 GM JAR 1 APPLIC TOPICAL (10:13)
[2022-04-02] MEDS: SACUBITRIL/VALSARTAN 49-51 MG TABLET 1 TABLET PO (10:13)
[2022-04-02] MEDS: SERTRALINE HCL 50 MG TABLET PO (10:13)
[2022-04-02] MEDS: TOLNAFTATE 1% POWDER 45 GM BTL 1 APPLIC TOPICAL (10:13)
[2022-04-02] MEDS: FLUTICASONE PROPIONATE 0.05% NA SPR 16 GM BTL (*BKC) 2 SPRAY NASAL (10:13)
[2022-04-02] MEDS: METOPROLOL SUCCINATE EXT REL 50 MG TABCR PO (10:14)
[2022-04-02] MEDS: POTASSIUM CHLORIDE 20 MEQ TABLET 40 MEQ PO (10:16)
--- NOTE | 2022-04-02 11:45 | P.PNPL_ITS ---
Progress Note: A&P Assessment and Plan (1) Obesity hypoventilation syndrome: Code(s): E66.2 - Morbid (severe) obesity with alveolar hypoventilation Status: Acute Assessment and Plan: Patient with morbid obesity, BMI 48.8, chronic hypercarbic respiratory failure dating back at least to 08/05/2021 with a blood gas of 7.39/61/133 on BiPAP 16/6. Patient's serum bicarb has been previously elevated and is 39 on admission today. Her blood gas on admission on 2 L nasal cannula 7.27/93/86. Patient has a history of hypothyroidism is is on levothyroxine with a normal TSH of 2.22. Patient has a 38 year pack year history of tobacco use but at this time is not wheezing and has no evidence of a COPD exacerbation. The patient has obesity hypoventilation syndrome and would benefit from noninvasive ventilation to prevent further deterioration and subsequent hospitalization. the patient comes from [facility] and we will discuss with that facility their ability to administer BiPAP or a trilogy with a noninvasive ventilation with an AVAPS mode. She said she was uncomfortable on the current BiPAP settings and I change them to BiPAP rate of 20, pressures 15/5, inspiratory time 1.2, rise of 5 which is are slowest. She did tolerate the settings but they were somewhat uncomfortable and I placed her on a noninvasive ventilation with AVAPS mode rate of 20, tidal volume 500, expiratory pressure 5, minimum inspiratory pressure 6, maximal inspiratory pressure 25, rise of 5, inspiratory time 1.2 seconds and 30% FiO2 and her saturations were 96%. will place patient on either BiPAP or noninvasive ventilation with AVAPS mode tonight depending on what the facility can administer in the future. I will obtain a blood gas prior to removal and an overnight oximetry on these s ettings To assess ventilation and oxygenation. 2/ the patient tells me she is breathing at her baseline and feels normal. She has minimal cough with no phlegm. White blood cell count is 7.8, c reatinine is 0.7. patient wore the hospital noninvasive ventilation with AVAPS mode rate of 20, tidal volume 500, expiratory pressure 5, minimum inspiratory pressure 6, maximal inspiratory pressure 25, rise of 5, inspiratory time 1.2 seconds, 28% and said she slept well. Patient had a blood gas prior to removal on these settings with a pH of 7.35/77/66. Patient had an overnight oximetry on the settings with an average saturation 92, low saturation 79%, 18 minutes less than or equal to 88%. Patient also noted to have severe pulmonary hypertension by echocardiogram on 03/27/2022 with RVSP 62. She has had pulmonary hypertension on previous echoes, 06/05/2021: RVSP 38 and 11/25/2020: RVSP 49. Will attempt to increase her minute ventilation by increasing her respiratory rate to 24 and increasing her tidal volume to 550. Will increase her FiO2 to 36%) ease equal to 4 L bleed in) and repeat overnight oximetry and ABG prior to removal. Patient states she is unable to lay flat for CT angiogram of the chest. She is already on apixaban 5 p.o. b.i.d. for her prior DVT and for her AFib. this may review related to a sleep related breathing disorder as well as fluid overload. 2/ Patient said she could tolerate the hospital noninvasive ventilator until 3:00 a.m. and then had to take it off because it was uncomfortable. AVAPS mode rate of 24, tidal volume 550, expiratory pressure 5, minimum inspiratory pressure 6, maximal inspiratory pressure 25, rise of 5, inspiratory time 1.2 seconds, 36%, had an overnight oximetry on these settings with an average saturation of 98%, low saturation 93%, time with saturation less than or equal to 88% was 0 minutes. Patient had an ABG prior to removal of t
--- NOTE | 2022-04-02 13:49 | PM.DS ---
DS: Admitting Diagnosis Discharge Date 04/02/2022 Admitting Diagnosis generalized weakness DS: Discharge Diagnosis Discharge Diagnosis (1) Altered mental status: Code(s): R41.82 - Altered mental status, unspecified Status: Acute Assessment and Plan: Admit to regular medical floor Patient known to have hypercarbic respiratory failure in the past Will continue to a spot check 04/01/2022 interval history: patient is a morbidly obese with hypoventilation and chronic hypercarbic respiratory failure presented with generalized weakness and shortness of breath upon arrival ABG showed pCO2 97.7 patient was placed on BiPAP and repeat ABG showed improvement in pCO2 77 and patient was not comfortable using the BiPAP, we have consulted environmental sampling technician and will adjust BiPAP settings and also recommended patient may benefit with the BiPAP or trilogy noninvasive ventilator at her [facility], chest x-ray is also concerning congestive heart failure patient last echo in May of 2021 showed preserved LV function with EF 55% chest x-ray showing cardiomegaly, patient is being diuresed, repeat a cardiac echo did not show significant change, however discussed with environmental sampling technician recommending patient needs to be diuresed, patient is incontinent and due to morbid obesity unable use the bathroom and timely manner , placed Londono catheter to monitor I's and O's,, on 03/[address] Johnston,DME is in process of setting up, noninvasive ventilator at [facility], once it is setup, will discharge the patient, patient with history of atrial fibrillation slightly RVR will continue Lopressor as needed and her metoprolol, her rate is now controlled, chest x-ray is also concerning for pneumonia completed 5 days of azithromycine, on Cefepime and vancomycin, today patient is sitting in the chair is feeling much better, not as short of breath, wants to go home soon, will continue present management and monitor, patient will be seen by pulmonology and further recommendation to follow. (2) Generalized muscle weakness: Code(s): M62.81 - Muscle weakness (generalized) Status: Acute Assessment and Plan: Suspect deconditioning (3) Chronic kidney disease, stage 3: Code(s): N18.30 - Chronic kidney disease, stage 3 unspecified Status: Acute Assessment and Plan: LAURA on CKD Will do gentle hydration Patient seems to have been over diuresed according to electrolytes (4) CHF (congestive heart failure): Qualifiers: Heart failure chronicity: acute on chronic Heart failure type: unspecified Qualified Code(s): I50.9 - Heart failure, unspecified Code(s): I50.9 - Heart failure, unspecified Status: Acute Assessment and Plan: Elevated BNP Patient noted to have edema on physical exam However also noted that she has been over diuresed Will hydrate and gentle diuresis Continue to monitor electrolytes Daily BMP (5) GERD (gastroesophageal reflux disease): Code(s): K21.9 - Gastro-esophageal reflux disease without esophagitis Status: Acute Assessment and Plan: PPI as needed (6) Morbid obesity: Code(s): E66.01 - Morbid (severe) obesity due to excess calories Status: Acute Assessment and Plan: Lifestyle and diet modification (7) Chronic respiratory failure: Code(s): J96.10 - Chronic respiratory failure, unspecified whether with hypoxia or hypercapnia Status: Acute Assessment and Plan: ABG in progress (8) Atrial fibrillation: Code(s): I48.91 - Unspecified atrial fibrillation Status: Acute Assessment and Plan: Rate controlled and anticoagulated DS: Summary Hospital Course Reason for hospitalization: Generalized weakness Narrative: This is a 77-year-old female with past medical history significant for morbid obesity, chronic respiratory failure hypercarbic, COPD, hypertension, persistent atrial fibrillation.
[2022-04-02 15:22] LABS: EDCOVIDSCREEN Negative (Negative)
--- NOTE | 2022-04-02 15:22 | PC.NURSE ---
Pt is discharging to [facility]. Report was called to Jose (catherine). Pt refused her lasix because she is discharging and does not want to have to pee on her way to her facility. Pt has a soto that will be removed prior to discharge. [facility] Pt repeatedly requested to stand. Pt educated on the safety of [place] versus standing. Pt participated and contributed in plan of care for the shift. Pt expresses no need and only complaint was that we would not let her stand. Will continue to monitor pt until discharge. Pt to be transferred by ambulance.
== END 2022-04-02 15:58 | DRG 189 ==
LOC: ANHED 18:24 → ANH3MEDSUR 20:33 → ANHIMU 03-27 06:27 → ANH3MEDSUR 03-30 00:17
PROVIDERS: Emergency Medicine; Internal Medicine; Internal Medicine Pulmonary Disease; Admitting Provider Student in an Organized Health Care Education/Training Program; Emergency Provider Emergency Medicine; PCP Emergency Medicine; Visit Provider Family Medicine
DX: J96.21 Acute and chronic respiratory failure with hypoxia (principal); E66.2 Morbid (severe) obesity with alveolar hypoventilation; I13.0 Hypertensive heart and chronic kidney disease with heart failure and stage 1 through stage 4 chronic kidney disease, or unspecified chronic kidney disease; I48.19 Other persistent atrial fibrillation; Z68.42 Body mass index [BMI] 45.0-49.9, adult; J96.22 Acute and chronic respiratory failure with hypercapnia; I50.9 Heart failure, unspecified; N18.30 Chronic kidney disease, stage 3 unspecified; K21.9 Gastro-esophageal reflux disease without esophagitis; I48.91 Unspecified atrial fibrillation; J44.9 Chronic obstructive pulmonary disease, unspecified; Z20.822 Contact with and (suspected) exposure to COVID-19; E78.5 Hyperlipidemia, unspecified; I73.9 Peripheral vascular disease, unspecified; R32 Unspecified urinary incontinence; E03.9 Hypothyroidism, unspecified; Z96.651 Presence of right artificial knee joint; Z66 Do not resuscitate; Z79.01 Long term (current) use of anticoagulants; Z87.11 Personal history of peptic ulcer disease; Z86.73 Personal history of transient ischemic attack (TIA), and cerebral infarction without residual deficits; Z86.718 Personal history of other venous thrombosis and embolism; Z87.891 Personal history of nicotine dependence; Z79.82 Long term (current) use of aspirin
CPT/HCPCS: 36415; 36600; 51701; 71045; 71046; 80048; 80053; 80202; 81001; 82375; 82565; 82805; 83050; 83735; 83880; 84443; 84484; 85025; 85027; 85055; 87040; 87077; 87426; 87637; 93005; 93306; 93970; 94002; 94640; 94762; 96361; 96365; 96375; 96376; 97161; 99285; A9270; C9803; G0378; J0456; J0692; J1940; J3370; J7030; J7040

== ENCOUNTER 2022-06-15 20:11 | Inpatient (IN) | payer OTHER, MEDICAID, SELFPAY ==
[2022-06-15] VITALS (16 sets, daily range): BP systolic 108–123; BP diastolic 49–65; PULSE 80–99; RESP 22–32; TEMP 36.9–38; O2SAT 91–99
--- NOTE | ~2022-06-15 | XR_ITS ---
EXAMINATION: XR chest PICC line INDICATION: PICC insertion TECHNIQUE: Portable AP chest at 1502 hours COMPARISON: 06/17/2022 FINDINGS: A right upper extremity PICC has been inserted which courses into the right neck. Cardiomeg deandre is noted. Small pleural effusions are unchanged. There is no pneumothorax. IMPRESSION: 1. Right upper extremity PICC coursing into the right neck. 2. Cardiomegaly. 3. Diffuse lung disease with slight improvement, consistent with pneumonia and/or pulmonary edema. This was discussed with Kelsy Michael at 1540 hours on 06/20/2022. PICC has been repositioned at the time of interpretation. Reviewed, dictated and finalized at location B. IMPRESSION: 1. Right upper extremity PICC coursing into the right neck. 2. Cardiomegaly. 3. Diffuse lung disease with slight improvement, consistent with pneumonia and/ or pulmonary edema. This was discussed with Kelsy Michael at 1540 hours on 06/20/2022. PICC has bee n repositioned at the time of interpretation.
--- NOTE | ~2022-06-15 | XR_ITS ---
EXAMINATION: XR chest 1V portable INDICATION: Cough TECHNIQUE: Portable AP chest at 0542 hours COMPARISON: 06/15/2022 FINDINGS: Cardiomegaly is noted. Diffuse interstitial and airspace opacities persist with slight impr ovement. There are small pleural effusions with interval improvement. No pneumothorax is identified. IMPRESSION: 1. Diffuse lung disease with interval improvement, consistent with pneumonia and/or pulmonary edema. 2. Cardiomegaly. 3. Improving pleural effusions. Reviewed, dictated and finalized at location A. IMPRESSION: 1. Diffuse lung disease with interval improvement, consistent with pneumonia an d/or pulmonary edema. 2. Cardiomegaly. 3. Improving pleural effusions.
--- NOTE | ~2022-06-15 | XR_ITS ---
EXAMINATION: XR chest PICC line INDICATION: PICC repositioning TECHNIQUE: Portable AP chest at 1536 hours COMPARISON: 1502 hours FINDINGS: The repositioned right upper showed a PICC now ends with this tip in the distal superior ve na cava. Cardiomegaly is noted. There are small, stable pleural effusions. A diffuse interstitial pat tern is unchanged. IMPRESSION: 1. Repositioned right upper chart PICC now ending with its tip in the distal superior vena cava, othe rwise no change. Reviewed, dictated and finalized at location B. IMPRESSION: 1. Repositioned right upper chart PICC now ending with its tip in the distal gonzalez perior vena cava, otherwise no change.
--- NOTE | ~2022-06-15 | XR_ITS ---
Portable chest x-ray Comparison: 03/30/2022 Clinical History: Cough, shortness of breath Findings: Small bilateral pleural effusions are present. There is mild to moderate bibasilar pulmona ry edema pattern. Cardiomediastinal silhouette is stable. Bones and soft tissues are unremarkable. Impression: Mild to moderate bibasilar pulmonary edema pattern with small bilateral pleural effusions. Stable cardiomegaly. Reviewed, dictated and finalized at location . Impression: Mild to moderate bibasilar pulmonary edema pattern with small bilateral pleural effusions. Stable cardiomegaly.
--- NOTE | 2022-06-15 20:39 | ECG_ITS ---
Measurements Intervals [place]lyn Rate: 87 P: SC: 0 QRS: 102 QRSD: 114 T: 30 QT: 367 QTc: 443 Interpretive Statements ATRIAL FIBRILLATION MARKED RIGHT AXIS DEVIATION [QRS AXIS > 100] INTRAVENTRICULAR CONDUCTION DELAY [110+ ms QRS DURATION] ABNORMAL ECG COMPARED TO ECG 03/26/2022 13:26:18 NO SIGNIFICANT CHANGES Electronically Signed On 06-16-2022 7:25:20 CDT by Arturo Rainey M.D.
--- NOTE | 2022-06-15 21:02 | ED.WEAKNESS ---
HPI - Weakness General Chief complaint: Weakness Stated complaint: weakness, sob Time Seen by Provider: 06/15/22 20:37 History of Present Illness HPI Narrative: Patient is a 77-year-old female with a history of HFpEF, COPD, ROCAEL, hypertension, A-fib on Eliquis, hyperlipidemia, GERD presenting with shortness of breath. Patient is coming from a nursing facility. Today she was noted to be generally weak. The daughter is at bedside and states that the nursing facility told her that the patient's lips were turning blue. Patient is on 2 L O2 at baseline. For EMS she was hypoxic in the 80s so she was placed on 6 L with improvement to the mid 90s. Patient's daughter reports that she has had a productive cough. Patient currently denies complaints. She denies chest pain, headache, new numbness or weakness, abdominal pain, nausea or vomiting, diarrhea, dysuria. States that she does not feel particularly short of breath right now. Related Data Home Medications Medication Instructions Recorded Confirmed albuterol sulfate 90 mcg/actuation 1 puff inhalation Q4H PRN SOB 04/05/21 03/26/22 aerosol inhaler fluticasone propionate 50 50 mcg intranasal DAILY 04/05/21 03/26/22 mcg/actuation nasal spray,suspension levothyroxine 137 mcg tablet 175 mcg PO DAILY 04/05/21 03/26/22 simvastatin 20 mg tablet 20 mg PO HS 04/05/21 03/26/22 apixaban 5 mg tablet (Eliquis) 5 mg PO BID 06/13/21 03/26/22 furosemide 40 mg tablet 80 mg PO BID 03/26/22 03/26/22 gabapentin 100 mg capsule 100 mg PO HS 03/26/22 03/26/22 hydrocortisone 2.5 % topical cream 1 applic topical HS 03/26/22 03/26/22 ipratropium bromide 0.02 % 1 mcg inhalation Q6H PRN Shortness 03/26/22 03/27/22 solution for inhalation Of Breath metoprolol succinate 100 mg 50 mg PO BID 03/26/22 03/26/22 tablet,extended release 24 hr sacubitril 49 mg-valsartan 51 mg 1 tablet PO BID 03/26/22 03/26/22 tablet (Entresto) acetaminophen 650 mg tablet 650 mg PO Q6H PRN Pain 03/27/22 03/27/22 diclofenac sodium 1 % topical gel 2 g topical QID PRN osteoarthritis 03/27/22 03/27/22 Allergies Allergy/AdvReac Type Severity Reaction Status Date / Time No Known Drug Allergies Allergy Other Verified 08/04/21 20:29 Review of Systems Review of Systems: All systems reviewed & are unremarkable except as noted in HPI and below PMFSH Past Medical History Medical History Anxiety Chronic anticoagulation Chronic kidney disease, stage 3 Chronic obstructive pulmonary disease Chronic respiratory failure Evidence both chronic hypoxic and hypercapnic respiratory failure by ABGs. Not on home oxygen. Congestive heart failure Echocardiogram on 11/07/2018 showed an LV systolic function at the lower limit of normal with an EF estimated 50 to 55%, severe biatrial enlargement, normal RV systolic pressure, and mild tricuspid regurgitation. Deep venous thrombosis Degenerative joint disease Gastroesophageal reflux disease History of peptic ulcer Hypertension Hypothyroidism Morbid obesity Peripheral arterial disease Arterial Dopplers of the lower extremities in January 2019 showed occlusion distally. Peripheral angiogram showed 1 vessel runoff bilaterally though no indication for intervention due to collaterals. Reports chronic pain and legs though not debilitating and she is not interested in surgical intervention. Persistent atrial fibrillation Transient ischemic attack Surgical History Surgical History History of right knee joint replacement (01/2009) Family History Family History Mother Depression Cancer Mouth cancer Father Acute myocardial infarction Social History Social History Social History: Surrogate decision maker: Ester Sanchez, daughter. Code status: Do not resuscitate. S
[2022-06-15 21:37] LABS: Basophils Absolute Auto 0.1 K/mm3 (0.0-0.1); Basophils Percent Auto 0.5 % (0.2-1.2); Eosinophils Absolute Auto 0.1 K/mm3 (0-0.3); Eosinophils Percent Auto 0.5 % (0-4.4); Hematocrit 34.9 % (37.0-47.0); Hemoglobin 10.2 g/dL (12.0-15.0); Immature Granulocyte Percent A 0.6 % (0-0.5); Lymphocytes Absolute Auto 0.74 K/mm3 (0.9-3.2); Lymphocytes Percent Auto 4.4 % (18.3-44.2); Mean Corpuscular HGB Conc 29.2 g/dl (32-36); Mean Corpuscular Hemoglobin 26.9 pg (26-34); Mean Corpuscular Volume 92.1 fl (80-100); Mean Platelet Volume 10.4 fl (7.4-10.4); Monocytes Absolute Auto 1.2 K/mm3 (0.1-0.6); Monocytes Percent Auto 7.4 % (2.6-8.5); Neutrophils Absolute Auto 14.5 K/mm3 (1.3-6.7); Neutrophils Percent Auto 86.6 % (45.5-73.1); Platelet Count Result 169 k/mm3 (150-375); Red Blood Count 3.79 M/mm3 (4.2-5.4); Red Cell Distribution Width 15.4 % (11.5-14.5); White Blood Count 16.7 K/mm3 (4.5-10.0)
[2022-06-15 21:46] LABS: Platelet Estimate Adequate (Adequate)
[2022-06-15 21:47] LABS: Hypochromasia 1+ (NORMAL); Lactic Acid Reflex 1.4 mmol/L (0.7-2.0); Schistocytes None Seen (NORMAL)
[2022-06-15 21:48] LABS: Alanine Aminotransferase 16 U/L (6-35); Albumin Level 4.2 g/dL (3.5-5.1); Alkaline Phosphatase 114 U/L (38-126); Anion Gap 6 mmol/L (8-16); Aspartate Amino Transferase 21 U/L (14-36); Bilirubin,Total 1.1 mg/dL (0.2-1.3); Blood Urea Nitrogen 27 mg/dL (7-17); Calcium 8.7 mg/dL (8.4-10.2); Carbon Dioxide 38 mmol/L (22-30); Chloride 93 mmol/L (98-107); Estimated CRCL calculation 71 ml/min; Estimated Glomerular Filt Rate 60; Glucose 132 mg/dL (65-110); INR 1.8; Potassium 4.1 mmol/L (3.4-5.0); Prothrombin Time 20.1 Seconds (11.1-14.7); Sodium 137 mmol/L (137-145)
[2022-06-15 21:49] LABS: Alveolar/Arterial O2 Gradient 192.8 mmHg; Base Excess ABG 7.6 mEq/l (+/-2.0); Fractional Inspired Oxygen 44 %; HCO3 ABG 32.4 mEq/l (22.0-26.0); Oxygen Content ABG 14.5 %vol (16.0-22.0); Oxygen Saturation ABG 94.2 % (95.0-100.0); PCO2 ABG 46.7 mmHg (35.0-45.0); PO2 ABG 67.7 mmHg (80.0-100.0); PO2 FiO2 Ratio Arterial Blood 1.54 %; Total Hemoglobin 11.2 g/dL (12.0-18.0); pH ABG 7.459 (7.350-7.450)
[2022-06-15 21:51] LABS: Device NASAL CANNULA; Modified Allen's Test Pass; Site Drawn LEFT RADIAL
[2022-06-15 21:59] LABS: NT Pro B Type Natriuretic Pept 2550 pg/mL (19.9-100); Troponin I 0.014 ng/mL (0.000-0.034)
[2022-06-15] MEDS: CEFEPIME 1 GM/NS 50 ML 1 GM/50 ML BAG IVPB (22:17)
--- NOTE | 2022-06-15 23:00 | PM.IMHP ---
H&P: HPI History of Present Illness Date/Time: 06/15/22 23:00 Chief Complaint: Low oxygen saturations Narrative: 77-year-old female with a past medical history of chronic hypoxic hypercarbic respiratory failure due to COPD, CHF with preserved ejection fraction, atrial fibrillation, peripheral artery disease and hypothyroidism who was brought to the ER via EMS from [facility] due to low oxygen saturations and fever. The patient reports that she has been coughing for 4- 5 days. She reports that she feels like her throat is ?full of phlegm. She states that she only coughs enough to clear the stuff in her throat but nothing actually comes up. She has reports that the main reason she came into the ER discuss she started chilling severely before she came in. She does not understand why she was chilling like this. But when patient arrived to the ER she was febrile with temperature of 100.4?. She reports generally feeling achy. She reports that any time she sits in the bed she has low back pain. She usually sleeps in a recliner. She is supposed to use AVAPS at the long-term but frequently does not use in when the staff is actually able to get her to use AVAPS they ?tweak the settings? and she is not actually using the settings that were prescribed. She reports that her legs always feel tight. However legs do not appear to be acutely swollen. She denies any chest pain. She denies any palpitations. She denies any nausea or vomiting. It sounds as if she likely has had some decreased appetite over the last couple of days. She has chronic urinary incontinence with chronic urinary frequency due to Lasix use. She denies any recent constipation or diarrhea. She spends most of her time either in a recliner or in her lactic wheelchair. Her daughter reported to the ER staff that the patient has been declining ever since she was in 2020. She is becoming less functional in is having more recurrent illnesses. However, the family was not available for discussion when I saw the patient in the ER. Source of information is ER report, long-term report, EMS report, and patient report. The patient is a relatively fair historian at least regarding symptoms. Review of Systems Review of Systems: 12 systems were reviewed with pertinent positives and negatives per HPI. Except as documented in the HPI, all other systems were reviewed and are negative. [facility] Past Medical History Medical History (Updated 06/16/22 @ 07:18 by Maxine Rice DO) Anxiety Chronic anticoagulation Chronic kidney disease, stage 3 Chronic obstructive pulmonary disease Chronic respiratory failure Evidence both chronic hypoxic and hypercapnic respiratory failure by ABGs. Not on home oxygen. Congestive heart failure Echocardiogram on 11/07/2018 showed an LV systolic function at the lower limit of normal with an EF estimated 50 to 55%, severe biatrial enlargement, normal RV systolic pressure, and mild tricuspid regurgitation. With repeat echocardiogram 05/2021 demonstrating stable findings Deep venous thrombosis Degenerative joint disease Gastroesophageal reflux disease History of peptic ulcer Hypertension Hypothyroidism Morbid obesity Obesity hypoventilation syndrome Peripheral arterial disease Arterial Dopplers of the lower extremities in January 2019 showed occlusion distally. Peripheral angiogram showed 1 vessel runoff bilaterally though no indication for intervention due to collaterals. Reports chronic pain and legs though not debilitating and she is not interested in surgical intervention. Persistent atrial fibrillation Pulmonary hypertension Transient ischemic attack Surgical History Surgical History History of right knee joint replacement (01/2009) Family History Family History Mother Depression Cancer Mouth cancer
[2022-06-15 23:15] LABS: Influenza A QL RT-PCR Negative (Negative); Influenza B QL RT-PCR Negative (Negative); SARS-CoV-2 RNA PCR Negative (Negative)
[2022-06-16] VITALS (29 sets, daily range): BP systolic 97–124; BP diastolic 41–58; PULSE 69–114; RESP 17–29; TEMP 36.4–37.1; O2SAT 94–99; BMI 46.8
--- NOTE | 2022-06-16 00:42 | ADMGEN ---
This patient, Lavern Roland, was admitted to Medical Room 254-01. Patient/family oriented to hospital policies and general routines including ID bracelet, bed and alarms, visiting hours, pain management, procedures, bathroom and other care routines, personal items, smoking policy, room service/diet, and visiting hours. Information on how to activate the Rapid Response Team has been discussed. Patient/Family are encouraged to report perceived risks to care and to ask questions if they do not understand what they are told or what they should do.
[2022-06-16 01:30] LABS: Troponin I < 0.012 ng/mL (0.000-0.034)
[2022-06-16] MEDS: LEVALBUTEROL NEB 1.25 MG/3 ML INHALATION ×4 (02:02→21:01)
[2022-06-16] MEDS: IPRATROPIUM BR 0.02% INH SOLN 0.5 MG/2.5 ML VIAL INHALATION ×4 (02:02→21:01)
[2022-06-16 03:53] LABS: Basophils Absolute Auto 0.1 K/mm3 (0.0-0.1); Basophils Percent Auto 0.5 % (0.2-1.2); Eosinophils Percent Auto 0.1 % (0-4.4); Hematocrit 30.9 % (37.0-47.0); Hemoglobin 9.3 g/dL (12.0-15.0); Immature Granulocyte Absolute 0.08 K/mm3 (0.00-0.031); Immature Granulocyte Percent A 0.5 % (0-0.5); Lymphocytes Absolute Auto 1.14 K/mm3 (0.9-3.2); Lymphocytes Percent Auto 7.3 % (18.3-44.2); Mean Corpuscular HGB Conc 30.1 g/dl (32-36); Mean Corpuscular Hemoglobin 27.5 pg (26-34); Mean Corpuscular Volume 91.4 fl (80-100); Mean Platelet Volume 10.6 fl (7.4-10.4); Monocytes Absolute Auto 1.2 K/mm3 (0.1-0.6); Monocytes Percent Auto 7.7 % (2.6-8.5); Neutrophils Percent Auto 83.9 % (45.5-73.1); Platelet Count Result 148 k/mm3 (150-375); Red Blood Count 3.38 M/mm3 (4.2-5.4); Red Cell Distribution Width 15.6 % (11.5-14.5); White Blood Count 15.5 K/mm3 (4.5-10.0)
[2022-06-16 04:08] LABS: Alanine Aminotransferase 16 U/L (6-35); Albumin Level 3.8 g/dL (3.5-5.1); Alkaline Phosphatase 87 U/L (38-126); Anion Gap 5 mmol/L (8-16); Aspartate Amino Transferase 19 U/L (14-36); Blood Urea Nitrogen 28 mg/dL (7-17); Calcium 8.1 mg/dL (8.4-10.2); Carbon Dioxide 37 mmol/L (22-30); Chloride 94 mmol/L (98-107); Estimated CRCL calculation 64 ml/min; Estimated Glomerular Filt Rate 53; Glucose 155 mg/dL (65-110); Sodium 136 mmol/L (137-145)
[2022-06-16] MEDS: CEFEPIME 2 GM/NS 50 ML 2 GM/50 ML BAG IVPB ×3 (04:12→19:53)
[2022-06-16 04:18] LABS: Troponin I < 0.012 ng/mL (0.000-0.034)
[2022-06-16 06:33] LABS: Appearance Urine Clear (Clear); Bacteria Urine None Seen /hpf; Bilirubin Urine Negative (Negative); Blood Urine Negative (Negative); Color Urine Yellow (Yellow); Glucose Urine UA Negative (Negative); Ketones Urine Negative (Negative); Leukocyte Esterase Ur Trace LEU/UL (Negative); Nitrate Urine Negative (Negative); Non Pathogenic Casts 0-2; Protein Urine Negative (Negative); RBC Urine 0-2 /hpf (0-2); Specific Grav Ur 1.014 (1.001-1.035); Squamous Epithelial Cell Urine None seen /hpf (Few); WBC Urine 0-5 /hpf; pH Urine 5.5 (5.0-9.0)
[2022-06-16 06:46] LABS: Add Urine Microscopic? YES
[2022-06-16] MEDS: FLUTICASONE/UMECLIDIN/VILANTER 100-62.5-25 MCG ELLIPTA 1 PUFF INHALATION (08:01)
[2022-06-16] MEDS: LEVOTHYROXINE SODIUM 75 MCG TABLET PO (08:54)
[2022-06-16] MEDS: ASPIRIN 81 MG CHEWABLE TABLET PO (08:54)
[2022-06-16] MEDS: APIXABAN 5 MG TABLET PO ×2 (08:54→17:33)
[2022-06-16] MEDS: LEVOTHYROXINE SODIUM 100 MCG TABLET PO (08:54)
[2022-06-16] MEDS: FLUTICASONE PROPIONATE 0.05% NA SPR 16 GM BTL (*BKC) 1 SPRAY NASAL (08:55)
[2022-06-16] MEDS: FUROSEMIDE 80 MG TABLET PO (08:55)
[2022-06-16] MEDS: METOPROLOL SUCCINATE EXT REL 50 MG TABCR PO (08:55)
[2022-06-16] MEDS: SACUBITRIL/VALSARTAN 49-51 MG TABLET 1 TABLET PO (08:56)
[2022-06-16] MEDS: TOLNAFTATE 1% POWDER 45 GM BTL 1 APPLIC TOPICAL ×2 (08:56→19:58)
[2022-06-16] MEDS: PANTOPRAZOLE 40 MG TABLET PO (08:56)
[2022-06-16] MEDS: SERTRALINE HCL 25 MG TABLET PO (08:56)
--- NOTE | 2022-06-16 13:25 | PM.IMPN ---
Progress Note: A&P Assessment and Plan (1) Acute on chronic respiratory failure with hypoxia and hypercapnia: Code(s): J96.21 - Acute and chronic respiratory failure with hypoxia; J96.22 - Acute and chronic respiratory failure with hypercapnia Status: Acute (2) Sepsis: Qualifiers: Sepsis type: sepsis due to unspecified organism Sepsis acute organ dysfunction status: with acute organ dysfunction Severe sepsis acute organ dysfunction type: acute respiratory failure Acute respiratory failure type: with hypoxia Severe sepsis shock status: without septic shock Qualified Code(s): A41.9 - Sepsis, unspecified organism; R65.20 - Severe sepsis without septic shock; J96.01 - Acute respiratory failure with hypoxia Code(s): A41.9 - Sepsis, unspecified organism Status: Acute (3) Healthcare-associated pneumonia: Code(s): J18.9 - Pneumonia, unspecified organism Status: Acute (4) Atrial fibrillation: Qualifiers: Atrial fibrillation type: longstanding persistent Qualified Code(s): I48.11 - Longstanding persistent atrial fibrillation Code(s): I48.91 - Unspecified atrial fibrillation Status: Acute Plan Sepsis with leukocytosis fever tachycardia and pneumonia leukocytosis of 16,000 Acute on chronic hypoxic hypercapnic respiratory failure ABG stable placed on AVAPS. Pneumonia treated as healthcare associated pneumonia with cefepime and vancomycin. Will also add azithromycin for atypical coverage; COVID flu negative Chronic hypercapnic respiratory failure secondary to obesity hypoventilation syndrome obstructive sleep apnea pulmonary hypertension. Placed AVAPS 80 rate of 24 tidal 515 expiratory pressure 5 maximum pressure 15 brain episode 6 maximum inspiratory pressure of 20 inspiratory 1.2nd 4 L of oxygen bled in Acute on chronic heart failure with preserved ejection fraction BNP 2550 which is about baseline. Echo with EF 55-60% 03/19 will start diuresing with IV Lasix Chronic persistent atrial fibrillation Chronic long-term anticoagulation with Eliquis DVT prophylaxis on Eliquis Mild chronic anemia 9-10 baseline Code status: Do not resuscitate as discussed with the patient Subjective Date/time seen: 06/16/22 13:25 Interval history: Presented with shortness of breath from nursing facility generalized weakness cough present hypoxic normally at 2 L oxygen. Continues to feel better. Still has little bit of cough Review of Systems Review of Systems: All systems reviewed & are unremarkable except as noted in HPI and below Exam Narrative: GENERAL: Chronically ill-appearing, morbidly obese, in no acute distress, pleasant and cooperative HEAD: Normocephalic, atraumatic. EYES: PERRLA and EOMI. ENT: Nares clear, no rhinorrhea or epistaxis.? Mucous membranes moist. NECK: Supple. CHEST: Coarse breath sounds bilaterally, somewhat diminished, no wheezing, saturating mid 90s on 6 L nasal cannula HEART: Regular rate and rhythm.? No murmur heard.? Normal peripheral pulses. ABDOMEN: Soft, nontender, nondistended, no guarding or rebound EXTREMITIES: Normal range of motion.+ Pitting edema bilateral lower extremities SKIN: Warm, dry, skin changes consistent with chronic venous stasis bilateral lower extremities NEURO: No focal deficits.? Alert and oriented x3. PSYCH: Normal mood and affect. Objective Data Vital Signs Vital Signs: Vital Signs - 24 hr 06/15/22 20:12 06/15/22 20:22 06/15/22 20:24 Temperature 100.4 F H Pulse Rate 99 92 Respiratory Rate 30 H Blood Pressure 117/49 L Pulse Oximetry 91 93 Oxygen Delivery High Flow Nasal Cannula High Flow Nasal Cannula Oxygen Flow Rate 6 6 06/15/22 21:22 06/15/22 21:30 06/15/22 21:45 Temperature Pulse Rate 89 94 88 Respiratory Rate 30 H 32 H 22 H Blood Pressure Pulse Oximetry 92 95 Oxygen Delivery Oxygen Flow Rate 06/15/22 22:00 06/15/22 22:06 06/15/22 22:15 Temperature Pulse Rate 86 87 83 Res
[2022-06-16] MEDS: GABAPENTIN 100 MG CAPSULE PO (19:57)
[2022-06-16] MEDS: SIMVASTATIN 20 MG TABLET PO (19:58)
[2022-06-17] VITALS (24 sets, daily range): BP systolic 98–123; BP diastolic 34–55; PULSE 54–147; RESP 18–32; TEMP 36.7–36.9; O2SAT 95–98
[2022-06-17] MEDS: IPRATROPIUM BR 0.02% INH SOLN 0.5 MG/2.5 ML VIAL INHALATION ×3 (02:02→20:54)
[2022-06-17] MEDS: LEVALBUTEROL NEB 1.25 MG/3 ML INHALATION ×2 (02:02→20:54)
[2022-06-17] MEDS: CEFEPIME 2 GM/NS 50 ML 2 GM/50 ML BAG IVPB ×3 (03:47→18:28)
[2022-06-17] MEDS: SODIUM CHLORIDE 0.9% IV 500 ML 250 ML IV CONT (04:25)
[2022-06-17] MEDS: LEVOTHYROXINE SODIUM 100 MCG TABLET PO (05:36)
[2022-06-17] MEDS: LEVOTHYROXINE SODIUM 75 MCG TABLET PO (05:36)
[2022-06-17] MEDS: ASPIRIN 81 MG CHEWABLE TABLET PO (09:55)
[2022-06-17] MEDS: METOPROLOL TARTRATE 25 MG TABLET PO ×2 (09:55→20:20)
[2022-06-17] MEDS: SODIUM CHLORIDE 0.9% IV 1,000 ML 50 ML IV CONT (09:56)
[2022-06-17] MEDS: TOLNAFTATE 1% POWDER 45 GM BTL 1 APPLIC TOPICAL ×2 (09:56→20:20)
[2022-06-17] MEDS: PANTOPRAZOLE 40 MG TABLET PO (09:56)
[2022-06-17] MEDS: SERTRALINE HCL 25 MG TABLET PO (09:56)
[2022-06-17] MEDS: FLUTICASONE PROPIONATE 0.05% NA SPR 16 GM BTL (*BKC) 1 SPRAY NASAL (09:56)
[2022-06-17] MEDS: APIXABAN 5 MG TABLET PO ×2 (09:56→17:20)
[2022-06-17 10:50] LABS: Basophils Percent Auto 0.3 % (0.2-1.2); Eosinophils Absolute Auto 0.2 K/mm3 (0-0.3); Eosinophils Percent Auto 1.5 % (0-4.4); Hematocrit 28.8 % (37.0-47.0); Hemoglobin 8.6 g/dL (12.0-15.0); Immature Granulocyte Absolute 0.08 K/mm3 (0.00-0.031); Immature Granulocyte Percent A 0.7 % (0-0.5); Immature Platelet Fraction Pct 5.7 % (0.9-11.2); Lymphocytes Absolute Auto 0.47 K/mm3 (0.9-3.2); Lymphocytes Percent Auto 4.2 % (18.3-44.2); Mean Corpuscular HGB Conc 29.9 g/dl (32-36); Mean Corpuscular Hemoglobin 27.3 pg (26-34); Mean Corpuscular Volume 91.4 fl (80-100); Monocytes Absolute Auto 0.9 K/mm3 (0.1-0.6); Monocytes Percent Auto 7.9 % (2.6-8.5); Neutrophils Absolute Auto 9.6 K/mm3 (1.3-6.7); Neutrophils Percent Auto 85.4 % (45.5-73.1); Platelet Count Result 147 k/mm3 (150-375); Red Blood Count 3.15 M/mm3 (4.2-5.4); Red Cell Distribution Width 15.7 % (11.5-14.5); White Blood Count 11.3 K/mm3 (4.5-10.0)
[2022-06-17 11:03] LABS: Alanine Aminotransferase 13 U/L (6-35); Albumin Level 3.7 g/dL (3.5-5.1); Alkaline Phosphatase 74 U/L (38-126); Anion Gap 3 mmol/L (8-16); Aspartate Amino Transferase 15 U/L (14-36); Blood Urea Nitrogen 24 mg/dL (7-17); Carbon Dioxide 38 mmol/L (22-30); Chloride 97 mmol/L (98-107); Estimated CRCL calculation 89 ml/min; Estimated Glomerular Filt Rate > 60; Glucose 133 mg/dL (65-110); Potassium 3.6 mmol/L (3.4-5.0); Sodium 138 mmol/L (137-145)
[2022-06-17 11:10] LABS: Vancomycin Trough 14.4 ug/mL (10.0-20.0)
[2022-06-17 11:19] LABS: Platelet Estimate Adequate (Adequate)
[2022-06-17 11:20] LABS: Anisocytosis 1+ (NORMAL); Hypochromasia 1+ (NORMAL); Schistocytes None Seen (NORMAL)
[2022-06-17 11:43] LABS: Procalcitonin 0.5 ng/mL
--- NOTE | 2022-06-17 12:59 | PM.IMPN ---
Progress Note: A&P Assessment and Plan (1) Acute on chronic respiratory failure with hypoxia and hypercapnia: Code(s): J96.21 - Acute and chronic respiratory failure with hypoxia; J96.22 - Acute and chronic respiratory failure with hypercapnia Status: Acute (2) Sepsis: Qualifiers: Sepsis type: sepsis due to unspecified organism Sepsis acute organ dysfunction status: with acute organ dysfunction Severe sepsis acute organ dysfunction type: acute respiratory failure Acute respiratory failure type: with hypoxia Severe sepsis shock status: without septic shock Qualified Code(s): A41.9 - Sepsis, unspecified organism; R65.20 - Severe sepsis without septic shock; J96.01 - Acute respiratory failure with hypoxia Code(s): A41.9 - Sepsis, unspecified organism Status: Acute (3) Healthcare-associated pneumonia: Code(s): J18.9 - Pneumonia, unspecified organism Status: Acute (4) Atrial fibrillation: Qualifiers: Atrial fibrillation type: longstanding persistent Qualified Code(s): I48.11 - Longstanding persistent atrial fibrillation Code(s): I48.91 - Unspecified atrial fibrillation Status: Acute Plan Sepsis with leukocytosis fever tachycardia and pneumonia leukocytosis of 16,000. Improves Acute on chronic hypoxic hypercapnic respiratory failure ABG stable placed on AVAPS. Will slowly taper. Wean oxygen as tolerated normally wears 2 L oxygen at home. Pneumonia treated as healthcare associated pneumonia with cefepime and vancomycin. Added azithromycin for atypical coverage; COVID flu negative Bacteremia Gram-positive cocci in pairs/clusters. Enterococcus faecalis in 1 of them. Will repeat blood culture today. Remains on vancomycin and cefepime will continue current coverage Chronic hypercapnic respiratory failure secondary to obesity hypoventilation syndrome obstructive sleep apnea pulmonary hypertension. Placed AVAPS 80 rate of 24 tidal 515 expiratory pressure 5 maximum pressure 15 brain episode 6 maximum inspiratory pressure of 20 inspiratory 1.2 s 4 L of oxygen bled in Acute on chronic heart failure with preserved ejection fraction BNP 2550 which is about baseline. Echo with EF 55-60% 03/19 will start diuresing with IV Lasix will hold diuresis has most likely diagnosis sepsis related to underlying pneumonia and bacteremia Chronic persistent atrial fibrillation with rapid ventricular rate. Metoprolol restarted on a smaller dose because of hypotension Chronic long-term anticoagulation with Eliquis DVT prophylaxis on Eliquis Mild chronic anemia 9-10 baseline Code status: Do not resuscitate as discussed with the patient Subjective Date/time seen: 06/17/22 12:59 Interval history: Feels a bit better today. Remains on 4 L oxygen. Hypotensive overnight and received a bolus. Heart rate was 130s to 140s this morning. Leg swelling is chronic and about the same per family member today. Remains afebrile. Bacteremia noted. Discussed with the family at bedside Review of Systems Review of Systems: All systems reviewed & are unremarkable except as noted in HPI and below Exam Narrative: GENERAL: Chronically ill-appearing, morbidly obese, in no acute distress, pleasant and cooperative HEAD: Normocephalic, atraumatic. EYES: PERRLA and EOMI. ENT: Nares clear, no rhinorrhea or epistaxis.? Mucous membranes moist. NECK: Supple. CHEST: Coarse breath sounds bilaterally, somewhat diminished, no wheezing HEART: Regular rate and rhythm.? No murmur heard.? Normal peripheral pulses. ABDOMEN: Soft, nontender, nondistended, no guarding or rebound EXTREMITIES: Normal range of motion.+ Pitting edema bilateral lower extremities SKIN: Warm, dry, skin changes consistent with chronic venous stasis bilateral lower extremities NEURO: No focal deficits.? Alert and oriented x3. PSYCH: Normal mood and affect. Objective Data Vital Signs Vital Signs: Vital Signs - 24 hr 06/16/22 14:00 06/16/22 14
[2022-06-17] MEDS: FLUTICASONE/UMECLIDIN/VILANTER 100-62.5-25 MCG ELLIPTA 1 PUFF INHALATION (14:30)
[2022-06-17] MEDS: GABAPENTIN 100 MG CAPSULE PO (20:19)
[2022-06-17] MEDS: SIMVASTATIN 20 MG TABLET PO (20:20)
[2022-06-18] VITALS (22 sets, daily range): BP systolic 105–130; BP diastolic 51–85; PULSE 35–120; RESP 18–27; TEMP 36.6–36.7; O2SAT 95–100
[2022-06-18] MEDS: CEFEPIME 2 GM/NS 50 ML 2 GM/50 ML BAG IVPB ×2 (02:18→11:28)
[2022-06-18] MEDS: LEVALBUTEROL NEB 1.25 MG/3 ML INHALATION ×3 (03:03→20:43)
[2022-06-18] MEDS: IPRATROPIUM BR 0.02% INH SOLN 0.5 MG/2.5 ML VIAL INHALATION ×3 (03:04→20:42)
[2022-06-18] MEDS: LEVOTHYROXINE SODIUM 100 MCG TABLET PO (05:26)
[2022-06-18] MEDS: LEVOTHYROXINE SODIUM 75 MCG TABLET PO (05:26)
[2022-06-18 06:01] LABS: Estimated CRCL calculation 89 ml/min; Estimated Glomerular Filt Rate > 60
[2022-06-18 06:06] LABS: Alanine Aminotransferase 14 U/L (6-35); Albumin Level 3.7 g/dL (3.5-5.1); Alkaline Phosphatase 84 U/L (38-126); Anion Gap 4 mmol/L (8-16); Aspartate Amino Transferase 18 U/L (14-36); Bilirubin,Total 1.1 mg/dL (0.2-1.3); Blood Urea Nitrogen 22 mg/dL (7-17); Calcium 8.3 mg/dL (8.4-10.2); Carbon Dioxide 36 mmol/L (22-30); Chloride 99 mmol/L (98-107); Estimated CRCL calculation 89 ml/min; Estimated Glomerular Filt Rate > 60; Glucose 109 mg/dL (65-110); Magnesium 2.1 mg/dL (1.6-2.3); Potassium 3.5 mmol/L (3.4-5.0); Sodium 139 mmol/L (137-145)
[2022-06-18] MEDS: PANTOPRAZOLE 40 MG TABLET PO (08:46)
[2022-06-18] MEDS: ASPIRIN 81 MG CHEWABLE TABLET PO (08:46)
[2022-06-18] MEDS: APIXABAN 5 MG TABLET PO ×2 (08:46→16:27)
[2022-06-18] MEDS: SERTRALINE HCL 25 MG TABLET PO (08:46)
[2022-06-18] MEDS: FLUTICASONE PROPIONATE 0.05% NA SPR 16 GM BTL (*BKC) 1 SPRAY NASAL (08:46)
[2022-06-18] MEDS: DICLOFENAC SODIUM 1% 100 GM GEL (*BKC) 1 APPLIC TOPICAL (08:46)
[2022-06-18] MEDS: METOPROLOL TARTRATE 25 MG TABLET PO ×2 (08:46→20:16)
[2022-06-18] MEDS: TOLNAFTATE 1% POWDER 45 GM BTL 1 APPLIC TOPICAL ×2 (08:47→20:15)
[2022-06-18] MEDS: SODIUM CHLORIDE 0.9% IV 1,000 ML 50 ML IV CONT (08:58)
--- NOTE | 2022-06-18 09:15 | P.CDI_ITS ---
CDI Query Clarified Diagnosis Clarified Diagnosis: Elevated BNP on 06/15/22 lab work. Documented history of CHF. CHF noted on the assessment and plan. Lasix and Entresto listed as home medications. Patient receiving Lasix and Entresto. Chest Xray from 06/15/22 notes Pulmonary Edema. Edema noted in the documentation. Please specify type and acuity of heart failure if known. * Acute * Chronic * Acute on Chronic * Unknown * Systolic * Diastolic * Combined Systolic and Diastolic * Unknown <Tangela Salgado RN - Last Filed: 06/18/22 09:19> Provider Comments chronic systolic and diastolic heart failure <Bhupendra Larios MD - Last Filed: 06/19/22 07:28>
[2022-06-18] MEDS: FLUTICASONE/UMECLIDIN/VILANTER 100-62.5-25 MCG ELLIPTA 1 PUFF INHALATION (09:20)
--- NOTE | 2022-06-18 16:50 | PM.IMPN ---
Progress Note: A&P Assessment and Plan (1) Acute on chronic respiratory failure with hypoxia and hypercapnia: Code(s): J96.21 - Acute and chronic respiratory failure with hypoxia; J96.22 - Acute and chronic respiratory failure with hypercapnia Status: Acute (2) Sepsis: Qualifiers: Sepsis type: sepsis due to unspecified organism Sepsis acute organ dysfunction status: with acute organ dysfunction Severe sepsis acute organ dysfunction type: acute respiratory failure Acute respiratory failure type: with hypoxia Severe sepsis shock status: without septic shock Qualified Code(s): A41.9 - Sepsis, unspecified organism; R65.20 - Severe sepsis without septic shock; J96.01 - Acute respiratory failure with hypoxia Code(s): A41.9 - Sepsis, unspecified organism Status: Acute (3) Healthcare-associated pneumonia: Code(s): J18.9 - Pneumonia, unspecified organism Status: Acute (4) Atrial fibrillation: Qualifiers: Atrial fibrillation type: longstanding persistent Qualified Code(s): I48.11 - Longstanding persistent atrial fibrillation Code(s): I48.91 - Unspecified atrial fibrillation Status: Acute Plan Sepsis with leukocytosis fever tachycardia and pneumonia leukocytosis of 16,000. Continues to improve Acute on chronic hypoxic hypercapnic respiratory failure ABG stable placed on AVAPS. Will slowly taper. Wean oxygen as tolerated normally wears 2 L oxygen at home. Pneumonia treated as healthcare associated pneumonia with cefepime and vancomycin. Added azithromycin for atypical coverage; COVID flu negative Bacteremia Gram-positive cocci in pairs/clusters. Enterococcus faecalis and staphylococci aureus. MRSA nares is positive. repeat blood culture pending Remains on vancomycin and cefepime will continue current coverage. Will switch cefepime to Unasyn for Enterococcus coverage and stop azithromycin Chronic hypercapnic respiratory failure secondary to obesity hypoventilation syndrome obstructive sleep apnea pulmonary hypertension. Placed AVAPS 80 rate of 24 tidal 515 expiratory pressure 5 maximum pressure 15 brain episode 6 maximum inspiratory pressure of 20 inspiratory 1.2 s 4 L of oxygen bled in Acute on chronic heart failure with preserved ejection fraction BNP 2550 which is about baseline. Echo with EF 55-60% 03/19 will start diuresing with IV Lasix will hold diuresis has most likely diagnosis sepsis related to underlying pneumonia and bacteremia Chronic persistent atrial fibrillation with rapid ventricular rate. Metoprolol restarted on a smaller dose because of hypotension Chronic long-term anticoagulation with Eliquis DVT prophylaxis on Eliquis Mild chronic anemia 9-10 baseline Code status: Do not resuscitate as discussed with the patient Subjective Date/time seen: 06/18/22 16:50 Interval history: Feeling better. Remains afebrile. Use BiPAP at night. Cough is still present. Review of Systems Review of Systems: All systems reviewed & are unremarkable except as noted in HPI and below Exam Narrative: GENERAL: Chronically ill-appearing, morbidly obese, in no acute distress, pleasant and cooperative HEAD: Normocephalic, atraumatic. EYES: PERRLA and EOMI. ENT: Nares clear, no rhinorrhea or epistaxis.? Mucous membranes moist. NECK: Supple. CHEST: Coarse breath sounds bilaterally, somewhat diminished, no wheezing HEART: Regular rate and rhythm.? No murmur heard.? Normal peripheral pulses. ABDOMEN: Soft, nontender, nondistended, no guarding or rebound EXTREMITIES: Normal range of motion.+ Pitting edema bilateral lower extremities SKIN: Warm, dry, skin changes consistent with chronic venous stasis bilateral lower extremities NEURO: No focal deficits.? Alert and oriented x3. PSYCH: Normal mood and affect. Objective Data Vital Signs Vital Signs: Vital Signs - 24 hr 06/17/22 20:20 06/17/22 20:56 06/17/22 20:58 Temperature Pulse Rate 90 82 Respiratory Rate 18
[2022-06-18] MEDS: AMPICILLIN SULB 3 GM/NS 100 ML 3 GM/100 ML VIAL IVPB ×2 (17:32→23:09)
[2022-06-18] MEDS: GABAPENTIN 100 MG CAPSULE PO (20:16)
[2022-06-18] MEDS: SIMVASTATIN 20 MG TABLET PO (20:16)
[2022-06-19] VITALS (22 sets, daily range): BP systolic 111–135; BP diastolic 45–62; PULSE 75–126; RESP 14–24; TEMP 35.6–36.8; O2SAT 93–100
[2022-06-19] MEDS: IPRATROPIUM BR 0.02% INH SOLN 0.5 MG/2.5 ML VIAL INHALATION ×4 (02:01→20:24)
[2022-06-19] MEDS: LEVALBUTEROL NEB 1.25 MG/3 ML INHALATION ×4 (02:02→20:24)
[2022-06-19 05:49] LABS: Basophils Percent Auto 0.5 % (0.2-1.2); Eosinophils Absolute Auto 0.6 K/mm3 (0-0.3); Eosinophils Percent Auto 7.8 % (0-4.4); Hemoglobin 8.7 g/dL (12.0-15.0); Immature Granulocyte Absolute 0.04 K/mm3 (0.00-0.031); Immature Granulocyte Percent A 0.5 % (0-0.5); Lymphocytes Absolute Auto 0.61 K/mm3 (0.9-3.2); Lymphocytes Percent Auto 8.1 % (18.3-44.2); Mean Corpuscular Hemoglobin 27.2 pg (26-34); Mean Corpuscular Volume 90.6 fl (80-100); Mean Platelet Volume 9.8 fl (7.4-10.4); Monocytes Absolute Auto 0.8 K/mm3 (0.1-0.6); Monocytes Percent Auto 10.1 % (2.6-8.5); Neutrophils Absolute Auto 5.5 K/mm3 (1.3-6.7); Platelet Count Result 139 k/mm3 (150-375); Red Cell Distribution Width 15.3 % (11.5-14.5); White Blood Count 7.5 K/mm3 (4.5-10.0)
[2022-06-19 06:03] LABS: Alanine Aminotransferase 13 U/L (6-35); Albumin Level 3.6 g/dL (3.5-5.1); Alkaline Phosphatase 91 U/L (38-126); Anion Gap 1 mmol/L (8-16); Aspartate Amino Transferase 18 U/L (14-36); Bilirubin,Total 0.9 mg/dL (0.2-1.3); Blood Urea Nitrogen 15 mg/dL (7-17); Calcium 8.3 mg/dL (8.4-10.2); Carbon Dioxide 37 mmol/L (22-30); Chloride 100 mmol/L (98-107); Estimated CRCL calculation 102 ml/min; Estimated Glomerular Filt Rate > 60; Glucose 102 mg/dL (65-110); Magnesium 2.2 mg/dL (1.6-2.3); Potassium 3.7 mmol/L (3.4-5.0); Sodium 138 mmol/L (137-145)
[2022-06-19] MEDS: LEVOTHYROXINE SODIUM 75 MCG TABLET PO (06:06)
[2022-06-19] MEDS: LEVOTHYROXINE SODIUM 100 MCG TABLET PO (06:06)
[2022-06-19] MEDS: AMPICILLIN SULB 3 GM/NS 100 ML 3 GM/100 ML VIAL IVPB ×2 (06:07→12:29)
[2022-06-19] MEDS: DICLOFENAC SODIUM 1% 100 GM GEL (*BKC) 1 APPLIC TOPICAL ×2 (06:13→21:24)
[2022-06-19] MEDS: TOLNAFTATE 1% POWDER 45 GM BTL 1 APPLIC TOPICAL (08:36)
[2022-06-19] MEDS: SERTRALINE HCL 25 MG TABLET PO (08:36)
[2022-06-19] MEDS: APIXABAN 5 MG TABLET PO ×2 (08:36→17:53)
[2022-06-19] MEDS: FLUTICASONE PROPIONATE 0.05% NA SPR 16 GM BTL (*BKC) 1 SPRAY NASAL (08:36)
[2022-06-19] MEDS: PANTOPRAZOLE 40 MG TABLET PO (08:36)
[2022-06-19] MEDS: ASPIRIN 81 MG CHEWABLE TABLET PO (08:36)
[2022-06-19] MEDS: METOPROLOL TARTRATE 25 MG TABLET PO (08:41)
[2022-06-19] MEDS: FLUTICASONE/UMECLIDIN/VILANTER 100-62.5-25 MCG ELLIPTA 1 PUFF INHALATION (08:41)
--- NOTE | 2022-06-19 13:08 | PM.IMPN ---
Progress Note: A&P Assessment and Plan (1) Acute on chronic respiratory failure with hypoxia and hypercapnia: Code(s): J96.21 - Acute and chronic respiratory failure with hypoxia; J96.22 - Acute and chronic respiratory failure with hypercapnia Status: Acute (2) Sepsis: Qualifiers: Sepsis type: sepsis due to unspecified organism Sepsis acute organ dysfunction status: with acute organ dysfunction Severe sepsis acute organ dysfunction type: acute respiratory failure Acute respiratory failure type: with hypoxia Severe sepsis shock status: without septic shock Qualified Code(s): A41.9 - Sepsis, unspecified organism; R65.20 - Severe sepsis without septic shock; J96.01 - Acute respiratory failure with hypoxia Code(s): A41.9 - Sepsis, unspecified organism Status: Acute (3) Healthcare-associated pneumonia: Code(s): J18.9 - Pneumonia, unspecified organism Status: Acute (4) Atrial fibrillation: Qualifiers: Atrial fibrillation type: longstanding persistent Qualified Code(s): I48.11 - Longstanding persistent atrial fibrillation Code(s): I48.91 - Unspecified atrial fibrillation Status: Acute Plan Sepsis with leukocytosis fever tachycardia and pneumonia leukocytosis of 16,000. Continues to improve Acute on chronic hypoxic hypercapnic respiratory failure ABG stable placed on AVAPS. Will slowly taper. Wean oxygen as tolerated normally wears 2 L oxygen at home. Pneumonia treated as healthcare associated pneumonia with cefepime and vancomycin. Added azithromycin for atypical coverage; COVID flu negative. Will switch antibiotic to Unasyn and vancomycin. For bacteremia she will need to be on vancomycin for both Enterococcus and MRSA. Repeat blood culture pending. So far negative. Bacteremia Gram-positive cocci in pairs/clusters. Enterococcus faecalis and staphylococci aureus. MRSA nares is positive. repeat blood culture pending Remains on vancomycin and cefepime will continue current coverage. Switched cefepime to Unasyn for Enterococcus coverage and stop azithromycin. Continue vancomycin for MRSA and Enterococcus bacteremia Chronic hypercapnic respiratory failure secondary to obesity hypoventilation syndrome obstructive sleep apnea pulmonary hypertension. Placed AVAPS 80 rate of 24 tidal 515 expiratory pressure 5 maximum pressure 15 brain episode 6 maximum inspiratory pressure of 20 inspiratory 1.2 s 4 L of oxygen bled in Acute on chronic heart failure with preserved ejection fraction BNP 2550 which is about baseline. Echo with EF 55-60% 03/19 will start diuresing with IV Lasix will hold diuresis has most likely diagnosis sepsis related to underlying pneumonia and bacteremia. Resume Lasix as previously prescribed Chronic persistent atrial fibrillation with rapid ventricular rate. Metoprolol restarted on a smaller dose because of hypotension now will increase it as moderate intermittently tachycardic. Chronic long-term anticoagulation with Eliquis DVT prophylaxis on Eliquis Mild chronic anemia 9-10 baseline Code status: Do not resuscitate as discussed with the patient Subjective Date/time seen: 06/19/22 13:08 Interval history: no overnight events. Tachycardic in the a.m. with exertion. Otherwise feels well. Still has cough with expectoration. Review of Systems Review of Systems: All systems reviewed & are unremarkable except as noted in HPI and below Exam Narrative: GENERAL: Chronically ill-appearing, morbidly obese, in no acute distress, pleasant and cooperative HEAD: Normocephalic, atraumatic. EYES: PERRLA and EOMI. ENT: Nares clear, no rhinorrhea or epistaxis.? Mucous membranes moist. NECK: Supple. CHEST: Coarse breath sounds bilaterally, somewhat diminished, no wheezing HEART: Regular rate and rhythm.? No murmur heard.? Normal peripheral pulses. ABDOMEN: Soft, nontender, nondistended, no guarding or rebound EXTREMITIES: Normal range of motion.+ Pitting ed
[2022-06-19 18:02] LABS: Vancomycin Trough 14.4 ug/mL (10.0-20.0)
[2022-06-19] MEDS: METOPROLOL TARTRATE 50 MG TAB PO (21:23)
[2022-06-19] MEDS: AMOXICILLIN/CLAVULANATE K 875-125 MG TAB 1 TABLET PO (21:24)
[2022-06-19] MEDS: GABAPENTIN 100 MG CAPSULE PO (21:24)
[2022-06-19] MEDS: SIMVASTATIN 20 MG TABLET PO (21:24)
[2022-06-20] VITALS (24 sets, daily range): BP systolic 121–136; BP diastolic 54–64; PULSE 80–133; RESP 17–28; TEMP 36.1–36.8; O2SAT 92–98
[2022-06-20] MEDS: IPRATROPIUM BR 0.02% INH SOLN 0.5 MG/2.5 ML VIAL INHALATION ×4 (01:11→22:07)
[2022-06-20] MEDS: LEVALBUTEROL NEB 1.25 MG/3 ML INHALATION ×4 (01:11→22:07)
[2022-06-20 05:39] LABS: Basophils Absolute Auto 0.1 K/mm3 (0.0-0.1); Basophils Percent Auto 0.7 % (0.2-1.2); Eosinophils Absolute Auto 0.5 K/mm3 (0-0.3); Eosinophils Percent Auto 6.5 % (0-4.4); Hematocrit 29.8 % (37.0-47.0); Hemoglobin 8.7 g/dL (12.0-15.0); Immature Granulocyte Absolute 0.03 K/mm3 (0.00-0.031); Immature Granulocyte Percent A 0.4 % (0-0.5); Lymphocytes Absolute Auto 0.74 K/mm3 (0.9-3.2); Mean Corpuscular HGB Conc 29.2 g/dl (32-36); Mean Corpuscular Hemoglobin 26.9 pg (26-34); Mean Corpuscular Volume 92.3 fl (80-100); Mean Platelet Volume 10.7 fl (7.4-10.4); Monocytes Absolute Auto 0.9 K/mm3 (0.1-0.6); Neutrophils Absolute Auto 5.9 K/mm3 (1.3-6.7); Neutrophils Percent Auto 72.4 % (45.5-73.1); Platelet Count Result 160 k/mm3 (150-375); Red Blood Count 3.23 M/mm3 (4.2-5.4); Red Cell Distribution Width 14.8 % (11.5-14.5); White Blood Count 8.2 K/mm3 (4.5-10.0)
[2022-06-20 05:43] LABS: Alanine Aminotransferase 17 U/L (6-35); Albumin Level 3.6 g/dL (3.5-5.1); Alkaline Phosphatase 94 U/L (38-126); Anion Gap 2 mmol/L (8-16); Aspartate Amino Transferase 24 U/L (14-36); Blood Urea Nitrogen 14 mg/dL (7-17); Calcium 8.3 mg/dL (8.4-10.2); Carbon Dioxide 38 mmol/L (22-30); Chloride 98 mmol/L (98-107); Estimated CRCL calculation 121 ml/min; Estimated Glomerular Filt Rate > 60; Glucose 102 mg/dL (65-110); Magnesium 2.2 mg/dL (1.6-2.3); Potassium 3.7 mmol/L (3.4-5.0); Sodium 138 mmol/L (137-145)
[2022-06-20] MEDS: LEVOTHYROXINE SODIUM 100 MCG TABLET PO (05:44)
[2022-06-20] MEDS: LEVOTHYROXINE SODIUM 75 MCG TABLET PO (05:44)
[2022-06-20 05:56] LABS: Hypochromasia 1+ (NORMAL); Large Platelets Present; Ovalocytes 1+ (NORMAL); Platelet Estimate Adequate (Adequate); Stomatocytes 1+ (NORMAL)
[2022-06-20 05:57] LABS: Schistocytes None Seen (NORMAL)
[2022-06-20] MEDS: METOPROLOL TARTRATE 50 MG TAB PO ×2 (08:23→21:01)
[2022-06-20] MEDS: ASPIRIN 81 MG CHEWABLE TABLET PO (08:56)
[2022-06-20] MEDS: FLUTICASONE PROPIONATE 0.05% NA SPR 16 GM BTL (*BKC) 1 SPRAY NASAL (08:57)
[2022-06-20] MEDS: APIXABAN 5 MG TABLET PO ×2 (08:57→16:46)
[2022-06-20] MEDS: SERTRALINE HCL 25 MG TABLET PO (08:57)
[2022-06-20] MEDS: PANTOPRAZOLE 40 MG TABLET PO (08:57)
[2022-06-20] MEDS: AMOXICILLIN/CLAVULANATE K 875-125 MG TAB 1 TABLET PO ×2 (08:57→21:02)
[2022-06-20] MEDS: FLUTICASONE/UMECLIDIN/VILANTER 100-62.5-25 MCG ELLIPTA 1 PUFF INHALATION (09:10)
--- NOTE | 2022-06-20 09:43 | WPDPN ---
Progress Note: A&P Assessment and Plan (1) Acute on chronic respiratory failure with hypoxia and hypercapnia: Code(s): J96.21 - Acute and chronic respiratory failure with hypoxia; J96.22 - Acute and chronic respiratory failure with hypercapnia Status: Acute Assessment and Plan: Acute on chronic hypoxic hypercapnic respiratory failure ABG treated with AVAPS. Was able to be tapered to 2L NC while awake. She normally wears 2 L oxygen at home. Chronic hypercapnic respiratory failure secondary to obesity hypoventilation syndrome obstructive sleep apnea pulmonary hypertension. Placed AVAPS [place] related to the PNA. Continue AVAPS at night and with naps. (2) Sepsis: Qualifiers: Acute respiratory failure type: with hypoxia Sepsis acute organ dysfunction status: with acute organ dysfunction Sepsis type: sepsis due to unspecified organism Severe sepsis acute organ dysfunction type: acute respiratory failure Severe sepsis shock status: without septic shock Qualified Code(s): A41.9 - Sepsis, unspecified organism; R65.20 - Severe sepsis without septic shock; J96.01 - Acute respiratory failure with hypoxia Code(s): A41.9 - Sepsis, unspecified organism Status: Acute Assessment and Plan: Sepsis with leukocytosis fever and tachycardia from pneumonia and bacteremia c/w septicemia leukocytosis of 16,700 but now normal. Treated with Vanco and Augmentin currently. Continues to improve (3) Bacteremia: Code(s): R78.81 - Bacteremia Status: Acute Assessment and Plan: Patient presents with symptoms of sepsis and acute respiratory failure. [place] to have pneumonia started on broad-spectrum IV antibiotics. blood culture 421 growing Enterococcus faecalis and MRSA in a robotic bottle. Anaerobic bottle growing MRSA. Second bottle grew Staph epidermidis from the a aerobic and anaerobic fungus all 3 of sensitive to vancomycin. Enterococcus is sensitive to ampicillin. Repeat blood cultures 423 are no growth to date. Continue vancomycin for MRSA and Enterococcus bacteremia Plan IV abx at discharge (4) Healthcare-associated pneumonia: Code(s): J18.9 - Pneumonia, unspecified organism Status: Acute Assessment and Plan: Pneumonia treated as healthcare associated pneumonia CXR 06/15 showing mild-moderate bibasilar pulm edema. Treated with cefepime and vancomycin. Azithromycin added for atypical coverage COVID flu negative. Switched antibiotic to Unasyn and vancomycin. For bacteremia she will need to be on vancomycin for both Enterococcus and MRSA. Weaned to her baseline 2L. CXR 06/17 showing diffuse lung disease with interval improvement. Repeat blood culture 06/17 NGTD (5) Atrial fibrillation: Qualifiers: Atrial fibrillation type: longstanding persistent Qualified Code(s): I48.11 - Longstanding persistent atrial fibrillation Code(s): I48.91 - Unspecified atrial fibrillation Status: Acute Assessment and Plan: Chronic persistent atrial fibrillation with rapid ventricular rate. Metoprolol restarted on a smaller dose because of hypotension increased it as moderate intermittently tachycardic. Chronic long-term anticoagulation with Eliquis HR well controlled today. Continue to monitor on tele (6) CHF (congestive heart failure): Qualifiers: Heart failure chronicity: acute on chronic Heart failure type: unspecified Qualified Code(s): I50.9 - Heart failure, unspecified Code(s): I50.9 - Heart failure, unspecified Status: Acute Assessment and Plan: Acute on chronic heart failure with preserved ejection fraction BNP 2550 which is about baseline. CXR as above Echo with EF 55-60% 03/19 started diuresing with IV Lasix but held diuresis has most likely diagnosis sepsis related to underlying pneumonia and bacteremia. Resume oral Lasix as previously prescribed when able (7) Anemia: Code(s
[2022-06-20] MEDS: TOLNAFTATE 1% POWDER 45 GM BTL 1 APPLIC TOPICAL ×2 (11:28→21:03)
--- NOTE | 2022-06-20 13:31 | PC.NURSE ---
On 06/20/22, the student, [Deedee Chaudhari], provided care and completed [facility] documentation on this patient. I have reviewed the student's documentation and agree with the findings.
[2022-06-20] MEDS: LIDOCAINE HCL 1% PF INJ 5 ML VIAL INFILTRATE (14:30)
[2022-06-20 18:53] LABS: Mycoplasma IgM Antibody Titer 77 U/mL (<770)
[2022-06-20] MEDS: GABAPENTIN 100 MG CAPSULE PO (21:02)
[2022-06-20] MEDS: SIMVASTATIN 20 MG TABLET PO (21:02)
[2022-06-20] MEDS: CENTRAL LINE FLUSH 10 ML IV PUSH (21:02)
[2022-06-20] MEDS: DICLOFENAC SODIUM 1% 100 GM GEL (*BKC) 1 APPLIC TOPICAL (21:03)
[2022-06-21] VITALS (19 sets, daily range): BP systolic 100–130; BP diastolic 44–53; PULSE 60–118; RESP 16–20; TEMP 36.3–36.5; O2SAT 95–99
[2022-06-21 00:11] LABS: Pneumococcal Antigen Urine Not Detected (Not Detected)
[2022-06-21] MEDS: LEVALBUTEROL NEB 1.25 MG/3 ML INHALATION ×4 (02:15→21:10)
[2022-06-21] MEDS: IPRATROPIUM BR 0.02% INH SOLN 0.5 MG/2.5 ML VIAL INHALATION ×4 (02:15→21:10)
[2022-06-21 03:24] LABS: Legionella pneumophila Ag Ur Not Detected (Not Detected)
--- NOTE | 2022-06-21 05:32 | PCRCNOTE ---
Patient was awake the entire night, therefore did not go on bipap.
[2022-06-21] MEDS: CENTRAL LINE FLUSH 10 ML IV PUSH ×2 (06:38→16:20)
[2022-06-21] MEDS: LEVOTHYROXINE SODIUM 75 MCG TABLET PO (06:38)
[2022-06-21] MEDS: LEVOTHYROXINE SODIUM 100 MCG TABLET PO (06:38)
[2022-06-21 06:54] LABS: Basophils Absolute Auto 0.1 K/mm3 (0.0-0.1); Basophils Percent Auto 0.7 % (0.2-1.2); Eosinophils Absolute Auto 0.4 K/mm3 (0-0.3); Hematocrit 30.5 % (37.0-47.0); Hemoglobin 8.9 g/dL (12.0-15.0); Immature Granulocyte Absolute 0.06 K/mm3 (0.00-0.031); Immature Granulocyte Percent A 0.7 % (0-0.5); Lymphocytes Absolute Auto 0.99 K/mm3 (0.9-3.2); Lymphocytes Percent Auto 12.3 % (18.3-44.2); Mean Corpuscular HGB Conc 29.2 g/dl (32-36); Mean Corpuscular Hemoglobin 27.4 pg (26-34); Mean Corpuscular Volume 93.8 fl (80-100); Mean Platelet Volume 9.5 fl (7.4-10.4); Neutrophils Absolute Auto 5.6 K/mm3 (1.3-6.7); Neutrophils Percent Auto 69.3 % (45.5-73.1); Platelet Count Result 158 k/mm3 (150-375); Red Blood Count 3.25 M/mm3 (4.2-5.4); Red Cell Distribution Width 14.9 % (11.5-14.5)
[2022-06-21 07:25] LABS: Alanine Aminotransferase 19 U/L (6-35); Albumin Level 3.5 g/dL (3.5-5.1); Alkaline Phosphatase 92 U/L (38-126); Aspartate Amino Transferase 22 U/L (14-36); Bilirubin,Total 0.7 mg/dL (0.2-1.3); Blood Urea Nitrogen 14 mg/dL (7-17); Calcium 8.7 mg/dL (8.4-10.2); Carbon Dioxide > 40 mmol/L (22-30); Chloride 100 mmol/L (98-107); Estimated CRCL calculation 102 ml/min; Estimated Glomerular Filt Rate > 60; Glucose 112 mg/dL (65-110); Magnesium 2.1 mg/dL (1.6-2.3); Phosphorus 3.3 mg/dL (2.5-4.5); Potassium 3.9 mmol/L (3.4-5.0); Sodium 142 mmol/L (137-145)
[2022-06-21] MEDS: PANTOPRAZOLE 40 MG TABLET PO (08:19)
[2022-06-21] MEDS: METOPROLOL TARTRATE 50 MG TAB PO ×2 (08:19→20:52)
[2022-06-21] MEDS: APIXABAN 5 MG TABLET PO ×2 (08:19→16:24)
[2022-06-21] MEDS: AMOXICILLIN/CLAVULANATE K 875-125 MG TAB 1 TABLET PO ×2 (08:19→20:53)
[2022-06-21] MEDS: ASPIRIN 81 MG CHEWABLE TABLET PO (08:19)
[2022-06-21] MEDS: SERTRALINE HCL 25 MG TABLET PO (08:19)
[2022-06-21] MEDS: FLUTICASONE PROPIONATE 0.05% NA SPR 16 GM BTL (*BKC) 1 SPRAY NASAL (08:20)
[2022-06-21] MEDS: TOLNAFTATE 1% POWDER 45 GM BTL 1 APPLIC TOPICAL ×2 (08:29→20:52)
[2022-06-21] MEDS: FLUTICASONE/UMECLIDIN/VILANTER 100-62.5-25 MCG ELLIPTA 1 PUFF INHALATION (09:49)
--- NOTE | 2022-06-21 16:19 | PM.DS ---
DS: Admitting Diagnosis Discharge Date 06/22/22 Admitting Diagnosis Hypoxia DS: Discharge Diagnosis Discharge Diagnosis (1) Acute on chronic respiratory failure with hypoxia and hypercapnia: Code(s): J96.21 - Acute and chronic respiratory failure with hypoxia; J96.22 - Acute and chronic respiratory failure with hypercapnia Status: Acute (2) Sepsis: Qualifiers: Acute respiratory failure type: with hypoxia Sepsis acute organ dysfunction status: with acute organ dysfunction Sepsis type: sepsis due to unspecified organism Severe sepsis acute organ dysfunction type: acute respiratory failure Severe sepsis shock status: without septic shock Qualified Code(s): A41.9 - Sepsis, unspecified organism; R65.20 - Severe sepsis without septic shock; J96.01 - Acute respiratory failure with hypoxia Code(s): A41.9 - Sepsis, unspecified organism Status: Acute (3) Bacteremia: Code(s): R78.81 - Bacteremia Status: Acute (4) Healthcare-associated pneumonia: Code(s): J18.9 - Pneumonia, unspecified organism Status: Acute (5) Atrial fibrillation: Qualifiers: Atrial fibrillation type: longstanding persistent Qualified Code(s): I48.11 - Longstanding persistent atrial fibrillation Code(s): I48.91 - Unspecified atrial fibrillation Status: Acute (6) CHF (congestive heart failure): Qualifiers: Heart failure chronicity: acute on chronic Heart failure type: unspecified Qualified Code(s): I50.9 - Heart failure, unspecified Code(s): I50.9 - Heart failure, unspecified Status: Acute (7) Anemia: Code(s): D64.9 - Anemia, unspecified Status: Acute DS: Summary Hospital Course Reason for hospitalization: 77yo female with CKD, ch resp failure (2L), COPD and CHF here for hypoxia. Please see H&P for details. Hospital Course: Acute on chronic hypoxic hypercapnic respiratory failure noted by ABG treated with AVAPS. Was able to be tapered to 2L NC while awake. She normally wears 2 L oxygen at home. Chronic hypercapnic respiratory failure secondary to obesity hypoventilation syndrome, ROCEAL, and pulmonary hypertension.?Acute process related to the PNA. Sepsis with leukocytosis fever and tachycardia from pneumonia and bacteremia c/w septicemia. WBC of 16,700 but now normal. Patient presents with symptoms of sepsis and acute respiratory failure.? [place] to have pneumonia started on broad-spectrum IV antibiotics. blood culture 06/15 growing Enterococcus faecalis and MRSA in a aerobic bottle.? Anaerobic bottle growing MRSA.? Second bottle grew Staph epidermidis from the aerobic and anaerobic with all 3 microorganisms sensitive to vancomycin.? Enterococcus is sensitive to ampicillin.?Treated with?vancomycin and Unayn for MRSA and Enterococcus bacteremia. Pneumonia treated as healthcare associated pneumonia. CXR 06/15 showing mild-moderate bibasilar pulm edema. Treated initially with cefepime and vancomycin.? Azithromycin added for atypical coverage. COVID and flu negative.?Switched antibiotic to Unasyn and vancomycin when BCx results known. Repeat blood culture 06/17 NGTD. Chronic persistent atrial fibrillation with rapid ventricular rate.? Metoprolol restarted on a smaller dose because of hypotension but able to increase it as able. Chronic long-term anticoagulation with Eliquis Acute on chronic heart failure with preserved ejection fraction. BNP 2550 which is about baseline.? CXR as above. Echo 03/19/22 with EF 55-60%. Started diuresing with IV Lasix but held diuresis has most likely diagnosis sepsis related to underlying pneumonia and bacteremia.?Blood pressure was soft and some medications held. Able to resume medications as toelrated. She overall did well and was able to be discharged. Status at Discharge Cognitive/behavioral status at discharge: Stable Time Spent with Patient Time attestation: Total time spent providing and/or coordinating discharg
[2022-06-21] MEDS: ACETAMINOPHEN 325 MG TABLET 650 MG PO (16:24)
--- NOTE | 2022-06-21 17:14 | P.PNIM_ITS ---
Progress Note: A&P Assessment and Plan (1) Acute on chronic respiratory failure with hypoxia and hypercapnia: Code(s): J96.21 - Acute and chronic respiratory failure with hypoxia; J96.22 - Acute and chronic respiratory failure with hypercapnia Status: Acute Assessment and Plan: Acute on chronic hypoxic hypercapnic respiratory failure ABG treated with AVAPS. Was able to be tapered to 2L NC while awake. She normally wears 2 L oxygen at home. Chronic hypercapnic respiratory failure secondary to obesity hypoventilation syndrome obstructive sleep apnea pulmonary hypertension. Placed AVAPS [place] related to the PNA. Continue AVAPS at night and with naps. (2) Sepsis: Qualifiers: Acute respiratory failure type: with hypoxia Sepsis acute organ dysfunction status: with acute organ dysfunction Sepsis type: sepsis due to unspecified organism Severe sepsis acute organ dysfunction type: acute respiratory failure Severe sepsis shock status: without septic shock Qualified Code(s): A41.9 - Sepsis, unspecified organism; R65.20 - Severe sepsis without septic shock; J96.01 - Acute respiratory failure with hypoxia Code(s): A41.9 - Sepsis, unspecified organism Status: Acute Assessment and Plan: Sepsis with leukocytosis fever and tachycardia from pneumonia and bacteremia c/w septicemia leukocytosis of 16,700 but now normal. Treated with Vanco and Augmentin currently. Continues to improve (3) Bacteremia: Code(s): R78.81 - Bacteremia Status: Acute Assessment and Plan: Patient presents with symptoms of sepsis and acute respiratory failure. [place] to have pneumonia started on broad-spectrum IV antibiotics. blood culture 421 growing Enterococcus faecalis and MRSA in a robotic bottle. Anaerobic bottle growing MRSA. Second bottle grew Staph epidermidis from the a aerobic and anaerobic fungus all 3 of sensitive to vancomycin. Enterococcus is sensitive to ampicillin. Repeat blood cultures 423 are no growth to date. Continue vancomycin for MRSA and Enterococcus bacteremia Plan IV abx at discharge (4) Healthcare-associated pneumonia: Code(s): J18.9 - Pneumonia, unspecified organism Status: Acute Assessment and Plan: Pneumonia treated as healthcare associated pneumonia CXR 06/15 showing mild-moderate bibasilar pulm edema. Treated with cefepime and vancomycin. Azithromycin added for atypical coverage COVID flu negative. Switched antibiotic to Unasyn and vancomycin. For bacteremia she will need to be on vancomycin for both Enterococcus and MRSA. Weaned to her baseline 2L. CXR 06/17 showing diffuse lung disease with interval improvement. Repeat blood culture 06/17 NGTD (5) Atrial fibrillation: Qualifiers: Atrial fibrillation type: longstanding persistent Qualified Code(s): I48.11 - Longstanding persistent atrial fibrillation Code(s): I48.91 - Unspecified atrial fibrillation Status: Acute Assessment and Plan: Chronic persistent atrial fibrillation with rapid ventricular rate. Metoprolol restarted on a smaller dose because of hypotension increased it as moderate intermittently tachycardic. Chronic long-term anticoagulation with Eliquis HR well controlled today. Continue to monitor on tele (6) CHF (congestive heart failure): Qualifiers: Heart failure chronicity: acute on chronic Heart failure type: unspecified Qualified Code(s): I50.9 - Heart failure, unspecified Code(s): I50.9 - Heart failure, unspecified Status: Acute Assessment and Plan:
[2022-06-21] MEDS: FUROSEMIDE 40 MG TABLET PO (18:31)
[2022-06-21] MEDS: GABAPENTIN 100 MG CAPSULE PO (20:52)
[2022-06-21] MEDS: DICLOFENAC SODIUM 1% 100 GM GEL (*BKC) 1 APPLIC TOPICAL (20:52)
[2022-06-21] MEDS: SACUBITRIL/VALSARTAN 49-51 MG TABLET 1 TABLET PO (20:52)
[2022-06-21] MEDS: SIMVASTATIN 20 MG TABLET PO (20:52)
[2022-06-22] VITALS (13 sets, daily range): BP systolic 108–124; BP diastolic 49–60; PULSE 67–94; RESP 16–20; TEMP 36.4–36.6; O2SAT 90–97
[2022-06-22 02:04] LABS: Vancomycin Trough 18.4 ug/mL (10.0-20.0)
[2022-06-22] MEDS: LEVALBUTEROL NEB 1.25 MG/3 ML INHALATION ×2 (03:10→09:04)
[2022-06-22] MEDS: IPRATROPIUM BR 0.02% INH SOLN 0.5 MG/2.5 ML VIAL INHALATION ×2 (03:10→09:03)
[2022-06-22] MEDS: LEVOTHYROXINE SODIUM 100 MCG TABLET PO (05:36)
[2022-06-22] MEDS: LEVOTHYROXINE SODIUM 75 MCG TABLET PO (05:36)
[2022-06-22] MEDS: CENTRAL LINE FLUSH 10 ML IV PUSH ×3 (05:36→12:55)
[2022-06-22 06:04] LABS: Hematocrit 30.6 % (37.0-47.0); Hemoglobin 8.5 g/dL (12.0-15.0); Mean Corpuscular HGB Conc 27.8 g/dl (32-36); Mean Corpuscular Hemoglobin 26.4 pg (26-34); Mean Platelet Volume 9.6 fl (7.4-10.4); Platelet Count Result 156 k/mm3 (150-375); Red Blood Count 3.22 M/mm3 (4.2-5.4); Red Cell Distribution Width 14.7 % (11.5-14.5); White Blood Count 7.9 K/mm3 (4.5-10.0)
[2022-06-22] MEDS: FLUTICASONE/UMECLIDIN/VILANTER 100-62.5-25 MCG ELLIPTA 1 PUFF INHALATION (09:04)
[2022-06-22 09:18] LABS: Blood Urea Nitrogen 15 mg/dL (7-17); Calcium 8.2 mg/dL (8.4-10.2); Carbon Dioxide > 40 mmol/L (22-30); Chloride 99 mmol/L (98-107); Estimated CRCL calculation 89 ml/min; Estimated Glomerular Filt Rate > 60; Glucose 117 mg/dL (65-110); Potassium 3.8 mmol/L (3.4-5.0); Sodium 140 mmol/L (137-145)
[2022-06-22] MEDS: METOPROLOL TARTRATE 50 MG TAB PO (09:39)
[2022-06-22] MEDS: APIXABAN 5 MG TABLET PO ×2 (09:39→17:45)
[2022-06-22] MEDS: TOLNAFTATE 1% POWDER 45 GM BTL 1 APPLIC TOPICAL (09:39)
[2022-06-22] MEDS: PANTOPRAZOLE 40 MG TABLET PO (09:39)
[2022-06-22] MEDS: ASPIRIN 81 MG CHEWABLE TABLET PO (09:39)
[2022-06-22] MEDS: SERTRALINE HCL 25 MG TABLET PO (09:39)
[2022-06-22] MEDS: SACUBITRIL/VALSARTAN 49-51 MG TABLET 1 TABLET PO (09:39)
[2022-06-22] MEDS: AMOXICILLIN/CLAVULANATE K 875-125 MG TAB 1 TABLET PO (09:39)
[2022-06-22] MEDS: FUROSEMIDE 40 MG TABLET PO (09:39)
[2022-06-22] MEDS: FLUTICASONE PROPIONATE 0.05% NA SPR 16 GM BTL (*BKC) 1 SPRAY NASAL (09:39)
--- NOTE | 2022-06-22 11:19 | PCNWS ---
Weekly nutritional screen. Patient is tolerating current diet with adequate intake. No weight loss reported. No nutritional needs at this time.
[2022-06-22 15:02] LABS: EDCOVIDSCREEN Negative (Negative)
--- NOTE | 2022-06-22 15:49 | PC.NURSE ---
called [place] three times to give report to nurse. Gave name and call back number for nurse to call me back. Made them aware that ambulance has been called
== END 2022-06-22 20:04 | DRG 871 ==
LOC: ANHED 20:51 → ANH2MED 23:36
PROVIDERS: Internal Medicine; Admitting Provider Internal Medicine; Emergency Provider Emergency Medicine; PCP Internal Medicine; Visit Provider Internal Medicine
DX: A41.02 Sepsis due to Methicillin resistant Staphylococcus aureus (principal); I50.33 Acute on chronic diastolic (congestive) heart failure; J18.9 Pneumonia, unspecified organism; J96.21 Acute and chronic respiratory failure with hypoxia; I48.11 Longstanding persistent atrial fibrillation; J44.0 Chronic obstructive pulmonary disease with (acute) lower respiratory infection; I13.0 Hypertensive heart and chronic kidney disease with heart failure and stage 1 through stage 4 chronic kidney disease, or unspecified chronic kidney disease; E66.2 Morbid (severe) obesity with alveolar hypoventilation; Z68.42 Body mass index [BMI] 45.0-49.9, adult; R65.20 Severe sepsis without septic shock; I50.9 Heart failure, unspecified; N18.30 Chronic kidney disease, stage 3 unspecified; Z99.81 Dependence on supplemental oxygen; K21.9 Gastro-esophageal reflux disease without esophagitis; D63.1 Anemia in chronic kidney disease; E78.5 Hyperlipidemia, unspecified; Z20.822 Contact with and (suspected) exposure to COVID-19; Z79.01 Long term (current) use of anticoagulants; Z79.899 Other long term (current) drug therapy
CPT/HCPCS: 36415; 36569; 36600; 71045; 80048; 80053; 80202; 81001; 82565; 82805; 83605; 83735; 83880; 84100; 84145; 84484; 85025; 85027; 85055; 85610; 85730; 86738; 87040; 87081; 87147; 87181; 87186; 87426; 87449; 87636; 87899; 93005; 94002; 94640; 96375; 99285; A9270; C1751; C9803; J0295; J0456; J0692; J3370; J7030; J7040

== ENCOUNTER 2022-06-30 14:32 | Inpatient (IN) | payer OTHER, MEDICAID, SELFPAY ==
--- NOTE | ~2022-06-30 | US_ITS ---
EXAMINATION: US renal BI DATE: 07/01/2022 10:31 INDICATION: Acute kidney injury. TECHNIQUE: Multiple ultrasound grayscale images of the kidneys were obtained. COMPARISON: None. FINDINGS: The right kidney measures 9.4 x 5.7 x 4.8 cm. The left kidney measures 10.1 x 6.2 x 4.9 cm. The kidne ys demonstrate normal parenchymal echogenicity. There is no hydronephrosis. The bladder is decompress ed by a Londono catheter. IMPRESSION: 1. Normal kidney sizes. No hydronephrosis. Reviewed, dictated and finalized at location A.
--- NOTE | ~2022-06-30 | XR_ITS ---
EXAMINATION: XR chest 1V portable DATE: 06/30/2022 14:59 INDICATION: Weakness. TECHNIQUE: A single frontal view of the chest was obtained. COMPARISON: Chest single view 06/20/2022 FINDINGS: There are airspace opacities at the lung bases. There are small pleural effusions. No pneum othorax. Cardiomegaly is noted. A right upper extremity peripherally inserted central venous catheter (PICC) is seen with tip in the superior vena cava. IMPRESSION: 1. Stable airspace opacities at the lung bases, consistent with atelectasis versus pneumonia. 2. Stable small pleural effusions. 3. Cardiomegaly. Reviewed, dictated and finalized at location A. IMPRESSION: 1. Stable airspace opacities at the lung bases, consistent with atelectasis graciela prashant pneumonia. 2. Stable small pleural effusions. 3. Cardiomegaly.
[2022-06-30 14:28] VITALS: BP 110/48; PULSE 74; RESP 16
[2022-06-30 14:37] VITALS: O2SAT 86
[2022-06-30 14:38] VITALS: PULSE 77; O2SAT 95
--- NOTE | 2022-06-30 14:41 | ECG_ITS ---
Measurements Intervals [place] Rate: 77 P: CO: 0 QRS: 109 QRSD: 91 T: 69 QT: 382 QTc: 434 Interpretive Statements ATRIAL FIBRILLATION RIGHT AXIS DEVIATION LOW QRS VOLTAGE IN PRECORDIAL LEADS BASELINE ARTIFACT- I, III, AVR, AVL, V1-V3 ABNORMAL ECG COMPARED TO ECG 06/15/2022 21:22:50 NO SIGNIFICANT CHANGES Electronically Signed On 06-30-2022 15:59:39 CDT by Lavon Tesfaye D.O.
[2022-06-30 14:59] LABS: Basophils Absolute Auto 0.1 K/mm3 (0.0-0.1); Basophils Percent Auto 0.6 % (0.2-1.2); Eosinophils Absolute Auto 0.2 K/mm3 (0-0.3); Eosinophils Percent Auto 1.8 % (0-4.4); Hemoglobin 7.8 g/dL (12.0-15.0); Immature Granulocyte Absolute 0.04 K/mm3 (0.00-0.031); Immature Granulocyte Percent A 0.5 % (0-0.5); Lymphocytes Absolute Auto 0.64 K/mm3 (0.9-3.2); Lymphocytes Percent Auto 7.8 % (18.3-44.2); Mean Corpuscular HGB Conc 28.9 g/dl (32-36); Mean Corpuscular Volume 93.4 fl (80-100); Mean Platelet Volume 9.9 fl (7.4-10.4); Monocytes Absolute Auto 0.8 K/mm3 (0.1-0.6); Monocytes Percent Auto 9.3 % (2.6-8.5); Neutrophils Absolute Auto 6.6 K/mm3 (1.3-6.7); Platelet Count Result 170 k/mm3 (150-375); Red Blood Count 2.89 M/mm3 (4.2-5.4); Red Cell Distribution Width 15.6 % (11.5-14.5); White Blood Count 8.2 K/mm3 (4.5-10.0)
[2022-06-30 15:09] LABS: Alanine Aminotransferase 14 U/L (6-35); Albumin Level 3.3 g/dL (3.5-5.1); Alkaline Phosphatase 87 U/L (38-126); Anion Gap 7 mmol/L (8-16); Aspartate Amino Transferase 16 U/L (14-36); Bilirubin,Total 0.5 mg/dL (0.2-1.3); Blood Urea Nitrogen 64 mg/dL (7-17); Calcium 6.9 mg/dL (8.4-10.2); Carbon Dioxide 34 mmol/L (22-30); Chloride 98 mmol/L (98-107); Estimated Glomerular Filt Rate 6; Glucose 133 mg/dL (65-110); INR 1.8; Potassium 4.3 mmol/L (3.4-5.0); Sodium 139 mmol/L (137-145)
[2022-06-30 15:10] LABS: Partial Thromboplastin Time 47.2 SECONDS (22.3-36.8)
[2022-06-30 15:46] LABS: Appearance Urine Cloudy (Clear); Bacteria Urine None Seen /hpf; Bilirubin Urine Negative (Negative); Blood Urine 2+ (Negative); Budding Yeast Urine Present /hpf; Color Urine Yellow (Yellow); Glucose Urine UA Negative (Negative); Ketones Urine Negative (Negative); Leukocyte Esterase Ur 2+ LEU/UL (Negative); Nitrate Urine Negative (Negative); Protein Urine 1+ mg/dL (Negative); Specific Grav Ur 1.012 (1.001-1.035); Squamous Epithelial Cell Urine None seen /hpf (Few); Urobilinogen Urine 0.2 mg/dL (<2.0); WBC Urine 51-100 /hpf
[2022-06-30 15:47] LABS: Add Urine Microscopic? YES
--- NOTE | 2022-06-30 15:52 | ED.GENADULT ---
HPI - General Adult General Chief complaint: Weakness Stated complaint: weakness History of Present Illness HPI narrative: Patient is a 77-year-old female who presents ER with weakness and muscle cramping. Patient recently was admitted and was bacteremic. She has a PICC line in her right arm and is receiving vancomycin. She reports she has not been receiving medication due to high levels recently. Patient reports she has not been urinating over the last few days which is atypical for her. No chest pain or chest pressure. No fevers or chills or sweats. She reports she is having body aches and is unsure why. No alleviating factors. Patient also reports increased edema to bilateral lower extremities. Patient takes Entresto as well as Lasix 80 mg twice daily. Related Data Home Medications Medication Instructions Recorded Confirmed albuterol sulfate 90 mcg/actuation 1 puff inhalation Q4H PRN SOB 04/05/21 06/16/22 aerosol inhaler fluticasone propionate 50 50 mcg intranasal DAILY 04/05/21 06/16/22 mcg/actuation nasal spray,suspension simvastatin 20 mg tablet 20 mg PO HS 04/05/21 06/16/22 apixaban 5 mg tablet (Eliquis) 5 mg PO BID 06/13/21 06/16/22 furosemide 40 mg tablet 80 mg PO BID 03/26/22 06/16/22 gabapentin 100 mg capsule 100 mg PO HS 03/26/22 06/16/22 ipratropium bromide 0.02 % 1 mcg inhalation Q6H PRN Shortness 03/26/22 06/16/22 solution for inhalation Of Breath sacubitril 49 mg-valsartan 51 mg 1 tablet PO BID 03/26/22 06/16/22 tablet (Entresto) acetaminophen 650 mg tablet 650 mg PO Q6H PRN Pain 03/27/22 06/16/22 diclofenac sodium 1 % topical gel 2 g topical QID PRN osteoarthritis 03/27/22 06/16/22 bisacodyl 10 mg rectal suppository 10 mg RECTAL PRN PRN Constipation 06/16/22 06/16/22 fluticasone fur. 100 mcg-umeclid 1 inh inhalation DAILY 06/16/22 06/16/22 62.5 mcg-vilant 25 mcg inhalat.powder (Trelegy Ellipta) levothyroxine 175 mcg tablet 175 mcg PO DAILY 06/16/22 06/16/22 magnesium hydroxide 400 mg/5 mL 30 ml PO PRN PRN Constipation 06/16/22 06/16/22 oral suspension (Milk of Magnesia) sertraline 50 mg tablet (Zoloft) 25 mg PO DAILY 06/16/22 06/16/22 metoprolol tartrate 50 mg tablet 50 mg PO BID 06/17/22 06/17/22 Allergies Allergy/AdvReac Type Severity Reaction Status Date / Time cephalexin Allergy Unknown Verified 06/30/22 14:40 Review of Systems Review of Systems: All systems reviewed & are unremarkable except as noted in HPI and below Constitutional: Constitutional: Denies chills, Reports fatigue and Denies fever(s) ENT: Denies sore throat Cardiovascular: Cardiovascular: Denies chest pain, Denies rapid heart rate and Denies radiating jaw, neck or arm pain Respiratory: Respiratory: Denies cough and Denies dyspnea Gastrointestinal: Gastrointestinal: Denies abdominal pain, Denies diarrhea, Denies nausea and Denies vomiting Genitourinary: Genitourinary: Denies dysuria and Denies flank pain Comments: Decreased urination Musculoskeletal: Musculoskeletal: Denies arthralgias, Denies joint swelling and Reports muscle cramps [facility] Past Medical History Medical History (Updated 06/30/22 @ 18:18 by Bruce Dutta MD) Anxiety Chronic anticoagulation Chronic kidney disease, stage 3 Chronic obstructive pulmonary disease Chronic respiratory failure Evidence both chronic hypoxic and hypercapnic respiratory failure by ABGs. Not on home oxygen. Congestive heart failure Echocardiogram on 11/07/2018 showed an LV systolic function at the lower limit of normal with an EF estimated 50 to 55%, severe biatrial enlargement, normal RV systolic pressure, and mild tricuspid regurgitation. With repeat echocardiogram 05/2021 demonstrating stable findings Deep venous thrombosis Degenerative joint disease Gastroesophageal reflux disease History of peptic ulcer Hypertension Hypothyroidism Morbid obesity Obesity hypoventilation syndrome Peripheral arterial disease Arterial Dopplers of the lower extre
[2022-06-30] MEDS: SODIUM CHLORIDE 0.9% IV 500 ML 999 ML IV CONT (16:06)
--- NOTE | 2022-06-30 17:10 | PC.NURSE ---
This patient, Lavern Roland, was admitted to 3 [facility] Surg Room 312-01. Patient/family oriented to hospital policies and general routines including ID bracelet, bed and alarms, visiting hours, pain management, procedures, bathroom and other care routines, personal items, smoking policy, room service/diet, and visiting hours. Report received from Pamela SAWYER Information on how to activate the Rapid Response Team has been discussed. Patient/Family are encouraged to report perceived risks to care and to ask questions if they do not understand what they are told or what they should do.
[2022-06-30 17:20] VITALS: BP 118/42; PULSE 78; RESP 18; TEMP 36.7; O2SAT 100
[2022-06-30 17:30] VITALS: O2SAT 100
[2022-06-30 17:41] VITALS: BMI 50.3
[2022-06-30] MEDS: SODIUM CHLORIDE 0.9% IV 1,000 ML 75 ML IV CONT (18:34)
[2022-06-30] MEDS: CENTRAL LINE FLUSH 20 ML IV PUSH (18:45)
[2022-06-30 19:00] LABS: Complement C3 97 mg/dL (88-165)
[2022-06-30 19:16] LABS: CRP 6.1 mg/dL (<1.0); Creatine Kinase 34 U/L (30-135); Magnesium 1.7 mg/dL (1.6-2.3); Phosphorus 6.7 mg/dL (2.5-4.5)
[2022-06-30 19:21] LABS: Vancomycin Random 31.8 ug/mL (10-20)
[2022-06-30 19:36] LABS: Erythrocyte Sedimentation Rate 106 mm/hr (0-20)
[2022-06-30 21:04] VITALS: BP 101/57; PULSE 82; RESP 16; TEMP 36.6; O2SAT 98
[2022-06-30] MEDS: CALCIUM GLUC 1,000 MG/NS 50 ML 1,000 MG/50 ML BAG 100 MG IVPB (21:54)
[2022-06-30] MEDS: CENTRAL LINE FLUSH 10 ML IV PUSH (21:55)
[2022-06-30 23:06] LABS: Eosinophil Urine None Seen % (None Seen); Urine Eos QC 2nd Tech Confirmed
[2022-06-30 23:27] LABS: Total Protein Urine Random 67 mg/dL
--- NOTE | 2022-06-30 23:27 | PM.IMHP ---
H&P: HPI History of Present Illness Date/Time: 06/30/22 16:30 Chief Complaint: Weakness. Narrative: This is a very pleasant 77-year-old female with multiple medical problems including chronic obstructive pulmonary disease, chronic hypercarbic respiratory failure, heart failure with preserved ejection fraction,, atrial fibrillation, hypertension, dyslipidemia, peripheral arterial disease, and hypothyroidism who presented to the emergency department via EMS from [facility] for evaluation of weakness. The patient provides the following history. She was very recently admitted to the hospital on 06/15/2022 with sepsis and pneumonia. She was started on broad-spectrum antibiotics and diuresed with IV Lasix for swelling and pulmonary edema. She tolerated the Lasix well and her creatinine actually improved with diuresis to 0.9 on discharge. Blood cultures came back positive for Enterococcus faecalis, Staph epidermidis, and MRSA (all sensitive to vancomycin) and she was [facility] to [facility] on 06/21/2022 with a PICC line in place to receive vancomycin through June 30. She was also discharged on Augmentin which she completed on the . She has received only 3 doses of vancomycin at the [facility] facility due to persistently elevated vancomycin levels. About 3 to 4 days ago the patient started to complain of difficulties urinating and she noticed a drastic decrease in her urine output. She has gotten increasingly weak the last several days and she requested that she be sent into the ER for evaluation. She denies fever, chills, sweats, confusion, chest pain, worsening shortness of breath from baseline, abdominal pain, nausea, vomiting, diarrhea, and dysuria (though she has not urinated much). In the ED: She was afebrile on arrival with stable vital signs. Labs were significant for WBC count of 8.2, hemoglobin 7.8, sodium 139, potassium 4.3, BUN 64, creatinine 6.40, calcium 6.9, phosphorus 6.7, magnesium 1.7, and normal LFTs. Urine obtained via straight catheterization in the ED (urine was dark and only 50 mL was obtained) showed 1+ protein, 2+ blood, 2+ esterase, 11 to 20 RBC, 51 to 100 WBC, 6 to 10 casts, and budding yeast. Chest x-ray showed stable airspace opacities in the lung bases consistent with atelectasis versus pneumonia and stable small pleural effusions. She was given a 500 mL bolus of normal saline and she was started on maintenance IV fluids at 75 mL an hour. Review of Systems Review of Systems: Twelve systems were reviewed. She is not feel any more short of breath now than usual. She denies cold and flu symptoms. She has not had any significant coughing. No chest or pleuritic pain. No calf pain. No back or abdominal pain. Except as documented, all other systems were reviewed and are negative. [facility] Past Medical History Medical History Anxiety Chronic anticoagulation Chronic kidney disease, stage 3 Chronic obstructive pulmonary disease Chronic respiratory failure Evidence both chronic hypoxic and hypercapnic respiratory failure by ABGs. Not on home oxygen. Congestive heart failure Echocardiogram on 11/07/2018 showed an LV systolic function at the lower limit of normal with an EF estimated 50 to 55%, severe biatrial enlargement, normal RV systolic pressure, and mild tricuspid regurgitation. With repeat echocardiogram 05/2021 demonstrating stable findings Deep venous thrombosis Degenerative joint disease Gastroesophageal reflux disease History of peptic ulcer Hypertension Hypothyroidism Morbid obesity Obesity hypoventilation syndrome Peripheral arterial disease Arterial Dopplers of the lower extremities in January 2019 showed occlusion distally. Peripheral angiogram showed 1 vessel runoff bilaterally though no indication for intervention due to collaterals. Reports chronic pain and legs though not debilitating and she is not interested in surgical interventi
[2022-07-01] VITALS (7 sets, daily range): BP systolic 102–114; BP diastolic 40–52; PULSE 71–87; RESP 14–24; TEMP 35.7–36.4; O2SAT 96–100
[2022-07-01 00:56] LABS: Potassium Urine Random 14.2 meq/L; Sodium Urine Random 56 meq/L
[2022-07-01] MEDS: LEVOTHYROXINE SODIUM 75 MCG TABLET PO (05:49)
[2022-07-01] MEDS: CENTRAL LINE FLUSH 10 ML IV PUSH ×3 (05:50→22:00)
[2022-07-01] MEDS: LEVOTHYROXINE SODIUM 100 MCG TABLET PO (05:50)
[2022-07-01 05:59] LABS: Anion Gap 7 mmol/L (8-16); Blood Urea Nitrogen 68 mg/dL (7-17); Calcium 6.8 mg/dL (8.4-10.2); Carbon Dioxide 34 mmol/L (22-30); Chloride 100 mmol/L (98-107); Estimated CRCL calculation 11 ml/min; Estimated Glomerular Filt Rate 7; Glucose 94 mg/dL (65-110); Potassium 4.4 mmol/L (3.4-5.0); Sodium 141 mmol/L (137-145)
[2022-07-01] MEDS: TOLNAFTATE 1% POWDER 45 GM BTL 1 APPLIC TOPICAL ×2 (08:35→21:33)
[2022-07-01] MEDS: MICONAZOLE NITRATE 2% CREAM 30 GM TUBE 1 APPLIC TOPICAL ×2 (08:35→21:33)
[2022-07-01] MEDS: APIXABAN 5 MG TABLET PO (08:36)
[2022-07-01] MEDS: ASPIRIN 81 MG CHEWABLE TABLET PO (08:36)
[2022-07-01] MEDS: SERTRALINE HCL 25 MG TABLET PO (08:37)
[2022-07-01] MEDS: FLUTICASONE PROPIONATE 0.05% NA SPR 16 GM BTL (*BKC) 2 SPRAY NASAL (08:37)
--- NOTE | 2022-07-01 08:37 | PCRCNOTE ---
RT entered room to give pt DPI and found pt to be sleeping. When trying to wake pt, she was very hard to arouse and after several minutes the pt still was extremely out of it. Pt could not put lips around inhaler and inhale after being instructed many times. This is not pt's normal cognitive baseline. Pt is satting 100% on 3L home 02. RN not logged in so RT informed charge preparation technician of this encounter.
[2022-07-01] MEDS: METOPROLOL TARTRATE 50 MG TAB PO ×2 (08:38→21:32)
[2022-07-01] MEDS: SODIUM CHLORIDE 0.9% IV 1,000 ML 75 ML IV CONT ×2 (10:12→23:35)
--- NOTE | 2022-07-01 13:35 | P.CONNP_ITS ---
Assessment and Plan Assessment and plan (1) Acute kidney injury: Code(s): N17.9 - Acute kidney failure, unspecified Status: Resolved Assessment and Plan: * etiology not clear * possibilities include: * acute interstitial nephritis from medications/antibiotics * possible prerenal factors (since on diuretics) * concurrent BP/cardiac medications (entresto) * possible ATN * other (?) * evaluation to date: * renal ultrasound without acute issues * urine electrolytes non-prerenal * urine eosinophils negative * no peripheral eosinophilia on differential of CBC * complements negative * unfortunately, still not make much urine despite IVFs * however, volume status stable, no critical electrolytes, and no metabolic acidosis * nevertheless, she remains at high risk for needed DEVELOPMENT MGR/dialysis if her renal function does not improve * follow repeat labs and UOP (2) Bacteremia: Code(s): R78.81 - Bacteremia Status: Acute Assessment and Plan: * as noted on previous hospitalization * culture at that time included MRSA, Staph epidermidis, and Enterococcus faecalis * PICC line in place * elevated random vancomycin level noted * follow repeat cultures (3) Chronic anemia: Code(s): D64.9 - Anemia, unspecified Status: Acute Assessment and Plan: * due to recent acute illness/hospitalization * unfortunately, LAURA/ARF has not likely helped this issue * follow trend of H/H * consider empiric Epogen (4) Heart failure with reduced ejection fraction: Code(s): I50.20 - Unspecified systolic (congestive) heart failure Status: Chronic Assessment and Plan: * appear compensated at this time * however, entresto and diuretics on hold due to #1 * monitor volume status closely with LAURA and IVF hydration (5) Chronic respiratory failure: Code(s): J96.10 - Chronic respiratory failure, unspecified whether with hypoxia or hypercapnia Status: Chronic Assessment and Plan: * relatively stable at this time * continue chronic supplemental oxygen I had a very long and lengthy discussion (> 25 minutes) with the patient's daughter/aftyd-rj-gfxgvvzf (Ester) regarding the patient's significant renal dysfunction at this time. I voiced my concerns with regard to the fact that her urine output has not really picked up since she has been admitted to the hospital and her repeat labs have shown no significant improvement. I also informed her of the possibility that she may need renal replacement therapy /dialysis if her renal function fails to improve or if she runs into issues / problems with volume overload, metabolic acidosis, uremia, or critical electrolyte abnormalities. Ester appeared to voice understanding but felt that given the patient's poor quality of life as is due to her chronic cardiac and respiratory issues (CHF, volume overload, lower extremity edema, COPD, chronic oxygen therapy...etc), she felt that her mother would not really want to pursue dialysis as a treatment option whether it be temporary or chronic in general. I will continue to follow the patient with you while she remains hospitalized and make further recommendations during her hospital course Thank you for allowing me to participate in care of this patient. History of Present Illness Reason for Consult Consult date: 07/01/22 Reason for consult: acute renal failure Chief Complaint Chief complaint: Acute kidney injury, hypocalcemia History of Present Illness Narrative: the patient is a 77-year-old fem
--- NOTE | 2022-07-01 13:35 | PM.CNNEP ---
Assessment and Plan Assessment and plan (1) Acute kidney injury: Code(s): N17.9 - Acute kidney failure, unspecified Status: Resolved Assessment and Plan: etiology not clear possibilities include: acute interstitial nephritis from medications/antibiotics possible prerenal factors (since on diuretics) concurrent BP/cardiac medications (entresto) possible ATN other (?) evaluation to date: renal ultrasound without acute issues urine electrolytes non-prerenal urine eosinophils negative no peripheral eosinophilia on differential of CBC complements negative unfortunately, still not make much urine despite IVFs however, volume status stable, no critical electrolytes, and no metabolic acidosis nevertheless, 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 if her renal function does not improve follow repeat labs and UOP (2) Bacteremia: Code(s): R78.81 - Bacteremia Status: Acute Assessment and Plan: as noted on previous hospitalization culture at that time included MRSA, Staph epidermidis, and Enterococcus faecalis PICC line in place elevated random vancomycin level noted follow repeat cultures (3) Chronic anemia: Code(s): D64.9 - Anemia, unspecified Status: Acute Assessment and Plan: due to recent acute illness/hospitalization unfortunately, LAURA/ARF has not likely helped this issue follow trend of H/H consider empiric Epogen (4) Heart failure with reduced ejection fraction: Code(s): I50.20 - Unspecified systolic (congestive) heart failure Status: Chronic Assessment and Plan: appear compensated at this time however, entresto and diuretics on hold due to #1 monitor volume status closely with LAURA and IVF hydration (5) Chronic respiratory failure: Code(s): J96.10 - Chronic respiratory failure, unspecified whether with hypoxia or hypercapnia Status: Chronic Assessment and Plan: relatively stable at this time continue chronic supplemental oxygen I had a very long and lengthy discussion (> 25 minutes) with the patient's daughter/[id number]-ipfjprwn (Ester) regarding the patient's significant renal dysfunction at this time. I voiced my concerns with regard to the fact that her urine output has not really picked up since she has been admitted to the hospital and her repeat labs have shown no significant improvement. I also informed her of the possibility that she may need renal replacement therapy /dialysis if her renal function fails to improve or if she runs into issues / problems with volume overload, metabolic acidosis, uremia, or critical electrolyte abnormalities. Ester appeared to voice understanding but felt that given the patient's poor quality of life as is due to her chronic cardiac and respiratory issues (CHF, volume overload, lower extremity edema, COPD, chronic oxygen therapy...etc), she felt that her mother would not really want to pursue dialysis as a treatment option whether it be temporary or chronic in general. I will continue to follow the patient with you while she remains hospitalized and make further recommendations during her hospital course Thank you for allowing me to participate in care of this patient. History of Present Illness Reason for Consult Consult date: 07/01/22 Reason for consult: acute renal failure Chief Complaint Chief complaint: Acute kidney injury, hypocalcemia History of Present Illness Narrative: the patient is a 77-year-old female with a past medical history as outlined below who presented to [facility] Emergency room via EMS for further evaluation of generalized weakness. The patient was just recently admitted to [facility] in late May of 2022 for sepsis and pneumonia. She was initiated on broad-spectrum IV antibiotic therapy as well as IV diuretics for her pulmonary edema and lower extremity swelling secondary to her known his
--- NOTE | 2022-07-01 15:23 | PM.IMPN ---
Progress Note: A&P Assessment and Plan (1) Acute kidney injury: Code(s): N17.9 - Acute kidney failure, unspecified Status: Resolved Assessment and Plan: BUN and creatinine on 06/22/2022 were 15 and 0.70 respectively, this admission they are 64 and 6.40. She has noticed a significant decrease in urine output over the last 4 days and straight catheterization yielded only 50 mL of urine. Thus the insult is either prerenal or intrinsic but likely a combination of both. She has been on diuretics due to her marked edema and she is also on Entresto. She was diuresed with her recent hospitalization and may be intravascularly depleted. She was also recently on several different antibiotics at different times including cefepime, azithromycin, vancomycin, and Unasyn. She was consistently on vancomycin and that was continued on discharge due to bacteremia with Enterococcus faecalis Staph epidermidis and MRSA. However she only received 3 doses at the care home due to persistently elevated vancomycin levels. She was discharged on Augmentin as well for several days. Acute interstitial nephritis and acute tubular necrosis are possibilities and several lab and urine tests have been ordered as well as a renal ultrasound. Dr. Alvarez has been consulted and his input is greatly appreciated. At this time will continue with cautious IV fluid rehydration to see how she responds. Nephrotoxic agents to be avoided. Vancomycin level comes back elevated Possible vancomycin induced AIN. (2) Bacteremia: Code(s): R78.81 - Bacteremia Status: Acute Assessment and Plan: Recent bacteremia including MRSA, Staph epidermidis, and Enterococcus faecalis. She has a PICC line in place and was discharged to the care home on vancomycin though she only received 3 doses and her vancomycin level has been persistently elevated. Repeat level remains elevated She was supposed to be on that drug through yesterday thus will not start on any other antibiotics at this juncture. Repeat blood cultures have been ordered. Repeat blood cultures been obtained and will be followed (3) Chronic anemia: Code(s): D64.9 - Anemia, unspecified Status: Acute Assessment and Plan: Hemoglobin has progressively trended down over the last year or so. Monitor. (4) Heart failure with reduced ejection fraction: Code(s): I50.20 - Unspecified systolic (congestive) heart failure Status: Acute Assessment and Plan: She has chronic edema which had been improving with Lasix however she now has an acute kidney injury. Monitor volume status closely while cautiously hydrating. (5) Chronic respiratory failure: Code(s): J96.10 - Chronic respiratory failure, unspecified whether with hypoxia or hypercapnia Status: Acute Assessment and Plan: Currently at her baseline oxygen requirement. Also uses AVAPS at night along with oxygen supplementation 2-3 L during daytime (6) Persistent atrial fibrillation: Code(s): I48.19 - Other persistent atrial fibrillation Status: Acute Assessment and Plan: She is rate controlled. Continue apixaban at decreased doses due to renal failure. Subjective Date/time seen: 07/01/22 15:23 Interval history: Readmitted history reviewed. Renal failure worsened creatinine of 0.5 at discharge admission creatinine over 6. Vancomycin has been on hold due to elevated level Review of Systems Review of Systems: All systems reviewed & are unremarkable except as noted in HPI and below Exam Narrative: General: Chronically ill-appearing female sitting up in bed. Not in acute distress HEENT: Normocephalic, atraumatic. PERRL, EOMI. Sclera anicteric. Tacky mucous membranes. Oropharynx crowded. Neck: Supple. Exam difficult due to neck circumference. Respiratory: She is at her baseline oxygen requirement and she denies feeling any more short of breath than usual. Lung sounds
[2022-07-01] MEDS: APIXABAN 2.5 MG TABLET PO (21:32)
[2022-07-01] MEDS: GABAPENTIN 100 MG CAPSULE PO (21:32)
[2022-07-02] VITALS (9 sets, daily range): BP systolic 105–117; BP diastolic 44–50; PULSE 68–84; RESP 16–20; TEMP 35.6–36.2; O2SAT 93–98
[2022-07-02 05:41] LABS: Basophils Absolute Auto 0.1 K/mm3 (0.0-0.1); Basophils Percent Auto 0.6 % (0.2-1.2); Eosinophils Absolute Auto 0.2 K/mm3 (0-0.3); Hematocrit 29.5 % (37.0-47.0); Hemoglobin 8.4 g/dL (12.0-15.0); Immature Granulocyte Absolute 0.08 K/mm3 (0.00-0.031); Lymphocytes Absolute Auto 0.83 K/mm3 (0.9-3.2); Mean Corpuscular HGB Conc 28.5 g/dl (32-36); Mean Corpuscular Hemoglobin 27.1 pg (26-34); Mean Corpuscular Volume 95.2 fl (80-100); Monocytes Absolute Auto 0.8 K/mm3 (0.1-0.6); Neutrophils Absolute Auto 6.5 K/mm3 (1.3-6.7); Neutrophils Percent Auto 77.4 % (45.5-73.1); Platelet Count Result 188 k/mm3 (150-375); Red Cell Distribution Width 15.9 % (11.5-14.5); White Blood Count 8.3 K/mm3 (4.5-10.0)
[2022-07-02 05:55] LABS: Alanine Aminotransferase 13 U/L (6-35); Albumin Level 3.5 g/dL (3.5-5.1); Alkaline Phosphatase 91 U/L (38-126); Anion Gap 10 mmol/L (8-16); Aspartate Amino Transferase 23 U/L (14-36); Bilirubin,Total 0.6 mg/dL (0.2-1.3); Blood Urea Nitrogen 67 mg/dL (7-17); Calcium 7.4 mg/dL (8.4-10.2); Carbon Dioxide 31 mmol/L (22-30); Chloride 102 mmol/L (98-107); Estimated CRCL calculation 11 ml/min; Estimated Glomerular Filt Rate 6; Glucose 99 mg/dL (65-110); Magnesium 1.6 mg/dL (1.6-2.3); Potassium 4.7 mmol/L (3.4-5.0); Sodium 143 mmol/L (137-145)
[2022-07-02] MEDS: LEVOTHYROXINE SODIUM 100 MCG TABLET PO (05:58)
[2022-07-02] MEDS: LEVOTHYROXINE SODIUM 75 MCG TABLET PO (05:58)
[2022-07-02] MEDS: CENTRAL LINE FLUSH 10 ML IV PUSH (05:59)
[2022-07-02 06:14] LABS: Anisocytosis 1+ (NORMAL); Hypochromasia 2+ (NORMAL); Platelet Estimate Adequate (Adequate); Schistocytes None Seen (NORMAL)
[2022-07-02] MEDS: FLUTICASONE/UMECLIDIN/VILANTER 100-62.5-25 MCG ELLIPTA 1 PUFF INHALATION (08:52)
[2022-07-02] MEDS: APIXABAN 2.5 MG TABLET PO ×2 (09:56→21:01)
[2022-07-02] MEDS: ASPIRIN 81 MG CHEWABLE TABLET PO (09:56)
[2022-07-02] MEDS: METOPROLOL TARTRATE 50 MG TAB PO ×2 (09:56→21:00)
[2022-07-02] MEDS: SERTRALINE HCL 25 MG TABLET PO (09:56)
[2022-07-02] MEDS: FLUTICASONE PROPIONATE 0.05% NA SPR 16 GM BTL (*BKC) 2 SPRAY NASAL (09:58)
--- NOTE | 2022-07-02 11:31 | PM.PNNEP ---
Progress Note: A&P Assessment and Plan (1) Acute kidney injury: Code(s): N17.9 - Acute kidney failure, unspecified Status: Resolved Assessment and Plan: etiology not clear possibilities include: acute interstitial nephritis from medications/antibiotics possible prerenal factors (since on diuretics) concurrent BP/cardiac medications (entresto) possible ATN new infection -- repeat blood culture are positive evaluation to date: renal ultrasound without acute issues urine electrolytes non-prerenal urine eosinophils negative no peripheral eosinophilia on differential of CBC complements negative better urine output in the last 24 hours volume status stable, no critical electrolytes, and no metabolic acidosis nevertheless, she 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 elevated random vancomycin level noted follow repeat cultures (3) Chronic anemia: Code(s): D64.9 - Anemia, unspecified Status: Acute Assessment and Plan: due to recent acute illness/hospitalization unfortunately, LAURA/ARF has not likely helped this issue follow trend of H/H consider empiric Epogen (4) Heart failure with reduced ejection fraction: Code(s): I50.20 - Unspecified systolic (congestive) heart failure Status: Chronic Assessment and Plan: appear compensated at this time however, entresto and diuretics on hold due to #1 monitor volume status closely with LAURA and IVF hydration (5) Chronic respiratory failure: Code(s): J96.10 - Chronic respiratory failure, unspecified whether with hypoxia or hypercapnia Status: Chronic Assessment and Plan: relatively stable at this time continue chronic supplemental oxygen Discussed case with daughter at bedside. Will continue to follow. Subjective Date/time seen: 07/02/22 11:31 Interval history: Follow-up for acute kidney injury/acute renal failure. No acute distress and renal function has not really improved despite gentle IVF hydration; however, urine output seems better in the last 24 hours; no other issues/events overnight; daughter at bedside and we discussed the situation.+ Exam Narrative: General: elderly female in NAD Heart: IRRR, normal S1 and S2; no rub Lungs: coarse breath sounds Abdomen: soft, nontender, nondistended, positive bowel sounds Extremities: no cyanosis or clubbing; 1+ edema Skin: warm and dry; chronic skin changes noted Objective Data Vital Signs Vital Signs: Vital Signs Temp Pulse Resp BP Pulse Ox O2 Del Method O2 Flow Rate 07/02/22 10:00 94 Nasal Cannula 3 07/02/22 09:56 68 07/02/22 08:53 95 Nasal Cannula 3 07/02/22 06:00 96.2 F L 84 20 113/50 L 94 07/01/22 22:00 96.2 F L 81 18 114/40 L 96 07/01/22 21:32 87 07/01/22 14:00 96.4 F L 75 24 H 102/52 L 100 Intake/Output Intake/Output: Intake & Output 06/29/22 06/30/22 07/01/22 07/02/22 23:59 23:59 23:59 23:59 Intake Total 550 2380 1012 Output Total 200 1200 Balance 550 2180 -188 Meds/Results Medications: Active Medications Generic Name Dose Route Start Last Admin Trade Name Freq PRN Reason Stop Dose Admin Acetaminophen 650 mg 06/30/22 16:07 Acetaminophen 325 Mg Tablet PO Q4H PRN Mild Pain (1-3) or Fever Acetaminophen 650 mg 07/01/22 00:12 Acetaminophen 325 Mg Tablet BY MOUTH Q6H PRN Pain Rated 1-3 Albuterol 2.5 mg 07/01/22 00:38 Albuterol Sulfate Neb 2.5 Mg/3 Ml Inh INHALATION Q6H PRN Shortness Of Norma
--- NOTE | 2022-07-02 11:31 | P.PNNP_ITS ---
Progress Note: A&P Assessment and Plan (1) Acute kidney injury: Code(s): N17.9 - Acute kidney failure, unspecified Status: Resolved Assessment and Plan: * etiology not clear * possibilities include: * acute interstitial nephritis from medications/antibiotics * possible prerenal factors (since on diuretics) * concurrent BP/cardiac medications (entresto) * possible ATN * new infection -- repeat blood culture are positive * evaluation to date: * renal ultrasound without acute issues * urine electrolytes non-prerenal * urine eosinophils negative * no peripheral eosinophilia on differential of CBC * complements negative * better urine output in the last 24 hours * volume status stable, no critical electrolytes, and no metabolic acidosis * nevertheless, she 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 * elevated random vancomycin level noted * follow repeat cultures (3) Chronic anemia: Code(s): D64.9 - Anemia, unspecified Status: Acute Assessment and Plan: * due to recent acute illness/hospitalization * unfortunately, LAURA/ARF has not likely helped this issue * follow trend of H/H * consider empiric Epogen (4) Heart failure with reduced ejection fraction: Code(s): I50.20 - Unspecified systolic (congestive) heart failure Status: Chronic Assessment and Plan: * appear compensated at this time * however, entresto and diuretics on hold due to #1 * monitor volume status closely with LAURA and IVF hydration (5) Chronic respiratory failure: Code(s): J96.10 - Chronic respiratory failure, unspecified whether with hypoxia or hypercapnia Status: Chronic Assessment and Plan: * relatively stable at this time * continue chronic supplemental oxygen Discussed case with daughter at bedside. Will continue to follow. Subjective Date/time seen: 07/02/22 11:31 Interval history: Follow-up for acute kidney injury/acute renal failure. No acute distress and renal function has not really improved despite gentle IVF hydration; however, urine output seems better in the last 24 hours; no other issues/events overnight; daughter at bedside and we discussed the situation.+ Exam Narrative: General: elderly female in NAD Heart: IRRR, normal S1 and S2; no rub Lungs: coarse breath sounds Abdomen: soft, nontender, nondistended, positive bowel sounds Extremities: no cyanosis or clubbing; 1+ edema Skin: warm and dry; chronic skin changes noted Objective Data Vital Signs Vital Signs: Vital Signs Temp Pulse Resp BP Pulse Ox O2 Del Method O2 Flow Rate 07/02/22 10:00 94 Nasal Cannula 3 07/02/22 09:56 68 07/02/22 08:53 95 Nasal Cannula 3 07/02/22 06:00 96.2 F L 84 20 113/50 L 94 07/01/22 22:00 96.2 F L 81 18 114/40 L 96 07/01/22 21:32 87 07/01/22 14:00 96.4 F L 75 24 H 102/52 L 100 Intake/Output Intake/Output:
[2022-07-02] MEDS: SODIUM CHLORIDE 0.9% IV 1,000 ML 75 ML IV CONT (13:19)
[2022-07-02] MEDS: HYDROcodone/acetaminophen (*CRX) 5-325 MG TABLET 1 TAB PO (13:19)
[2022-07-02] MEDS: TOLNAFTATE 1% POWDER 45 GM BTL 1 APPLIC TOPICAL ×2 (13:49→21:02)
[2022-07-02] MEDS: NEOMYCIN/POLYMYXIN/BACITRACIN OINTMENT PACKET 1 PACKET (14:35)
[2022-07-02] MEDS: DAPTOmycin 1,000 MG in SODIUM CHLORIDE 0.9% IV 50 ML 100 MG IVPB (15:36)
--- NOTE | 2022-07-02 16:38 | PM.IMPN ---
Progress Note: A&P Assessment and Plan (1) Acute kidney injury: Code(s): N17.9 - Acute kidney failure, unspecified Status: Resolved Assessment and Plan: BUN and creatinine on 06/22/2022 were 15 and 0.70 respectively, this admission they are 64 and 6.40. She has noticed a significant decrease in urine output over the last 4 days and straight catheterization yielded only 50 mL of urine. Thus the insult is either prerenal or intrinsic but likely a combination of both. She has been on diuretics due to her marked edema and she is also on Entresto. She was diuresed with her recent hospitalization and may be intravascularly depleted. She was also recently on several different antibiotics at different times including cefepime, azithromycin, vancomycin, and Unasyn. She was consistently on vancomycin and that was continued on discharge due to bacteremia with Enterococcus faecalis Staph epidermidis and MRSA. However she only received 3 doses [facility] the [facility] due to persistently elevated vancomycin levels. She was discharged on Augmentin as well for several days. Acute interstitial nephritis and acute tubular necrosis are possibilities and several lab and urine tests have been ordered as well as a renal ultrasound. Dr. Alvarez has been consulted and his input is greatly appreciated. At this time will continue with cautious IV fluid rehydration to see how she responds. Nephrotoxic agents to be avoided. Vancomycin level comes back elevated Possible vancomycin induced AIN. MONITOR URINE OUTPUT THE REMAINS ON GENTLE IV FLUID. NO INDICATION FOR DIALYSIS TODAY (2) Bacteremia: Code(s): R78.81 - Bacteremia Status: Acute Assessment and Plan: Recent bacteremia including MRSA, Staph epidermidis, and Enterococcus faecalis. She has a PICC line in place and was discharged to the senior living on vancomycin though she only received 3 doses and her vancomycin level has been persistently elevated. Repeat level remains elevated She was supposed to be on that drug through yesterday thus will not start on any other antibiotics at this juncture. Repeat blood cultures have been ordered. Repeat blood cultures COMING BACK GRAM-POSITIVE COCCI IN CHAINS LIKELY ENTEROCOCCUS SHE WAS RECENTLY TREATED WITH AMPICILLIN/AMOXICILLIN WELL VANCOMYCIN. WILL SUSPECT VRE IF ANY WILL START DAPTOMYCIN ON A LINE IN STONES TO (3) Chronic anemia: Code(s): D64.9 - Anemia, unspecified Status: Acute Assessment and Plan: Hemoglobin has progressively trended down over the last year or so. Monitor. (4) Heart failure with reduced ejection fraction: Code(s): I50.20 - Unspecified systolic (congestive) heart failure Status: Chronic Assessment and Plan: She has chronic edema which had been improving with Lasix however she now has an acute kidney injury. Monitor volume status closely while cautiously hydrating. (5) Chronic respiratory failure: Code(s): J96.10 - Chronic respiratory failure, unspecified whether with hypoxia or hypercapnia Status: Chronic Assessment and Plan: Currently at her baseline oxygen requirement. Also uses AVAPS at night along with oxygen supplementation 2-3 L during daytime (6) Persistent atrial fibrillation: Code(s): I48.19 - Other persistent atrial fibrillation Status: Acute Assessment and Plan: She is rate controlled. Continue apixaban at decreased doses due to renal failure. Subjective Date/time seen: 07/02/22 16:38 Interval history: NO OVERNIGHT EVENTS. DENIES ANY NEW COMPLAINT. DENIES SHORTNESS OF BREATH CHEST PAIN. LEG SWELLING ABOUT THE SAME. URINE OUTPUT REVIEWED. MILDLY PICKED UP ON HER URINE OUTPUT TODAY. REMAINS ON NORMAL SALINE AT 75 CC AN HOUR. BLOOD CULTURE COMING BACK POSITIVE. Review of Systems Review of Systems: All systems reviewed & are unremarkable except as noted in HPI and below Exam Narrative: General
--- NOTE | 2022-07-02 18:55 | PC.NURSE ---
Speciality bed delivered and set up in room. During rounds, patient still up in recliner. Patient refusing to go to bed stating I am comfortable and finally able to rest . Will continue to monitor.
[2022-07-02] MEDS: GABAPENTIN 100 MG CAPSULE PO (21:01)
--- NOTE | 2022-07-03 03:44 | PC.NURSE ---
Pt refused to lay in bed all night and complained about the recliner she was in. Staff continually repositioning Pt in the chair all this shift. Will cont to monitor.
[2022-07-03] MEDS: HYDROcodone/acetaminophen (*CRX) 5-325 MG TABLET 1 TAB PO (03:48)
[2022-07-03 04:48] VITALS: BP 91/40; PULSE 70; RESP 18; TEMP 35.5; O2SAT 95
[2022-07-03] MEDS: ALBUTEROL SULFATE NEB 2.5 MG/3 ML INH INHALATION (06:14)
[2022-07-03] MEDS: IPRATROPIUM BR 0.02% INH SOLN 0.5 MG/2.5 ML VIAL INHALATION (06:14)
[2022-07-03 06:17] VITALS: PULSE 70; PULSE 78; RESP 18; RESP 26; O2SAT 98
[2022-07-03 06:44] LABS: Basophils Absolute Auto 0.1 K/mm3 (0.0-0.1); Basophils Percent Auto 0.6 % (0.2-1.2); Eosinophils Absolute Auto 0.1 K/mm3 (0-0.3); Eosinophils Percent Auto 1.3 % (0-4.4); Hematocrit 31.7 % (37.0-47.0); Hemoglobin 8.9 g/dL (12.0-15.0); Immature Granulocyte Absolute 0.14 K/mm3 (0.00-0.031); Immature Granulocyte Percent A 1.4 % (0-0.5); Lymphocytes Absolute Auto 1.16 K/mm3 (0.9-3.2); Lymphocytes Percent Auto 11.4 % (18.3-44.2); Mean Corpuscular HGB Conc 28.1 g/dl (32-36); Mean Corpuscular Hemoglobin 27.2 pg (26-34); Mean Corpuscular Volume 96.9 fl (80-100); Mean Platelet Volume 10.1 fl (7.4-10.4); Monocytes Absolute Auto 0.8 K/mm3 (0.1-0.6); Monocytes Percent Auto 7.6 % (2.6-8.5); Neutrophils Absolute Auto 7.9 K/mm3 (1.3-6.7); Neutrophils Percent Auto 77.7 % (45.5-73.1); Platelet Count Result 217 k/mm3 (150-375); Red Blood Count 3.27 M/mm3 (4.2-5.4); Red Cell Distribution Width 15.9 % (11.5-14.5); White Blood Count 10.2 K/mm3 (4.5-10.0)
[2022-07-03 06:53] LABS: Alanine Aminotransferase 13 U/L (6-35); Albumin Level 3.5 g/dL (3.5-5.1); Alkaline Phosphatase 96 U/L (38-126); Anion Gap 9 mmol/L (8-16); Aspartate Amino Transferase 16 U/L (14-36); Bilirubin,Total 0.6 mg/dL (0.2-1.3); Blood Urea Nitrogen 69 mg/dL (7-17); Calcium 7.2 mg/dL (8.4-10.2); Carbon Dioxide 31 mmol/L (22-30); Chloride 102 mmol/L (98-107); Estimated CRCL calculation 10 ml/min; Estimated Glomerular Filt Rate 6; Glucose 120 mg/dL (65-110); Magnesium 1.7 mg/dL (1.6-2.3); Potassium 4.8 mmol/L (3.4-5.0); Sodium 142 mmol/L (137-145)
[2022-07-03 08:44] VITALS: PULSE 70
[2022-07-03] MEDS: METOPROLOL TARTRATE 50 MG TAB PO (08:44)
[2022-07-03] MEDS: ASPIRIN 81 MG CHEWABLE TABLET PO (08:44)
[2022-07-03] MEDS: SERTRALINE HCL 25 MG TABLET PO (08:44)
[2022-07-03] MEDS: FLUTICASONE PROPIONATE 0.05% NA SPR 16 GM BTL (*BKC) 2 SPRAY NASAL (08:45)
[2022-07-03] MEDS: APIXABAN 2.5 MG TABLET PO (08:45)
[2022-07-03] MEDS: TOLNAFTATE 1% POWDER 45 GM BTL 1 APPLIC TOPICAL ×2 (08:48→21:00)
[2022-07-03] MEDS: FLUTICASONE/UMECLIDIN/VILANTER 100-62.5-25 MCG ELLIPTA 1 PUFF INHALATION (09:06)
[2022-07-03 09:10] VITALS: PULSE 63; RESP 20; O2SAT 98
--- NOTE | 2022-07-03 10:10 | PM.PNNEP ---
Progress Note: A&P Assessment and Plan (1) Acute kidney injury: Code(s): N17.9 - Acute kidney failure, unspecified Status: Resolved Assessment and Plan: etiology not clear bu suspect ATN possibilities include: acute interstitial nephritis from medications/antibiotics possible prerenal factors (since on diuretics) concurrent BP/cardiac medications (entresto) possible ATN new infection -- repeat blood culture are positive evaluation to date: renal ultrasound without acute issues urine electrolytes non-prerenal urine eosinophils negative no peripheral eosinophilia on differential of CBC complements negative better urine output in the last 24 hours volume status stable, no critical electrolytes, and no metabolic acidosis nevertheless, she remains at high 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 elevated random vancomycin level noted follow repeat cultures (3) Chronic anemia: Code(s): D64.9 - Anemia, unspecified Status: Acute Assessment and Plan: due to recent acute illness/hospitalization unfortunately, LAURA/ARF has not likely helped this issue follow trend of H/H consider empiric Epogen (4) Heart failure with reduced ejection fraction: Code(s): I50.20 - Unspecified systolic (congestive) heart failure Status: Chronic Assessment and Plan: appear compensated at this time however, entresto and diuretics on hold due to #1 monitor volume status closely with LAURA and IVF hydration (5) Chronic respiratory failure: Code(s): J96.10 - Chronic respiratory failure, unspecified whether with hypoxia or hypercapnia Status: Chronic Assessment and Plan: relatively stable at this time continue chronic supplemental oxygen Long extensive discussion (greater than 25 minutes) with the patient's family at bedside regarding her worsening renal dysfunction, positive blood cultures/sepsis, in conjunction with her chronic lung and cardiovascular issues. As already mentioned my previous consultation, the patient's daughter did not feel that renal replacement therapy/dialysis which change her long-term prognosis given her other chronic medical issues and problems whether it be temporary or permanent. They are interested in pursuing comfort care/palliative measures at this time. Will continue to follow. Subjective Date/time seen: 07/03/22 10:10 Interval history: Follow-up for acute kidney injury/acute renal failure. Renal function continues to deteriorate and urine output has declined as well; positive blood cultures noted (despite the fact she was on vancomycin prior to admission); family at bedside and we discussed the situation. Exam Narrative: General: elderly female, currently on BiPAP Heart: IRRR, normal S1 and S2; no rub Lungs: coarse breath sounds Abdomen: soft, nontender, nondistended, positive bowel sounds Extremities: no cyanosis or clubbing; 1+ edema Skin: warm and dry; chronic skin changes noted Objective Data Vital Signs Vital Signs: Vital Signs Temp Pulse Resp BP Pulse Ox O2 Del Method 07/03/22 09:10 63 20 98 BiPAP 07/03/22 08:44 70 07/03/22 06:17 78 26 H 98 BiPAP 07/03/22 06:17 70 18 07/03/22 04:48 96 F L 70 18 91/40 L 95 07/02/22 23:05 BiPAP 07/02/22 22:00 96.1 F L 76 16 117/46 L 93 07/02/22 21:00 72 07/02/22 14:00 97.1 F L 73 18 105/44 L 98 07/02/22 15:12 72 18 07/02/22 15:00 69 18 Intake/Output Intake/Output: Intake & Output 06/30/22 07/01/22 07/02/22 07/03/22 23:59 23:59 23:59 23:59
--- NOTE | 2022-07-03 10:10 | P.PNNP_ITS ---
Progress Note: A&P Assessment and Plan (1) Acute kidney injury: Code(s): N17.9 - Acute kidney failure, unspecified Status: Resolved Assessment and Plan: * etiology not clear bu suspect ATN * possibilities include: * acute interstitial nephritis from medications/antibiotics * possible prerenal factors (since on diuretics) * concurrent BP/cardiac medications (entresto) * possible ATN * new infection -- repeat blood culture are positive * evaluation to date: * renal ultrasound without acute issues * urine electrolytes non-prerenal * urine eosinophils negative * no peripheral eosinophilia on differential of CBC * complements negative * better urine output in the last 24 hours * volume status stable, no critical electrolytes, and no metabolic acidosis * nevertheless, she remains at high 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 * elevated random vancomycin level noted * follow repeat cultures (3) Chronic anemia: Code(s): D64.9 - Anemia, unspecified Status: Acute Assessment and Plan: * due to recent acute illness/hospitalization * unfortunately, LAURA/ARF has not likely helped this issue * follow trend of H/H * consider empiric Epogen (4) Heart failure with reduced ejection fraction: Code(s): I50.20 - Unspecified systolic (congestive) heart failure Status: Chronic Assessment and Plan: * appear compensated at this time * however, entresto and diuretics on hold due to #1 * monitor volume status closely with LAURA and IVF hydration (5) Chronic respiratory failure: Code(s): J96.10 - Chronic respiratory failure, unspecified whether with hypoxia or hypercapnia Status: Chronic Assessment and Plan: * relatively stable at this time * continue chronic supplemental oxygen Long extensive discussion (greater than 25 minutes) with the patient's family at bedside regarding her worsening renal dysfunction, positive blood cultures/sepsis, in conjunction with her chronic lung and cardiovascular issues. As already mentioned my previous consultation, the patient's daughter did not feel that renal replacement therapy/dialysis which change her long-term prognosis given her other chronic medical issues and problems whether it be temporary or permanent. They are interested in pursuing comfort care/palliative measures at this time. Will continue to follow. Subjective Date/time seen: 07/03/22 10:10 Interval history: Follow-up for acute kidney injury/acute renal failure. Renal function continues to deteriorate and urine output has declined as well; positive blood cultures noted (despite the fact she was on vancomycin prior to admission); family at bedside and we discussed the situation. Exam Narrative: General: elderly female, currently on BiPAP Heart: IRRR, normal S1 and S2; no rub Lungs: coarse breath sounds Abdomen: soft, nontender, nondistended, positive bowel sounds Extremities: no cyanosis or clubbing; 1+ edema Skin: warm and dry; chronic skin changes noted Objective Data Vital Signs Vital Signs: Vital Sign
[2022-07-03 14:00] VITALS: BP 106/55; PULSE 65; RESP 22; TEMP 35.3; O2SAT 97
--- NOTE | 2022-07-03 17:19 | PM.IMPN ---
Progress Note: A&P Assessment and Plan (1) Acute kidney injury: Code(s): N17.9 - Acute kidney failure, unspecified Status: Resolved Assessment and Plan: BUN and creatinine on 06/22/2022 were 15 and 0.70 respectively, this admission they are 64 and 6.40. She has noticed a significant decrease in urine output over the last 4 days and straight catheterization yielded only 50 mL of urine. Thus the insult is either prerenal or intrinsic but likely a combination of both. She has been on diuretics due to her marked edema and she is also on Entresto. She was diuresed with her recent hospitalization and may be intravascularly depleted. She was also recently on several different antibiotics at different times including cefepime, azithromycin, vancomycin, and Unasyn. She was consistently on vancomycin and that was continued on discharge due to bacteremia with Enterococcus faecalis Staph epidermidis and MRSA. However she only [facility] doses [facility] the [facility] due to persistently elevated vancomycin levels. She was discharged on Augmentin as well for several days. Acute interstitial nephritis and acute tubular necrosis are possibilities and several lab and urine tests have been ordered as well as a renal ultrasound. Dr. Alvarez has been consulted and his input is greatly appreciated. At this time will continue with cautious IV fluid rehydration to see how she responds. Nephrotoxic agents to be avoided. Vancomycin level comes back elevated Possible vancomycin induced AIN. MONITOR URINE OUTPUT THE REMAINS ON GENTLE IV FLUID. More uremic poor urine output electrolytes okay Discussed dialysis however patient refused Discussed goals of care discussion was to initiate hospice (2) Bacteremia: Code(s): R78.81 - Bacteremia Status: Acute Assessment and Plan: Recent bacteremia including MRSA, Staph epidermidis, and Enterococcus faecalis. She has a PICC line in place and was [facility] to the [facility] on vancomycin though she only received 3 doses and her vancomycin level has been persistently elevated. Repeat level remains elevated She was supposed to be on that drug through yesterday thus will not start on any other antibiotics at this juncture. Repeat blood cultures have been ordered. Repeat blood cultures COMING BACK GRAM-POSITIVE COCCI IN CHAINS LIKELY ENTEROCOCCUS SHE WAS RECENTLY TREATED WITH AMPICILLIN/AMOXICILLIN WELL VANCOMYCIN. WILL SUSPECT VRE IF ANY WILL START DAPTOMYCIN Blood culture coming back as Enterococcus/Staphylococcus aureus and Staph epidermidis as previously was present Possible endocarditis T E E discussed but patient refused (3) Chronic anemia: Code(s): D64.9 - Anemia, unspecified Status: Acute Assessment and Plan: Hemoglobin has progressively trended down over the last year or so. Monitor. (4) Heart failure with reduced ejection fraction: Code(s): I50.20 - Unspecified systolic (congestive) heart failure Status: Chronic Assessment and Plan: She has chronic edema which had been improving with Lasix however she now has an acute kidney injury. Monitor volume status closely while cautiously hydrating. (5) Chronic respiratory failure: Code(s): J96.10 - Chronic respiratory failure, unspecified whether with hypoxia or hypercapnia Status: Chronic Assessment and Plan: Currently at her baseline oxygen requirement. Also uses AVAPS at night along with oxygen supplementation 2-3 L during daytime (6) Persistent atrial fibrillation: Code(s): I48.19 - Other persistent atrial fibrillation Status: Acute Assessment and Plan: She is rate controlled. Continue apixaban at decreased doses due to renal failure. Plan Goals of care discussion: Patient declining. Overall restless and short of breath. Will initiate comfort measures as after discussion with family do not prefer to continue with medical treatment. Wants com
[2022-07-03] MEDS: LORazepam INJ (*CRX) 2 MG/ML VIAL IV PUSH (17:52)
[2022-07-03] MEDS: MORPHINE SULFATE (*CRX) 2 MG/ML INJ IV PUSH ×2 (17:53→20:27)
--- NOTE | 2022-07-03 20:07 | PC.NURSE ---
Pt being switched to comfort measures and will be evaluated by hospice tomorrow. Pt has been in and out of moments of lucidity. Pt family met with hospice and provider today. Pt restless and visibly in pain. pt has responded well to pain management. Pt monitored for any changes in status during shift.
[2022-07-03 22:00] VITALS: BP 84/24; PULSE 61; RESP 16; TEMP 35.2; O2SAT 97
[2022-07-04] MEDS: LORazepam INJ (*CRX) 2 MG/ML VIAL IV PUSH (03:10)
[2022-07-04 08:00] VITALS: BP 94/48; PULSE 86; RESP 20; TEMP 33.8; O2SAT 91
[2022-07-04 08:07] VITALS: O2SAT 95
[2022-07-04] MEDS: TOLNAFTATE 1% POWDER 45 GM BTL 1 APPLIC TOPICAL (08:09)
[2022-07-04] MEDS: FLUTICASONE PROPIONATE 0.05% NA SPR 16 GM BTL (*BKC) 2 SPRAY NASAL (08:10)
[2022-07-04 09:18] VITALS: TEMP 33.8
[2022-07-04] MEDS: MORPHINE SULFATE (*CRX) 2 MG/ML INJ IV PUSH ×2 (10:37→11:43)
--- NOTE | 2022-07-04 12:20 | PM.DS ---
DS: Admitting Diagnosis Discharge Date 07/04/2022 Admitting Diagnosis LAURA Weakness DS: Discharge Diagnosis Discharge Diagnosis (1) LAURA (acute kidney injury): Code(s): N17.9 - Acute kidney failure, unspecified Status: Acute (2) Acute on chronic respiratory failure with hypoxia and hypercapnia: Code(s): J96.21 - Acute and chronic respiratory failure with hypoxia; J96.22 - Acute and chronic respiratory failure with hypercapnia Status: Acute (3) Hospice care patient: Code(s): Z51.5 - Encounter for palliative care Status: Acute DS: Summary Hospital Course Hospital Course: This is a very pleasant 77-year-old female with multiple medical problems including chronic obstructive pulmonary disease, chronic hypercarbic respiratory failure, heart failure with preserved ejection fraction,, atrial fibrillation, hypertension, dyslipidemia, peripheral arterial disease, and hypothyroidism who presented to the emergency department via EMS from [facility] for evaluation of weakness. The patient provides the following history. She was very recently admitted to the hospital on 06/15/2022 with sepsis and pneumonia. She was started on broad-spectrum antibiotics and diuresed with IV Lasix for swelling and pulmonary edema. She tolerated the Lasix well and her creatinine actually improved with diuresis to 0.9 on discharge. Blood cultures came back positive for Enterococcus faecalis, Staph epidermidis, and MRSA (all sensitive to vancomycin) and she was discharged to the [facility] facility on 06/21/2022 with a PICC line in place to receive vancomycin through June 30. She was also discharged on Augmentin which she completed on the . She has received only 3 doses of vancomycin at the [facility] facility due to persistently elevated vancomycin levels. About 3 to 4 days ago the patient started to complain of difficulties urinating and she noticed a drastic decrease in her urine output. She has gotten increasingly weak the last several days and she requested that she be sent into the ER for evaluation. BUN and creatinine on 06/22/2022 were 15 and 0.70 respectively, today they are 64 and 6.40. She has noticed a significant decrease in urine output over the last 4 days and straight catheterization yielded only [address] Alvarez has been consulted. Patient declining.? Overall restless and short of breath.? Will initiate comfort measures as after discussion with family do not prefer to continue with medical treatment.? Wants comfort measures implemented and potential hospice enrollment she likely meet inpatient hospice criteria as I do not anticipate prolonged course. Patient is being discharged to inpatient hospice Time Spent with Patient Time attestation: Total time spent providing and/or coordinating discharge services: DS: Data Data Completed and Pending Labs on day of discharge: Preliminary micro results at discharge 06/30/22 18:49 Blood Culture - Preliminary Blood Vanco Res Enterococc faecalis Methicillin Resis Staph Aureus 06/30/22 18:49 Blood Culture - Preliminary Blood Vanco Res Enterococc faecalis Methicillin Resis Staph Aureus Staphylococcus epidermis Discharge Plan Discharge Consulting providers: Guille Alvarez Discharging Clinician: Ryan Shannon Anticipated Discharge Date/Time: 07/04/22 12:18 Patient Disposition: Hospice - Medical Facility Activity: no preference Diet: as tolerated Patient Instructions: Apixaban (By mouth), Heart Failure (DC) Stand Alone Forms: General Discharge Information Discharge Medications: Continued bisacodyl 10 mg Suppository 10 mg RECTAL PRN PRN (Reason: Constipation) Rx Instructions: if no results from mom Discontinued simvastatin 20 mg tablet 20 mg PO HS albuterol sulfate 90 mcg/actuation HFA aerosol inhaler 1 puff INHALATION Q4H PRN (Reason: SOB) fluticasone propionate 50 mcg/act
[2022-07-06 14:59] LABS: Chloride Rand Ur 42 mmol/L (32-290); Chloride/Creatinine Rand Ur 81 (38-318); Creatinine Random Urine 52 mg/dL (20-275)
[2022-07-07 18:39] LABS: Complement Total CH50 >60 U/mL (31-60)
--- NOTE | 2022-07-09 07:42 | PC.NURSE ---
07/01/221999 Blood culture preliminary results reported to . No new orders at this time.
== END 2022-07-04 12:30 | disposition hospice, inpatient (51) | DRG 683 ==
LOC: ANHED 14:57 → ANH3MEDSUR 16:56
PROVIDERS: Physician Assistant; Admitting Provider Internal Medicine; Emergency Provider Emergency Medicine; PCP Internal Medicine; Visit Provider Hospitalist
DX: N17.9 Acute kidney failure, unspecified (principal); E66.2 Morbid (severe) obesity with alveolar hypoventilation; I13.0 Hypertensive heart and chronic kidney disease with heart failure and stage 1 through stage 4 chronic kidney disease, or unspecified chronic kidney disease; I50.32 Chronic diastolic (congestive) heart failure; I48.19 Other persistent atrial fibrillation; J96.12 Chronic respiratory failure with hypercapnia; J96.11 Chronic respiratory failure with hypoxia; Z68.43 Body mass index [BMI] 50.0-59.9, adult; R78.81 Bacteremia; Z16.21 Resistance to vancomycin; I73.9 Peripheral vascular disease, unspecified; I27.20 Pulmonary hypertension, unspecified; N18.30 Chronic kidney disease, stage 3 unspecified; D64.9 Anemia, unspecified; J44.9 Chronic obstructive pulmonary disease, unspecified; E83.51 Hypocalcemia; E03.9 Hypothyroidism, unspecified; K21.9 Gastro-esophageal reflux disease without esophagitis; B95.2 Enterococcus as the cause of diseases classified elsewhere; Z96.651 Presence of right artificial knee joint; Z86.73 Personal history of transient ischemic attack (TIA), and cerebral infarction without residual deficits; Z86.718 Personal history of other venous thrombosis and embolism; Z51.5 Encounter for palliative care; Z79.01 Long term (current) use of anticoagulants; Z87.891 Personal history of nicotine dependence; Z99.3 Dependence on wheelchair
CPT/HCPCS: 36415; 71045; 76775; 80048; 80053; 80202; 81001; 82436; 82550; 82570; 83735; 84100; 84133; 84156; 84300; 85025; 85610; 85652; 85730; 85999; 86140; 86160; 86162; 87040; 87086; 87106; 87147; 87181; 87186; 93005; 94640; 96361; 96375; 99285; A9270; J0612; J0878; J2060; J2270; J7030; J7040

== ENCOUNTER 2022-07-04 13:00 | HOS | payer OTHER, MEDICAID, SELFPAY ==
[2022-07-04 12:57] VITALS: O2SAT 95
[2022-07-04 13:37] VITALS: PULSE 56; RESP 22
[2022-07-04] MEDS: HYDROmorphone HCL/PF (*CRX) 50 MG in SODIUM CHLORIDE 0.9% IV 95 ML IV CONT (13:37)
[2022-07-04] MEDS: ARTIFICIAL TEARS OPHTH SOLN 15 ML BOTTLE 1 DROP EACH EYE (15:24)
--- NOTE | 2022-07-04 19:21 | PM.IMHP ---
H&P: HPI History of Present Illness Date/Time: 07/04/22 19:21 Chief Complaint: Uncontrolled dyspnea Narrative: This unfortunate 77-year-old female was discharged from [facility] June 21, 2022 after being treated for pneumonia with MRSA and Enterococcus bacteremia. She was sent back to [facility] with a PICC line and vancomycin. However due to persistently elevated level she received only 3 doses IV there. Because of decreased urine out put and increasing shortness of breath she came back to the emergency department she was found to have acute kidney injury. Her creatinine upon discharge from acute care was 6.7 July 03. Because of her worsening kidney function shortness of breath and restlessness family opted for inpatient hospice care. Review of Systems Review of Systems: All systems reviewed & are unremarkable except as noted in HPI and below PMFSH Past Medical History Medical History Anxiety Chronic anticoagulation Chronic kidney disease, stage 3 Chronic obstructive pulmonary disease Chronic respiratory failure Evidence both chronic hypoxic and hypercapnic respiratory failure by ABGs. Not on home oxygen. Congestive heart failure Echocardiogram on 11/07/2018 showed an LV systolic function at the lower limit of normal with an EF estimated 50 to 55%, severe biatrial enlargement, normal RV systolic pressure, and mild tricuspid regurgitation. With repeat echocardiogram 05/2021 demonstrating stable findings Deep venous thrombosis Degenerative joint disease Gastroesophageal reflux disease History of peptic ulcer Hypertension Hypothyroidism Morbid obesity Obesity hypoventilation syndrome Peripheral arterial disease Arterial Dopplers of the lower extremities in January 2019 showed occlusion distally. Peripheral angiogram showed 1 vessel runoff bilaterally though no indication for intervention due to collaterals. Reports chronic pain and legs though not debilitating and she is not interested in surgical intervention. Persistent atrial fibrillation Pulmonary hypertension Transient ischemic attack Surgical History Surgical History History of right knee joint replacement (01/2009) Family History Family History Mother Depression Mouth cancer Cancer Tongue cancer Father Acute myocardial infarction Social History Social History Social History: Surrogate decision maker: Ester Sanchez, daughter. Code status: Full code Smoking packs per day: 1 Smoking cigarettes per day: 20.0 Years smoked: 33 Smoking pack-years: 33.00 Smoking status: Former smoker Tobacco type: cigarettes Second hand tobacco smoke exposure: No Alcohol intake: never Substance use: never Substance use type: does not use Lack of Transportation: No Lack of Food: Never True Current Housing: I Have Housing Concerned About Future Housing: No Difficulty Paying Gas/Electric Bills: No Difficulty Paying for Meds: No Currently Unemployed: No Education: High School Diploma/GED Difficulty w/ Childcare or Family Care: No Additional living arrangements comments: as of September 2020. She is wheelchair bound to electric wheelchair. She has transitioned from assisted living to half-way. 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
[2022-07-05] MEDS: diazePAM INJ (*CRX) 10 MG/2 ML SYRINGE 5 MG IV PUSH (07:49)
[2022-07-05 08:00] VITALS: O2SAT 95
--- NOTE | 2022-07-10 09:26 | P.DN_ITS ---
Discharge Summary Date and Time Date of : 07/05/22 Time of : 09:05 Provider Pronounced By: Teagan Roe RN Probable Cause of Probable Cause of : Acute hypoxic respiratory failure due to acute on chronic systolic congestive heart failure due to acute kidney failure Summary Hospital Course: Admitted to inpatient hospice due to uncontrolled dyspnea and discomfort. Medications were titrated to comfort. Mrs. Roland peacefully. Additional Data Confirmation of as documented by pronouncing clinician: Pupillary Reflex, Palpable Pulses, Response to Stimuli, Heart Tones and Breath Sounds Name of Provider Notified: Dr. Toni Lauren Time Provider Notified: 09:10 Provider Requests Autopsy: No Family Requests Autopsy: No Instructor Adjunct Surgical Technician Notified: Yes Date [facility] Notified of : 07/05/22 Time [facility] Notified of : 09:32
== END 2022-07-05 09:05 | disposition expired | DRG 951 ==
PROVIDERS: Admitting Provider Internal Medicine; PCP Internal Medicine; Visit Provider Internal Medicine
DX: Z51.5 Encounter for palliative care (principal); J96.21 Acute and chronic respiratory failure with hypoxia; J96.22 Acute and chronic respiratory failure with hypercapnia; I50.23 Acute on chronic systolic (congestive) heart failure; N17.9 Acute kidney failure, unspecified; I13.0 Hypertensive heart and chronic kidney disease with heart failure and stage 1 through stage 4 chronic kidney disease, or unspecified chronic kidney disease; N18.30 Chronic kidney disease, stage 3 unspecified
CPT/HCPCS: A9270; J1170; J3360